=== PATIENT | female | born 1965 | race Caucasian/White ===

== ENCOUNTER 2018-02-08 09:44 | Outpatient (RCR) | payer MEDICARE, SELFPAY ==
[2018-02-08] MEDS: Heparin 500 UNITS/5 ML SYRINGE IV (10:10)
[2018-02-08] MEDS: Normal Saline Flush 10 ML SYR IVP (10:10)
== END 2018-02-10 ==
LOC: INF 09:44
PROVIDERS: PCP Family Medicine; Visit Provider Family Medicine
DX: Z45.2 Encounter for adjustment and management of vascular access device (principal)
CPT/HCPCS: 96523

== ENCOUNTER → 2018-04-26 10:14 | Outpatient (BNVA) | payer MEDICARE, SELFPAY | PROVIDERS: PCP Family Medicine; Referring Provider Family Medicine; Visit Provider Student in an Organized Health Care Education/Training Program | DX: M75.82 Other shoulder lesions, left shoulder (principal); E11.9 Type 2 diabetes mellitus without complications; Z79.84 Long term (current) use of oral hypoglycemic drugs; I10 Essential (primary) hypertension | CPT/HCPCS: 20610; 99213; J1040 ==

== ENCOUNTER → 2018-06-14 10:32 | Outpatient (BNVA) | payer MEDICARE, SELFPAY | PROVIDERS: PCP Family Medicine; Referring Provider Family Medicine; Visit Provider Student in an Organized Health Care Education/Training Program | DX: M75.82 Other shoulder lesions, left shoulder (principal); S93.402A Sprain of unspecified ligament of left ankle, initial encounter; E11.9 Type 2 diabetes mellitus without complications; Z79.84 Long term (current) use of oral hypoglycemic drugs; I10 Essential (primary) hypertension; X50.1XXA Overexertion from prolonged static or awkward postures, initial encounter | CPT/HCPCS: 99214 ==

== ENCOUNTER 2018-06-14 11:16 | Outpatient (CLI) | payer MEDICARE, SELFPAY ==
--- NOTE | 2018-06-14 11:05 | DI.RAD_ITS ---
SYMPTOMS/DIAGNOSIS: LT ANKLE INJURY LEFT ANKLE: There is no fracture or ankle mortise widening. There is mild spurring from the malleoli. Calcaneal spurs are seen. IMPRESSION: No acute abnormality.
== END 2018-06-14 11:36 ==
PROVIDERS: PCP Family Medicine; Visit Provider Student in an Organized Health Care Education/Training Program
DX: S93.402A Sprain of unspecified ligament of left ankle, initial encounter (principal); M77.32 Calcaneal spur, left foot
CPT/HCPCS: 99214; 73610

== ENCOUNTER 2018-06-17 15:07 | Emergency (ER) | payer MEDICARE, SELFPAY ==
[2018-06-17 15:10] VITALS: BP 126/88; PULSE 66; RESP 14; TEMP 36.7; O2SAT 100
--- NOTE | 2018-06-17 15:38 | ED.GENADUL_ITS ---
Discharge Plan Disposition Patient Disposition: HOME Condition: Fair Discharge Details Chief Complaint: Nk/Back Pain Clinical Impression: Back pain Primary Care Provider: Katarina Rodriguez ED Provider: Zoey Car [place] Meds and New Rx's Prescriptions: New diazepam [Valium] 5 mg tablet 5 mg PO BID Qty: 4 RF: 0 Continued ketamine thom 10 mg PO QID PRNRF: 0 ketamine/lidocaine 1 applic Topical HS RF: 0 zaleplon 10 MG capsule 10 mg PO HS RF: 0 polyethylene glycol 3350 [Miralax] 17 GM powder in packet 255 gm PO for colonosocpy Qty: 1 RF: 0 losartan 25 MG tablet 100 mg PO DAILY RF: 0 Zyrtec 10 MG capsule 10 mg PO DAILY RF: 0 meloxicam 15 MG tablet 15 mg PO DAILY RF: 0 ondansetron 4 MG tablet,disintegrating 4 mg PO TID PRN PRNRF: 0 bisacodyl [Dulcolax (bisacodyl)] 5 MG tablet,delayed release (DR/EC) 5 mg PO BID PRNQty: 10 RF: 0 topiramate [Topamax] 100 MG tablet 500 mg PO BID RF: 0 duloxetine [Cymbalta] 30 MG capsule,delayed release(DR/EC) 30 mg PO BID RF: 0 ascorbic acid (vitamin C) 1,000 MG tablet 1 tab PO DAILY RF: 0 cholecalciferol (vitamin D3) 1,000 UNITS tablet 1 tab PO DAILY RF: 0 pantoprazole [Protonix] 20 MG tablet,delayed release (DR/EC) 20 mg PO DAILY RF: 0 baclofen 10 MG tablet 10 mg PO BID RF: 0 ketamine 50 MG/ML solution 2 spray NS QID PRNRF: 0 lorazepam 1 MG tablet 1 mg PO DIRECTED RF: 0 polyethylene glycol 3350 17 GM powder in packet 2 pkt PO PRN PRNRF: 0 misoprostol 200 MCG tablet 200 mcg PO DAILY RF: 0 ProAir HFA 200 PUFF HFA aerosol inhaler 2 puff Inhalation PRN PRNRF: 0 Symbicort 10.2 GM HFA aerosol inhaler 2 puff Inhalation DAILY PRN PRNRF: 0 clonidine HCl [Catapres] 0.1 MG tablet 0.1 mg PO DIRECTED PRNQty: 0 RF: 0 acetaminophen [Acetaminophen Extra Strength] 500 MG tablet 1,000 mg PO TID PRNQty: 180 RF: 0 Lyrica 100 MG capsule 50 mg PO BID RF: 0 aspirin 325 MG tablet,delayed release (DR/EC) 81 mg PO DAILY RF: 0 metformin 500 MG tablet extended release 24 hr 500 mg PO DAILY RF: 0 furosemide 20 MG tablet 20 mg PO PRN PRNRF: 0 Discharge Instructions Instructions: Back Pain (ED) Additional Instructions: Encourage hydration. Encourage gentle stretching and frequent ambulation. Tylenol and/or Motrin as needed for discomfort. Valium as prescribed for muscle relaxation, please take only as prescribed. Follow up with primary care this week for reevaluation. Physical therapy referral is attached. If you develop change in urinary or bowel habits, altered sensation, weakness, fevers/chills or other new/worsening symptoms please seek care urgently once again. Stand Alone Forms: Physical Therapy Referral Referrals: Katarina Rodriguez MD [Primary Care Provider] - Discharge Data Discharge Date/Time-TO BE ENTERED AT DEPARTURE: 06/17/18 20:24 Medical Decision Making Patient is a 52 year old female presenting today with c/c of left sided back pain. Patient has history of neck pain, complex regional paini syndrome, neuralgia, cholecystitis, hypertension, GERD, migrain, back pain, DM, obesity, asthma. Patient reports that 6 days ago she caught her shoe going down 4 steps. States that she missed the last 1-2 steps and twisted. States seh was able to catch herself and did not fall. Pain is lont the thoracic and lower back into the left buttock. Pain does not radiate into limb, does radiate into the left buttock. Denies othe rinjury at the time of the incident. States she has tried Baclofen, Tylenol, Meloxicam and Aleve. States she took Meloxicam this morning as well as Tylenol. Baclofen was last taken yestreday. On exam, patient appears comfortable. She is moving well. Good strength in bilateral lower extremities, no saddle paresthesias. Neuro exam is intact. No midline pain or paraspinal discomfort with palpation. Full ROM, pain with extremes of rotation along the left lateral side of her back. Patients pain is very diffuse. As she is not having midline tenderness, did not have any trauma, I have low suspicion for bony abnoramlity. Plan to treat patients pain with oral valium and lidoderm patch. She has maximized her use of NSAID and Acetaminophen prior to arrival. Reevaluated after she had her right knee and Valium. She reports no improvement. She continues to look very comfortable. Is currently texting on her phone. She has been up to about the room. I did encourage stretching while here. We will augment medications as already had thus far with oral oxycodone. Patient has maximized the use of Tylenol and anti-inflammatories today already. After oral oxycodone, patient reports the pain is unchanged. Her pain is difficult to assess as the patient continues to appear comfortable. She is moving well. She is texting on her phone. At this point, she has utilized acetaminophen, anti-inflammatory, topical options, muscle relaxer as well as opiates. She does have a long history of chronic pain which may also be contributing to the current discomfort as well as difficulty treating this. I had discussed this initially with the patient and reiterated this again. Patient will be given Flexeril. However, I advised that if this is unsuccessful this may be a roasterman treatment requiring physical therapy. Specially given the patient's history, I am hesitant to continue with opiates. After oral Flexeril, she is reporting that pain is improving. Patient continues to move well and is requesting discharge. Referral for PT given. Encouraged ROM and frequent ambulation. We discussed topical and home remedies to help with discomfort. ADvised on strict return precautions. She will contact PCP Tuesday to schedule follow up appointment. Encouraged hydration. She is requesting Valium for home use, will give a small amount of this. She will not drive while taking this medication. Will not take with Flexeril. All of her questions and concerns were addressed, she is in agreement with this plan. HPI General Mode of arrival: ambulatory . Date/Time Provider Initiated Documentation: 06/17/18 15:13 . Limitations to Documentation: no limitations . Information obtained by: patient . History of Present Illness 52 year old F presents to the emergency department with the chief complaint of left sided back pain, described as severe, Quality is described as aching, and is localized to the back. Patient reports radiation to (into left buttock). Patient started experiencing this day(s) and it has been constant. No relieving factors improve symptom(s), Movement worsens symptoms . Patient notes denies chest pain, cough, fever/chills, nausea/vomiting, rash, shortness of breath and weakness. Patient did receive the following treatments prior to arrival, NSAID Related Data Home Medications Medication Instructions Recorded Confirmed losartan 100 mg PO DAILY 09/01/12 06/17/18 Zyrtec 10 mg PO DAILY 11/20/12 06/17/18 meloxicam 15 mg PO DAILY 03/01/13 06/17/18 ondansetron 4 mg PO TID PRN PRN 07/07/13 06/17/18 bisacodyl [Dulcolax (bisacodyl)] 5 mg PO BID PRN #10 tablet. 07/26/13 06/17/18 duloxetine [Cymbalta] 30 mg PO BID 09/15/13 06/17/18 topiramate [Topamax] 500 mg PO BID 09/15/13 06/17/18 ascorbic acid (vitamin C) 1 tab PO DAILY 07/18/14 06/17/18 cholecalciferol (vitamin D3) 1 tab PO DAILY 07/18/14 06/17/18 baclofen 10 mg PO BID 08/26/14 06/17/18 pantoprazole [Protonix] 20 mg PO DAILY 08/26/14 06/17/18 ketamine 2 spray NS QID PRN 05/01/15 06/17/18 ProAir HFA 2 puff INHALATION PRN PRN 08/04/15 06/17/18 Symbicort 2 puff INHALATION DAILY PRN PRN 08/04/15 06/17/18 lorazepam 1 mg PO DIRECTED 08/04/15 06/17/18 misoprostol 200 mcg PO DAILY 08/04/15 06/17/18 polyethylene glycol 3350 2 pkt PO PRN PRN 08/04/15 06/17/18 Ketamine Thom 10 mg PO QID PRN 03/10/16 06/17/18 Ketamine/Lidocaine 1 applic TOPICAL HS 03/10/16 06/17/18 Lyrica 50 mg PO BID 05/01/16 06/17/18 aspirin 81 mg PO DAILY 09/20/16 06/17/18 metformin 500 mg PO DAILY 09/21/16 06/17/18 zaleplon 10 mg PO HS tab-cap 10/01/16 06/17/18 clonidine HCl [Catapres] 0.1 mg PO DIRECTED PRN #0 10/21/16 06/17/18 acetaminophen [Acetaminophen Extra 1,000 mg PO TID PRN #180 tab 02/22/17 06/14/18 Strength] furosemide 20 mg PO PRN PRN 04/26/17 06/17/18 polyethylene glycol 3350 [Miralax] 255 gm PO for colonosocpy #1 gm 05/18/17 06/17/18 diazepam [Valium] 5 mg PO BID #4 tab 06/17/18 Previous Rx's Medication Instructions Recorded bisacodyl [Dulcolax (bisacodyl)] 5 mg PO BID PRN #10 tablet. 07/26/13 clonidine HCl [Catapres] 0.1 mg PO DIRECTED PRN #0 10/21/16 acetaminophen [Acetaminophen Extra 1,000 mg PO TID PRN #180 tab 02/22/17 Strength] polyethylene glycol 3350 [Miralax] 255 gm PO for colonosocpy #1 gm 05/18/17 diazepam [Valium] 5 mg PO BID #4 tab 06/17/18 Allergies Allergy/AdvReac Type Severity Reaction Status Date / Time phenytoin sodium Allergy Severe Hives Unverified 06/17/18 15:13 [From Dilantin] phenytoin sodium extended Allergy Severe Hives Unverified 06/17/18 15:13 [From Dilantin] amoxicillin [Amoxicillin] Allergy Intermediate Hives Unverified 06/17/18 15:13 potassium clavulanate Allergy Intermediate Hives Unverified 06/17/18 15:13 [From Augmentin] Sulfa (Sulfonamide Allergy Mild Skin Rash Unverified 06/17/18 15:13 Antibiotics) tomato [Tomato] Allergy Mild Skin Rash Unverified 06/17/18 15:13 sumatriptan [From Imitrex] AdvReac Severe Visual Unverified 06/17/18 15:13 Disturbances,burning sensation through out body General Stated Complaint: Nk/Back Pain HARRIET: 4 Review of Systems Constitutional Reports as per HPI, Denies chills, Denies fever(s), Denies headache(s) and Denies weakness ENT Denies headache(s) and Denies neck pain Cardiovascular Reports as per HPI Respiratory Reports as per HPI and Denies cough Gastrointestinal Denies abdominal pain, Denies change in stool character and Denies fecal incontinence Genitourinary Denies urinary incontinence Musculoskeletal Reports as per HPI, Denies abnormal gait, Reports back pain, Denies deformity, Denies neck pain, Denies numbness, Reports stiffness and Denies tingling Integumentary/Breasts Reports as per HPI, Denies rash and Denies wounds Neurologic Denies abnormal gait, Denies headache(s), Denies numbness, Denies tingling and Denies weakness [facility] Medical History Asthma DM (diabetes mellitus) GERD (gastroesophageal reflux disease) HTN (hypertension) Obesity Otalgia Tendinitis Surgical History Colonoscopy - MAC (06/15/17) Mediport placement (05/02/15) Social History Smoking/Tobacco Use Status: Former Tobacco Use Exam Const General: cooperative, healthy appearing, comfortable, no acute distress, well developed and well groomed Nutritional Appearance: average body habitus and well nourished Orientation: alert and awake Resp Effort & Inspection: normal respiratory effort, able to speak in complete sentences and no respiratory distress Auscultation: clear to auscultation bilaterally, no rales, no rhonchi and no wheezes Cardio Rate: regular rate Rhythm: regular rhythm Heart Sounds: S1 normal and S2 normal Back/Spine/Pelvis Back: no CVA tenderness Cervical Spine: normal cervical lordosis and cervical ROM normal Thoracic/Lumbar Spine: thoracic and lumbar spine normal to inspection, thoraco- lumbar ROM normal (has good ROM but pain with ROM, particualrly with rotational movements), bend over test abnormal, No mass, pain with thoraco-lumbar ROM, No paraspinal tenderness and straight leg raise positive (on left side) Pelvis: no pain with anterior-posterior compression and no pain with lateral compression Sacroiliac joints: on the left tender to palpation Skin General skin exam: no rashes or lesions noted Lesions: no lesions Rashes: no rashes Trauma: no lacerations or abrasions Neuro General: alert and awake Cognition: normal cognition Speech: speech normal Gait: normal gait Motor: muscle tone normal throughout, strength 5/5 throughout and no fasciculations Sensory Exam: no sensory deficits noted (no saddle paresthesias noted) DTR's: Rt Patellar: 2+, Lt Patellar: 2+, Rt Ankle: 2+ and Lt Ankle: 2+ Extrem General: normal to inspection, normal capillary refill, no pedal edema, no calf tenderness and normal gait Right lower extremity: normal to inspection, full ROM and normal capillary refill Left lower extremity: normal to inspection, full ROM and normal capillary refill Psych Appearance: grossly normal and well kempt Mental Status: mental status grossly normal Speech and Movement: speech and movement normal Course Vital Signs Temperature 36.7 C 06/17/18 15:10 Pulse 66 06/17/18 15:10 Respiratory Rate 14 06/17/18 15:10 Blood Pressure 126/88 06/17/18 15:10 Pulse Oximetry 100 06/17/18 15:10 Temperature 36.7 C 06/17/18 15:10 Temperature Source Temporal Artery Scan 06/17/18 15:10 Pulse 66 06/17/18 15:10 Respiratory Rate 14 06/17/18 15:10 Respiratory Effort Non-Labored 06/17/18 15:12 Blood Pressure 126/88 06/17/18 15:10 Blood Pressure Position Sitting 06/17/18 15:10 Pulse Oximetry 100 06/17/18 15:10 Oxygen Delivery Method Room Air 06/17/18 15:10 Oxygen Flow Rate 0 06/17/18 15:10 Pain Level 8 06/17/18 15:10
[2018-06-17] MEDS: Diazepam 5 MG TAB PO ×2 (15:49→20:20)
[2018-06-17] MEDS: Lidocaine 5% Patch 1 PATCH TP (15:49)
--- NOTE | 2018-06-17 16:36 | NUR.NOTE ---
Nursing Note:AMbulated to restroom with no acute distress. plan to medicate with po oxycodone
[2018-06-17] MEDS: oxyCODONE 5 MG TAB PO (16:39)
[2018-06-17] MEDS: Cyclobenzaprine 10 MG TAB PO (18:29)
--- NOTE | 2018-06-17 19:12 | NUR.NOTE ---
Nursing Note:No acute changes, patient continues to have pain . ambulating in halls to restroom. will continue to monitor.
== END 2018-06-17 20:24 | disposition home or self-care (01) ==
PROVIDERS: Emergency Provider Physician Assistant; PCP Family Medicine
DX: M54.6 Pain in thoracic spine (principal); M54.5 Low back pain; I10 Essential (primary) hypertension; E11.9 Type 2 diabetes mellitus without complications
CPT/HCPCS: 99283

== ENCOUNTER 2018-06-19 00:56 | Outpatient (CLI) | payer MEDICARE, SELFPAY ==
--- NOTE | 2018-06-19 09:42 | DI.MRI_ITS ---
SYMPTOM/DIAGNOSIS: CONTINUED PAIN AND WEAKNESS, LT ROTATOR CUFF TEAR LEFT SHOULDER MRI: Routine noncontrast examination. Comparison is made with 08/26/16. Post surgical changes are again seen in the left shoulder. The supraspinatus, infraspinatus, teres minor and subscapularis tendons are intact. No evidence of a tear is seen. The muscles show normal signal and size. No significant muscular or fatty atrophy is present. There is no evidence of a biceps tendon tear. The labrum appears grossly unremarkable on this noncontrast examination. Marrow signal is within normal limits. No evidence of an occult fracture or avascular necrosis is seen. No abnormal focal fluid collection or soft tissue mass is seen. The visualized ligaments are grossly unremarkable. IMPRESSION: No evidence of a rotator cuff or labral tear on this noncontrast examination.
== END 2018-06-19 01:16 ==
PROVIDERS: PCP Family Medicine; Visit Provider Student in an Organized Health Care Education/Training Program
DX: M25.512 Pain in left shoulder (principal); M75.82 Other shoulder lesions, left shoulder; R29.898 Other symptoms and signs involving the musculoskeletal system
CPT/HCPCS: 73221

== ENCOUNTER → 2018-07-12 09:45 | Outpatient (BNVA) | payer MEDICARE, SELFPAY | PROVIDERS: PCP Family Medicine; Referring Provider Family Medicine; Visit Provider Student in an Organized Health Care Education/Training Program | DX: M75.82 Other shoulder lesions, left shoulder (principal) | CPT/HCPCS: 99213 ==

== ENCOUNTER 2018-07-23 13:54 | Emergency (ER) | payer MEDICARE, SELFPAY ==
[2018-07-23 14:10] VITALS: BP 134/94; PULSE 75; RESP 16; O2SAT 97
--- NOTE | 2018-07-23 14:55 | DI.RAD_ITS ---
SYMPTOMS/DIAGNOSIS: PAIN LEFT FEMUR AND LEFT HIP AND PELVIS: No acute fracture or dislocation is seen. Degenerative changes are seen in the lumbar spine, hips and sacroiliac joints. The soft tissues are unremarkable. IMPRESSION: No acute fracture or dislocation.
[2018-07-23] MEDS: Lidocaine 5% Patch 1 PATCH TP (15:01)
[2018-07-23] MEDS: Ibuprofen 600 MG TAB PO (15:01)
--- NOTE | 2018-07-23 15:54 | ED.GENADUL_ITS ---
Discharge Plan Disposition Patient Disposition: HOME Condition: Stable Discharge Details Chief Complaint: Orthopedic Clinical Impression: Lower extremity pain, left, Piriformis syndrome of left side Reason For Visit: left leg pain no injury Primary Care Provider: Katarina Rodriguez ED Provider: David Jiang Home Meds and New Rx's Prescriptions: Continued ketamine thom 10 mg PO QID PRNRF: 0 ketamine/lidocaine 1 applic Topical HS RF: 0 polyethylene glycol 3350 [Miralax] 17 GM powder in packet 255 gm PO for colonosocpy Qty: 1 RF: 0 losartan 25 MG tablet 100 mg PO DAILY RF: 0 Zyrtec 10 MG capsule 10 mg PO DAILY RF: 0 meloxicam 15 MG tablet 15 mg PO DAILY RF: 0 ondansetron 4 MG tablet,disintegrating 4 mg PO TID PRN PRNRF: 0 bisacodyl [Dulcolax (bisacodyl)] 5 MG tablet,delayed release (DR/EC) 5 mg PO BID PRNQty: 10 RF: 0 topiramate [Topamax] 100 MG tablet 500 mg PO BID RF: 0 duloxetine [Cymbalta] 30 MG capsule,delayed release(DR/EC) 30 mg PO BID RF: 0 ascorbic acid (vitamin C) 1,000 MG tablet 1 tab PO DAILY RF: 0 cholecalciferol (vitamin D3) 1,000 UNITS tablet 1 tab PO DAILY RF: 0 pantoprazole [Protonix] 20 MG tablet,delayed release (DR/EC) 20 mg PO DAILY RF: 0 baclofen 10 MG tablet 10 mg PO BID RF: 0 ketamine 50 MG/ML solution 2 spray NS QID PRNRF: 0 lorazepam 1 MG tablet 1 mg PO DIRECTED RF: 0 polyethylene glycol 3350 17 GM powder in packet 2 pkt PO PRN PRNRF: 0 misoprostol 200 MCG tablet 200 mcg PO DAILY RF: 0 ProAir HFA 200 PUFF HFA aerosol inhaler 2 puff Inhalation PRN PRNRF: 0 Symbicort 10.2 GM HFA aerosol inhaler 2 puff Inhalation DAILY PRN PRNRF: 0 clonidine HCl [Catapres] 0.1 MG tablet 0.1 mg PO DIRECTED PRNQty: 0 RF: 0 acetaminophen [Acetaminophen Extra Strength] 500 MG tablet 1,000 mg PO TID PRNQty: 180 RF: 0 ibuprofen 400 mg Tablet 800 mg PO QID RF: 0 Lyrica 100 MG capsule 50 mg PO BID RF: 0 aspirin 325 MG tablet,delayed release (DR/EC) 81 mg PO DAILY RF: 0 metformin 500 MG tablet extended release 24 hr 500 mg PO DAILY RF: 0 furosemide 20 MG tablet 20 mg PO PRN PRNRF: 0 diazepam [Valium] 5 mg tablet 5 mg PO BID Qty: 4 RF: 0 Discharge Instructions Instructions: Sciatica (ED), Leg Pain (ED) Additional Instructions: Please keep your appointment with physical therapy tomorrow and follow-up with your primary care provider if not improving over the next week. Feel free to return to the emergency department for any further needs reassessment. Continue to take your medication as prescribed including your muscle relaxers and your pain medication. Referrals: Katarina Rodriguez MD [Primary Care Provider] - (If not improving over the next week) Discharge Data Discharge Date/Time-TO BE ENTERED AT DEPARTURE: 07/23/18 16:11 Medical Decision Making Left lateral leg pain, present for over a week, one near fall and one fall. Patient been in physical therapy for over a month now after fall and injury to left back with diagnosis of piriformis syndrome. Patient having radiculopathy type symptoms today without positive straight leg raise. Concern for piriformis radiating pain down leg or muscular strain of lateral aspect of thigh. Given patient report of fall and pain x-ray imaging was ordered. Review of imaging shows no acute fracture or dislocation. Patient was encouraged to continue to use NSAIDs which were prescribed and for to follow-up with primary care provider if not improving over the next week. Return precautions discussed. After discussion of diagnosis and plan of care patient has no further needs, questions, or concerns and states clear understanding to return to the emergency department for any worsening symptoms. HPI General Mode of arrival: ambulatory . Date/Time Provider Initiated Documentation: 07/23/18 14:06 . Limitations to Documentation: no limitations . Information obtained by: patient, RN notes reviewed and old records reviewed . History of Present Illness 53 year old F presents to the emergency department with the chief complaint of left leg pain, described as moderate, Quality is described as sharp, and is localized to the left and lower extremity. Patient distal. Patient started experiencing this week(s) (1) and it has been constant. Movement worsens symptoms . Patient did receive the following treatments prior to arrival, none Related Data Home Medications Medication Instructions Recorded Confirmed losartan 100 mg PO DAILY 09/01/12 07/23/18 Zyrtec 10 mg PO DAILY 11/20/12 07/23/18 meloxicam 15 mg PO DAILY 03/01/13 07/23/18 ondansetron 4 mg PO TID PRN PRN 07/07/13 07/23/18 bisacodyl [Dulcolax (bisacodyl)] 5 mg PO BID PRN #10 tablet. 07/26/13 07/23/18 duloxetine [Cymbalta] 30 mg PO BID 09/15/13 07/23/18 topiramate [Topamax] 500 mg PO BID 09/15/13 07/23/18 ascorbic acid (vitamin C) 1 tab PO DAILY 07/18/14 07/23/18 cholecalciferol (vitamin D3) 1 tab PO DAILY 07/18/14 07/23/18 baclofen 10 mg PO BID 08/26/14 07/23/18 pantoprazole [Protonix] 20 mg PO DAILY 08/26/14 07/23/18 ketamine 2 spray NS QID PRN 05/01/15 07/23/18 ProAir HFA 2 puff INHALATION PRN PRN 08/04/15 07/23/18 Symbicort 2 puff INHALATION DAILY PRN PRN 08/04/15 07/23/18 lorazepam 1 mg PO DIRECTED 08/04/15 07/23/18 misoprostol 200 mcg PO DAILY 08/04/15 07/23/18 polyethylene glycol 3350 2 pkt PO PRN PRN 08/04/15 07/23/18 Ketamine Thom 10 mg PO QID PRN 03/10/16 07/23/18 Ketamine/Lidocaine 1 applic TOPICAL HS 03/10/16 07/23/18 Lyrica 50 mg PO BID 05/01/16 07/23/18 aspirin 81 mg PO DAILY 09/20/16 07/23/18 metformin 500 mg PO DAILY 09/21/16 07/23/18 clonidine HCl [Catapres] 0.1 mg PO DIRECTED PRN #0 10/21/16 07/23/18 acetaminophen [Acetaminophen Extra 1,000 mg PO TID PRN #180 tab 02/22/17 07/23/18 Strength] furosemide 20 mg PO PRN PRN 04/26/17 07/23/18 polyethylene glycol 3350 [Miralax] 255 gm PO for colonosocpy #1 gm 05/18/17 07/23/18 diazepam [Valium] 5 mg PO BID #4 tab 06/17/18 07/23/18 ibuprofen 800 mg PO QID 07/23/18 07/23/18 Previous Rx's Medication Instructions Recorded bisacodyl [Dulcolax (bisacodyl)] 5 mg PO BID PRN #10 tablet. 07/26/13 clonidine HCl [Catapres] 0.1 mg PO DIRECTED PRN #0 10/21/16 acetaminophen [Acetaminophen Extra 1,000 mg PO TID PRN #180 tab 02/22/17 Strength] polyethylene glycol 3350 [Miralax] 255 gm PO for colonosocpy #1 gm 05/18/17 diazepam [Valium] 5 mg PO BID #4 tab 06/17/18 Allergies Allergy/AdvReac Type Severity Reaction Status Date / Time phenytoin sodium Allergy Severe Hives Unverified 07/23/18 14:13 [From Dilantin] phenytoin sodium extended Allergy Severe Hives Unverified 07/23/18 14:13 [From Dilantin] amoxicillin [Amoxicillin] Allergy Intermediate Hives Unverified 07/23/18 14:13 potassium clavulanate Allergy Intermediate Hives Unverified 07/23/18 14:13 [From Augmentin] Sulfa (Sulfonamide Allergy Mild Skin Rash Unverified 07/23/18 14:13 Antibiotics) tomato [Tomato] Allergy Mild Skin Rash Unverified 07/23/18 14:13 sumatriptan [From Imitrex] AdvReac Severe Visual Unverified 07/23/18 14:13 Disturbances,burning sensation through out body General Stated Complaint: Orthopedic HARRIET: 4 Review of Systems Constitutional Denies chills and Denies fever(s) ENT Denies neck pain Cardiovascular Denies chest pain, Denies syncope and Denies dyspnea Respiratory Denies dyspnea Musculoskeletal Denies back pain, Reports myalgias, Denies limited range of motion, Denies muscle cramps, Denies muscle weakness, Denies neck pain, Denies numbness, Report s radiating pain into limb and Reports tingling Integumentary/Breasts Denies rash Neurologic Denies syncope, Denies numbness and Reports tingling [facility] Medical History Asthma DM (diabetes mellitus) GERD (gastroesophageal reflux disease) HTN (hypertension) Obesity Otalgia Tendinitis Surgical History Colonoscopy - MAC (06/15/17) Mediport placement (05/02/15) Social History Smoking and Tabacco status: Former Tobacco Use Exam Const General: cooperative, no acute distress and not ill appearing Orientation: alert, awake and oriented x3 HENMT Mouth: moist mucous membranes Resp Effort & Inspection: normal respiratory effort, able to speak in complete sentences and no respiratory distress Cardio Rate: regular rate Rhythm: regular rhythm Skin General skin exam: no rashes or lesions noted Neuro General: alert, awake, oriented x3, moves all extremities and no focal motor deficits Sensory Exam: no sensory deficits noted Extrem Left lower extremity: normal capillary refill, no joint enlargement, hip/thigh Details: tenderness Location: of the proximal upper leg Location: laterally and of the mid upper leg Location: laterally, swelling Location: of the proximal upper leg (lateral) and normal ROM; no abrasions, no ecchymosis, no crepitus and no unusual warmth, knee Details: normal to inspection and normal ROM; no tenderness and no swelling, lower leg Details: no erythema, no tenderness, no localized swelling and no palpable cords, ankle Details: normal to inspection and normal ROM; no tenderness and foot Details: normal capillary refill, no edema, vascular exam Details: dorsalis pedis pulse present, posterior tibial pulse present and normal capillary refill and motor-sensory exam Details: two point discrimination normal and light-touch normal; no tenderness, no unusual warmth and no ecchymosis Course Vital Signs Pulse 75 07/23/18 14:10 Respiratory Rate 16 07/23/18 14:10 Blood Pressure 134/94 H 07/23/18 14:10 Pulse Oximetry 97 07/23/18 14:10 Pulse 75 07/23/18 14:10 Respiratory Rate 16 07/23/18 14:10 Respiratory Effort 07/23/18 14:12 Blood Pressure 134/94 H 07/23/18 14:10 Blood Pressure Position Supine 07/23/18 14:10 Pulse Oximetry 97 07/23/18 14:10 Oxygen Delivery Method Room Air 07/23/18 14:10 Oxygen Flow Rate 0 07/23/18 14:10 Pain Level 8 07/23/18 15:01
--- NOTE | 2018-07-23 16:18 | DI.VRAD_ITS ---
EXAM: XR Left Femur, 2 Views EXAM DATE/TIME: 07/23/2018 2:57 PM CLINICAL HISTORY: 53 years old, female; Signs and symptoms; Other: Pain TECHNIQUE: XR Left femur, 2 views COMPARISON: No relevant prior studies available. 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 Normal bone density. No fracture or avascular necrosis. Soft tissues: Normal. IMPRESSION: No acute bone or joint abnormality. Dictated and Authenticated by: Dusty Santiago MD. Ordering:DORIS Hernandez MD
--- NOTE | 2018-07-23 16:19 | DI.VRAD_ITS ---
EXAM: XR Left Hip with Pelvis when Performed, 2 or 3 Views EXAM DATE/TIME: 07/23/2018 3:23 PM CLINICAL HISTORY: 53 years old, female; Signs and symptoms; Other: Pain TECHNIQUE: XR Left hip with pelvis when performed, 2 or 3 views COMPARISON: CR LEFT HIP COMPLETE 11/20/2012 7:37 PM FINDINGS: Bones/joints: Degenerative changes within the lower lumbar spine. Mild degenerative arthrosis of the sacroiliac joints. Mild degenerative changes within the hip joints. Normal bone density. No fracture or avascular necrosis. Soft tissues: Normal. IMPRESSION: No acute bone or joint abnormality. Dictated and Authenticated by: Dusty Santiago MD. Ordering:DORIS Hernandez MD
== END 2018-07-23 16:11 | disposition home or self-care (01) ==
PROVIDERS: Emergency Provider Nurse Practitioner Family; PCP Family Medicine
DX: M62.838 Other muscle spasm (principal); M79.605 Pain in left leg
CPT/HCPCS: 73552; 99284; 73502

== ENCOUNTER → 2018-08-07 10:45 | Outpatient (BNVA) | payer MEDICARE, SELFPAY | PROVIDERS: PCP Family Medicine; Referring Provider Family Medicine; Visit Provider Student in an Organized Health Care Education/Training Program | DX: M70.62 Trochanteric bursitis, left hip (principal) | CPT/HCPCS: 20610; 99213; J1040 ==

== ENCOUNTER 2018-09-05 09:53 | Outpatient (RCR) | payer MEDICARE, SELFPAY ==
[2018-09-05] MEDS: Normal Saline Flush 10 ML SYR 30 ML IVP (12:05)
[2018-09-05] MEDS: Heparin 500 UNITS/5 ML SYRINGE (12:05)
[2018-09-05 12:44] LABS: ALT 33 U/L (12-78); AST 13 U/L (15-37); Albumin 3.9 g/dL (3.4-5.0); Alkaline Phosphatase 82 U/L (46-116); Anion Gap 11.4 mmol/L (3-11); BUN 10 mg/dL (7-18); Bilirubin, Total 0.4 mg/dL (0.2-1.0); CO2 25.6 mmol/L (21.0-32.0); CREATININE 0.99 mg/dL (0.55-1.02); Calcium 8.5 mg/dL (8.5-10.1); Chloride 104 mmol/L (98-107); Glucose 103 mg/dL (70-100); Potassium 3.9 mmol/L (3.5-5.1); Sodium 141 mmol/L (136-145); Total Protein 7.3 g/dL (6.4-8.2)
[2018-09-06 12:54] LABS: HCT 41.4 % (36.0-46.0); HGB 13.3 g/dL (12.0-15.5); Mean Corp. HGB Concentration 32.1 g/dL (32.0-36.0); Mean Corpuscular Hemoglobin 29.8 pg (27.0-33.0); Mean Corpuscular Volume 92.6 fL (80-95); Mean Platelet Volume 10.8 fL (8.0-11.0); Platelet Count 261 x1000/uL (130-400); RBC 4.47 m/cumm (4.00-5.20); RBC Distribution Width 13.9 % (11.7-14.6); White Blood Cell Count 7.77 k/cumm (4.4-10.8)
[2018-09-06 13:16] LABS: Hemoglobin A1C 6.6 % (4.5-6.2)
== END 2018-09-10 23:59 | disposition home or self-care (01) ==
LOC: INF 09:53
PROVIDERS: PCP Family Medicine; Visit Provider Family Medicine
DX: K76.0 Fatty (change of) liver, not elsewhere classified (principal); Z45.2 Encounter for adjustment and management of vascular access device
CPT/HCPCS: 36591; 80053; 85027; 83036

== ENCOUNTER → 2018-09-11 09:09 | Outpatient (BNVA) | payer MEDICARE, SELFPAY | PROVIDERS: PCP Family Medicine; Referring Provider Family Medicine; Visit Provider Student in an Organized Health Care Education/Training Program | DX: M75.82 Other shoulder lesions, left shoulder (principal); M70.62 Trochanteric bursitis, left hip; Z98.890 Other specified postprocedural states | CPT/HCPCS: 99212; 99213 ==

== ENCOUNTER 2018-09-11 14:39 | Outpatient (REF) | payer MEDICARE, SELFPAY ==
[2018-09-11 19:21] LABS: COMMENT (LAB VIEW ONLY) 153.06 mg/dL
== END 2018-09-11 14:59 ==
LOC: NCHCN 14:39
PROVIDERS: PCP Family Medicine; Visit Provider Family Medicine
DX: E11.9 Type 2 diabetes mellitus without complications (principal)
CPT/HCPCS: 82043; 82570

== ENCOUNTER 2018-09-14 18:26 | Emergency (ER) | payer MEDICARE, SELFPAY ==
[2018-09-14 18:42] VITALS: BP 123/90; PULSE 82; RESP 18; TEMP 36.4; O2SAT 97
--- NOTE | 2018-09-14 19:16 | DI.CT_ITS ---
SYMPTOM/DIAGNOSIS: RT SIDED HEADACHE, H/O MIGRAINES, ? BLEED OR CVA CRANIAL CT (WITHOUT CONTRAST): A noncontrast cranial CT was performed. The ventricular system is normal in appearance. There is no evidence of an intracranial mass lesion. There is no evidence of a subdural or epidural hematoma. No focal areas of decreased attenuation are seen. CONCLUSION: Normal noncontrast Cranial CT.
--- NOTE | 2018-09-14 19:18 | ED.GENADUL_ITS ---
Discharge Plan Disposition Patient Disposition: HOME Condition: Stable Discharge Details Chief Complaint: Headache Clinical Impression: Headache Primary Care Provider: Katarina Rodriguez ED Provider: Geoffrey Carroll Home Meds and New Rx's Prescriptions: No Action ketamine thom 10 mg PO QID PRNRF: 0 ketamine/lidocaine 1 applic Topical HS RF: 0 losartan 25 MG tablet 100 mg PO DAILY RF: 0 Zyrtec 10 MG capsule 10 mg PO DAILY RF: 0 meloxicam 15 MG tablet 15 mg PO DAILY RF: 0 ondansetron 4 MG tablet,disintegrating 4 mg PO TID PRN PRNRF: 0 bisacodyl [Dulcolax (bisacodyl)] 5 MG tablet,delayed release (DR/EC) 5 mg PO BID PRNQty: 10 RF: 0 topiramate [Topamax] 100 MG tablet 500 mg PO BID RF: 0 duloxetine [Cymbalta] 30 MG capsule,delayed release(DR/EC) 30 mg PO BID RF: 0 ascorbic acid (vitamin C) 1,000 MG tablet 1 tab PO DAILY RF: 0 cholecalciferol (vitamin D3) 1,000 UNITS tablet 1 tab PO DAILY RF: 0 pantoprazole [Protonix] 20 MG tablet,delayed release (DR/EC) 20 mg PO DAILY RF: 0 baclofen 10 MG tablet 10 mg PO BID RF: 0 ketamine 50 MG/ML solution 2 spray NS QID PRNRF: 0 lorazepam 1 MG tablet 1 mg PO DIRECTED RF: 0 polyethylene glycol 3350 17 GM powder in packet 2 pkt PO PRN PRNRF: 0 misoprostol 200 MCG tablet 200 mcg PO DAILY RF: 0 albuterol sulfate [ProAir HFA] 200 PUFF HFA aerosol inhaler 2 puff Inhalation PRN PRNRF: 0 Symbicort 10.2 GM HFA aerosol inhaler 2 puff Inhalation DAILY PRN PRNRF: 0 clonidine HCl [Catapres] 0.1 MG tablet 0.1 mg PO DIRECTED PRNQty: 0 RF: 0 acetaminophen [Acetaminophen Extra Strength] 500 MG tablet 1,000 mg PO TID PRNQty: 180 RF: 0 ibuprofen 400 mg Tablet 800 mg PO QID RF: 0 Lyrica 100 MG capsule 50 mg PO BID RF: 0 aspirin 325 MG tablet,delayed release (DR/EC) 81 mg PO DAILY RF: 0 metformin 500 MG tablet extended release 24 hr 500 mg PO DAILY RF: 0 furosemide 20 MG tablet 20 mg PO PRN PRNRF: 0 diazepam [Valium] 5 mg tablet 5 mg PO BID Qty: 4 RF: 0 promethazine 25 mg Tablet 25 mg PO PRN PRNRF: 0 Victoza 3-Norbert 0.6 mg/0.1 mL (18 mg/3 mL) Pen Injector 0.6 mg subcut DAILY RF: 0 hydroxyzine HCl 25 mg Tablet 1 PO PRN PRNRF: 0 naproxen [Naprosyn] 500 mg Tablet 500 mg PO DIRECTED RF: 0 Chlorsaladon 25 mg PO DAILY RF: 0 Discharge Instructions Additional Instructions: You can take 1000mg tylenol and 600mg ibuprofen every 6 hours for pain as needed follow up with your primary care provider within a week especially if symptoms continue if you feel the pain is significantly worse or you have fevers return to the emergency department Medical Decision Making <Ana Layne DO - Last Filed: 09/14/18 20:10> 53-year-old female with a history of diabetes, GERD, hypertension, asthma, obesity migraine who presents with right-sided headache x 1 week. Her migraines are usually left-sided. Pain quality and associated symptoms are similar to previous migraine and that it is intermittent, throbbing, associated with phonophobia, photophobia, nausea, and zigzag flashing lights in R eye. Vitals within normal limits. Patient appears uncomfortable but nontoxic. She has tenderness palpation upon looking in her right ear which she states is chronic. There is no evidence of ear infection. PERRL. No focal deficits. Presentation likely appears consistent with atypical migraine. She describes a gradual onset and denies thunderclap quality so not consistent with subarachnoid hemorrhage. She denies any fever or neck pain and no focal deficits, so not consistent with meningitis. Will place an IV, bolus IV fluids, Compazine, Benadryl, labs, and also obtain CT head as her headache is in a different location than her usual migraine. 1999 --Case endorsed to Dr. Carroll to follow-up on lab results and imaging, patient response to medications, and final disposition. <Geoffrey Carroll MD - Last Filed: 09/14/18 21:45> Pt signed out to me pending response to meds, and f/u on imaging and lab work. She is resting comfortably in bed, she states her pain is not better with initial meds so will order toradol as ct is negative, labs are unremarkable. She has no focal neuro deficits on exam, no meningismus so doubt transportation maintenance worker infection pt now states pain is 4/10 and would like to go home. She still has no findings on exam to suggest transportation maintenance worker infection and story is not typical for sah and do not feel lp indicated. No findings on hx or exam to suggest cerebal venous sinus thrombosos. ADvised f/u with pcp and return precautions given Imaging Data Radiologic Study: Attestation: I personally reviewed and interpreted this imaging study as follows: Imaging: CT Scan Radiologist's impression: no acute findings Lab Data Lab results reviewed: Yes I reviewed the patient's lab results. ECG Data Attestation: I personally reviewed and interpreted this ECG (s) as follows: Prior ECG tracings: not available for review Interpretation: sinus rhtyhm, rate of 63, pr 208, no acute ischemic st t wave changes HPI <Ana Layne DO - Last Filed: 09/14/18 20:10> General Mode of arrival: ambulatory . Date/Time Provider Initiated Documentation: 09/14/18 18:40 . Limitations to Documentation: no limitations . Information obtained by: patient . HPI Narrative: Patient is a 53-year-old female with history of diabetes, GERD, hypertension, obesity, asthma and migraines who presents with right-sided headache for the past week. She states she has had migraines for several years and states the headache is usually on her left side. She states the headache is on the right side of her head extending down her eye in the right side of her face. She states she has a history of right ear chronic neuralgia and trigeminal neuralgia and thinks the change in weather triggered her ear pain which then triggered a migraine. She states the pain started gradually, is intermittent, and throbbing. She states the headache is currently 10/10. She states it is worse with light, noise, and bending forward. She denies any fever, nasal discharge. She admits to nausea but denies any vomiting. She admits to seeing zigzag flashes in her right eye but states she has seen this chronically for years with her migraines. She states she has used Zofran, promethazine, Naprosyn, hydroxyzine and ketamine nose spray which she has for her ear for her headache for the past week without relief. Related Data Home Medications Medication Instructions Recorded Confirmed losartan 100 mg PO DAILY 09/01/12 09/14/18 Zyrtec 10 mg PO DAILY 11/20/12 09/14/18 meloxicam 15 mg PO DAILY 03/01/13 09/14/18 ondansetron 4 mg PO TID PRN PRN 07/07/13 09/14/18 bisacodyl [Dulcolax (bisacodyl)] 5 mg PO BID PRN #10 tablet. 07/26/13 09/14/18 duloxetine [Cymbalta] 30 mg PO BID 09/15/13 09/14/18 topiramate [Topamax] 500 mg PO BID 09/15/13 09/14/18 ascorbic acid (vitamin C) 1 tab PO DAILY 07/18/14 09/14/18 cholecalciferol (vitamin D3) 1 tab PO DAILY 07/18/14 09/14/18 baclofen 10 mg PO BID 08/26/14 09/14/18 pantoprazole [Protonix] 20 mg PO DAILY 08/26/14 09/14/18 ketamine 2 spray NS QID PRN 05/01/15 09/14/18 Symbicort 2 puff INHALATION DAILY PRN PRN 08/04/15 09/14/18 albuterol sulfate [ProAir HFA] 2 puff INHALATION PRN PRN 08/04/15 09/14/18 lorazepam 1 mg PO DIRECTED 08/04/15 09/14/18 misoprostol 200 mcg PO DAILY 08/04/15 09/14/18 polyethylene glycol 3350 2 pkt PO PRN PRN 08/04/15 09/14/18 Ketamine Thom 10 mg PO QID PRN 03/10/16 09/14/18 Ketamine/Lidocaine 1 applic TOPICAL HS 03/10/16 09/14/18 Lyrica 50 mg PO BID 05/01/16 09/14/18 aspirin 81 mg PO DAILY 09/20/16 09/14/18 metformin 500 mg PO DAILY 09/21/16 09/14/18 clonidine HCl [Catapres] 0.1 mg PO DIRECTED PRN #0 10/21/16 09/14/18 acetaminophen [Acetaminophen Extra 1,000 mg PO TID PRN #180 tab 02/22/17 09/14/18 Strength] furosemide 20 mg PO PRN PRN 04/26/17 09/14/18 diazepam [Valium] 5 mg PO BID #4 tab 06/17/18 09/14/18 ibuprofen 800 mg PO QID 07/23/18 09/14/18 Chlorsaladon 25 mg PO DAILY 09/14/18 09/14/18 hydroxyzine HCl 1 PO PRN PRN 09/14/18 liraglutide [Victoza 3-Norbert] 0.6 mg SUBCUT DAILY 09/14/18 09/14/18 naproxen [Naprosyn] 500 mg PO DIRECTED 09/14/18 09/14/18 promethazine 25 mg PO PRN PRN 09/14/18 09/14/18 Previous Rx's Medication Instructions Recorded bisacodyl [Dulcolax (bisacodyl)] 5 mg PO BID PRN #10 tablet. 07/26/13 clonidine HCl [Catapres] 0.1 mg PO DIRECTED PRN #0 10/21/16 acetaminophen [Acetaminophen Extra 1,000 mg PO TID PRN #180 tab 02/22/17 Strength] diazepam [Valium] 5 mg PO BID #4 tab 06/17/18 Allergies Allergy/AdvReac Type Severity Reaction Status Date / Time phenytoin sodium Allergy Severe Hives Unverified 09/14/18 18:48 [From Dilantin] phenytoin sodium extended Allergy Severe Hives Unverified 09/14/18 18:48 [From Dilantin] amoxicillin [Amoxicillin] Allergy Intermediate Hives Unverified 09/14/18 18:48 potassium clavulanate Allergy Intermediate Hives Unverified 09/14/18 18:48 [From Augmentin] Sulfa (Sulfonamide Allergy Mild Skin Rash Unverified 09/14/18 18:48 Antibiotics) tomato [Tomato] Allergy Mild Skin Rash Unverified 09/14/18 18:48 sumatriptan [From Imitrex] AdvReac Severe Visual Unverified 09/14/18 18:48 Disturbances,burning sensation through out body General Stated Complaint: Headache HARRIET: 2 Review of Systems <Ana Layne DO - Last Filed: 09/14/18 20:10> Review of Systems All systems reviewed & are unremarkable except as noted in HPI and below Constitutional Reports as per HPI, Denies chills, Denies fever(s) and Reports headache(s) Eyes Denies blurry vision ENT Denies dizziness, Reports headache(s), Denies sore throat and Denies throat swelling Cardiovascular Denies chest pain and Denies dyspnea Respiratory Denies cough and Denies dyspnea Gastrointestinal Denies abdominal pain, Denies diarrhea, Reports nausea and Denies vomiting Genitourinary Denies hematuria and Denies dysuria Musculoskeletal Denies back pain, Denies numbness and Reports tingling (in fingertips bilaterally.) Integumentary/Breasts Denies lesions and Denies rash Neurologic Denies dizziness, Reports headache(s), Denies focal weakness, Denies numbness, Reports tingling (in fingertips bilaterally.) and Reports other (Photophobia and phonophobia) Allergic/Immunologic Denies throat swelling PFSH <Ana Layne DO - Last Filed: 09/14/18 20:10> Medical History Migraine (Chronic) Asthma DM (diabetes mellitus) GERD (gastroesophageal reflux disease) HTN (hypertension) Obesity Otalgia Tendinitis Surgical History History of eye surgery (Acute) History of knee surgery (Acute) H/O shoulder surgery (Chronic) History of appendectomy (Chronic) History of hysterectomy (Chronic) Colonoscopy - MAC (06/15/17) Mediport placement (05/02/15) Social History Smoking/Tobacco Use Status: Former Tobacco Use Alcohol Intake: never Drug use: Rarely Substance use type: does not use Do you feel safe in your relationship?: Yes Exam <Ana Layne DO - Last Filed: 09/14/18 20:10> Const General: cooperative and healthy appearing Orientation: alert and awake HENMT Head: normal to inspection Ears: hearing grossly normal bilaterally, external ears normal and TM's normal bilaterally General nose exam: external nose normal Face and sinus: normal facial exam Mouth: oral mucosae normal Teeth and gingiva: dentition normal Throat: posterior oropharynx normal Eyes General: appearance normal, both eyes and all related structures Eyelids: eyelids normal Pupils: PERRL EOM: EOM intact bilaterally Neck Neck: normal visual inspection, negative Brudzinski's sign and negative Kernig's sign Lymphatic: no lymphadenopathy noted Chest Chest: normal inspection of the chest Resp Effort & Inspection: normal respiratory effort and able to speak in complete sentences Auscultation: clear to auscultation bilaterally Cardio Rate: regular rate Rhythm: regular rhythm GI Inspection: normal to inspection Palpation: soft, not firm, no guarding, no hepatosplenomegaly, no masses and nontender Auscultation: normal bowel sounds Skin General skin exam: no rashes or lesions noted Neuro General: alert, awake, oriented x3, moves all extremities, no meningeal signs and no focal motor deficits Cranial Nerves: CN's II-XI intact bilaterally Cognition: normal cognition Speech: speech normal Gait: normal gait Motor: muscle tone normal throughout and strength 5/5 throughout Sensory Exam: no sensory deficits noted Extrem General: normal to inspection, full ROM and normal capillary refill Psych Appearance: grossly normal Mental Status: mental status grossly normal Speech and Movement: speech and movement normal Affect: normal affect Thought Process: normal Course <DO Lucien Garzon Last Filed: 09/14/18 20:10> Vital Signs Temperature 97.6 F 09/14/18 18:42 Pulse 82 09/14/18 18:42 Respiratory Rate 18 09/14/18 18:42 Blood Pressure 123/90 09/14/18 18:42 Pulse Oximetry 97 09/14/18 18:42 Temperature 97.6 F 09/14/18 18:42 Temperature Source Temporal Artery Scan 09/14/18 18:42 Pulse 82 09/14/18 18:42 Respiratory Rate 18 09/14/18 18:42 Respiratory Effort Non-Labored 09/14/18 18:42 Blood Pressure 123/90 09/14/18 18:42 Blood Pressure Position Sitting 09/14/18 18:42 Pulse Oximetry 97 09/14/18 18:42 Oxygen Delivery Method Room Air 09/14/18 18:42 Oxygen Flow Rate 0 09/14/18 18:42 Pain Level 10 09/14/18 18:59 Sign Out <Ana Layne DO - Last Filed: 09/14/18 20:10> Sign Out Data: Sign Out Comment: Follow-up on labs and CT head and patient response to medications. Last updated by Ana Layne DO at 09/14/18 19:53
--- NOTE | 2018-09-14 20:32 | DI.VRAD_ITS ---
EXAM: CT Head Without Contrast EXAM DATE/TIME: 09/14/2018 7:18 PM CLINICAL HISTORY: 53 years old, female; Pain; Headache; Migraine; With aura; Does not respond to medication; Severity not specified; Patient HX: Right sided headache x1 week, right sided visual disturbances with waves in vision with aura. H/o migraines, no recent trauma. TECHNIQUE: Imaging protocol: Axial computed tomography images of the head/brain without contrast. Coronal and sagittal reformatted images were created and reviewed. Radiation optimization: All CT scans at this facility use at least one of these dose optimization techniques: automated exposure control; mA and/or kV adjustment per patient size (includes targeted exams where dose is matched to clinical indication); or iterative reconstruction. COMPARISON: CT HEAD WITHOUT CONTRAST 07/18/2014 6:51 PM FINDINGS: Brain: Ventricles and the cortical sulci are within normal limits. There is no evidence of acute hemorrhage, mass or shift. There is no evidence of an acute cortical or major vascular territory infarct. No abnormal extra-axial collections are identified. Ventricles: No significant ventricular enlargement Bones/joints: Mild calvarial hyperostosis. No acute bony abnormality Sinuses: No significant sinus opacification or fluid level. Mastoid air cells: No significant mastoid opacification Soft tissues: Subcutaneous soft tissues are unremarkable IMPRESSION: No acute findings. Dictated and Authenticated by: Monie Cason MD. Ordering:STACI Perez MD
[2018-09-14] MEDS: diphenhydrAMINE 50 MG/ML VIAL 25 MG IVP (20:35)
[2018-09-14] MEDS: Prochlorperazine 10 MG/2 ML VIAL IVP (20:40)
[2018-09-14 20:46] LABS: Abs Immature Grans 0.03 k/cumm (0.0-0.09); Absolute Basophil Count 0.04 k/cumm (0.0-0.2); Absolute Eosinophil Count 0.21 k/cumm (0.0-0.7); Absolute Lymphocyte Count 3.02 k/cumm (1.2-3.4); Absolute Neutrophil Count 6.04 k/cumm (1.2-6.7); Basophils % 0.4; Eosinophils % 2.1; HCT 42.2 % (36.0-46.0); HGB 13.9 g/dL (12.0-15.5); Immature Grans % 0.3; Lymphocytes % 30.7; Mean Corp. HGB Concentration 32.9 g/dL (32.0-36.0); Mean Corpuscular Hemoglobin 29.4 pg (27.0-33.0); Mean Corpuscular Volume 89.2 fL (80-95); Mean Platelet Volume 10.1 fL (8.0-11.0); Monocytes % 5.1; Neutrophils % 61.4; Platelet Count 274 x1000/uL (130-400); RBC 4.73 m/cumm (4.00-5.20); RBC Distribution Width 13.6 % (11.7-14.6); White Blood Cell Count 9.84 k/cumm (4.4-10.8)
[2018-09-14] MEDS: Normal Saline 1,000 ML 1000 ML IV (20:51)
[2018-09-14 21:06] LABS: ALT 29 U/L (12-78); AST 11 U/L (15-37); Albumin 3.9 g/dL (3.4-5.0); Alkaline Phosphatase 83 U/L (46-116); Anion Gap 12.2 mmol/L (3-11); BUN 19 mg/dL (7-18); Bilirubin, Total 0.3 mg/dL (0.2-1.0); CO2 23.8 mmol/L (21.0-32.0); CREATININE 1.11 mg/dL (0.55-1.02); Calcium 9.2 mg/dL (8.5-10.1); Chloride 105 mmol/L (98-107); Estimated GFR 51.62 (mL/min/1.73m2); Glucose 88 mg/dL (70-100); Potassium 3.6 mmol/L (3.5-5.1); Sodium 141 mmol/L (136-145); Total Protein 7.6 g/dL (6.4-8.2)
[2018-09-14] MEDS: Ketorolac 30 MG/ML VIAL IVP (21:18)
--- NOTE | 2018-09-14 21:20 | NUR.NOTE ---
Nursing Note: ambulated to the bathroom without difficulty, no relief from meds pain remains 10/10.
[2018-09-14 22:05] VITALS: BP 120/66; PULSE 76; RESP 18; O2SAT 97
--- NOTE | 2018-09-14 23:15 | NUR.NOTE ---
Nursing Note: 4455 terminal flush to port per protocol.
== END 2018-09-14 22:06 | disposition home or self-care (01) ==
PROVIDERS: Physician Assistant; Emergency Provider Emergency Medicine; PCP Family Medicine
DX: R51 Headache (principal); I10 Essential (primary) hypertension; E11.9 Type 2 diabetes mellitus without complications; Z79.84 Long term (current) use of oral hypoglycemic drugs
CPT/HCPCS: 36415; 80053; 93005; 96361; 96374; 96375; 99285; 70450; 85025; 93010; J0780; J1200; J1885

== ENCOUNTER → 2018-09-27 13:52 | Outpatient (BNVA) | payer MEDICARE, SELFPAY | PROVIDERS: PCP Family Medicine; Referring Provider Family Medicine; Visit Provider Student in an Organized Health Care Education/Training Program | DX: M70.62 Trochanteric bursitis, left hip (principal) | CPT/HCPCS: 99212; 99213 ==

== ENCOUNTER 2018-10-05 00:52 | Outpatient (CLI) | payer MEDICARE, SELFPAY ==
--- NOTE | 2018-10-05 09:38 | DI.MRI_ITS ---
SYMPTOM/DIAGNOSIS: LT HIP PAIN, BURSITIS LEFT HIP MRI: T 1 and fat suppressed T 2 axial, T 1 and STIR coronal sequences were performed with the field of view including both hips. Fat suppressed T 2 sagittal and fat suppressed proton density coronal sequences were performed through the left hip. The marrow signal is normal. There is no joint effusion. The muscle signal is normal. No abnormal tendon signal is seen. There is no fluid in the trochanteric bursa. The SI joints are unremarkable as visualized. The patient is status post hysterectomy. The bladder is nearly empty. IMPRESSION: Negative MRI of the pelvis and left hip.
== END 2018-10-05 01:12 ==
PROVIDERS: PCP Family Medicine; Visit Provider Student in an Organized Health Care Education/Training Program
DX: M25.552 Pain in left hip (principal); M70.72 Other bursitis of hip, left hip
CPT/HCPCS: 36591; 73721; 80048

== ENCOUNTER 2018-10-05 02:24 | Outpatient (RCR) | payer MEDICARE, SELFPAY ==
[2018-10-05 09:58] LABS: Anion Gap 10.5 mmol/L (3-11); BUN 19 mg/dL (7-18); CO2 28.5 mmol/L (21.0-32.0); CREATININE 1.15 mg/dL (0.55-1.02); Chloride 100 mmol/L (98-107); Estimated GFR 49.55 (mL/min/1.73m2); Glucose 124 mg/dL (70-100); Potassium 3.9 mmol/L (3.5-5.1); Sodium 139 mmol/L (136-145)
[2018-10-05] MEDS: Heparin 500 UNITS/5 ML SYRINGE IV (10:30)
[2018-10-05] MEDS: Normal Saline Flush 10 ML SYR IVP (10:30)
== END 2018-10-10 23:59 | disposition home or self-care (01) ==
LOC: INF 02:24
PROVIDERS: PCP Family Medicine; Visit Provider Family Medicine
DX: E11.9 Type 2 diabetes mellitus without complications (principal); Z45.2 Encounter for adjustment and management of vascular access device
CPT/HCPCS: 36591; 80048

== ENCOUNTER → 2018-10-30 08:58 | Outpatient (BNVA) | payer MEDICARE, SELFPAY | PROVIDERS: PCP Family Medicine; Referring Provider Family Medicine; Visit Provider Student in an Organized Health Care Education/Training Program | DX: M70.62 Trochanteric bursitis, left hip (principal); M75.82 Other shoulder lesions, left shoulder; I10 Essential (primary) hypertension | CPT/HCPCS: 99212; 99213 ==

== ENCOUNTER 2018-11-21 00:50 | Outpatient (CLI) | payer MEDICARE, SELFPAY ==
--- NOTE | 2018-11-21 10:46 | DI.MRI_ITS ---
SYMPTOMS/DIAGNOSIS: SCIATICA LT, M54.32, LOW BACK PAIN, M54.5, FELL FORWARD 06/12/18, PAIN LT BUTTOCKS INTO LT LATERAL LEG TO KNEE SINCE, NO BENEFIT FROM INJECTION MRI OF THE LUMBAR SPINE: T 1 and T 2 sagittal and T 1 sagittal STIR and T 1 axial and T 2 axial and T 2 axial MSMA pulse sequences were performed. The examination is compared with a prior examination of 08/01/12. No significant bony signal abnormality is apparent. At L 1 - 2 there is no disc herniation. The facet joints are intact. There is no evidence of spinal stenosis. At L 2 - 3 there is no disc herniation. The facet joints are intact and there is no evidence of spinal stenosis. At L 3 - 4 there is no disc herniation. The facet joints are intact and there is no evidence of spinal stenosis. At L 4 - 5 there is diminished signal in the disc consistent with partial desiccation. A small disc bulge is identified. There are mild degenerative facet joint changes and no evidence of spinal stenosis. At L 5 - S 1 diminished disc signal is demonstrated and a minimal disc bulge is identified. There are moderate facet joint degenerative changes and no evidence of spinal stenosis. There is no intrinsic abnormality involving the lower dorsal cord, conus or filum terminale. SUMMARY: There is evidence of degenerative disc disease and DJD at L 3 - 4 and L 4 - 5. There are mild disc bulges at these levels and facet joint degenerative changes with no evidence of spinal stenosis. The examination is not significantly changed when compared with a prior study of 08/01/12.
== END 2018-11-21 01:10 ==
PROVIDERS: PCP Family Medicine; Visit Provider Family Medicine
DX: M54.32 Sciatica, left side (principal); M51.16 Intervertebral disc disorders with radiculopathy, lumbar region; M51.17 Intervertebral disc disorders with radiculopathy, lumbosacral region; M51.26 Other intervertebral disc displacement, lumbar region; M51.27 Other intervertebral disc displacement, lumbosacral region; M47.26 Other spondylosis with radiculopathy, lumbar region; M47.27 Other spondylosis with radiculopathy, lumbosacral region
CPT/HCPCS: 72148

== ENCOUNTER → 2018-12-13 09:19 | Outpatient (BNVA) | payer MEDICARE, SELFPAY | PROVIDERS: PCP Family Medicine; Referring Provider Family Medicine; Visit Provider Student in an Organized Health Care Education/Training Program | DX: M70.62 Trochanteric bursitis, left hip (principal); E11.9 Type 2 diabetes mellitus without complications; I10 Essential (primary) hypertension | CPT/HCPCS: 20610; 99213; J1040 ==

== ENCOUNTER 2019-01-03 11:15 | Outpatient (RCR) | payer MEDICARE, SELFPAY ==
[2019-01-03] MEDS: Normal Saline Flush 10 ML SYR IVP (11:35)
[2019-01-03] MEDS: Heparin 500 UNITS/5 ML SYRINGE IVP (11:36)
== END 2019-01-10 23:59 | disposition home or self-care (01) ==
LOC: INF 11:15
PROVIDERS: PCP Family Medicine; Visit Provider Family Medicine
DX: Z45.2 Encounter for adjustment and management of vascular access device (principal)
CPT/HCPCS: 96523

== ENCOUNTER 2019-01-08 11:30 | Outpatient (REF) | payer MEDICARE, SELFPAY ==
[2019-01-08 20:18] LABS: Bilirubin Negative (Negative); Blood Negative (Negative); Clarity Clear (Clear); Glucose Negative (Negative); Ketones Negative (Negative); Leukocyte Esterase Negative (Negative); Nitrite Negative (Negative); pH 5.5 (5-8)
== END 2019-01-08 11:50 ==
LOC: NCHCN 11:30
PROVIDERS: PCP Family Medicine; Visit Provider Family Medicine
DX: R30.0 Dysuria (principal)
CPT/HCPCS: 81003

== ENCOUNTER 2019-01-16 00:53 | Outpatient (CLI) | payer MEDICARE, SELFPAY ==
--- NOTE | 2019-01-16 12:03 | DI.MAMMO_ITS ---
SYMPTOMS/DIAGNOSIS: SCREENING, Z12.31 BILATERAL SCREENING MAMMOGRAMS: Mammograms were interpreted according to the usual protocol including computer analysis with CAD system, tomosynthesis and C view imaging. Comparison is made with exams from 2012 through 2018. The breasts are composed of scattered fibroglandular densities, breast density category B. No suspicious masses or suspicious microcalcifications are seen. There has been no significant change. IMPRESSION: Category 1, negative mammogram. Yearly screening mammography is recommended. [facility] ASSESSMENT OF FINDINGS: Negative. Category 1. Patient will receive a letter notifying them of these results. BI-RADS category B. There are scattered areas of fibroglandular density.
== END 2019-01-16 01:13 ==
PROVIDERS: PCP Family Medicine; Visit Provider Family Medicine
DX: Z12.31 Encounter for screening mammogram for malignant neoplasm of breast (principal)
CPT/HCPCS: 77063; 77067

== ENCOUNTER 2019-02-15 11:18 | Outpatient (CLI) | payer MEDICARE, SELFPAY ==
[2019-02-15 11:42] VITALS: BP 132/88; PULSE 72; RESP 18; TEMP 37.1; O2SAT 97
[2019-02-15 12:28] VITALS: BP 154/90; PULSE 78; RESP 20; O2SAT 100
--- NOTE | 2019-02-15 12:29 | PDOC.PAIN ---
Pain Clinic Procedure Note Current Active Problems Problem Status Onset Sacroiliac joint dysfunction INTRA-ARTICULAR SI JOINT INJECTION CATRACHITA MARTINES has been referred to the [facility] for intra-articular SI joint injection. COMMENTS: She was recently evaluated in our clinic by Ms. Draper. Patient was interviewed and the medical record reviewed. There were no medical, pharmacologic, radiographic or other structural contraindications to attempting fluoroscopically guided intra-articular SI joint injection. Risks and expected side effects as well as potential benefit of the procedure were reviewed and voiced concerns addressed. The printed consent form was signed and witnessed. Standard time-out procedure was performed. Patient was placed in the prone position on the fluoroscopy table and automated blood pressure cuff and pulse oximeter applied. The skin entry point for approaching left SI joint was identified under the most advantageous fluoroscopic view and marked. Following thorough Chlorhexadine preparation of the skin and draping and 1% lidocaine infiltration of the skin entry point and subcutaneous tissues, a 22 gauge spinal needle was placed under fluoroscopic guidance into left SI joint was identified under the most advantageous fluoroscopic view and marked. Following thorough Chlorhexadine preparation of the skin and draping and 1% lidocaine infiltration of the skin entry point and subcutaneous tissues, a 22 gauge spinal needle was placed under fluoroscopic guidance into the left SI joint. Intra-articular placement was confirmed by a clear arthrogram resulting from the injection of 0.25ml Omnipaque 240, 1ml 1% lidocaine, and 40mg Depomedrol were injected intra-articularily with an initial reproduction of a significant component of the usual pain. Vital signs were stable throughout the procedure and were as recorded in the docflowsheet by the nursing staff. If given, dosages of intravenous drugs for anxiolysis and analgesia were documented in MAR. Follow up plans and appointments were discussed with the patient. Post procedure instruction was given as documented in nursing documentation and having met discharge criteria, and was discharged from the [facility]. COMMENTS: This procedure can be completed up to 3 times per 12 months if it is found to be helpful. CC: Katarina Rodriguez
--- NOTE | 2019-02-15 12:30 | DI.RAD_ITS ---
SYMPTOMS/DIAGNOSIS: SACROILIAC JOINT DYSFUNCTION, SACROILIAC JOINT INJECTION C-ARM FLUOROSCOPY: Fluoroscopy Time: 17.7 sec., 5.05 mGy. C-arm fluoroscopy was utilized by Dr. Dixon. Hardcopy shows left SI joint injection.
[2019-02-15] MEDS: methylPREDNISolone ACETATE 80 MG/ML VIAL IJ (12:31)
[2019-02-15] MEDS: Omnipaque 240 MG/ML 50 ML BTL IJ (12:31)
== END 2019-02-15 11:38 ==
PROVIDERS: PCP Family Medicine; Visit Provider Preventive Medicine Occupational Medicine
DX: M53.3 Sacrococcygeal disorders, not elsewhere classified (principal)
CPT/HCPCS: 27096; 72200; G0260; J1040; Q9967

== ENCOUNTER 2019-03-09 18:32 | Emergency (ER) | payer MEDICARE, SELFPAY ==
[2019-03-09 18:35] VITALS: BP 141/94; PULSE 78; RESP 17; TEMP 36.7; O2SAT 98
== END 2019-03-09 19:47 ==
PROVIDERS: Emergency Provider Student in an Organized Health Care Education/Training Program; PCP Family Medicine
DX: Z53.29 Procedure and treatment not carried out because of patient's decision for other reasons (principal)

== ENCOUNTER 2019-03-10 04:56 | Emergency (ER) | payer MEDICARE, SELFPAY ==
[2019-03-10 05:00] VITALS: BP 112/65; PULSE 62; RESP 16; TEMP 36.6; O2SAT 97
--- NOTE | 2019-03-10 05:21 | W.ED.GENAD ---
Discharge Plan Disposition Patient Disposition: HOME Condition: Good Discharge Details Chief Complaint: EarProblem Clinical Impression: CRPS (complex regional pain syndrome) Primary Care Provider: Katarina Rodriguez ED Provider: Jed Warren Home Meds and New Rx's Prescriptions: No Action ketamine thom 10 mg PO QID PRNRF: 0 ketamine/lidocaine 1 applic Topical HS RF: 0 losartan 25 MG tablet 100 mg PO DAILY RF: 0 Zyrtec 10 MG capsule 10 mg PO DAILY RF: 0 meloxicam 15 MG tablet 15 mg PO DAILY RF: 0 ondansetron 4 MG tablet,disintegrating 4 mg PO TID PRN PRNRF: 0 bisacodyl [Dulcolax (bisacodyl)] 5 MG tablet,delayed release (DR/EC) 5 mg PO BID PRNQty: 10 RF: 0 topiramate [Topamax] 100 MG tablet 500 mg PO BID RF: 0 duloxetine [Cymbalta] 30 MG capsule,delayed release(DR/EC) 30 mg PO BID RF: 0 ascorbic acid (vitamin C) 1,000 MG tablet 1 tab PO DAILY RF: 0 cholecalciferol (vitamin D3) 1,000 UNITS tablet 1 tab PO DAILY RF: 0 pantoprazole [Protonix] 20 MG tablet,delayed release (DR/EC) 20 mg PO DAILY RF: 0 baclofen 10 MG tablet 10 mg PO BID RF: 0 ketamine 50 MG/ML solution 2 spray NS QID PRNRF: 0 polyethylene glycol 3350 17 GM powder in packet 2 pkt PO PRN PRNRF: 0 misoprostol 200 MCG tablet 200 mcg PO DAILY RF: 0 albuterol sulfate [ProAir HFA] 200 PUFF HFA aerosol inhaler 2 puff Inhalation PRN PRNRF: 0 Symbicort 10.2 GM HFA aerosol inhaler 2 puff Inhalation DAILY PRN PRNRF: 0 clonidine HCl [Catapres] 0.1 MG tablet 0.1 mg PO DIRECTED PRNQty: 0 RF: 0 acetaminophen [Acetaminophen Extra Strength] 500 MG tablet 1,000 mg PO TID PRNQty: 180 RF: 0 pregabalin [Lyrica] 100 MG capsule 50 mg PO BID RF: 0 metformin 500 MG tablet extended release 24 hr 500 mg PO DAILY RF: 0 furosemide 20 MG tablet 20 mg PO PRN PRNRF: 0 promethazine 25 mg Tablet 25 mg PO PRN PRNRF: 0 Victoza 3-Norbert 0.6 mg/0.1 mL (18 mg/3 mL) Pen Injector 0.6 mg subcut DAILY RF: 0 Discharge Instructions Instructions: Complex Regional Pain Syndrome (GEN) Additional Instructions: The block that was performed will hopefully last 6 to 12 hours. Please keep the Lidoderm patch on for 12 hours, after this please remove it for 12 hours and then you can place a new one on. If you notice any worsening of your symptoms, or any new symptoms such as vomiting, diarrhea, fever, chills, shortness of breath, chest pain, numbness, weakness, or fainting , please return immediately to the emergency department for reevaluation. Please follow up with your primary care provider as soon as possible for reassessment and reevaluation. As always, it was a pleasure participating in your medical care today. Referrals: Katarina Rodriguez MD [Primary Care Provider] - Medical Decision Making This is a 53-year-old female who presents today for evaluation of right-sided facial pain. She has a past medical history of complex trigeminal neuralgia and complex regional pain syndrome. Her symptoms have been present for the last 2 to 3 days, she did come to the ER yesterday but left before any assessment. She has been taking her home ketamine, carbamazepine, and other medications and is had no significant improvement with this. She does take regular meloxicam. She states that her pain does have an atypical component compared to normal and that is right neck and jaw pain. Physical exam demonstrates no significant abnormalities on exam, no evidence of significant neurologic deficit. No evidence of otitis media or externa. Patient does have cardiac risk factors of hypertension high cholesterol diabetes, mild obesity and previous tobacco use. Signs and symptoms appear consistent with complex trigeminal neuralgia, however differential does include a less likely ACS scenario. We will get an EKG to rule out acute STEMI, basic blood work troponin evaluation. We will start with a Lidoderm patch in the face, potentially advance to block if this does not resolve her symptoms. 6:40 AM Laboratory work-up has returned benign, no significant abnormalities, troponin normal, EKG unremarkable. We did try Lidoderm patch and the patient only had minimal improvement with this. We discussed the risks and benefits of the next option which would be either local lidocaine bupivacaine block versus opiates. Patient would like to avoid any opiates. 3 cc of a 50-50 mixture of lidocaine with bupivacaine was injected into the right jaw at the location of the right condyle. After 15 to 20 minutes the patient had near complete resolution of her symptomatology in the upper face. She feels much better and would like to go home. She still would like to hold off on any opiates. With a notable improvement of her symptoms I do feel she is safe for discharge home. Her signs and symptoms are inconsistent with ACS, STEMI, giant temporal arteritis, Farhad syndrome, or shingles. Patient will be discharged home. Discussed importance of close follow-up with her pain clinic. I have extensively reviewed the treatment plan and discharge instructions with the patient and their family. I have addressed all patient concerns at this time. The patient and family was made aware of what symptoms to monitor for that would warrant a return to the emergency department. Discussed the plan with the patient and family, they demonstrate verbal understanding and agreement with our assessment and plan at this time. EKG 5: 34 Rate 58, intervals normal, sinus bradycardia, no significant ST elevations or depressions, there is a inverted T wave in lead III, Q waves in lead III. EKG from 09/02/2017 shows identical findings. No acute changes. HPI General Date/Time Provider Initiated Documentation: 03/10/19 04:56. HPI Narrative: This is a 53-year-old female with a past medical history of complex pain syndrome for her right trigeminal nerve, complex trigeminal neuralgia, hypertension diabetes and high cholesterol who presents today for evaluation of worsening of her trigeminal pain. She is usually seen at the pain clinic for management of this. She has had this pain for the last 2 to 3 days, that does not seem to be resolved with her topical ketamine, her ketamine spray, her Lyrica, Topamax, or her carbamazepine. She did contact her pain clinic who recommended that she go to the ER for further assessment. She did come to the ER yesterday however it was so busy that she decided to leave prior to being seen. She states that at home the pain continues. Pain is located on the right side of the face the area of her trigeminal nerve, however atypical to normal she does complain of mild pain in the lower jaw and towards the right neck. She denies any associated chest pain, shortness of breath, arm neck or shoulder pain, chest tightness. She denies any history of cardiac disease. Pain is made worse by palpation, improved by nothing. She denies any other complaints at this time. No other modifying factors. Related Data Home Medications Medication Instructions Recorded Confirmed losartan 100 mg PO DAILY 09/01/12 03/10/19 Zyrtec 10 mg PO DAILY 11/20/12 03/10/19 meloxicam 15 mg PO DAILY 03/01/13 03/10/19 ondansetron 4 mg PO TID PRN PRN 07/07/13 03/10/19 bisacodyl [Dulcolax (bisacodyl)] 5 mg PO BID PRN #10 tablet. 07/26/13 03/10/19 duloxetine [Cymbalta] 30 mg PO BID 09/15/13 03/10/19 topiramate [Topamax] 500 mg PO BID 09/15/13 03/10/19 ascorbic acid (vitamin C) 1 tab PO DAILY 07/18/14 03/10/19 cholecalciferol (vitamin D3) 1 tab PO DAILY 07/18/14 03/10/19 baclofen 10 mg PO BID 08/26/14 03/10/19 pantoprazole [Protonix] 20 mg PO DAILY 08/26/14 03/10/19 ketamine 2 spray NS QID PRN 05/01/15 03/10/19 Symbicort 2 puff INHALATION DAILY PRN PRN 08/04/15 03/10/19 albuterol sulfate [ProAir HFA] 2 puff INHALATION PRN PRN 08/04/15 03/10/19 misoprostol 200 mcg PO DAILY 08/04/15 03/10/19 polyethylene glycol 3350 2 pkt PO PRN PRN 08/04/15 03/10/19 Ketamine Thom 10 mg PO QID PRN 03/10/16 03/10/19 Ketamine/Lidocaine 1 applic TOPICAL HS 03/10/16 03/10/19 pregabalin [Lyrica] 50 mg PO BID 05/01/16 03/10/19 metformin 500 mg PO DAILY 09/21/16 03/10/19 clonidine HCl [Catapres] 0.1 mg PO DIRECTED PRN #0 10/21/16 03/10/19 acetaminophen [Acetaminophen Extra 1,000 mg PO TID PRN #180 tab 02/22/17 03/10/19 Strength] furosemide 20 mg PO PRN PRN 04/26/17 03/10/19 liraglutide [Victoza 3-Norbert] 0.6 mg SUBCUT DAILY 09/14/18 03/10/19 promethazine 25 mg PO PRN PRN 09/14/18 03/10/19 Previous Rx's Medication Instructions Recorded bisacodyl [Dulcolax (bisacodyl)] 5 mg PO BID PRN #10 tablet. 07/26/13 clonidine HCl [Catapres] 0.1 mg PO DIRECTED PRN #0 10/21/16 acetaminophen [Acetaminophen Extra 1,000 mg PO TID PRN #180 tab 02/22/17 Strength] Allergies Allergy/AdvReac Type Severity Reaction Status Date / Time phenytoin sodium Allergy Severe Hives Unverified 02/15/19 11:37 [From Dilantin] phenytoin sodium extended Allergy Severe Hives Unverified 02/15/19 11:37 [From Dilantin] amoxicillin [Amoxicillin] Allergy Intermediate Hives Unverified 02/15/19 11:37 lisinopril Allergy Intermediate Unverified 02/15/19 11:37 oxycodone Allergy Intermediate Unverified 02/15/19 11:37 potassium clavulanate Allergy Intermediate Hives Unverified 02/15/19 11:37 [From Augmentin] Sulfa (Sulfonamide Allergy Mild Skin Rash Unverified 02/15/19 11:37 Antibiotics) tomato [Tomato] Allergy Mild Skin Rash Unverified 02/15/19 11:37 sumatriptan [From Imitrex] AdvReac Severe Visual Unverified 02/15/19 11:37 Disturbances,burning sensation through out body General Stated Complaint: EarProblem HARRIET: 3 Review of Systems Review of Systems ROS Unobtainable: All systems reviewed & are unremarkable except as noted in HPI and below PFSH Social History Smoking/Tobacco Use Status: Former Tobacco Use Alcohol Intake: never Drug use: Never Substance use type: does not use Do you feel safe at home: Yes Do you feel safe in your relationship?: Yes Exam Narrative Exam Narrative: 1.Const: Well-nourished, Well-developed, appearing stated age 2.Eyes: PERRL, no conjunctival injection, and symmetrical lids. No evidence of conjunctival injection, irritation, drainage or discharge. 3.ENT: Atraumatic external nose and ears. Moist MM. Neck: Symmetric, trachea midline, No thyromegaly. Patient demonstrates minimal squinting of the right eye, but no evidence of ptosis, facial asymmetry, or significant swelling. Subjective tenderness on palpation of the right side of the face. Evaluation of the inner ear demonstrates no evidence of otitis media or otitis externa. No evidence of erythema. No evidence of shingles. 4.CVS: +S1/S2, No murmurs or gallops. Peripheral pulses 2+ and equal in all extremities. Brisk capillary refill in all extremities. 5.RESP: Unlabored respiratory effort. Clear to auscultation bilaterally. No wheezes rales or rhonchi 6.GI: Soft, Nontender/Nondistended, No hepatosplenomegaly. No guarding or rebound. 7.MSK: Normocephalic/Atraumatic, Extremities w/o deformity or ttp No cyanosis or clubbing, Normal movement of all extremities 8.Skin: Warm, Dry. No rashes or lesions. 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 Sensation grossly intact, no focal neurologic deficits. No dysdiadochokinesia or dysmetria. Normal vision in both eyes, normal visual parr. 10.Psych: (AAO) x3. Appropriate mood and affect Course Vital Signs Vital signs: Vital Signs Temperature 36.6 C 03/10/19 05:00 Pulse 62 03/10/19 05:00 Respiratory Rate 16 03/10/19 05:00 Blood Pressure 112/65 03/10/19 05:00 Pulse Oximetry 97 03/10/19 05:00 Temperature 36.6 C 03/10/19 05:00 Temperature Source Tympanic 03/10/19 05:00 Pulse 62 03/10/19 05:00 Respiratory Rate 16 03/10/19 05:00 Blood Pressure 112/65 03/10/19 05:00 Pulse Oximetry 97 03/10/19 05:00 Pain Level 10 03/10/19 05:00
[2019-03-10] MEDS: Lidocaine 5% Patch 1 PATCH TP ×2 (05:59→06:53)
[2019-03-10 06:05] LABS: Abs Immature Grans 0.03 k/cumm (0.0-0.09); Absolute Basophil Count 0.06 k/cumm (0.0-0.2); Absolute Eosinophil Count 0.26 k/cumm (0.0-0.7); Absolute Lymphocyte Count 3.11 k/cumm (1.2-3.4); Absolute Monocyte Count 0.68 k/cumm (0.11-0.7); Absolute Neutrophil Count 5.27 k/cumm (1.2-6.7); Basophils % 0.6; Eosinophils % 2.8; HCT 36.9 % (36.0-46.0); Immature Grans % 0.3; Mean Corp. HGB Concentration 32.5 g/dL (32.0-36.0); Mean Corpuscular Hemoglobin 30.2 pg (27.0-33.0); Mean Corpuscular Volume 92.9 fL (80-95); Mean Platelet Volume 9.6 fL (8.0-11.0); Monocytes % 7.2; Neutrophils % 56.1; Platelet Count 253 x1000/uL (130-400); RBC 3.97 m/cumm (4.00-5.20); White Blood Cell Count 9.41 k/cumm (4.4-10.8)
[2019-03-10 06:26] LABS: ALT 22 U/L (14-59); AST 7 U/L (15-37); Albumin 3.4 g/dL (3.4-5.0); Alkaline Phosphatase 70 U/L (46-116); Anion Gap 9.3 mmol/L (3-11); BUN 24 mg/dL (7-18); Bilirubin, Total 0.2 mg/dL (0.2-1.0); CO2 25.7 mmol/L (21.0-32.0); CREATININE 1.17 mg/dL (0.55-1.02); Calcium 8.2 mg/dL (8.5-10.1); Chloride 107 mmol/L (98-107); Estimated GFR 48.57 (mL/min/1.73m2); Glucose 127 mg/dL (70-100); Sodium 142 mmol/L (136-145); Total Protein 6.6 g/dL (6.4-8.2)
[2019-03-10 06:29] LABS: Troponin I < 0.05 ng/mL (0.00-0.06)
[2019-03-10] MEDS: Heparin 500 UNITS/5 ML SYRINGE IVP (06:53)
[2019-03-10 06:54] VITALS: BP 112/65; PULSE 62; RESP 16; O2SAT 97
== END 2019-03-10 06:52 | disposition home or self-care (01) ==
PROVIDERS: Emergency Provider Student in an Organized Health Care Education/Training Program; PCP Family Medicine
DX: G90.59 Complex regional pain syndrome I of other specified site (principal); R00.1 Bradycardia, unspecified; I10 Essential (primary) hypertension
CPT/HCPCS: 36415; 80053; 93005; 96374; 99284; 84484; 85025; 93010

== ENCOUNTER 2019-04-07 02:32 | Emergency (ER) | payer MEDICARE, SELFPAY ==
--- NOTE | 2019-04-07 02:34 | W.ED.GENAD ---
Discharge Plan Disposition Patient Disposition: HOME Condition: Good Discharge Details Chief Complaint: FacialProb Clinical Impression: CRPS (complex regional pain syndrome), Right trigeminal neuralgia, Vertigo Primary Care Provider: Katarina Rodriguez ED Provider: Jed Warren Home Meds and New Rx's Prescriptions: New meclizine 25 mg tablet 25 mg PO TID Qty: 14 RF: 0 ondansetron HCl [Zofran] 4 mg tablet 4 mg PO Q8H Qty: 10 RF: 0 No Action ketamine thom 10 mg PO QID PRNRF: 0 ketamine/lidocaine 1 applic Topical HS RF: 0 losartan 25 MG tablet 100 mg PO DAILY RF: 0 Zyrtec 10 MG capsule 10 mg PO DAILY RF: 0 meloxicam 15 MG tablet 15 mg PO DAILY RF: 0 ondansetron 4 MG tablet,disintegrating 4 mg PO TID PRN PRNRF: 0 bisacodyl [Dulcolax (bisacodyl)] 5 MG tablet,delayed release (DR/EC) 5 mg PO BID PRNQty: 10 RF: 0 topiramate [Topamax] 100 MG tablet 500 mg PO BID RF: 0 duloxetine [Cymbalta] 30 MG capsule,delayed release(DR/EC) 30 mg PO BID RF: 0 ascorbic acid (vitamin C) 1,000 MG tablet 1 tab PO DAILY RF: 0 cholecalciferol (vitamin D3) 1,000 UNITS tablet 1 tab PO DAILY RF: 0 pantoprazole [Protonix] 20 MG tablet,delayed release (DR/EC) 20 mg PO DAILY RF: 0 baclofen 10 MG tablet 10 mg PO BID RF: 0 ketamine 50 MG/ML solution 2 spray NS QID PRNRF: 0 polyethylene glycol 3350 17 GM powder in packet 2 pkt PO PRN PRNRF: 0 misoprostol 200 MCG tablet 200 mcg PO DAILY RF: 0 albuterol sulfate [ProAir HFA] 200 PUFF HFA aerosol inhaler 2 puff Inhalation PRN PRNRF: 0 Symbicort 10.2 GM HFA aerosol inhaler 2 puff Inhalation DAILY PRN PRNRF: 0 clonidine HCl [Catapres] 0.1 MG tablet 0.1 mg PO DIRECTED PRNQty: 0 RF: 0 acetaminophen [Acetaminophen Extra Strength] 500 MG tablet 1,000 mg PO TID PRNQty: 180 RF: 0 pregabalin [Lyrica] 100 MG capsule 50 mg PO BID RF: 0 metformin 500 MG tablet extended release 24 hr 500 mg PO DAILY RF: 0 furosemide 20 MG tablet 20 mg PO PRN PRNRF: 0 promethazine 25 mg Tablet 25 mg PO PRN PRNRF: 0 Victoza 3-Norbert 0.6 mg/0.1 mL (18 mg/3 mL) Pen Injector 0.6 mg subcut DAILY RF: 0 Discharge Instructions Instructions: Dizziness (ED) Additional Instructions: At this time your symptoms have been notably be improved by the block. Please continue to take your home medications. Suspect you have mild gastroenteritis secondary to turkey sandwich ureter earlier. Take the Zofran as needed for nausea. Take the meclizine as needed for dizziness. Please follow-up closely with your pain specialist. If you notice any worsening of your symptoms, or any new symptoms such as vomiting, diarrhea, fever, chills, shortness of breath, chest pain, numbness, weakness, or fainting , please return immediately to the emergency department for reevaluation. Please follow up with your primary care provider as soon as possible for reassessment and reevaluation. As always, it was a pleasure participating in your medical care today. Referrals: Katarina Rodriguez MD [Primary Care Provider] - Medical Decision Making This is a 53-year-old female with a past medical history of complex pain syndrome for her right trigeminal nerve, complex trigeminal neuralgia, hypertension diabetes and high cholesterol who presents today for recurrence of her right trigeminal neuralgia pain. On her last visit here cardiac work-up was performed note is negative. A local block was performed she had near complete resolution of her symptoms. She presents again today requesting this. She denies any other significant acute changes and states that this symptom episode is identical to previous episodes. Physical exam does demonstrate mild horizontal nystagmus, she feels likely related to her trigeminal neuralgia. She demonstrates no other focal neurologic deficits. We will perform block to help relieve her symptoms. Additionally, she does admit to 3 episodes of vomiting earlier today, she feels that it secondary to a bad turkey sandwich that she ate. She denies any abdominal pain whatsoever. Her exam demonstrates no abdominal tenderness either. She is post cholecystectomy. Signs and symptoms at this time appear clinically inconsistent with acute surgical abdomen requiring further imaging or intervention. We will give Zofran for nausea, meclizine for dizziness. We will observe her after the block and reassess. 3:40 AM On reassessment after the block the patient's pain is nearly completely resolved. She again feels much better. She states that she feels comfortable and would like to go home. After meclizine and Zofran had been given her dizziness is notably improved and her nausea has resolved. P.o. trial was performed and the patient tolerated fluids and crackers well without difficulty. We will continue to hold off in any additional laboratory imaging work-up as there is currently no clinical indication. Signs and symptoms appear clinically consistent at this time with her complex trigeminal neuralgia, as well as mild gastroenteritis secondary to potentially which she had eaten earlier today versus a virus. No acute indication for an acute surgical abdomen whatsoever. No neurologic deficits, no other significant abnormalities. At this time with the patient's complete resolution of her symptoms, notably unremarkable vital signs and exam, and the ability to tolerate p.o. well, I feel she can be safely discharged home. We discussed red flags which return the importance of following up closely with her primary care provider. I have extensively reviewed the treatment plan and discharge instructions with the patient and their family. I have addressed all patient concerns at this time. The patient and family was made aware of what symptoms to monitor for that would warrant a return to the emergency department. Discussed the plan with the patient and family, they demonstrate verbal understanding and agreement with our assessment and plan at this time. Procedure note local block. Patient's right face was cleaned and prepped with chlorhexidine alcohol scrub. Anterior to the tragus of the ear, and just posterior to the temporomandibular joint a 3 cc aliquot of a 50-50 mixture of 0.5% bupivacaine and 2% lidocaine was administered. Patient had notable improvement of her symptomatology after this. HPI General Date/Time Provider Initiated Documentation: 04/07/19 02:33. HPI Narrative: This is a 53-year-old female with a past medical history of complex pain syndrome for her right trigeminal nerve, complex trigeminal neuralgia, hypertension diabetes and high cholesterol who presents today for recurrence of her right trigeminal nerve pain. She has a plethora of various medications that she takes at home for this, unfortunately this is not helped at all. Symptoms have been present for the last 2 to 3 days. Improved by nothing. She describes it as clinically consistent and identical to her previous episodes, including the episode that she had when I last saw her a month ago. She also does admit to some mild dizziness as well. She denies any tinnitus. On her last visit I did perform a local block and this had notable improvement of her symptoms. She is requesting this block again. She denies any chest pain, neck pain, shortness of breath, chest heaviness or chest tightness. In addition to the symptoms she does admit to 3 episodes of vomiting earlier today. She states that she had a turkey sandwich from her friend, which she thought might have bad turkey unit, shortly thereafter she had mild nausea and 3 episodes of vomiting. She denies any abdominal pain, or chest pain. She denies any hematemesis. She states that she is not overly concerned with this, however she did want to bring it up while she was here. Past surgical history is positive for cholecystectomy. Related Data Home Medications Medication Instructions Recorded Confirmed losartan 100 mg PO DAILY 09/01/12 03/10/19 Zyrtec 10 mg PO DAILY 11/20/12 03/10/19 meloxicam 15 mg PO DAILY 03/01/13 03/10/19 ondansetron 4 mg PO TID PRN PRN 07/07/13 03/10/19 bisacodyl [Dulcolax (bisacodyl)] 5 mg PO BID PRN #10 tablet. 07/26/13 03/10/19 duloxetine [Cymbalta] 30 mg PO BID 09/15/13 03/10/19 topiramate [Topamax] 500 mg PO BID 09/15/13 03/10/19 ascorbic acid (vitamin C) 1 tab PO DAILY 07/18/14 03/10/19 cholecalciferol (vitamin D3) 1 tab PO DAILY 07/18/14 03/10/19 baclofen 10 mg PO BID 08/26/14 03/10/19 pantoprazole [Protonix] 20 mg PO DAILY 08/26/14 03/10/19 ketamine 2 spray NS QID PRN 05/01/15 03/10/19 Symbicort 2 puff INHALATION DAILY PRN PRN 08/04/15 03/10/19 albuterol sulfate [ProAir HFA] 2 puff INHALATION PRN PRN 08/04/15 03/10/19 misoprostol 200 mcg PO DAILY 08/04/15 03/10/19 polyethylene glycol 3350 2 pkt PO PRN PRN 08/04/15 03/10/19 Ketamine Thom 10 mg PO QID PRN 03/10/16 03/10/19 Ketamine/Lidocaine 1 applic TOPICAL HS 03/10/16 03/10/19 pregabalin [Lyrica] 50 mg PO BID 05/01/16 03/10/19 metformin 500 mg PO DAILY 09/21/16 03/10/19 clonidine HCl [Catapres] 0.1 mg PO DIRECTED PRN #0 10/21/16 03/10/19 acetaminophen [Acetaminophen Extra 1,000 mg PO TID PRN #180 tab 02/22/17 03/10/19 Strength] furosemide 20 mg PO PRN PRN 04/26/17 03/10/19 liraglutide [Victoza 3-Norbert] 0.6 mg SUBCUT DAILY 09/14/18 03/10/19 promethazine 25 mg PO PRN PRN 09/14/18 03/10/19 meclizine 25 mg PO TID #14 tab 04/07/19 ondansetron HCl [Zofran] 4 mg PO Q8H #10 tab 04/07/19 Previous Rx's Medication Instructions Recorded bisacodyl [Dulcolax (bisacodyl)] 5 mg PO BID PRN #10 tablet. 07/26/13 clonidine HCl [Catapres] 0.1 mg PO DIRECTED PRN #0 10/21/16 acetaminophen [Acetaminophen Extra 1,000 mg PO TID PRN #180 tab 02/22/17 Strength] meclizine 25 mg PO TID #14 tab 04/07/19 ondansetron HCl [Zofran] 4 mg PO Q8H #10 tab 04/07/19 Allergies Allergy/AdvReac Type Severity Reaction Status Date / Time phenytoin sodium Allergy Severe Hives Unverified 04/07/19 02:56 [From Dilantin] phenytoin sodium extended Allergy Severe Hives Unverified 04/07/19 02:56 [From Dilantin] amoxicillin [Amoxicillin] Allergy Intermediate Hives Unverified 04/07/19 02:56 lisinopril Allergy Intermediate Unverified 04/07/19 02:56 oxycodone Allergy Intermediate Unverified 04/07/19 02:56 potassium clavulanate Allergy Intermediate Hives Unverified 04/07/19 02:56 [From Augmentin] Sulfa (Sulfonamide Allergy Mild Skin Rash Unverified 04/07/19 02:56 Antibiotics) tomato [Tomato] Allergy Mild Skin Rash Unverified 04/07/19 02:56 sumatriptan [From Imitrex] AdvReac Severe Visual Unverified 04/07/19 02:56 Disturbances,burning sensation through out body General HARRIET: 3 Review of Systems All systems reviewed & are unremarkable except as noted in HPI and below PFSH Social History Smoking/Tobacco Use Status: Former Tobacco Use Alcohol Intake: never Drug use: Never Substance use type: does not use Do you feel safe at home: Yes Do you feel safe in your relationship?: Yes Exam Narrative Exam Narrative: 1.Const: Well-nourished, Well-developed, appearing stated age 2.Eyes: PERRL, no conjunctival injection, and symmetrical lids. Mild horizontal nystagmus, no vertical or rotatory nystagmus. Negative test of skew. Positive head impulse test. 3.ENT: Atraumatic external nose and ears. Moist MM. Neck: Symmetric, trachea midline, No thyromegaly. Subjective pain over the TMJ, however not worsened with palpation. Tympanic membranes are mayes and pearly bilaterally, mild amount of serous fluid behind the right and left. No evidence of purulent effusion. No facial paralysis, sensation intact throughout. No evidence of lesions or vesicles. 4.CVS: +S1/S2, No murmurs or gallops. Peripheral pulses 2+ and equal in all extremities. Brisk capillary refill in all extremities. 5.RESP: Unlabored respiratory effort. Clear to auscultation bilaterally. No wheezes rales or rhonchi 6.GI: Soft, Nontender/Nondistended, No hepatosplenomegaly. No guarding or rebound. No pain at McBurney's point, negative Lazo sign. 7.MSK: Normocephalic/Atraumatic, Extremities w/o deformity or ttp No cyanosis or clubbing, Normal movement of all extremities 8.Skin: Warm, Dry. No rashes or lesions. 9.Neuro: psychiatric cns II-XII grossly intact. Sensation grossly intact, no focal neurologic deficits. 10.Psych: (AAO) x3. Appropriate mood and affect
[2019-04-07 02:36] VITALS: BP 120/87; PULSE 75; RESP 20; TEMP 36.5; O2SAT 97
[2019-04-07] MEDS: Bupivacaine 0.5% Pres-Free 30 ML VIAL (03:00)
[2019-04-07] MEDS: Ondansetron O.D.T. 4 MG TABEF PO (03:00)
[2019-04-07] MEDS: Meclizine 25 MG TAB PO (03:17)
[2019-04-07 04:52] VITALS: BP 118/70; PULSE 75; RESP 20; O2SAT 97
== END 2019-04-07 03:50 | disposition home or self-care (01) ==
PROVIDERS: Emergency Provider Student in an Organized Health Care Education/Training Program; PCP Family Medicine
DX: G90.59 Complex regional pain syndrome I of other specified site (principal); G50.0 Trigeminal neuralgia; R42 Dizziness and giddiness; I10 Essential (primary) hypertension; E11.9 Type 2 diabetes mellitus without complications; Z79.84 Long term (current) use of oral hypoglycemic drugs
CPT/HCPCS: 64405; 99283

== ENCOUNTER 2019-05-18 09:10 | Outpatient (CLI) | payer MEDICARE, SELFPAY ==
[2019-05-18 09:59] LABS: TROPONIN-I 13.7 ug/mL (4.0-12.0)
== END 2019-05-18 09:30 ==
PROVIDERS: PCP Family Medicine; Visit Provider Family Medicine
DX: G50.0 Trigeminal neuralgia (principal); Z51.81 Encounter for therapeutic drug level monitoring
CPT/HCPCS: 36415; 80156

== ENCOUNTER 2019-06-03 08:53 | Emergency (ER) | payer MEDICARE, SELFPAY ==
[2019-06-03] VITALS (33 sets, daily range): BP systolic 116–193; BP diastolic 76–95; PULSE 61–96; RESP 12–24; TEMP 36.1; O2SAT 95–99
--- NOTE | 2019-06-03 09:09 | W.ED.GENAD ---
Discharge Plan Disposition Patient Disposition: HOME Condition: Good Discharge Details Chief Complaint: GenMedical Clinical Impression: Arthralgia, Chest pain Primary Care Provider: Katarina Rodriguez ED Provider: Jed Warren Home Meds and New Rx's Prescriptions: No Action ketamine thom 10 mg PO QID PRNRF: 0 ketamine/lidocaine 1 applic Topical HS RF: 0 losartan 25 MG tablet 100 mg PO DAILY RF: 0 Zyrtec 10 MG capsule 10 mg PO DAILY RF: 0 meloxicam 15 MG tablet 15 mg PO DAILY RF: 0 ondansetron 4 MG tablet,disintegrating 4 mg PO TID PRN PRNRF: 0 bisacodyl [Dulcolax (bisacodyl)] 5 MG tablet,delayed release (DR/EC) 5 mg PO BID PRNQty: 10 RF: 0 topiramate [Topamax] 100 MG tablet 500 mg PO BID RF: 0 duloxetine [Cymbalta] 30 MG capsule,delayed release(DR/EC) 30 mg PO BID RF: 0 ascorbic acid (vitamin C) 1,000 MG tablet 1 tab PO DAILY RF: 0 cholecalciferol (vitamin D3) 1,000 UNITS tablet 1 tab PO DAILY RF: 0 pantoprazole [Protonix] 20 MG tablet,delayed release (DR/EC) 20 mg PO DAILY RF: 0 baclofen 10 MG tablet 10 mg PO BID RF: 0 ketamine 50 MG/ML solution 2 spray NS QID PRNRF: 0 polyethylene glycol 3350 17 GM powder in packet 2 pkt PO PRN PRNRF: 0 misoprostol 200 MCG tablet 200 mcg PO DAILY RF: 0 albuterol sulfate [ProAir HFA] 200 PUFF HFA aerosol inhaler 2 puff Inhalation PRN PRNRF: 0 Symbicort 10.2 GM HFA aerosol inhaler 2 puff Inhalation DAILY PRN PRNRF: 0 clonidine HCl [Catapres] 0.1 MG tablet 0.1 mg PO DIRECTED PRNQty: 0 RF: 0 acetaminophen [Acetaminophen Extra Strength] 500 MG tablet 1,000 mg PO TID PRNQty: 180 RF: 0 meclizine 25 mg tablet 25 mg PO TID Qty: 14 RF: 0 ondansetron HCl [Zofran] 4 mg tablet 4 mg PO Q8H Qty: 10 RF: 0 pregabalin [Lyrica] 100 MG capsule 50 mg PO BID RF: 0 metformin 500 MG tablet extended release 24 hr 500 mg PO DAILY RF: 0 furosemide 20 MG tablet 20 mg PO PRN PRNRF: 0 promethazine 25 mg Tablet 25 mg PO PRN PRNRF: 0 Victoza 3-Norbert 0.6 mg/0.1 mL (18 mg/3 mL) Pen Injector 0.6 mg subcut DAILY RF: 0 Discharge Instructions Instructions: Chest Pain (ED), Arthralgia (ED) Additional Instructions: At this time there is no evidence of life-threatening heart disease, or significant blood clot or fluid in your lungs, or pneumonia. I feel your symptoms may be secondary to the previous virus that you had, or may be a reflection of mild systemic arthritis. Please follow-up closely with your primary care provider for reassessment and further evaluation. Please take Tylenol as needed for pain. If you notice any worsening of your symptoms, or any new symptoms such as vomiting, diarrhea, fever, chills, shortness of breath, chest pain, numbness, weakness, or fainting , please return immediately to the emergency department for reevaluation. Please follow up with your primary care provider as soon as possible for reassessment and reevaluation. As always, it was a pleasure participating in your medical care today. Referrals: Katarina Rodriguez MD [Primary Care Provider] - Medical Decision Making This is a very pleasant 53-year-old female with a past medical history of diabetes, obesity, hypertension, complex regional pain syndrome who presents today for evaluation of shortness of breath, mild edema, chest pain. 3 weeks ago the patient had a mild URI which resolved on its own, since then she has had mild joint pain and mild swelling primarily over the last week or so. She is also had associated mild chest pain, worse on the right with a pleuritic component. Recently got back from a trip to [place]. She does admit to notable shortness of breath especially with exertion worsened, and. She denies any significant worsening of her chest pain with exertion. She denies hemoptysis cough fever or chills. Exam demonstrates trace pitting edema in the right, mild trace to +1 pitting edema in the left lower extremity. No calf tenderness. Trace subjective edema in the hands without pitting component. No reproducible chest pain. Bedside limited echo demonstrates no significant right ventricular dilatation, no signs of severe heart strain. There is a trace pericardial effusion with no evidence whatsoever of pericardial tamponade. Aortic root unable to be visualized. Differential is broad but includes potential nephrotic or nephritic syndrome from the recent URI, PE with a pleuritic chest pain and lower limb swelling, atypical cardiac etiology, or just mild fluid overload. We will get a laboratory work-up, evaluate for acute cardiac etiology, order d-dimer, reassess. Patient is notably stable otherwise, and may just require mild diuresis. We will continue to monitor closely. 1:07 PM EKG and serial troponins a all unremarkable and within normal limits. Laboratory work-up is benign, d-dimer negative, vitals remained stable, no white count. Normal renal function. CRP is elevated at 1.78, ESR is normal. This does slightly increase my concern for potential systemic arthritis mediated etiology although I still feel this is unlikely. Patient may still be dealing with mild reactivity secondary to her previous viral illness. No evidence of glomerular nephritis or nephrotic syndrome per urinalysis and laboratory work-up. Swelling continues to be notably benign. Will recommend close follow-up with her primary care provider for potential further systemic arthritis work-up. Discussed red flags which to return. At this time there is no clinical evidence of severe PE, ACS, dissection, or severe fluid overload. We did give 20 of Lasix here and we will give 1 Lasix pills for home use for potential minimal fluid overload. I have extensively reviewed the treatment plan and discharge instructions with the patient and their family. I have addressed all patient concerns at this time. The patient and family was made aware of what symptoms to monitor for that would warrant a return to the emergency department. Discussed the plan with the patient and family, they demonstrate verbal understanding and agreement with our assessment and plan at this time. EKG 9: 15 Rate 65, sinus rhythm, intervals normal, no significant ST elevations or depressions, there are Q waves present in lead III and aVF, no evidence of STEMI. Q waves were present in prior EKG on 03/10/2019. FINDINGS: Tubes, catheters and devices: Left chest central venous port is accessed with catheter tip projecting about the upper SVC. Lungs: Unremarkable. No consolidation. Pleural space: Unremarkable. No pleural effusion. No pneumothorax. Heart/Mediastinum: Unremarkable. No cardiomegaly. Upper abdomen: Surgical clips project in the right upper quadrant, likely status post cholecystectomy. Bones/joints: No acute osseous findings. IMPRESSION: No acute findings. Thank you for allowing us to participate in the care of your patient. Dictated and Authenticated by: Angel Webber MD 06/03/2019 11:20 AM Eastern Time ([place] & [place]) Nuclear stress test 09/07/17 Impressions: - Negative stress test after pharmacologic stress. - Low risk of cardiac events but higher compared to non-diabetics. Summary: 1. Myocardial perfusion imaging: There is image artifact due to breast attenuation, without diagnostic evidence for perfusion abnormality. 2. The calculated left ventricular ejection fraction after stress: 66%. LV global systolic function is normal. No left ventricular regional motion abnormality. HPI General Date/Time Provider Initiated Documentation: 06/03/19 08:57. HPI Narrative: This is a very pleasant 53-year-old female with a past medical history of type 2 diabetes, hypertension, complex regional pain syndrome of the face, who presents today for evaluation of swelling of the extremities and mild right-sided chest pain. Patient states that 3 weeks ago she developed a mild upper respiratory infection with cough which resolved on its own without antibiotics or treatment. Over the last 3 to 4 days she has had mild swelling in her legs, worse in the left than the right, as well as swelling in the hands bilaterally. She is also developed mild right-sided chest pain which seems to come and go, however she has had a pleuritic component. She noticed associated shortness of breath, worse with exertion, notably worse than normal with exertion. She denies any chest heaviness or tightness. The pain is described as achy. She denies any syncope. She denies any tearing or ripping sensation. Denies PE risk factors such as immobilization, recent surgery, prior history of DVT or PE, family history of PE or DVT, morbid obesity, exogenous estrogen and smoking, hemoptysis, history of cancer. However the patient did recently come back 3 to 4 days ago from a trip to [place]. Patient has no other complaints at this time. She denies history of myocardial infarction or significant heart disease. She did have a nuclear stress test in August 2017. This was unremarkable. Report will be included. Related Data Home Medications Medication Instructions Recorded Confirmed losartan 100 mg PO DAILY 09/01/12 03/10/19 Zyrtec 10 mg PO DAILY 11/20/12 03/10/19 meloxicam 15 mg PO DAILY 03/01/13 03/10/19 ondansetron 4 mg PO TID PRN PRN 07/07/13 03/10/19 bisacodyl [Dulcolax (bisacodyl)] 5 mg PO BID PRN #10 tablet. 07/26/13 03/10/19 duloxetine [Cymbalta] 30 mg PO BID 09/15/13 03/10/19 topiramate [Topamax] 500 mg PO BID 09/15/13 03/10/19 ascorbic acid (vitamin C) 1 tab PO DAILY 07/18/14 03/10/19 cholecalciferol (vitamin D3) 1 tab PO DAILY 07/18/14 03/10/19 baclofen 10 mg PO BID 08/26/14 03/10/19 pantoprazole [Protonix] 20 mg PO DAILY 08/26/14 03/10/19 ketamine 2 spray NS QID PRN 05/01/15 03/10/19 Symbicort 2 puff INHALATION DAILY PRN PRN 08/04/15 03/10/19 albuterol sulfate [ProAir HFA] 2 puff INHALATION PRN PRN 08/04/15 03/10/19 misoprostol 200 mcg PO DAILY 08/04/15 03/10/19 polyethylene glycol 3350 2 pkt PO PRN PRN 08/04/15 03/10/19 Ketamine Thom 10 mg PO QID PRN 03/10/16 03/10/19 Ketamine/Lidocaine 1 applic TOPICAL HS 03/10/16 03/10/19 pregabalin [Lyrica] 50 mg PO BID 05/01/16 03/10/19 metformin 500 mg PO DAILY 09/21/16 03/10/19 clonidine HCl [Catapres] 0.1 mg PO DIRECTED PRN #0 10/21/16 03/10/19 acetaminophen [Acetaminophen Extra 1,000 mg PO TID PRN #180 tab 02/22/17 03/10/19 Strength] furosemide 20 mg PO PRN PRN 04/26/17 03/10/19 liraglutide [Victoza 3-Norbert] 0.6 mg SUBCUT DAILY 09/14/18 03/10/19 promethazine 25 mg PO PRN PRN 09/14/18 03/10/19 meclizine 25 mg PO TID #14 tab 04/07/19 ondansetron HCl [Zofran] 4 mg PO Q8H #10 tab 04/07/19 Previous Rx's Medication Instructions Recorded bisacodyl [Dulcolax (bisacodyl)] 5 mg PO BID PRN #10 tablet. 07/26/13 clonidine HCl [Catapres] 0.1 mg PO DIRECTED PRN #0 10/21/16 acetaminophen [Acetaminophen Extra 1,000 mg PO TID PRN #180 tab 02/22/17 Strength] meclizine 25 mg PO TID #14 tab 04/07/19 ondansetron HCl [Zofran] 4 mg PO Q8H #10 tab 04/07/19 Allergies Allergy/AdvReac Type Severity Reaction Status Date / Time phenytoin sodium Allergy Severe Hives Unverified 04/07/19 02:56 [From Dilantin] phenytoin sodium extended Allergy Severe Hives Unverified 04/07/19 02:56 [From Dilantin] amoxicillin [Amoxicillin] Allergy Intermediate Hives Unverified 04/07/19 02:56 lisinopril Allergy Intermediate Unverified 04/07/19 02:56 oxycodone Allergy Intermediate Unverified 04/07/19 02:56 potassium clavulanate Allergy Intermediate Hives Unverified 04/07/19 02:56 [From Augmentin] Sulfa (Sulfonamide Allergy Mild Skin Rash Unverified 04/07/19 02:56 Antibiotics) tomato [Tomato] Allergy Mild Skin Rash Unverified 04/07/19 02:56 sumatriptan [From Imitrex] AdvReac Severe Visual Unverified 04/07/19 02:56 Disturbances,burning sensation through out body General Stated Complaint: GenMedical HARRIET: 3 Review of Systems All systems reviewed & are unremarkable except as noted in HPI and below PFSH Social History Smoking/Tobacco Use Status: Former Tobacco Use Alcohol Intake: current Alcohol Intake frequency: holidays/special occasions only Drug use: Never Substance use type: does not use Do you feel safe at home: Yes Do you feel safe in your relationship?: Yes Exam Narrative Exam Narrative: 1.Const: Well-nourished, Well-developed, appearing stated age 2.Eyes: PERRL, no conjunctival injection, and symmetrical lids. 3.ENT: Atraumatic external nose and ears. Moist MM. Neck: Symmetric, trachea midline, No thyromegaly. 4.CVS: +S1/S2, No murmurs or gallops. Peripheral pulses 2+ and equal in all extremities. Brisk capillary refill in all extremities. No reproducible chest pain. 5.RESP: Unlabored respiratory effort. Clear to auscultation bilaterally. No wheezes rales or rhonchi 6.GI: Soft, Nontender/Nondistended, No hepatosplenomegaly. No guarding or rebound. 7.MSK: Normocephalic/Atraumatic, Extremities w/o deformity or ttp No cyanosis or clubbing, Normal movement of all extremities. No calf tenderness. Dorsalis pedis pulses +2 bilaterally. Trace to +1 pitting edema on the left, trace pitting edema on the right. Minimal slightly subjective nonpitting edema of the hands bilaterally. Capillary refill sensation movement and strength normal throughout otherwise. 8.Skin: Warm, Dry. No rashes or lesions. 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 Sensation grossly intact, no focal neurologic deficits. 10.Psych: (AAO) x3. Appropriate mood and affect Course Vital Signs Vital signs: Vital Signs Temperature 36.1 C L 06/03/19 08:58 Pulse 65 06/03/19 08:58 Respiratory Rate 16 06/03/19 08:58 Blood Pressure 116/86 06/03/19 08:58 Temperature 36.1 C L 06/03/19 08:58 Temperature Source Temporal Artery Scan 06/03/19 08:58 Pulse 65 06/03/19 08:58 Respiratory Rate 16 06/03/19 08:58 Respiratory Effort Non-Labored 06/03/19 08:58 Respiratory Depth Normal 06/03/19 08:58 Respiratory Pattern Normal 06/03/19 08:58 Blood Pressure 116/86 06/03/19 08:58 Pain Level 8 06/03/19 08:58 Comment 06/03/19 08:58
[2019-06-03 09:59] LABS: Abs Immature Grans 0.02 k/cumm (0.0-0.09); Absolute Basophil Count 0.03 k/cumm (0.0-0.2); Absolute Eosinophil Count 0.33 k/cumm (0.0-0.7); Absolute Lymphocyte Count 1.92 k/cumm (1.2-3.4); Absolute Neutrophil Count 4.79 k/cumm (1.2-6.7); Basophils % 0.4; Eosinophils % 4.3; HGB 12.1 g/dL (12.0-15.5); Immature Grans % 0.3; Lymphocytes % 25.3; Mean Corp. HGB Concentration 32.7 g/dL (32.0-36.0); Mean Corpuscular Hemoglobin 29.7 pg (27.0-33.0); Mean Corpuscular Volume 90.7 fL (80-95); Mean Platelet Volume 9.6 fL (8.0-11.0); Monocytes % 6.6; Neutrophils % 63.1; Platelet Count 226 x1000/uL (130-400); RBC 4.08 m/cumm (4.00-5.20); RBC Distribution Width 12.9 % (11.7-14.6); White Blood Cell Count 7.59 k/cumm (4.4-10.8)
[2019-06-03 10:00] LABS: PTT Activated 37.9 sec (21.0-31.4)
[2019-06-03 10:02] LABS: Bilirubin Negative (Negative); Blood Negative (Negative); Clarity Clear (Clear); Glucose Negative (Negative); Ketones Negative (Negative); Leukocyte Esterase Negative (Negative); Nitrite Negative (Negative); Specific Gravity 1.025 (1.005-1.025); Urobilinogen 0.2 EU/dL (Up TO 0.2); pH 5.5 (5-8)
[2019-06-03 10:08] LABS: ALT 19 U/L (14-59); AST 10 U/L (15-37); Albumin 3.4 g/dL (3.4-5.0); Alkaline Phosphatase 77 U/L (46-116); Anion Gap 8.1 mmol/L (3-11); BUN 14 mg/dL (7-18); Bilirubin, Total 0.2 mg/dL (0.2-1.0); CO2 26.9 mmol/L (21.0-32.0); CREATININE 0.86 mg/dL (0.55-1.02); Calcium 8.6 mg/dL (8.5-10.1); Chloride 106 mmol/L (98-107); Glucose 165 mg/dL (74-106); NT-proBNP 146 pg/mL (<300); Potassium 3.9 mmol/L (3.5-5.1); Sodium 141 mmol/L (136-145); Total Protein 6.6 g/dL (6.4-8.2)
[2019-06-03 10:10] LABS: Troponin I < 0.05 ng/Ml (<0.06)
[2019-06-03 10:33] LABS: D-Dimer 327 ng/mlFEU (<500)
[2019-06-03 10:49] LABS: C-Reactive Protein 1.78 mg/dL (0.0-0.3)
--- NOTE | 2019-06-03 10:49 | DI.RAD_ITS ---
EXAM: XR CHEST 2V PA LATERAL INDICATION: SOB. COMPARISON: CHEST 2 VIEWS PA,LAT from 09/02/2017 TECHNIQUE: 2D digital imaging was performed. FINDINGS: Heart size and pulmonary vasculature are within normal limits. The tip of the central venous cathete r is stable and in good position. Lungs are clear. No effusion or pneumothorax is identified. Ther e are again seen surgical clips in the right upper quadrant of the abdomen likely reflecting prior ch olecystectomy. Degenerative changes are seen in the spine. IMPRESSION: No acute pulmonary process.
[2019-06-03] MEDS: Furosemide 20 MG/2 ML VIAL IVP (11:07)
[2019-06-03 11:19] LABS: ESR 20 mm/hr (0-30)
--- NOTE | 2019-06-03 11:21 | DI.VRAD_ITS ---
PROCEDURE INFORMATION: Exam: XR Chest, 2 Views Exam date and time: 06/03/2019 10:40 AM Age: 53 years old Clinical indication: Shortness of breath; Patient HX: SOB TECHNIQUE: Imaging protocol: XR of the chest Views: 2 views. COMPARISON: CR CHEST 2 VIEWS PA,LAT 09/02/2017 4:36 PM FINDINGS: Tubes, catheters and devices: Left chest central venous port is accessed with catheter tip projecting about the upper SVC. Lungs: Unremarkable. No consolidation. Pleural space: Unremarkable. No pleural effusion. No pneumothorax. Heart/Mediastinum: Unremarkable. No cardiomegaly. Upper abdomen: Surgical clips project in the right upper quadrant, likely status post cholecystectomy. Bones/joints: No acute osseous findings. IMPRESSION: No acute findings. Dictated and Authenticated by: Angel Webber MD. Ordering:LORRAINE Adkins MD
[2019-06-03 13:04] LABS: Troponin I < 0.05 ng/Ml (<0.06)
[2019-06-03] MEDS: Furosemide 20 MG TAB (13:14)
== END 2019-06-03 13:19 | disposition home or self-care (01) ==
PROVIDERS: Emergency Provider Student in an Organized Health Care Education/Training Program; PCP Family Medicine
DX: R07.81 Pleurodynia (principal); M25.50 Pain in unspecified joint; Z95.828 Presence of other vascular implants and grafts; E11.9 Type 2 diabetes mellitus without complications; Z79.84 Long term (current) use of oral hypoglycemic drugs; I10 Essential (primary) hypertension
CPT/HCPCS: 36591; 80053; 85652; 93005; 96374; 96376; 99285; 71046; 81003; 83880; 84484; 85025; 85379; 85610; 85730; 86140; 93010; J1941

== ENCOUNTER 2019-06-09 16:41 | Emergency (ER) | payer MEDICARE, SELFPAY ==
[2019-06-09] VITALS (33 sets, daily range): BP systolic 146–179; BP diastolic 80–95; PULSE 59–77; RESP 8–18; TEMP 36.1–36.6; O2SAT 94–99
--- NOTE | 2019-06-09 17:54 | W.ED.GENAD ---
Discharge Plan Disposition Patient Disposition: HOME Condition: Stable Discharge Details Chief Complaint: Trauma Clinical Impression: Fall down stairs, Left ankle sprain, Face lacerations, Lumbar contusion, Right ankle sprain Primary Care Provider: Katarina Rodriguez ED Provider: Ana Layne Home Meds and New Rx's Prescriptions: Continued ketamine thom 10 mg PO QID PRNRF: 0 ketamine/lidocaine 1 applic Topical HS RF: 0 losartan 25 MG tablet 100 mg PO DAILY RF: 0 Zyrtec 10 MG capsule 10 mg PO DAILY RF: 0 meloxicam 15 MG tablet 15 mg PO DAILY RF: 0 ondansetron 4 MG tablet,disintegrating 4 mg PO TID PRN PRNRF: 0 bisacodyl [Dulcolax (bisacodyl)] 5 MG tablet,delayed release (DR/EC) 5 mg PO BID PRNQty: 10 RF: 0 topiramate [Topamax] 100 MG tablet 500 mg PO BID RF: 0 duloxetine [Cymbalta] 30 MG capsule,delayed release(DR/EC) 30 mg PO BID RF: 0 ascorbic acid (vitamin C) 1,000 MG tablet 1 tab PO DAILY RF: 0 cholecalciferol (vitamin D3) 1,000 UNITS tablet 1 tab PO DAILY RF: 0 pantoprazole [Protonix] 20 MG tablet,delayed release (DR/EC) 20 mg PO DAILY RF: 0 baclofen 10 MG tablet 10 mg PO BID RF: 0 ketamine 50 MG/ML solution 2 spray NS QID PRNRF: 0 polyethylene glycol 3350 17 GM powder in packet 2 pkt PO PRN PRNRF: 0 misoprostol 200 MCG tablet 200 mcg PO DAILY RF: 0 albuterol sulfate [ProAir HFA] 200 PUFF HFA aerosol inhaler 2 puff Inhalation PRN PRNRF: 0 Symbicort 10.2 GM HFA aerosol inhaler 2 puff Inhalation DAILY PRN PRNRF: 0 clonidine HCl [Catapres] 0.1 MG tablet 0.1 mg PO DIRECTED PRNQty: 0 RF: 0 acetaminophen [Acetaminophen Extra Strength] 500 MG tablet 1,000 mg PO TID PRNQty: 180 RF: 0 meclizine 25 mg tablet 25 mg PO TID Qty: 14 RF: 0 carbamazepine 100 mg Tablet Extended Release 12 Hr 100 - 200 mg PO BID RF: 0 pregabalin [Lyrica] 100 MG capsule 50 mg PO BID RF: 0 metformin 500 MG tablet extended release 24 hr 1,500 mg PO DAILY RF: 0 furosemide 20 MG tablet 20 mg PO PRN PRNRF: 0 promethazine 25 mg Tablet 25 mg PO PRN PRNRF: 0 Victoza 3-Norbert 0.6 mg/0.1 mL (18 mg/3 mL) Pen Injector 0.6 mg subcut DAILY RF: 0 Discharge Instructions Instructions: Ankle Sprain (ED), Contusion in Adults (ED), Facial Laceration (ED) Additional Instructions: Apply ice to the affected area several times daily for 20 minutes at a time. Alternate tylenol and motrin as needed and directed for pain. Take the Vicodin for pain not relieved with Tylenol or Motrin. Follow-up with your primary care doctor in 1 week. Return to the emergency department with any worsening or new concerning symptoms. Discharge Data Discharge Physician: Ana Layne Medical Decision Making 1649 -- 53-year-old female presents with headache, neck pain, facial pain and lower back pain after fall down steps at a store just prior to arrival. Forehead laceration and right-sided facial swelling noted. Midline lumbar spine tenderness. No midline C or T-spine tenderness. Chest and abdomen nontender. Bilateral malleoli are tenderness with right malleolar swelling. No orthopedic deformities noted. Tetanus up-to-date. Screening labs unremarkable. Magnesium 1.4. Troponin negative. Lipase negative. Patient referred for CT head/facial/cervical spine as well as chest abdomen pelvis with thoracic and lumbar recons, b/l ankle xrays. 1914 --all imaging reviewed and negative. Patient feels better after morphine. She states her pain is somewhat returning. Will give another dose of morphine and attempt to ambulate. Dajuan wrap placed to right ankle. 1999 --patient was able to ambulate and feels good to go home. We will send home with a few tabs of Vicodin for home. She is advised to alternate Tylenol and Motrin, follow-up with her primary care doctor return here if worse. Medical Records Medical records reviewed: Yes I reviewed the patient's medical records. Imaging Data Radiologic Study: Radiologist's impression: CT Head Without Contrast Exam date and time: 06/09/2019 6:18 PM Age: 53 years old Clinical indication: Injury or trauma; Fall; Initial encounter; Blunt trauma (contusions or hematomas); Forehead TECHNIQUE: Imaging protocol: Computed tomography of the head without contrast. COMPARISON: CT CERVICAL SPINE WITHOUT CONTRA 07/18/2014 6:57 PM FINDINGS: Brain: No hemorrhage. No large vascular territory infarct. No mass effect. Ventricles: Normal. No ventriculomegaly. Bones/joints: Unremarkable. No acute fracture. Sinuses: Visualized sinuses are unremarkable. No fluid levels. Mastoid air cells: Visualized mastoid air cells are well aerated. Soft tissues: Left frontal scalp hematoma and laceration without underlying fracture. IMPRESSION: 1. No acute intracranial abnormality. 2. Left frontal scalp hematoma and laceration without underlying fracture. CT Maxillofacial Without Contrast Exam date and time: 06/09/2019 6:18 PM Age: 53 years old Clinical indication: Injury or trauma; Fall; Initial encounter; Blunt trauma (contusions or hematomas); Forehead TECHNIQUE: Imaging protocol: Computed tomography images of the face without contrast. COMPARISON: CT CERVICAL SPINE WITHOUT CONTRA 07/18/2014 6:57 PM FINDINGS: Orbits: Orbits are normal. Globes are unremarkable. Sinuses: Normal. No air-fluid levels. Bones/joints: No acute fracture. Soft tissues: Unremarkable. IMPRESSION: No acute findings. CT Cervical Spine Without Contrast Exam date and time: 06/09/2019 6:18 PM Age: 53 years old Clinical indication: Injury or trauma; Fall; Initial encounter; Blunt trauma (contusions or hematomas); Forehead TECHNIQUE: Imaging protocol: Computed tomography images of the cervical spine without contrast. COMPARISON: CT CERVICAL SPINE WITHOUT CONTRA 07/18/2014 6:57 PM FINDINGS: Vertebrae: Vertebral body heights are maintained and in normal alignment. Discs/Spinal canal/Neural foramina: No spinal stenosis. No neural foraminal narrowing. Prevertebral Space: No prevertebral edema. Soft tissues: Unremarkable. Lungs: Lung apices are normal. IMPRESSION: No acute fracture or traumatic malalignment of the cervical spine. No prevertebral edema. CT Chest With Contrast Exam date and time: 06/09/2019 5:54 PM Age: 53 years old Clinical indication: Injury or trauma; Fall; Initial encounter; Generalized; Blunt trauma (contusions or hematomas); Additional info: Please read spine recons TECHNIQUE: Imaging protocol: Computed tomography of the chest with intravenous contrast. COMPARISON: CT ABD PELVIS WITH CONTRAST 05/14/2015 9:15 PM FINDINGS: Lungs: Mild bibasilar dependent atelectasis. Lungs otherwise clear. Pleural space: Unremarkable. No pneumothorax. No pleural effusion. Heart: Unremarkable. No cardiomegaly. No pericardial effusion. Mediastinum: Mediastinal calcifications likely reflect prior granulomatous disease. Aorta: Left single-lumen chest port terminates in the mid superior vena cava.The aorta is normal. Lymph nodes: Unremarkable. No enlarged lymph nodes. Bones/joints: Thoracic vertebral body heights are maintained and in normal alignment. No acute fracture. Soft tissues: Unremarkable. IMPRESSION: No acute abnormality in the chest or thoracic spine. CT Abdomen And Pelvis With Contrast Exam date and time: 06/09/2019 5:54 PM Age: 53 years old Clinical indication: Injury or trauma; Fall; Initial encounter; Generalized; Blunt trauma (contusions or hematomas); Additional info: Please read spine recons TECHNIQUE: Imaging protocol: Computed tomography of the abdomen and pelvis with intravenous contrast. COMPARISON: CT ABD PELVIS WITH CONTRAST 05/14/2015 9:15 PM FINDINGS: Liver: The liver is normal. Gallbladder and bile ducts: The gallbladder is surgically absent. Pancreas: The pancreas is normal. Spleen: The spleen is normal. Adrenals: The adrenal glands are normal. Kidneys and ureters: Simple appearing exophytic left renal cyst.The kidneys are otherwise unremarkable. Stomach and bowel: Prominent air and stool burden throughout the large bowel. Appendix: No evidence of appendicitis. Intraperitoneal space: Unremarkable. No free air. No significant fluid collection. Vasculature: The aorta is normal. Lymph nodes: Unremarkable. No enlarged lymph nodes. Bladder: The bladder is normal. Reproductive: Unremarkable as visualized. Bones/joints: Lumbar vertebral body heights are maintained and in normal alignment. No acute fracture. Soft tissues: Unremarkable. IMPRESSION: No acute abnormality in the abdomen and pelvis or lumbar spine. XR Right Ankle Exam date and time: 06/09/2019 7:15 PM Age: 53 years old Clinical indication: Pain; Ankle; Right; Patient HX: S/P fall down stairs; Additional info: R/O acute fracture TECHNIQUE: Imaging protocol: XR Right ankle. Views: 3 or more views. COMPARISON: No relevant prior studies available. FINDINGS: Bones/joints: No acute fracture. Joint spaces are maintained. Calcaneal plantar and Achilles spurring. Soft tissues: Normal. IMPRESSION: No acute findings. XR Left Ankle Exam date and time: 06/09/2019 7:16 PM Age: 53 years old Clinical indication: Pain; Ankle; Left; Patient HX: S/P fall down stairs; Additional info: R/O acute fracture TECHNIQUE: Imaging protocol: XR Left ankle. Views: 3 or more views. COMPARISON: CR XR ANKLE LT COMPLETE 06/14/2018 11:20 AM FINDINGS: Bones/joints: No acute fracture. Joint spaces are maintained. Calcaneal plantar and Achilles spurring. Soft tissues: Normal. IMPRESSION: No acute findings. Lab Data Lab results reviewed: Yes I reviewed the patient's lab results. Labs: Laboratory Tests Range/Units 06/09/19 06/09/19 17:05 17:05 WBC (4.4-10.8) k/cumm 8.72 RBC (4.00-5.20) m/cumm 4.02 Hgb (12.0-15.5) g/dL 12.0 Hct (36.0-46.0) % 36.3 MCV (80-95) fL 90.3 MCH (27.0-33.0) pg 29.9 MCHC (32.0-36.0) g/dL 33.1 RDW (11.7-14.6) % 12.9 Plt Count (130-400) x1000/uL 212 MPV (8.0-11.0) fL 10.6 Immature Gran % 0.7 Neutrophils % 64.4 Lymphocytes % 24.5 Monocytes % 5.8 Eosinophils % 4.1 Basophils % 0.5 Absolute Neutrophils (1.2-6.7) k/cumm 5.61 Absolute Lymphocytes (1.2-3.4) k/cumm 2.14 Absolute Monocytes (0.11-0.7) k/cumm 0.51 Absolute Eosinophils (0.0-0.7) k/cumm 0.36 Absolute Basophils (0.0-0.2) k/cumm 0.04 Sodium (136-145) mmol/L 141 Potassium (3.5-5.1) mmol/L 4.3 Chloride (98-107) mmol/L 104 Carbon Dioxide (21.0-32.0) mmol/L 25.2 Anion Gap (3-11) mmol/L 11.8 H BUN (7-18) mg/dL 19 H Creatinine (0.55-1.02) mg/dL 1.14 H Estimated GFR/1.73 m2 (mL/min/1.73m2) 50.05 Glucose (74-106) mg/dL 128 H Calcium (8.5-10.1) mg/dL 8.8 Magnesium (1.8-2.4) mg/dL 1.4 L Total Bilirubin (0.2-1.0) mg/dL 0.2 AST (15-37) U/L 15 ALT (14-59) U/L 23 Alkaline Phosphatase (46-116) U/L 78 Troponin I (<0.06) ng/Ml < 0.05 Total Protein (6.4-8.2) g/dL 7.2 Albumin (3.4-5.0) g/dL 3.7 Lipase (73-393) U/L 232 ECG Data Attestation: I personally reviewed and interpreted this ECG (s) as follows: Interpretation: Rate of 66, sinus, no acute ST elevation or depression. DC 182. QTc 430. QRS 98. HPI General Mode of arrival: ambulatory. Date/Time Provider Initiated Documentation: 06/09/19 16:51. Limitations to Documentation: no limitations. Information obtained by: patient. History of Present Illness 53 year old F presents to the emergency department with the chief complaint of fall down stairs, and is localized to the head, neck and back. Patient started experiencing this hour(s) and it has been constant. Patient did receive the following treatments prior to arrival, none Related Data Home Medications Medication Instructions Recorded Confirmed losartan 100 mg PO DAILY 09/01/12 06/09/19 Zyrtec 10 mg PO DAILY 11/20/12 06/09/19 meloxicam 15 mg PO DAILY 03/01/13 06/09/19 ondansetron 4 mg PO TID PRN PRN 07/07/13 06/09/19 bisacodyl [Dulcolax (bisacodyl)] 5 mg PO BID PRN #10 tablet. 07/26/13 06/09/19 duloxetine [Cymbalta] 30 mg PO BID 09/15/13 06/09/19 topiramate [Topamax] 500 mg PO BID 09/15/13 06/09/19 ascorbic acid (vitamin C) 1 tab PO DAILY 07/18/14 06/09/19 cholecalciferol (vitamin D3) 1 tab PO DAILY 07/18/14 06/09/19 baclofen 10 mg PO BID 08/26/14 06/09/19 pantoprazole [Protonix] 20 mg PO DAILY 08/26/14 06/09/19 ketamine 2 spray NS QID PRN 05/01/15 06/09/19 Symbicort 2 puff INHALATION DAILY PRN PRN 08/04/15 06/09/19 albuterol sulfate [ProAir HFA] 2 puff INHALATION PRN PRN 08/04/15 06/09/19 misoprostol 200 mcg PO DAILY 08/04/15 06/09/19 polyethylene glycol 3350 2 pkt PO PRN PRN 08/04/15 06/09/19 Ketamine Thom 10 mg PO QID PRN 03/10/16 06/09/19 Ketamine/Lidocaine 1 applic TOPICAL HS 03/10/16 06/09/19 pregabalin [Lyrica] 50 mg PO BID 05/01/16 06/09/19 metformin 1,500 mg PO DAILY 09/21/16 06/09/19 clonidine HCl [Catapres] 0.1 mg PO DIRECTED PRN #0 10/21/16 06/09/19 acetaminophen [Acetaminophen Extra 1,000 mg PO TID PRN #180 tab 02/22/17 06/09/19 Strength] furosemide 20 mg PO PRN PRN 04/26/17 06/09/19 Victoza 3-Norbert 0.6 mg SUBCUT DAILY 09/14/18 06/09/19 promethazine 25 mg PO PRN PRN 09/14/18 06/09/19 meclizine 25 mg PO TID #14 tab 04/07/19 06/09/19 carbamazepine 100 - 200 mg PO BID 06/09/19 06/09/19 Previous Rx's Medication Instructions Recorded bisacodyl [Dulcolax (bisacodyl)] 5 mg PO BID PRN #10 tablet. 07/26/13 clonidine HCl [Catapres] 0.1 mg PO DIRECTED PRN #0 10/21/16 acetaminophen [Acetaminophen Extra 1,000 mg PO TID PRN #180 tab 02/22/17 Strength] meclizine 25 mg PO TID #14 tab 04/07/19 Allergies Allergy/AdvReac Type Severity Reaction Status Date / Time phenytoin sodium Allergy Severe Hives Unverified 06/09/19 17:21 [From Dilantin] phenytoin sodium extended Allergy Severe Hives Unverified 06/09/19 17:21 [From Dilantin] amoxicillin [Amoxicillin] Allergy Intermediate Hives Unverified 06/09/19 17:21 lisinopril Allergy Intermediate Unverified 06/09/19 17:21 oxycodone Allergy Intermediate Unverified 06/09/19 17:21 potassium clavulanate Allergy Intermediate Hives Unverified 06/09/19 17:21 [From Augmentin] Sulfa (Sulfonamide Allergy Mild Skin Rash Unverified 06/09/19 17:21 Antibiotics) tomato [Tomato] Allergy Mild Skin Rash Unverified 06/09/19 17:21 sumatriptan [From Imitrex] AdvReac Severe Visual Unverified 06/09/19 17:21 Disturbances,burning sensation through out body General Stated Complaint: Trauma HARRIET: 2 Review of Systems All systems reviewed & are unremarkable except as noted in HPI and below Constitutional Constitutional: Reports as per HPI, Denies chills, Denies fever(s) and Reports headache(s) Eyes Eyes: Denies blurry vision ENT Ears, Nose, Mouth, and Throat: Denies dizziness, Reports headache(s), Denies sore throat and Denies throat swelling Cardiovascular Cardiovascular: Denies chest pain and Denies dyspnea Respiratory Respiratory: Denies cough and Denies dyspnea Gastrointestinal Gastrointestinal: Denies abdominal pain, Denies diarrhea and Denies vomiting Genitourinary Genitourinary: Denies hematuria and Denies dysuria Musculoskeletal Musculoskeletal: Reports back pain and Denies numbness Integumentary/Breasts Skin/Breast: Denies lesions and Denies rash Neurologic Neurologic: Denies dizziness, Reports headache(s), Denies focal weakness and Denies numbness Allergic/Immunologic Allergic/Immunologic: Denies throat swelling [facility] Medical History Asthma DM (diabetes mellitus) GERD (gastroesophageal reflux disease) HTN (hypertension) Migraine (Chronic) Obesity Otalgia Tendinitis Surgical History Colonoscopy - MAC (06/15/17) H/O shoulder surgery (Chronic) History of appendectomy (Chronic) History of eye surgery (Acute) History of hysterectomy (Chronic) History of knee surgery (Acute) Mediport placement (05/02/15) Social History Smoking/Tobacco Use Status: Former Tobacco Use Alcohol Intake: current Alcohol Intake frequency: holidays/special occasions only Drug use: Never Substance use type: does not use Do you feel safe at home: Yes Do you feel safe in your relationship?: Yes Exam Const General: cooperative and healthy appearing Orientation: alert and awake HENAZ Head images: 1. 2 cm superficial laceration left mid upper forehead. Ears: hearing grossly normal bilaterally, external ears normal and TM's normal bilaterally General nose exam: external nose normal Face and sinus: normal facial exam Face images: 1. Right-sided facial swelling with a 1 x 2 mm superficial abrasion right preauricular region. Mouth: oral mucosae normal Teeth and gingiva: dentition normal Throat: posterior oropharynx normal Eyes General: appearance normal, both eyes and all related structures Eyelids: eyelids normal Pupils: PERRL EOM: EOM intact bilaterally Neck Neck: normal visual inspection Lymphatic: no lymphadenopathy noted Chest Chest: normal inspection of the chest, normal palpation of entire chest wall and no tenderness Resp Effort & Inspection: normal respiratory effort and able to speak in complete sentences Auscultation: clear to auscultation bilaterally Cardio Rate: regular rate Rhythm: regular rhythm GI Inspection: normal to inspection Palpation: soft, not firm, no guarding, no hepatosplenomegaly, no masses and nontender Auscultation: normal bowel sounds Back/Spine/Pelvis Back: no CVA tenderness Cervical Spine: No cervical spinal tenderness Thoracic/Lumbar Spine: thoracic spinal tenderness (Lower) and lumbar spinal tenderness Pelvis: no pain with anterior-posterior compression Skin General skin exam: no rashes or lesions noted Neuro General: alert and awake Cognition: normal cognition Speech: speech normal Gait: normal gait Motor: muscle tone normal throughout Sensory Exam: no sensory deficits noted Extrem Other: Right lateral malleolus tenderness and edema. No deformity noted. No ecchymosis. Left lateral malleolus tenderness. No edema. No deformity or ecchymosis noted. Bilateral DP/PT pulses intact. Psych Appearance: grossly normal Mental Status: mental status grossly normal Speech and Movement: speech and movement normal Affect: normal affect Thought Process: normal Course Vital Signs Vital signs: Vital Signs Temperature 97.0 F L 06/09/19 16:41 Pulse 72 06/09/19 16:41 Respiratory Rate 14 06/09/19 16:41 Blood Pressure 178/94 H 06/09/19 16:41 Pulse Oximetry 98 06/09/19 16:41 Temperature 97.0 F L 06/09/19 16:41 Temperature Source Skin 06/09/19 16:41 Pulse 72 06/09/19 16:41 Respiratory Rate 14 06/09/19 16:41 Respiratory Effort 06/09/19 17:10 Respiratory Depth Normal 06/09/19 17:10 Respiratory Pattern Normal 06/09/19 17:10 Blood Pressure 178/94 H 06/09/19 16:41 Blood Pressure Position Supine 06/09/19 16:41 Pulse Oximetry 98 06/09/19 16:41 Oxygen Delivery Method Room Air 06/09/19 16:41 Oxygen Flow Rate 0 06/09/19 16:41 Pain Level 10 06/09/19 17:10
[2019-06-09 18:02] LABS: Abs Immature Grans 0.06 k/cumm (0.0-0.09); Absolute Basophil Count 0.04 k/cumm (0.0-0.2); Absolute Eosinophil Count 0.36 k/cumm (0.0-0.7); Absolute Lymphocyte Count 2.14 k/cumm (1.2-3.4); Absolute Monocyte Count 0.51 k/cumm (0.11-0.7); Absolute Neutrophil Count 5.61 k/cumm (1.2-6.7); Basophils % 0.5; Eosinophils % 4.1; HCT 36.3 % (36.0-46.0); Immature Grans % 0.7; Lymphocytes % 24.5; Mean Corp. HGB Concentration 33.1 g/dL (32.0-36.0); Mean Corpuscular Hemoglobin 29.9 pg (27.0-33.0); Mean Corpuscular Volume 90.3 fL (80-95); Mean Platelet Volume 10.6 fL (8.0-11.0); Monocytes % 5.8; Neutrophils % 64.4; Platelet Count 212 x1000/uL (130-400); RBC 4.02 m/cumm (4.00-5.20); RBC Distribution Width 12.9 % (11.7-14.6); White Blood Cell Count 8.72 k/cumm (4.4-10.8)
[2019-06-09] MEDS: Ondansetron 4 MG/2 ML VIAL ×2 (18:10→20:00)
[2019-06-09 18:19] LABS: ALT 23 U/L (14-59); AST 15 U/L (15-37); Albumin 3.7 g/dL (3.4-5.0); Alkaline Phosphatase 78 U/L (46-116); Anion Gap 11.8 mmol/L (3-11); BUN 19 mg/dL (7-18); Bilirubin, Total 0.2 mg/dL (0.2-1.0); CO2 25.2 mmol/L (21.0-32.0); CREATININE 1.14 mg/dL (0.55-1.02); Calcium 8.8 mg/dL (8.5-10.1); Chloride 104 mmol/L (98-107); Estimated GFR 50.05 (mL/min/1.73m2); Glucose 128 mg/dL (74-106); Lipase 232 U/L (73-393); Magnesium 1.4 mg/dL (1.8-2.4); Potassium 4.3 mmol/L (3.5-5.1); Sodium 141 mmol/L (136-145); Total Protein 7.2 g/dL (6.4-8.2)
--- NOTE | 2019-06-09 18:21 | DI.CT_ITS ---
EXAM: CT HEAD CERV SPINE FACIAL WO CLINICAL HISTORY: s/p fall, upper forehead lac, right facial pain TECHNIQUE: The exam was performed according to the usual protocol without contrast. COMPARISON: CT HEAD WO from 09/14/2018 FINDINGS: CT head: The ventricles and sulci are consistent with the patient's age. No acute intracranial hemorrhage is present. There is no acute midline shift or mass effect. The ventricles are intact. The basilar ci sterns are patent. There is a scalp hematoma overlying the right temporal and parietal bone. The ca lvarium is intact. The visualized paranasal sinuses are clear. The mastoid air cells are well pneum atized. CT cervical spine: No acute fractures or subluxations are present. Degenerative changes are seen in the spine. The prev ertebral soft tissues are unremarkable. CT face: There is no evidence of a fracture. Orbits and retro-orbital soft tissues are unremarkable. IMPRESSION: 1. No acute intracranial process. 2. Right scalp hematoma. 3. No acute fracture or subluxation in the cervical spine. 4. No evidence of a facial fracture.
[2019-06-09] MEDS: Omnipaque 350 MG/ML 100 ML BTL IJ (18:23)
--- NOTE | 2019-06-09 18:25 | DI.CT_ITS ---
EXAM: CT CHEST/ABD/PEL W and CT reconstructions of the thoracic and lumbar spine CLINICAL HISTORY: s/p fall, r/o acute injury, MID BACK PAIN TECHNIQUE: Imaging Protocol: Axial computed tomography images with coronal and sagittal reformatted images were created and reviewed CONTRAST MATERIAL: Intravenous: Omnipaque 350 Contrast volume:Yes contrast route:IV - Oral: No COMPARISON: CHEST FOR PULMONARY EMBOLUS from 05/01/2016 FINDINGS: CHEST: Tracheobronchial tree: Patent where visualized. Mediastinum and Sweetie: No dominant adenopathy or fluid collection. Pulmonary parenchyma: No consolidation or dominant measurable mass. No architectural distortion. Dep endent atelectasis. Pleura: No effusion or pneumothorax. Lymph nodes: Within normal limits. Aorta: Thoracic portion non-dilated. Heart: No cardiomegaly. No pericardial effusion. Tubes and catheters: There is an indwelling central venous catheter. Bones: Degenerative changes are seen in the spine. No acute fracture is identified. ABDOMEN: Liver: Normal density. No measurable mass. Gallbladder and biliary tract: Status post cholecystectomy. No biliary ductal dilatation. Pancreas: Normal density, no abnormal calcifications or inflammatory process. Spleen: Normal. Kidneys: Normal size, contour and axis. No radiodense stones or obstructive uropathy. No masses seen. Left simple renal cyst. Adrenal glands: No masses seen. Aorta: Abdominal portion non-dilated. Lymph nodes: Within normal limits. PELVIS: Bladder: Symmetric distention, no gross wall thickening. Bowel: No obstruction or bowel wall thickening. Peritoneal cavity: No ascites, collection or mesenteric inflammatory response. Bones: Within normal limits. No acute fracture in the lumbar spine. Reproductive organs: Within normal limits. IMPRESSION: 1. No acute thoracic, abdominal or pelvic injury. 2. No acute fracture of the thoracic or lumbar spine. DATA REPOSITORY: All CT scans at this facility are submitted to the National Radiology Data Registry (NRDR) Dose Index Registry (DIR) with the [employer] ([employer]). RADIATION OPTIMIZATION: All CT scans at this facility use at least one of these dose optimization te chniques: automated exposure control; mA and/or kV adjustment per patient size (includes targeted exa ms where dose is matched to clinical indication); or iterative reconstruction.
[2019-06-09 18:29] LABS: Troponin I < 0.05 ng/Ml (<0.06)
--- NOTE | 2019-06-09 18:55 | DI.VRAD_ITS ---
PROCEDURE INFORMATION: Exam: CT Head Without Contrast Exam date and time: 06/09/2019 6:18 PM Age: 53 years old Clinical indication: Injury or trauma; Fall; Initial encounter; Blunt trauma (contusions or hematomas); Forehead TECHNIQUE: Imaging protocol: Computed tomography of the head without contrast. COMPARISON: CT CERVICAL SPINE WITHOUT CONTRA 07/18/2014 6:57 PM FINDINGS: Brain: No hemorrhage. No large vascular territory infarct. No mass effect. Ventricles: Normal. No ventriculomegaly. Bones/joints: Unremarkable. No acute fracture. Sinuses: Visualized sinuses are unremarkable. No fluid levels. Mastoid air cells: Visualized mastoid air cells are well aerated. Soft tissues: Left frontal scalp hematoma and laceration without underlying fracture. IMPRESSION: 1. No acute intracranial abnormality. 2. Left frontal scalp hematoma and laceration without underlying fracture. PROCEDURE INFORMATION: Exam: CT Maxillofacial Without Contrast Exam date and time: 06/09/2019 6:18 PM Age: 53 years old Clinical indication: Injury or trauma; Fall; Initial encounter; Blunt trauma (contusions or hematomas); Forehead TECHNIQUE: Imaging protocol: Computed tomography images of the face without contrast. COMPARISON: CT CERVICAL SPINE WITHOUT CONTRA 07/18/2014 6:57 PM FINDINGS: Orbits: Orbits are normal. Globes are unremarkable. Sinuses: Normal. No air-fluid levels. Bones/joints: No acute fracture. Soft tissues: Unremarkable. IMPRESSION: No acute findings. PROCEDURE INFORMATION: Exam: CT Cervical Spine Without Contrast Exam date and time: 06/09/2019 6:18 PM Age: 53 years old Clinical indication: Injury or trauma; Fall; Initial encounter; Blunt trauma (contusions or hematomas); Forehead TECHNIQUE: Imaging protocol: Computed tomography images of the cervical spine without contrast. COMPARISON: CT CERVICAL SPINE WITHOUT CONTRA 07/18/2014 6:57 PM FINDINGS: Vertebrae: Vertebral body heights are maintained and in normal alignment. Discs/Spinal canal/Neural foramina: No spinal stenosis. No neural foraminal narrowing. Prevertebral Space: No prevertebral edema. Soft tissues: Unremarkable. Lungs: Lung apices are normal. IMPRESSION: No acute fracture or traumatic malalignment of the cervical spine. No prevertebral edema. Dictated and Authenticated by: Ziggy Cummings MD. Ordering:STACI Perez MD
--- NOTE | 2019-06-09 19:09 | DI.RAD_ITS ---
EXAM: XR ANKLE LT COMPLETE INDICATION: s/p fall down stairs, r/o acute fracture. COMPARISON: XR ANKLE LT COMPLETE from 06/14/2018 TECHNIQUE: 2D digital imaging was performed. FINDINGS: No acute fracture or dislocation is present. Spurring is seen at the posterior calcaneus. The soft tissues are unremarkable. IMPRESSION: No acute abnormality.
--- NOTE | 2019-06-09 19:11 | DI.VRAD_ITS ---
PROCEDURE INFORMATION: Exam: CT Thoracic Spine Without Contrast Exam date and time: 06/09/2019 6:25 PM Age: 53 years old Clinical indication: Injury or trauma; Initial encounter; Blunt trauma (contusions or hematomas); Patient HX: S/P fall down stairs; Additional info: R/O acute fracture TECHNIQUE: Imaging protocol: Computed tomography images of the thoracic spine without contrast. COMPARISON: No relevant prior studies available. FINDINGS: Vertebrae: Thoracic vertebral body heights are maintained and in normal alignment. No acute fracture. Mild diffuse idiopathic skeletal hyperostosis in the upper thoracic spine. Discs/Spinal canal/Neural foramina: No spinal or neural foraminal stenosis. Soft tissues: Chest soft tissues are characterized on same-day chest CT. IMPRESSION: No acute fracture or traumatic malalignment of the thoracic spine. PROCEDURE INFORMATION: Exam: CT Lumbar Spine Without Contrast Exam date and time: 06/09/2019 6:25 PM Age: 53 years old Clinical indication: Injury or trauma; Initial encounter; Blunt trauma (contusions or hematomas); Patient HX: S/P fall down stairs; Additional info: R/O acute fracture TECHNIQUE: Imaging protocol: Computed tomography images of the lumbar spine without contrast. COMPARISON: No relevant prior studies available. FINDINGS: Vertebrae: Lumbar vertebral body heights are maintained and in normal alignment. Discs/Spinal canal/Neural foramina: Multilevel degenerative changes of the lumbar spine without bony spinal canal or definite bony neural foraminal stenosis. Soft tissues: Visualized abdominopelvic soft tissues are characterized on same-day CT of the abdomen and pelvis. IMPRESSION: No acute fracture or traumatic malalignment of the lumbar spine. Dictated and Authenticated by: Ziggy Cummings MD. Ordering:STACI Perez MD
--- NOTE | 2019-06-09 19:12 | DI.RAD_ITS ---
EXAM: XR ANKLE RT COMPLETE INDICATION: s/p fall, r/o acute fracture. COMPARISON: XR ANKLE LT COMPLETE from 06/09/2019 TECHNIQUE: 2D digital imaging was performed. FINDINGS: No acute fracture or dislocation is identified. Degenerative changes are seen in the foot. There is a well corticated osseous fragment adjacent to the medial malleolus consistent with old injury. Th e soft tissues are unremarkable. IMPRESSION: No acute fracture or dislocation.
--- NOTE | 2019-06-09 19:21 | DI.VRAD_ITS ---
PROCEDURE INFORMATION: Exam: XR Right Ankle Exam date and time: 06/09/2019 7:15 PM Age: 53 years old Clinical indication: Pain; Ankle; Right; Patient HX: S/P fall down stairs; Additional info: R/O acute fracture TECHNIQUE: Imaging protocol: XR Right ankle. Views: 3 or more views. COMPARISON: No relevant prior studies available. FINDINGS: Bones/joints: No acute fracture. Joint spaces are maintained. Calcaneal plantar and Achilles spurring. Soft tissues: Normal. IMPRESSION: No acute findings. Dictated and Authenticated by: Ziggy Cummings MD. Ordering:STACI Perez MD
--- NOTE | 2019-06-09 19:22 | DI.VRAD_ITS ---
PROCEDURE INFORMATION: Exam: XR Left Ankle Exam date and time: 06/09/2019 7:16 PM Age: 53 years old Clinical indication: Pain; Ankle; Left; Patient HX: S/P fall down stairs; Additional info: R/O acute fracture TECHNIQUE: Imaging protocol: XR Left ankle. Views: 3 or more views. COMPARISON: CR XR ANKLE LT COMPLETE 06/14/2018 11:20 AM FINDINGS: Bones/joints: No acute fracture. Joint spaces are maintained. Calcaneal plantar and Achilles spurring. Soft tissues: Normal. IMPRESSION: No acute findings. Dictated and Authenticated by: Ziggy Cummings MD. Ordering:STACI Perez MD
[2019-06-09] MEDS: Normal Saline-STERILE FIELD 0.9% 10 ML SYR (19:34)
[2019-06-09] MEDS: Normal Saline Flush 10 ML SYR (19:34)
[2019-06-09] MEDS: Lidocaine 5% Patch 1 PATCH (19:55)
[2019-06-09] MEDS: Heparin 500 UNITS/5 ML SYRINGE (20:10)
[2019-06-09] MEDS: HYDROcodone 5/Acetaminophen 325 TAB PO (20:10)
== END 2019-06-09 20:15 | disposition home or self-care (01) ==
PROVIDERS: Physician Assistant; Emergency Provider Student in an Organized Health Care Education/Training Program; PCP Family Medicine
DX: S93.401A Sprain of unspecified ligament of right ankle, initial encounter (principal); S93.402A Sprain of unspecified ligament of left ankle, initial encounter; S01.81XA Laceration without foreign body of other part of head, initial encounter; S30.0XXA Contusion of lower back and pelvis, initial encounter; W10.8XXA Fall (on) (from) other stairs and steps, initial encounter; Z95.828 Presence of other vascular implants and grafts; E11.9 Type 2 diabetes mellitus without complications; Z79.84 Long term (current) use of oral hypoglycemic drugs; I10 Essential (primary) hypertension
CPT/HCPCS: 36591; 74177; 80053; 83690; 93005; 96374; 96375; 96376; 99285; 70450; 70486; 71260; 72125; 73610; 83735; 84484; 85025; 93010; J2405; J3490

== ENCOUNTER 2019-06-27 15:43 | Emergency (ER) | payer MEDICARE, SELFPAY ==
[2019-06-27 15:46] VITALS: BP 138/84; PULSE 83; RESP 16; TEMP 36.5; O2SAT 96
--- NOTE | 2019-06-27 16:54 | DI.RAD_ITS ---
EXAM: XR ANKLE RT COMPLETE INDICATION: accidental fall w persistent pain. COMPARISON: XR ANKLE RT COMPLETE from 06/09/2019 XR ANKLE LT COMPLETE from 06/09/2019 TECHNIQUE: 2D digital imaging was performed. FINDINGS: On the AP view, there is a question of a fracture through the distal fibula at the level of the ankle mortise versus overlying structures. There is no ankle mortise widening. There is spurring from th e malleoli. There are calcaneal spurs. IMPRESSION: Question of a nondisplaced lateral malleolar fracture.
--- NOTE | 2019-06-27 16:56 | DI.RAD_ITS ---
EXAM: XR TIB/FIB RT INDICATION: persistent ankle pain; r/o prox fibula. COMPARISON: XR ANKLE RT COMPLETE from 06/27/2019 TECHNIQUE: 2D digital imaging was performed. FINDINGS: The knee joint spaces are well maintained. There is spurring at the quadriceps insertion on the burleson lla and at the tibial tubercle. There is a sessile exostosis seen at the posterior aspect of the pro ximal tibia. There is some overlap with the proximal fibula at this level but no fracture is seen. There is a question of a nondisplaced fracture seen in the distal fibula . Degenerative changes are also seen in the right ankle. IMPRESSION: Question of a nondisplaced fracture of the lateral malleolus.
--- NOTE | 2019-06-27 17:01 | ED.GENADUL_ITS ---
Discharge Plan Disposition Patient Disposition: HOME Condition: Stable Discharge Details Chief Complaint: Orthopedic Clinical Impression: Ankle pain, right Primary Care Provider: Katarina Rodriguez ED Provider: Juan Lacy Home Meds and New Rx's Prescriptions: No Action ketamine thom 10 mg PO QID PRNRF: 0 ketamine/lidocaine 1 applic Topical HS RF: 0 losartan 25 MG tablet 100 mg PO DAILY RF: 0 Zyrtec 10 MG capsule 10 mg PO DAILY RF: 0 meloxicam 15 MG tablet 15 mg PO DAILY RF: 0 ondansetron 4 MG tablet,disintegrating 4 mg PO TID PRN PRNRF: 0 bisacodyl [Dulcolax (bisacodyl)] 5 MG tablet,delayed release (DR/EC) 5 mg PO BID PRNQty: 10 RF: 0 topiramate [Topamax] 100 MG tablet 500 mg PO BID RF: 0 duloxetine [Cymbalta] 30 MG capsule,delayed release(DR/EC) 30 mg PO BID RF: 0 ascorbic acid (vitamin C) 1,000 MG tablet 1 tab PO DAILY RF: 0 cholecalciferol (vitamin D3) 1,000 UNITS tablet 1 tab PO DAILY RF: 0 pantoprazole [Protonix] 20 MG tablet,delayed release (DR/EC) 20 mg PO DAILY RF: 0 baclofen 10 MG tablet 10 mg PO BID RF: 0 ketamine 50 MG/ML solution 2 spray NS QID PRNRF: 0 polyethylene glycol 3350 17 GM powder in packet 2 pkt PO PRN PRNRF: 0 misoprostol 200 MCG tablet 200 mcg PO DAILY RF: 0 albuterol sulfate [ProAir HFA] 200 PUFF HFA aerosol inhaler 2 puff Inhalation PRN PRNRF: 0 Symbicort 10.2 GM HFA aerosol inhaler 2 puff Inhalation DAILY PRN PRNRF: 0 clonidine HCl [Catapres] 0.1 MG tablet 0.1 mg PO DIRECTED PRNQty: 0 RF: 0 acetaminophen [Acetaminophen Extra Strength] 500 MG tablet 1,000 mg PO TID PRNQty: 180 RF: 0 meclizine 25 mg tablet 25 mg PO TID Qty: 14 RF: 0 carbamazepine 100 mg Tablet Extended Release 12 Hr 100 - 200 mg PO BID RF: 0 acetaminophen [Tylenol] 325 mg Tablet 1,000 RF: 0 naproxen sodium [Aleve] 220 mg Capsule 1 mg PO RF: 0 pregabalin [Lyrica] 100 MG capsule 75 mg PO BID RF: 0 metformin 500 MG tablet extended release 24 hr 1,500 mg PO DAILY RF: 0 furosemide 20 MG tablet 20 mg PO PRN PRNRF: 0 promethazine 25 mg Tablet 25 mg PO PRN PRNRF: 0 Victoza 3-Norbert 0.6 mg/0.1 mL (18 mg/3 mL) Pen Injector 0.6 mg subcut DAILY RF: 0 Discharge Instructions Instructions: Leg Pain (ED) Additional Instructions: 1. Drink plenty of fluids. 2. Continue all medications as prescribed. 3. Acetaminophen 1000mg every 4 hours (up to 5 time a day) and/or ibuprofen 600mg every 6 hours as needed for fever or pain. 4. Weightbearing as tolerated. Return to the Emergency Department (ED) if your condition worsens, does not improve as expected, or for ANY other concerns. Specifically, return if you have new or uncontrolled pain, worsening fever, difficulty breathing, vomiting, or are unable to drink fluids. Medical Decision Making 54-year-old who presents for evaluation of persistent right ankle pain associated with a fall in late May. Has had persistent discomfort despite OTC analgesia, limited weightbearing, and then physical therapy yesterday. Nonfocal exam with no clinical evidence of significant bony injury, infectious process, or vascular compromise. No historical or clinical evidence of compartment syndrome. X-rays nondiagnostic. Discussed nondiagnostic findings with patient. Discharged with plan for continued OTC analgesia, weightbearing tall as tolerated, and physical therapy. Given usual and customary return instructions prior to discharge. Medical Records Medical records reviewed: Yes I reviewed the patient's medical records. Imaging Data Radiologic Study: Attestation: I personally reviewed and interpreted this imaging study as follows: Imaging: X-Ray (Right ankle) My impression: No acute process appreciated. Interpreted independently contemporaneously by myself. Radiologist's impression: Same Radiologic Study #2: Attestation: I personally reviewed and interpreted this imaging study as follows: Imaging: X-Ray (Tibia/fibula) My impression: No acute fracture appreciated. Normal joint spacing. Interpreted independently contemporaneously by myself. Radiologist's impression: Same HPI 54-year-old woman with a past medical history which includes asthma, diabetes, GERD, hypertension, migraine headaches, obesity, and tendinitis. Evaluated here in late May after accidentally falling down a set of stairs. Evaluation included negative imaging including negative imaging of her painful right ankle. She has had persistent ankle discomfort despite limited weightbearing and use of a cane/walker. Yesterday, she began physical therapy with no significant improvement in symptoms and presents here for a prescription clicking sensation in her joint as well as persistent pain with dorsi and plantar flexion. Denies fever/chills, atypical lower extremity swelling, distal numbness or tingling. She has no significant pain in her calf or pretibial region. General Date/Time Provider Initiated Documentation: 06/27/19 16:39 . Related Data Home Medications Medication Instructions Recorded Confirmed losartan 100 mg PO DAILY 09/01/12 06/09/19 Zyrtec 10 mg PO DAILY 11/20/12 06/09/19 meloxicam 15 mg PO DAILY 03/01/13 06/09/19 ondansetron 4 mg PO TID PRN PRN 07/07/13 06/09/19 bisacodyl [Dulcolax (bisacodyl)] 5 mg PO BID PRN #10 tablet. 07/26/13 06/09/19 duloxetine [Cymbalta] 30 mg PO BID 09/15/13 06/09/19 topiramate [Topamax] 500 mg PO BID 09/15/13 06/27/19 ascorbic acid (vitamin C) 1 tab PO DAILY 07/18/14 06/09/19 cholecalciferol (vitamin D3) 1 tab PO DAILY 07/18/14 06/09/19 baclofen 10 mg PO BID 08/26/14 06/09/19 pantoprazole [Protonix] 20 mg PO DAILY 08/26/14 06/09/19 ketamine 2 spray NS QID PRN 05/01/15 06/09/19 Symbicort 2 puff INHALATION DAILY PRN PRN 08/04/15 06/09/19 albuterol sulfate [ProAir HFA] 2 puff INHALATION PRN PRN 08/04/15 06/09/19 misoprostol 200 mcg PO DAILY 08/04/15 06/09/19 polyethylene glycol 3350 2 pkt PO PRN PRN 02/22/16 01/15/20 Ketamine Thom 10 mg PO QID PRN 03/10/16 06/09/19 Ketamine/Lidocaine 1 applic TOPICAL HS 03/10/16 06/09/19 pregabalin [Lyrica] 75 mg PO BID 05/01/16 06/27/19 metformin 1,500 mg PO DAILY 09/21/16 06/09/19 clonidine HCl [Catapres] 0.1 mg PO DIRECTED PRN #0 10/21/16 06/09/19 acetaminophen [Acetaminophen Extra 1,000 mg PO TID PRN #180 tab 02/22/17 06/09/19 Strength] furosemide 20 mg PO PRN PRN 04/26/17 06/09/19 Victoza 3-Norbert 0.6 mg SUBCUT DAILY 09/14/18 06/09/19 promethazine 25 mg PO PRN PRN 09/14/18 06/27/19 meclizine 25 mg PO TID #14 tab 04/07/19 06/09/19 carbamazepine 100 - 200 mg PO BID 06/09/19 06/09/19 acetaminophen [Tylenol] 1,000 06/27/19 naproxen sodium [Aleve] 1 mg PO 06/27/19 Previous Rx's Medication Instructions Recorded bisacodyl [Dulcolax (bisacodyl)] 5 mg PO BID PRN #10 tablet. 07/26/13 clonidine HCl [Catapres] 0.1 mg PO DIRECTED PRN #0 10/21/16 acetaminophen [Acetaminophen Extra 1,000 mg PO TID PRN #180 tab 02/22/17 Strength] meclizine 25 mg PO TID #14 tab 04/07/19 Allergies Allergy/AdvReac Type Severity Reaction Status Date / Time phenytoin sodium Allergy Severe Hives Unverified 06/27/19 15:50 [From Dilantin] phenytoin sodium extended Allergy Severe Hives Unverified 06/27/19 15:50 [From Dilantin] amoxicillin [Amoxicillin] Allergy Intermediate Hives Unverified 06/27/19 15:50 lisinopril Allergy Intermediate Unverified 06/27/19 15:50 oxycodone Allergy Intermediate Unverified 06/27/19 15:50 potassium clavulanate Allergy Intermediate Hives Unverified 06/27/19 15:50 [From Augmentin] Sulfa (Sulfonamide Allergy Mild Skin Rash Unverified 06/27/19 15:50 Antibiotics) tomato [Tomato] Allergy Mild Skin Rash Unverified 06/27/19 15:50 sumatriptan [From Imitrex] AdvReac Severe Visual Unverified 06/27/19 15:50 Disturbances,burning sensation through out body General Stated Complaint: Orthopedic HARRIET: 4 Review of Systems All systems reviewed & are unremarkable except as noted in HPI and below PFSH Medical History Asthma DM (diabetes mellitus) GERD (gastroesophageal reflux disease) HTN (hypertension) Migraine (Chronic) Obesity Otalgia Tendinitis Surgical History Colonoscopy - MAC (06/15/17) H/O shoulder surgery (Chronic) History of appendectomy (Chronic) History of eye surgery (Acute) History of hysterectomy (Chronic) History of knee surgery (Acute) Mediport placement (05/02/15) Social History Smoking/Tobacco Use Status: Former Tobacco Use Alcohol Intake: current Alcohol Intake frequency: holidays/special occasions only Drug use: Never Substance use type: does not use Do you feel safe at home: Yes Do you feel safe in your relationship?: Yes Exam Narrative Exam Narrative: Nursing note and vital signs have been reviewed and noted. GENERAL: alert, active, no acute distress, well -hydrated, well-nourished HEENT: atraumatic/normocephalic, PERRLA, EOMI, conjunctiva clear, external ears/canals normal, nasal mucosa normal NECK: supple, full range of motion CARDIOVASCULAR: nl pulses, no edema PULMONARY: nl effort, no audible wheezing or stridor ABDOMEN: non-distended EXTREMITY: normal muscle tone, right lower leg: No proximal fibular tenderness. No joint laxity or Achilles tendon tenderness. No significant posterior medial or lateral malleoli or tenderness. No fifth metatarsal tenderness. Anterior tenderness along the proximal foot and distal pretibial region. Normal peripheral neurovascular exam. NUERO: normal mentation, moving all extremities, normal stance and gait, PSYCH: alert and oriented SKIN: no new rashes or lesions Course Vital Signs Vital signs: Vital Signs Temperature 97.7 F 06/27/19 15:46 Pulse 83 06/27/19 15:46 Respiratory Rate 16 06/27/19 15:46 Blood Pressure 138/84 06/27/19 15:46 Pulse Oximetry 96 06/27/19 15:46 Temperature 97.7 F 06/27/19 15:46 Temperature Source Temporal Artery Scan 06/27/19 15:46 Pulse 83 06/27/19 15:46 Respiratory Rate 16 06/27/19 15:46 Respiratory Effort Non-Labored 06/27/19 16:32 Blood Pressure 138/84 06/27/19 15:46 Blood Pressure Position Sitting 06/27/19 15:46 Pulse Oximetry 96 06/27/19 15:46 Oxygen Delivery Method Room Air 06/27/19 15:46 Oxygen Flow Rate 0 06/27/19 15:46 Pain Level 8 06/27/19 16:32
--- NOTE | 2019-06-27 17:11 | DI.VRAD_ITS ---
PROCEDURE INFORMATION: Exam: XR Right Tibia and Fibula Exam date and time: 06/27/2019 4:56 PM Age: 54 years old Clinical indication: Lower leg; Right; Patient HX: Fell 1 wk ago with persistent pain TECHNIQUE: Imaging protocol: XR Right tibia and fibula. Views: 2 views. COMPARISON: No relevant prior studies available. FINDINGS: Bones/joints: Normal. Soft tissues: Normal. Other findings: Enthesopathy at the insertion of the cord. IMPRESSION: No acute finding. Dictated and Authenticated by: Elfego Gonzales MD. Ordering:ROSHAN Martinez MD
--- NOTE | 2019-06-27 17:13 | DI.VRAD_ITS ---
PROCEDURE INFORMATION: Exam: XR Right Ankle Exam date and time: 06/27/2019 4:56 PM Age: 54 years old Clinical indication: Ankle; Right; Patient HX: Fell 1 wk ago with persistent pain TECHNIQUE: Imaging protocol: XR Right ankle. Views: 3 or more views. COMPARISON: CR XR ANKLE RT COMPLETE 06/09/2019 7:12 PM FINDINGS: Bones/joints: [id number] plantar calcaneal spur. Questionable fracture in the distal fibula, only seen on the lateral view. Consider information with MRI. Soft tissues: Enthesopathy at the insertion of the Achilles tendon. IMPRESSION: Enthesopathy at the insertion of the Achilles tendon. [id number] plantar calcaneal spur. Questionable fracture in the distal fibula, only seen on the lateral view. Consider information with MRI. Dictated and Authenticated by: Elfego Gonzales MD. Ordering:ROSHAN Martinez MD
== END 2019-06-27 17:35 | disposition home or self-care (01) ==
PROVIDERS: Emergency Provider Emergency Medicine; PCP Family Medicine
DX: M25.571 Pain in right ankle and joints of right foot (principal); W10.8XXD Fall (on) (from) other stairs and steps, subsequent encounter; E11.9 Type 2 diabetes mellitus without complications; Z79.84 Long term (current) use of oral hypoglycemic drugs; I10 Essential (primary) hypertension
CPT/HCPCS: 99284; 73590; 73610

== ENCOUNTER 2019-06-28 11:19 | Outpatient (CLI) | payer MEDICARE, SELFPAY ==
--- NOTE | 2019-06-28 11:37 | DI.RAD_ITS ---
EXAM: XR HAND LT COMPLETE INDICATION: HAND PAIN M79.643, MORNING SWELLING AND STIFFNESS, EVIDENCE OF SYNOVITIS. COMPARISON: XR HAND RT COMPLETE 06/28/2019 TECHNIQUE: 2D digital imaging was performed. FINDINGS: The bones are normally mineralized. No fracture or dislocation is seen. No bony erosions are identi fied. There are minimal degenerative changes in the carpal region. IMPRESSION: Minimal degenerative changes.
--- NOTE | 2019-06-28 11:39 | DI.RAD_ITS ---
EXAM: XR HAND RT COMPLETE INDICATION: HAND PAIN M79.643. COMPARISON: XR HAND LT COMPLETE from 06/28/2019 TECHNIQUE: 2D digital imaging was performed. FINDINGS: No fracture or dislocation is seen. No bony erosions are seen. There are no significant degenerativ e changes. IMPRESSION: Negative right hand.
[2019-06-28 12:19] LABS: Calculated LDL 135 mg/dL; Cholesterol 211 mg/dL (<200); HDL Cholesterol 42 mg/dL (40-60); TROPONIN-I 5.7 ug/mL (4.0-12.0); Triglyceride 174 mg/dL (<150)
[2019-06-28 12:26] LABS: C-Reactive Protein 2.36 mg/dL (0.0-0.3)
[2019-06-28 13:49] LABS: ESR 23 mm/hr (0-30)
[2019-06-29 10:39] LABS: Cyclic Citrullinated Peptide <2.5 U/mL (<5.0)
[2019-06-29 14:48] LABS: ANA Interpretation Positive (Negative); ANA Titer Pattern 1:80 Speckled
== END 2019-06-28 11:39 ==
PROVIDERS: PCP Family Medicine; Visit Provider Family Medicine
DX: M79.641 Pain in right hand (principal); M79.642 Pain in left hand; M19.042 Primary osteoarthritis, left hand; E11.9 Type 2 diabetes mellitus without complications; I10 Essential (primary) hypertension; K76.0 Fatty (change of) liver, not elsewhere classified; Z51.81 Encounter for therapeutic drug level monitoring; M25.642 Stiffness of left hand, not elsewhere classified
CPT/HCPCS: 36415; 80061; 85652; 86200; 73130; 80156; 83036; 86038; 86140

== ENCOUNTER → 2019-07-02 09:51 | Outpatient (BNVA) | payer MEDICARE, SELFPAY | PROVIDERS: PCP Family Medicine; Referring Provider Family Medicine; Visit Provider Surgery | DX: Z45.2 Encounter for adjustment and management of vascular access device (principal); Z95.828 Presence of other vascular implants and grafts; G50.0 Trigeminal neuralgia | CPT/HCPCS: 36589; 99201; 99213 ==

== ENCOUNTER → 2019-07-20 09:50 | Outpatient (BNVA) | payer MEDICARE, SELFPAY | PROVIDERS: PCP Family Medicine; Referring Provider Family Medicine; Visit Provider Student in an Organized Health Care Education/Training Program | DX: S82.831D Other fracture of upper and lower end of right fibula, subsequent encounter for closed fracture with routine healing (principal); W10.8XXD Fall (on) (from) other stairs and steps, subsequent encounter; E11.9 Type 2 diabetes mellitus without complications; I10 Essential (primary) hypertension | CPT/HCPCS: 99213 ==

== ENCOUNTER 2019-08-02 11:24 | Outpatient (CLI) | payer MEDICARE, SELFPAY ==
[2019-08-02 13:41] LABS: Bilirubin Negative (Negative); Blood Negative (Negative); Clarity Clear (Clear); Glucose Negative (Negative); Ketones Negative (Negative); Leukocyte Esterase Negative (Negative); Nitrite Negative (Negative); Urobilinogen 0.2 EU/dL (Up TO 0.2)
[2019-08-06 13:47] LABS: Parvovirus B19 Ab, IgG Positive (Negative); Parvovirus B19 Ab, IgM Negative (Negative)
[2019-08-07 12:00] LABS: RNP Ab, IgG 3.9 Units (<20.0); SS-A Antibody 2.4 Units (<20.0); SS-B (La) Ab, IgG 2.2 Units (<20.0); Sm (Smith) Ab, IgG 2.5 Units (<20.0)
== END 2019-08-02 11:44 ==
PROVIDERS: PCP Family Medicine; Visit Provider Nurse Practitioner Family
DX: M25.50 Pain in unspecified joint (principal); R76.8 Other specified abnormal immunological findings in serum
CPT/HCPCS: 36415; 81003; 86235; 86747

== ENCOUNTER 2019-08-17 10:47 | Outpatient (CLI) | payer MEDICARE, SELFPAY ==
--- NOTE | 2019-08-17 09:45 | DI.RAD_ITS ---
EXAM: XR ELBOW RT COMPLETE INDICATION: R elbow injury. COMPARISON: No exams were available for comparison TECHNIQUE: 2D digital imaging was performed. FINDINGS: There is spurring at the olecranon, coronoid process and medial epicondyle. No joint effusion or quan nt space loose body is seen. There is no evidence of a fracture. IMPRESSION: Degenerative changes. No acute abnormality. DATA REPOSITORY: RADIATION DOSE DELIVERED:
--- NOTE | 2019-08-17 09:45 | DI.RAD_ITS ---
EXAM: XR ANKLE RT COMPLETE INDICATION: R ankle fx. COMPARISON: XR ANKLE RT COMPLETE from 06/09/2019 XR ANKLE LT COMPLETE from 06/09/2019 XR ANKLE RT COMPLETE from 06/27/2019 TECHNIQUE: 2D digital imaging was performed. FINDINGS: There is callus formation seen at the posterior aspect of the distal tibia, increasing when compared with previous exams which could represent healing fracture. No definite fibular fracture is seen. H eel spurs and degenerative tarsal changes are again noted. DATA REPOSITORY: RADIATION DOSE DELIVERED:
== END 2019-08-17 11:07 ==
PROVIDERS: PCP Family Medicine; Referring Provider Family Medicine; Visit Provider Student in an Organized Health Care Education/Training Program
DX: M25.521 Pain in right elbow (principal); M19.021 Primary osteoarthritis, right elbow; M77.31 Calcaneal spur, right foot; M19.071 Primary osteoarthritis, right ankle and foot; S82.64XD Nondisplaced fracture of lateral malleolus of right fibula, subsequent encounter for closed fracture with routine healing; S82.831D Other fracture of upper and lower end of right fibula, subsequent encounter for closed fracture with routine healing; S52.134D Nondisplaced fracture of neck of right radius, subsequent encounter for closed fracture with routine healing; X58.XXXD Exposure to other specified factors, subsequent encounter
CPT/HCPCS: 99214; 73080; 73610

== ENCOUNTER 2019-09-03 14:00 | Outpatient (CLI) | payer MEDICARE, SELFPAY ==
--- NOTE | 2019-09-03 | DI.CT_ITS ---
EXAM: CT HEAD WO CT HEAD WO CLINICAL HISTORY: FELL WITH HEAD TRAUMA, 05/30/19,NORMALCT, CHRONIC HEADACHES GETTING WORSE,. FELL WITH HEAD TRAUMA, 05/30/19,NORMALCT, CHRONIC HEADACHES GETTING WORSE, TECHNIQUE: Imaging Protocol: Axial computed tomography images with coronal and sagittal reformatted images were created and reviewed COMPARISON: No exams were available for comparison FINDINGS: The ventricular system is normal in appearance. No evidence of acute intracranial hemorrhage, mass effect, or midline shift. The orbital structures are unremarkable. The temporal bone structures appear intact. Calvarium: Normal. Visualized Paranasal sinuses/Mastoids: Clear. IMPRESSION: Normal cranial CT. RADIATION DOSE DELIVERED: DATA REPOSITORY: All CT scans at this facility are submitted to the National Radiology Data Registry (NRDR) Dose Index Registry (DIR) with the [employer] ([employer]). RADIATION OPTIMIZATION: All CT scans at this facility use at least one of these dose optimization te chniques: automated exposure control; mA and/or kV adjustment per patient size (includes targeted exa ms where dose is matched to clinical indication); or iterative reconstruction.
== END 2019-09-03 14:20 ==
PROVIDERS: PCP Family Medicine; Visit Provider Family Medicine
DX: G44.321 Chronic post-traumatic headache, intractable (principal)
CPT/HCPCS: 70450

== ENCOUNTER 2019-09-30 12:41 | Emergency (ER) | payer MEDICARE, SELFPAY ==
[2019-09-30 12:46] VITALS: BP 143/94; PULSE 75; RESP 16; TEMP 36.5; O2SAT 98
--- NOTE | 2019-09-30 12:50 | W.ED.GENAD ---
Discharge Plan Disposition Patient Disposition: HOME Condition: Improving Discharge Details Chief Complaint: Headache Clinical Impression: Headache Primary Care Provider: Katarina Rodriguez ED Provider: Ana Layne Home Meds and New Rx's Prescriptions: Continued methylprednisolone 8 mg tablet 8 mg PO DAILY RF: 0 ketamine thom 10 mg PO QID PRNRF: 0 ketamine/lidocaine 1 applic Topical HS RF: 0 losartan 25 MG tablet 100 mg PO DAILY RF: 0 Zyrtec 10 MG capsule 10 mg PO DAILY RF: 0 meloxicam 15 MG tablet 15 mg PO DAILY RF: 0 ondansetron 4 MG tablet,disintegrating 4 mg PO TID PRN PRNRF: 0 bisacodyl [Dulcolax (bisacodyl)] 5 MG tablet,delayed release (DR/EC) 5 mg PO BID PRNQty: 10 RF: 0 topiramate [Topamax] 100 MG tablet 500 mg PO BID RF: 0 duloxetine [Cymbalta] 30 MG capsule,delayed release(DR/EC) 30 mg PO BID RF: 0 ascorbic acid (vitamin C) 1,000 MG tablet 1 tab PO DAILY RF: 0 cholecalciferol (vitamin D3) 1,000 UNITS tablet 1 tab PO DAILY RF: 0 pantoprazole [Protonix] 20 MG tablet,delayed release (DR/EC) 20 mg PO DAILY RF: 0 baclofen 10 MG tablet 10 mg PO BID RF: 0 ketamine 50 MG/ML solution 2 spray NS QID PRNRF: 0 polyethylene glycol 3350 17 GM powder in packet 2 pkt PO PRN PRNRF: 0 misoprostol 200 MCG tablet 200 mcg PO DAILY RF: 0 albuterol sulfate [ProAir HFA] 200 PUFF HFA aerosol inhaler 2 puff Inhalation PRN PRNRF: 0 budesonide-formoterol [Symbicort] 10.2 GM HFA aerosol inhaler 2 puff Inhalation DAILY PRN PRNRF: 0 clonidine HCl [Catapres] 0.1 MG tablet 0.1 mg PO DIRECTED PRNQty: 0 RF: 0 acetaminophen [Acetaminophen Extra Strength] 500 MG tablet 1,000 mg PO TID PRNQty: 180 RF: 0 carbamazepine 100 mg Tablet Extended Release 12 Hr 100 - 200 mg PO BID RF: 0 acetaminophen [Tylenol] 325 mg Tablet 1,000 RF: 0 naproxen sodium [Aleve] 220 mg Capsule 1 mg PO RF: 0 pregabalin [Lyrica] 100 MG capsule 75 mg PO BID RF: 0 metformin 500 MG tablet extended release 24 hr 1,500 mg PO DAILY RF: 0 Victoza 3-Norbert 0.6 mg/0.1 mL (18 mg/3 mL) Pen Injector 0.6 mg subcut DAILY RF: 0 Discharge Instructions Instructions: General Headache (ED) Additional Instructions: Drink plenty of fluids and get plenty of rest. Take your medicines that you have at home as needed directed for your headache or nausea. Follow-up with your primary care doctor in 1 week. Return to the emergency department with any worsening or new concerning symptoms. Discharge Data Discharge Physician: Ana Layne Medical Decision Making 1250 -- 54-year-old female with a history of diabetes, GERD, hypertension, migraines and obesity presents with diffuse headache and neck pain for the past 3 weeks. She appears uncomfortable but nontoxic. She has no focal deficits. Differential diagnosis includes dehydration, migraine, tension headache. History and presentation not consistent with subarachnoid hemorrhage. We will check screening labs and CT head due to different quality of usual migraine and give a cocktail of Toradol, Compazine, Benadryl, Decadron fluids and reassess. 1415 -- pt reassessed -she denies any relief in headache. Labs and imaging reviewed. CO2 19.7. Anion gap 13.3. Patient states she has history of improvement with Dilaudid. Will give a dose and reassess. 1500 -- pt reassessed -she admits to relief of pain and is requesting to go home. She is fully dressed and states she would like to go home and sleep. Discussed with pt that her labs indicate likely dehydration and would recommend additional fluid and recheck but she would rather go home to sleep. She appears much more comfortable. She has migraine and other pain meds at home. She is advised to call pcp office tomorrow for follow up this week. Medical Records Medical records reviewed: Yes I reviewed the patient's medical records. Imaging Data Radiologic Study: Radiologist's impression: CT Head Without Contrast Exam date and time: 09/30/2019 1:15 PM Age: 54 years old Clinical indication: Other: Diffuse headache, R/O acute disease TECHNIQUE: Imaging protocol: Computed tomography of the head without contrast. Radiation optimization: All CT scans at this facility use at least one of these dose optimization techniques: automated exposure control; mA and/or kV adjustment per patient size (includes targeted exams where dose is matched to clinical indication); or iterative reconstruction. COMPARISON: CT HEAD WO 09/03/2019 3:29 PM FINDINGS: Brain: Normal. No hemorrhage. Unremarkable white matter. No mass effect. Ventricles: Normal. No ventriculomegaly. Bones/joints: Benign hyperostosis frontalis is present. Sinuses: Visualized sinuses are unremarkable. No fluid levels. Mastoid air cells: Visualized mastoid air cells are well aerated. Soft tissues: Unremarkable. IMPRESSION: No acute process Lab Data Lab results reviewed: Yes I reviewed the patient's lab results. Labs: Laboratory Tests Range/Units 09/30/19 09/30/19 09/30/19 13:15 13:15 13:50 WBC Cancelled RBC Cancelled Hgb Cancelled Hct Cancelled MCV Cancelled MCH Cancelled MCHC Cancelled RDW Cancelled Plt Count Cancelled MPV Cancelled Immature Gran % Cancelled Neutrophils % Cancelled Band Neutrophils % Cancelled Lymphocytes % Cancelled Atypical Lymphs % Cancelled Monocytes % Cancelled Eosinophils % Cancelled Basophils % Cancelled Metamyelocytes % Cancelled Myelocytes % Cancelled Promyelocytes % Cancelled Absolute Neutrophils Cancelled Absolute Lymphocytes Cancelled Absolute Monocytes Cancelled Absolute Eosinophils Cancelled Absolute Basophils Cancelled Nucleated RBCs Cancelled Differential Comment Cancelled Other Cell Type Cancelled RBC Morphology Cancelled Polychromasia Cancelled Hypochromasia Cancelled Poikilocytosis Cancelled Basophilic Stippling Cancelled Anisocytosis Cancelled Microcytosis Cancelled Macrocytosis Cancelled Spherocytes Cancelled Target Cells Cancelled Tear Drop Cells Cancelled Ovalocytes Cancelled Stomatocytes Cancelled [place] Bodies Cancelled Vijaya Cells Cancelled Acanthocytes (Spur) Cancelled Schistocytes Cancelled Sodium Cancelled 145 Potassium Cancelled 3.8 Chloride Cancelled 112 H Carbon Dioxide Cancelled 19.7 L Anion Gap Cancelled 13.3 H BUN Cancelled 17 Creatinine Cancelled 1.06 H Estimated GFR/1.73 m2 Cancelled 54.23 Glucose Cancelled 102 Calcium Cancelled 8.1 L Total Bilirubin Cancelled 0.3 AST Cancelled 11 L ALT Cancelled 25 Alkaline Phosphatase Cancelled 71 Total Protein Cancelled 6.7 Albumin Cancelled 3.6 Range/Units 09/30/19 13:50 WBC 7.79 RBC 3.87 L Hgb 11.4 L Hct 35.1 L MCV 90.7 MCH 29.5 MCHC 32.5 RDW 13.9 Plt Count 249 MPV 9.6 Immature Gran % 0.3 Neutrophils % 67.2 Band Neutrophils % Lymphocytes % 22.7 Atypical Lymphs % Monocytes % 5.4 Eosinophils % 3.9 Basophils % 0.5 Metamyelocytes % Myelocytes % Promyelocytes % Absolute Neutrophils 5.24 Absolute Lymphocytes 1.77 Absolute Monocytes 0.42 Absolute Eosinophils 0.30 Absolute Basophils 0.04 Nucleated RBCs Differential Comment Other Cell Type RBC Morphology Polychromasia Hypochromasia Poikilocytosis Basophilic Stippling Anisocytosis Microcytosis Macrocytosis Spherocytes Target Cells Tear Drop Cells Ovalocytes Stomatocytes [place] Bodies [place] Cells Acanthocytes (Spur) Schistocytes Sodium Potassium Chloride Carbon Dioxide Anion Gap BUN Creatinine Estimated GFR/1.73 m2 Glucose Calcium Total Bilirubin AST ALT Alkaline Phosphatase Total Protein Albumin HPI General Mode of arrival: ambulatory. Date/Time Provider Initiated Documentation: 09/30/19 12:45. Limitations to Documentation: no limitations. Information obtained by: patient. HPI Narrative: Patient is a 54-year-old female with a history of obesity, trigeminal neuralgia, diabetes, hypertension who presents with headache for the past 3 weeks. She states the headache started when she awoke 3 weeks ago. She states it has been constant, throbbing and pulsating, located behind both eyes, top of her head, posterior head and her neck. She does admit to intermittent photophobia. She states this is different from her usual migraine as she usually has constant photophobia, vomiting with headache usually only on left side of head and eye. She states that she had a telemedicine visit with her primary care doctor this week and was prescribed naproxen and hydroxyzine which she has taken without relief. She has also applied ice to the back of her head with some relief. She states her headache is currently 10/10. She denies any thunderclap quality or sudden onset. She denies any fever, recent illness, vomiting, diarrhea, chest pain, shortness of breath or paresthesias. She states she does have a history of head injury in May and had a repeat CAT scan recently which was negative. Related Data Home Medications Medication Instructions Recorded Confirmed losartan 100 mg PO DAILY 09/01/12 09/30/19 Zyrtec 10 mg PO DAILY 11/20/12 09/30/19 meloxicam 15 mg PO DAILY 03/01/13 09/30/19 ondansetron 4 mg PO TID PRN PRN 07/07/13 09/30/19 bisacodyl [Dulcolax (bisacodyl)] 5 mg PO BID PRN #10 tablet. 07/26/13 09/30/19 duloxetine [Cymbalta] 30 mg PO BID 09/15/13 09/30/19 topiramate [Topamax] 500 mg PO BID 09/15/13 09/30/19 ascorbic acid (vitamin C) 1 tab PO DAILY 07/18/14 09/30/19 cholecalciferol (vitamin D3) 1 tab PO DAILY 07/18/14 09/30/19 baclofen 10 mg PO BID 08/26/14 09/30/19 pantoprazole [Protonix] 20 mg PO DAILY 08/26/14 09/30/19 ketamine 2 spray NS QID PRN 05/01/15 09/30/19 albuterol sulfate [ProAir HFA] 2 puff INHALATION PRN PRN 08/04/15 09/30/19 budesonide-formoterol [Symbicort] 2 puff INHALATION DAILY PRN PRN 08/04/15 09/30/19 misoprostol 200 mcg PO DAILY 08/04/15 09/30/19 polyethylene glycol 3350 2 pkt PO PRN PRN 08/04/15 09/30/19 Ketamine Thom 10 mg PO QID PRN 03/10/16 09/30/19 Ketamine/Lidocaine 1 applic TOPICAL HS 03/10/16 09/30/19 pregabalin [Lyrica] 75 mg PO BID 05/01/16 09/30/19 metformin 1,500 mg PO DAILY 09/21/16 09/30/19 clonidine HCl [Catapres] 0.1 mg PO DIRECTED PRN #0 10/21/16 09/30/19 acetaminophen [Acetaminophen Extra 1,000 mg PO TID PRN #180 tab 02/22/17 09/30/19 Strength] Victoza 3-Norbert 0.6 mg SUBCUT DAILY 09/14/18 09/30/19 carbamazepine 100 - 200 mg PO BID 06/09/19 09/30/19 acetaminophen [Tylenol] 1,000 06/27/19 08/17/19 naproxen sodium [Aleve] 1 mg PO 06/27/19 08/17/19 methylprednisolone 8 mg tablet 8 mg PO DAILY 08/17/19 09/30/19 Previous Rx's Medication Instructions Recorded bisacodyl [Dulcolax (bisacodyl)] 5 mg PO BID PRN #10 tablet. 07/26/13 clonidine HCl [Catapres] 0.1 mg PO DIRECTED PRN #0 10/21/16 acetaminophen [Acetaminophen Extra 1,000 mg PO TID PRN #180 tab 02/22/17 Strength] Allergies Allergy/AdvReac Type Severity Reaction Status Date / Time phenytoin sodium Allergy Severe Hives Unverified 09/30/19 12:49 [From Dilantin] phenytoin sodium extended Allergy Severe Hives Unverified 09/30/19 12:49 [From Dilantin] amoxicillin [Amoxicillin] Allergy Intermediate Hives Unverified 09/30/19 12:49 lisinopril Allergy Intermediate Unverified 09/30/19 12:49 oxycodone Allergy Intermediate Unverified 09/30/19 12:49 potassium clavulanate Allergy Intermediate Hives Unverified 09/30/19 12:49 [From Augmentin] Sulfa (Sulfonamide Allergy Mild Skin Rash Unverified 09/30/19 12:49 Antibiotics) tomato [Tomato] Allergy Mild Skin Rash Unverified 09/30/19 12:49 sumatriptan [From Imitrex] AdvReac Severe Visual Unverified 09/30/19 12:49 Disturbances,burning sensation through out body General Stated Complaint: Headache HARRIET: 3 Review of Systems All systems reviewed & are unremarkable except as noted in HPI and below Constitutional Constitutional: Reports as per HPI, Denies chills, Denies fever(s) and Reports headache(s) Eyes Eyes: Denies blurry vision ENT Ears, Nose, Mouth, and Throat: Denies dizziness, Reports headache(s), Denies sore throat and Denies throat swelling Cardiovascular Cardiovascular: Denies chest pain and Denies dyspnea Respiratory Respiratory: Denies cough and Denies dyspnea Gastrointestinal Gastrointestinal: Denies abdominal pain, Denies diarrhea and Denies vomiting Genitourinary Genitourinary: Denies hematuria and Denies dysuria Musculoskeletal Musculoskeletal: Denies back pain and Denies numbness Integumentary/Breasts Skin/Breast: Denies lesions and Denies rash Neurologic Neurologic: Denies dizziness, Reports headache(s), Denies localized weakness and Denies numbness Allergic/Immunologic Allergic/Immunologic: Denies throat swelling [facility] Medical History (Updated 09/30/19 @ 15:09 by Ana Layne DO) Asthma Closed fracture of right distal fibula (Suspected 06/09/19) DM (diabetes mellitus) GERD (gastroesophageal reflux disease) HTN (hypertension) Migraine (Chronic) Obesity Otalgia Tendinitis Surgical History Colonoscopy - MAC (06/15/17) H/O shoulder surgery (Chronic) History of appendectomy (Chronic) History of eye surgery (Acute) History of hysterectomy (Chronic) History of knee surgery (Acute) Mediport placement (05/02/15) Social History Smoking/Tobacco Use Status: Former Tobacco Use Alcohol Intake: current Alcohol Intake frequency: holidays/special occasions only Drug use: Never Substance use type: does not use Current gender identity: female Do you feel safe at home: Yes Do you feel safe in your relationship?: Yes Exam Const General: cooperative and uncomfortable Orientation: alert, awake and oriented x3 HENMT Head: normal to inspection Ears: hearing grossly normal bilaterally, external ears normal and TM's normal bilaterally General nose exam: external nose normal Face and sinus: normal facial exam Mouth: oral mucosae normal Teeth and gingiva: dentition normal Throat: posterior oropharynx normal Eyes General: appearance normal, both eyes and all related structures Eyelids: eyelids normal Pupils: PERRL EOM: EOM intact bilaterally Neck Neck: normal visual inspection Lymphatic: no lymphadenopathy noted Chest Chest: normal inspection of the chest Resp Effort & Inspection: normal respiratory effort and able to speak in complete sentences Auscultation: clear to auscultation bilaterally Cardio Rate: regular rate Rhythm: regular rhythm GI Inspection: normal to inspection Palpation: soft, not firm, no guarding, no hepatosplenomegaly, no masses and nontender Auscultation: normal bowel sounds Back/Spine/Pelvis Back: no CVA tenderness Skin General skin exam: no rashes or lesions noted Neuro General: patient alert, patient awake and CN's II-XI intact bilaterally Cognition: normal cognition Speech: speech normal Gait: normal gait Motor: muscle tone normal throughout and strength 5/5 throughout Sensory Exam: no sensory deficits noted Extrem General: normal to inspection, full ROM and capillary refill normal Psych Appearance: grossly normal Mental Status: mental status grossly normal Speech and Movement: speech and movement normal Affect: normal affect Thought Process: normal Course Vital Signs Vital signs: Vital Signs Temperature 97.7 F 09/30/19 12:46 Pulse 75 09/30/19 12:46 Respiratory Rate 16 09/30/19 12:46 Blood Pressure 143/94 H 09/30/19 12:46 Pulse Oximetry 98 09/30/19 12:46 Temperature 97.7 F 09/30/19 12:46 Temperature Source Tympanic 09/30/19 12:46 Pulse 75 09/30/19 12:46 Respiratory Rate 16 09/30/19 12:46 Blood Pressure 143/94 H 09/30/19 12:46 Blood Pressure Position Sitting 09/30/19 12:46 Pulse Oximetry 98 09/30/19 12:46 Oxygen Delivery Method Room Air 09/30/19 12:46 Oxygen Flow Rate 0 09/30/19 12:46 Pain Level 10 09/30/19 12:46
--- NOTE | 2019-09-30 13:00 | DI.CT_ITS ---
EXAM: CT HEAD WO CLINICAL HISTORY: diffuse headache, r/o acute disease. TECHNIQUE: Imaging Protocol: Axial computed tomography images with coronal and sagittal reformatted images were created and reviewed COMPARISON: CT HEAD WO from 09/03/2019 FINDINGS: The ventricular system is normal in appearance. No evidence of acute intracranial hemorrhage, mass effect, or midline shift. The orbital structures are unremarkable. The temporal bone structures appear intact. Calvarium: Normal. Visualized Paranasal sinuses/Mastoids: Clear. IMPRESSION: Normal cranial CT. RADIATION DOSE DELIVERED: DATA REPOSITORY: All CT scans at this facility are submitted to the National Radiology Data Registry (NRDR) Dose Index Registry (DIR) with the [employer] ([employer]). RADIATION OPTIMIZATION: All CT scans at this facility use at least one of these dose optimization te chniques: automated exposure control; mA and/or kV adjustment per patient size (includes targeted exa ms where dose is matched to clinical indication); or iterative reconstruction.
[2019-09-30] MEDS: Normal Saline 1,000 ML 1000 ML IV (13:35)
[2019-09-30] MEDS: diphenhydrAMINE 50 MG/ML VIAL 25 MG IVP (13:35)
[2019-09-30] MEDS: Dexamethasone 10 MG/ML VIAL IVP (13:36)
[2019-09-30] MEDS: Ketorolac 30 MG/ML VIAL IVP (13:36)
[2019-09-30] MEDS: Prochlorperazine 10 MG/2 ML VIAL IVP (13:36)
--- NOTE | 2019-09-30 13:46 | DI.VRAD_ITS ---
PROCEDURE INFORMATION: Exam: CT Head Without Contrast Exam date and time: 09/30/2019 1:15 PM Age: 54 years old Clinical indication: Other: Diffuse headache, R/O acute disease TECHNIQUE: Imaging protocol: Computed tomography of the head without contrast. Radiation optimization: All CT scans at this facility use at least one of these dose optimization techniques: automated exposure control; mA and/or kV adjustment per patient size (includes targeted exams where dose is matched to clinical indication); or iterative reconstruction. COMPARISON: CT HEAD WO 09/03/2019 3:29 PM FINDINGS: Brain: Normal. No hemorrhage. Unremarkable white matter. No mass effect. Ventricles: Normal. No ventriculomegaly. Bones/joints: Benign hyperostosis frontalis is present. Sinuses: Visualized sinuses are unremarkable. No fluid levels. Mastoid air cells: Visualized mastoid air cells are well aerated. Soft tissues: Unremarkable. IMPRESSION: No acute process Dictated and Authenticated by: Logan Rg MD. Ordering:STACI Perez MD
[2019-09-30 13:56] LABS: Abs Immature Grans 0.02 k/cumm (0.0-0.09); Absolute Basophil Count 0.04 k/cumm (0.0-0.2); Absolute Lymphocyte Count 1.77 k/cumm (1.2-3.4); Absolute Monocyte Count 0.42 k/cumm (0.11-0.7); Absolute Neutrophil Count 5.24 k/cumm (1.2-6.7); Basophils % 0.5; Eosinophils % 3.9; HCT 35.1 % (36.0-46.0); HGB 11.4 g/dL (12.0-15.5); Immature Grans % 0.3 %; Lymphocytes % 22.7; Mean Corp. HGB Concentration 32.5 g/dL (32.0-36.0); Mean Corpuscular Hemoglobin 29.5 pg (27.0-33.0); Mean Corpuscular Volume 90.7 fL (80-95); Mean Platelet Volume 9.6 fL (8.0-11.0); Monocytes % 5.4; Neutrophils % 67.2; Platelet Count 249 x1000/uL (130-400); RBC 3.87 m/cumm (4.00-5.20); RBC Distribution Width 13.9 % (11.7-14.6); White Blood Cell Count 7.79 k/cumm (4.4-10.8)
[2019-09-30 14:11] LABS: ALT 25 U/L (14-59); AST 11 U/L (15-37); Albumin 3.6 g/dL (3.4-5.0); Alkaline Phosphatase 71 U/L (46-116); Anion Gap 13.3 mmol/L (3-11); BUN 17 mg/dL (7-18); Bilirubin, Total 0.3 mg/dL (0.2-1.0); CO2 19.7 mmol/L (21.0-32.0); CREATININE 1.06 mg/dL (0.55-1.02); Calcium 8.1 mg/dL (8.5-10.1); Chloride 112 mmol/L (98-107); Estimated GFR 54.23 (mL/min/1.73m2); Glucose 102 mg/dL (74-106); Potassium 3.8 mmol/L (3.5-5.1); Sodium 145 mmol/L (136-145); Total Protein 6.7 g/dL (6.4-8.2)
[2019-09-30] MEDS: HYDROmorphone 2 MG/ML VIAL 1 MG IVP (14:35)
[2019-09-30 14:58] VITALS: BP 124/67; PULSE 68; RESP 16; TEMP 37; O2SAT 95
== END 2019-09-30 15:14 | disposition home or self-care (01) ==
PROVIDERS: Emergency Provider Physician Assistant; PCP Family Medicine
DX: R51 Headache (principal); Z87.820 Personal history of traumatic brain injury; I10 Essential (primary) hypertension; E11.9 Type 2 diabetes mellitus without complications; Z79.84 Long term (current) use of oral hypoglycemic drugs
CPT/HCPCS: 80053; 96361; 96374; 96375; 99285; 70450; 85025; 99284; J0780; J1100; J1200; J1885

== ENCOUNTER → 2019-10-04 09:53 | Outpatient (BNVA) | payer MEDICARE, SELFPAY | PROVIDERS: PCP Family Medicine; Referring Provider Family Medicine; Visit Provider Nurse Practitioner Adult Health | DX: G44.89 Other headache syndrome (principal); M79.2 Neuralgia and neuritis, unspecified; E11.9 Type 2 diabetes mellitus without complications; I10 Essential (primary) hypertension | CPT/HCPCS: 64405; 99202; 99213 ==

== ENCOUNTER → 2019-10-24 08:35 | Outpatient (BNVA) | payer MEDICARE, SELFPAY | PROVIDERS: PCP Family Medicine; Referring Provider Family Medicine; Visit Provider Nurse Practitioner Adult Health | DX: G89.29 Other chronic pain (principal); R51 Headache | CPT/HCPCS: 64405 ==

== ENCOUNTER 2019-11-08 03:31 | Outpatient (CLI) | payer MEDICARE, SELFPAY ==
[2019-11-08 12:24] LABS: HGB 11.9 g/dL (12.0-15.5); Mean Corp. HGB Concentration 32.2 g/dL (32.0-36.0); Mean Corpuscular Hemoglobin 29.4 pg (27.0-33.0); Mean Corpuscular Volume 91.4 fL (80-95); Mean Platelet Volume 10.7 fL (8.0-11.0); Platelet Count 226 x1000/uL (130-400); RBC 4.05 m/cumm (4.00-5.20); White Blood Cell Count 7.94 k/cumm (4.4-10.8)
[2019-11-08 13:19] LABS: Calculated LDL 153 mg/dL (<100); Cholesterol 223 mg/dL (<200); Ferritin 131 ng/mL (8-252); HDL Cholesterol 34 mg/dL (40-60); Triglyceride 184 mg/dL (<150)
[2019-11-08 13:22] LABS: TROPONIN-I < 0.5 ug/mL (4.0-12.0)
[2019-11-08 13:31] LABS: Iron 50 ug/dL (50-170); Total Iron Binding Capacity 260 ug/dL (250-450); Transferrin Sat 19 % (15-50)
[2019-11-08 13:35] LABS: C-Reactive Protein 1.87 mg/dL (0.0-0.3)
[2019-11-08 13:39] LABS: ESR 28 mm/hr (0-30)
[2019-11-08 14:33] LABS: Hemoglobin A1C 6.6 % (3.8-5.6)
[2019-11-09 08:58] LABS: Cyclic Citrullinated Peptide <2.5 U/mL (<5.0)
[2019-11-09 14:59] LABS: ANA Interpretation Negative (Negative)
== END 2019-11-08 03:51 ==
PROVIDERS: PCP Family Medicine; Visit Provider Family Medicine
DX: N18.9 Chronic kidney disease, unspecified (principal); E11.22 Type 2 diabetes mellitus with diabetic chronic kidney disease; K76.0 Fatty (change of) liver, not elsewhere classified; I12.9 Hypertensive chronic kidney disease with stage 1 through stage 4 chronic kidney disease, or unspecified chronic kidney disease; M79.643 Pain in unspecified hand; R51 Headache; G89.29 Other chronic pain
CPT/HCPCS: 36415; 64405; 80061; 85027; 85652; 86200; 80156; 82728; 83036; 83540; 83550; 86038; 86140

== ENCOUNTER → 2019-11-22 14:41 | Outpatient (BNVA) | payer MEDICARE, SELFPAY | PROVIDERS: PCP Family Medicine; Referring Provider Family Medicine; Visit Provider Nurse Practitioner Adult Health | DX: R51 Headache (principal) | CPT/HCPCS: 64405 ==

== ENCOUNTER → 2019-12-06 09:23 | Outpatient (BNVA) | payer MEDICARE, SELFPAY | PROVIDERS: PCP Family Medicine; Referring Provider Family Medicine; Visit Provider Nurse Practitioner Adult Health | DX: R51 Headache (principal); I10 Essential (primary) hypertension; E11.9 Type 2 diabetes mellitus without complications | CPT/HCPCS: 64405 ==

== ENCOUNTER → 2019-12-26 12:59 | Outpatient (BNVA) | payer MEDICARE, SELFPAY | PROVIDERS: PCP Family Medicine; Referring Provider Family Medicine; Visit Provider Nurse Practitioner Adult Health | DX: R51 Headache (principal); I10 Essential (primary) hypertension; E11.9 Type 2 diabetes mellitus without complications | CPT/HCPCS: 64405 ==

== ENCOUNTER 2019-12-31 04:28 | Emergency (ER) | payer MEDICARE, SELFPAY ==
[2019-12-31 04:32] VITALS: BP 124/86; PULSE 70; RESP 16; TEMP 36.2; O2SAT 98
--- NOTE | 2019-12-31 04:44 | W.ED.GENAD ---
Discharge Plan Disposition Patient Disposition: HOME Condition: Good Discharge Details Chief Complaint: Headache Clinical Impression: CRPS (complex regional pain syndrome), Neuralgia, Migraine Primary Care Provider: Katarina Rodriguez ED Provider: Jed Warren Home Meds and New Rx's Prescriptions: Continued ketamine thom 10 mg PO QID PRNRF: 0 ketamine/lidocaine 1 applic Topical HS RF: 0 topiramate [Topamax] 100 mg tablet 500 mg PO BID RF: 0 Victoza 3-Norbert 0.6 mg/0.1 mL (18 mg/3 mL) pen injector 1.8 mg subcut DAILY RF: 0 pantoprazole [Protonix] 20 mg tablet,delayed release (DR/EC) 40 mg PO DAILY RF: 0 hydromorphone [Dilaudid] 2 mg tablet 2 mg PO Q12H PRNRF: 0 naratriptan [Amerge] 2.5 mg tablet 2.5 mg PO ONCE RF: 0 losartan 100 mg tablet 100 mg PO DAILY RF: 0 atorvastatin 40 mg tablet 40 mg PO QHS RF: 0 furosemide [Lasix] 20 mg tablet 20 mg PO DAILY PRNRF: 0 zolmitriptan [Zomig] 5 mg tablet 5 mg PO ONCE PRNRF: 0 pregabalin [Lyrica] 50 mg capsule 150 mg PO BID RF: 0 naltrexone 50 mg tablet 50 mg PO BID RF: 0 albuterol sulfate [ProAir HFA] 90 mcg/actuation HFA aerosol inhaler 2 puff IH Q6H PRNRF: 0 aspirin [Adult Low Dose Aspirin] 81 mg tablet,delayed release (DR/EC) 81 mg PO DAILY RF: 0 Zyrtec 10 MG capsule 10 mg PO DAILY RF: 0 meloxicam 15 MG tablet 15 mg PO DAILY RF: 0 ondansetron 4 MG tablet,disintegrating 4 mg PO TID PRN PRNRF: 0 bisacodyl [Dulcolax (bisacodyl)] 5 MG tablet,delayed release (DR/EC) 5 mg PO BID PRNQty: 10 RF: 0 duloxetine [Cymbalta] 30 MG capsule,delayed release(DR/EC) 30 mg PO BID RF: 0 ascorbic acid (vitamin C) 1,000 MG tablet 1 tab PO DAILY RF: 0 cholecalciferol (vitamin D3) 1,000 UNITS tablet 1 tab PO DAILY RF: 0 baclofen 10 MG tablet 10 mg PO BID RF: 0 ketamine 50 MG/ML solution 2 spray NS QID PRNRF: 0 polyethylene glycol 3350 17 GM powder in packet 2 pkt PO PRN PRNRF: 0 budesonide-formoterol [Symbicort] 10.2 GM HFA aerosol inhaler 2 puff Inhalation DAILY PRN PRNRF: 0 clonidine HCl [Catapres] 0.1 MG tablet 0.1 mg PO DIRECTED PRNQty: 0 RF: 0 acetaminophen [Acetaminophen Extra Strength] 500 MG tablet 1,000 mg PO TID PRNQty: 180 RF: 0 carbamazepine 100 mg Tablet Extended Release 12 Hr 100 - 200 mg PO BID RF: 0 metformin 500 MG tablet extended release 24 hr 1,500 mg PO DAILY RF: 0 Discharge Instructions Instructions: Migraine Headache (ED) Additional Instructions: Please follow-up closely with your neurologist and neurosurgery appointment in [place]. If you notice any worsening of your symptoms, or any new symptoms such as vomiting, diarrhea, fever, chills, shortness of breath, chest pain, numbness, weakness, or fainting , please return immediately to the emergency department for reevaluation. Please follow up with your primary care provider as soon as possible for reassessment and reevaluation. As always, it was a pleasure participating in your medical care today. 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 She presents today for evaluation of right-sided face pain, mild associated headache, mild right-sided neck pain as well. Her signs and symptoms are identical to her previous episodes per patient. She describes a burning sensation traveling up through her right neck around to the temporal region and to her jaw. Symptoms are nonexertional. No associated chest pain. No fevers or chills. She states that her home medications of NSAIDs, Dilaudid, and Topamax have been unsuccessful in treating the pain. She denies any other complaints at this time. No other modifying factors. Physical exam demonstrates no focal neurologic deficits, subjective pain is present on the right side of patient's face, previous injection sites from practitioner 4 days ago to her right occiput shows no evidence of infection redness or other abnormality. Patient signs and symptoms are clinically inconsistent with ACS, acute life-threatening intracranial etiology, she shows no neurologic deficits. Signs and symptoms at this time appear clinically consistent and identical to her previous episodes of complex trigeminal neuralgia. In the past I have had notable success with a 50-50 mixture of lidocaine bupivacaine injected into the tender areas. We will trial this at that again. 5:11 AM Patient had mild improvement with the trigeminal and occipital nerve blocks, however no resolution. We will transition to a migraine cocktail. Neurologic exam remains unremarkable. No red flags in regards to history or exam at this time. No current indication for emergent imaging. I 50 a.m. On reassessment the patient has notable improvement of her symptomatology. She is requesting discharge. Repeat neurologic exam shows no focal neurologic deficits. Patient will be discharged home. I have extensively reviewed the treatment plan and discharge instructions with the patient. I have addressed all patient concerns at this time. The patient was made aware of what symptoms to monitor for that would warrant a return to the emergency department. Discussed the plan with the patient, they demonstrate verbal understanding and agreement with our assessment and plan at this time. HPI General Date/Time Provider Initiated Documentation: 12/31/19 04:30. 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 She presents today for evaluation of right-sided face pain, mild associated headache, mild right-sided neck pain as well. Her signs and symptoms are identical to her previous episodes per patient. She describes a burning sensation traveling up through her right neck around to the temporal region and to her jaw. Symptoms are nonexertional. No associated chest pain. No fevers or chills. She states that her home medications of NSAIDs, Dilaudid, and Topamax have been unsuccessful in treating the pain. She denies any other complaints at this time. No other modifying factors. The patient denies any headache red flags of worst headache of life, thunderclap headache, neck pain, fever, chills, concerning family history of polycystic kidney disease, Marfan syndrome, Leah-Danlos syndrome, abdominal aortic aneurysm, aortic dissection, or intracranial aneurysm. Related Data Home Medications Medication Instructions Recorded Confirmed Zyrtec 10 mg PO DAILY 11/20/12 12/31/19 meloxicam 15 mg PO DAILY 03/01/13 12/31/19 ondansetron 4 mg PO TID PRN PRN 07/07/13 12/31/19 bisacodyl [Dulcolax (bisacodyl)] 5 mg PO BID PRN #10 tablet. 07/26/13 12/31/19 duloxetine [Cymbalta] 30 mg PO BID 09/15/13 12/31/19 ascorbic acid (vitamin C) 1 tab PO DAILY 07/18/14 12/31/19 cholecalciferol (vitamin D3) 1 tab PO DAILY 07/18/14 09/30/19 baclofen 10 mg PO BID 08/26/14 12/31/19 ketamine 2 spray NS QID PRN 05/01/15 12/31/19 budesonide-formoterol [Symbicort] 2 puff INHALATION DAILY PRN PRN 08/04/15 12/31/19 polyethylene glycol 3350 2 pkt PO PRN PRN 08/04/15 12/31/19 Ketamine Thom 10 mg PO QID PRN 03/10/16 12/31/19 Ketamine/Lidocaine 1 applic TOPICAL HS 03/10/16 12/31/19 metformin 1,500 mg PO DAILY 09/21/16 12/31/19 clonidine HCl [Catapres] 0.1 mg PO DIRECTED PRN #0 10/21/16 12/31/19 acetaminophen [Acetaminophen Extra 1,000 mg PO TID PRN #180 tab 02/22/17 12/31/19 Strength] carbamazepine 100 - 200 mg PO BID 06/09/19 12/31/19 albuterol sulfate 90 mcg/actuation 2 puff IH Q6H PRN 10/04/19 12/31/19 aerosol inhaler aspirin 81 mg tablet,delayed 81 mg PO DAILY 10/04/19 12/31/19 release atorvastatin 40 mg tablet 40 mg PO QHS 10/04/19 12/31/19 furosemide 20 mg tablet 20 mg PO DAILY PRN 10/04/19 12/31/19 hydromorphone 2 mg tablet 2 mg PO Q12H PRN tab 10/04/19 12/31/19 liraglutide 0.6 mg/0.1 mL (18 mg/3 1.8 mg SUBCUT DAILY ml 10/04/19 12/31/19 mL) subcutaneous pen injector losartan 100 mg tablet 100 mg PO DAILY 10/04/19 12/31/19 naltrexone 50 mg tablet 50 mg PO BID tab 10/04/19 12/31/19 naratriptan 2.5 mg tablet 2.5 mg PO ONCE 10/04/19 12/31/19 pantoprazole 20 mg tablet,delayed 40 mg PO DAILY tab 10/04/19 12/31/19 release pregabalin 50 mg capsule 150 mg PO BID cap 10/04/19 12/31/19 topiramate 100 mg tablet 500 mg PO BID tab 10/04/19 zolmitriptan 5 mg tablet 5 mg PO ONCE PRN 10/04/19 12/31/19 Previous Rx's Medication Instructions Recorded bisacodyl [Dulcolax (bisacodyl)] 5 mg PO BID PRN #10 tablet. 07/26/13 clonidine HCl [Catapres] 0.1 mg PO DIRECTED PRN #0 10/21/16 acetaminophen [Acetaminophen Extra 1,000 mg PO TID PRN #180 tab 02/22/17 Strength] Allergies Allergy/AdvReac Type Severity Reaction Status Date / Time phenytoin sodium Allergy Severe Hives Unverified 09/30/19 12:49 [From Dilantin] phenytoin sodium extended Allergy Severe Hives Unverified 09/30/19 12:49 [From Dilantin] amoxicillin [Amoxicillin] Allergy Intermediate Hives Unverified 09/30/19 12:49 lisinopril Allergy Intermediate Unverified 09/30/19 12:49 oxycodone Allergy Intermediate Unverified 09/30/19 12:49 potassium clavulanate Allergy Intermediate Hives Unverified 09/30/19 12:49 [From Augmentin] Sulfa (Sulfonamide Allergy Mild Skin Rash Unverified 09/30/19 12:49 Antibiotics) tomato [Tomato] Allergy Mild Skin Rash Unverified 09/30/19 12:49 sumatriptan [From Imitrex] AdvReac Severe Visual Unverified 09/30/19 12:49 Disturbances,burning sensation through out body General Stated Complaint: Headache HARRIET: 3 Review of Systems All systems reviewed & are unremarkable except as noted in HPI and below PFSH Medical History Allergic rhinitis (Acute) Asthma Closed fracture of right distal fibula (Suspected 06/09/19) Constipation (Acute) DM (diabetes mellitus) Eczema (Acute) Fatty infiltration of liver (Acute) GERD (gastroesophageal reflux disease) Hand pain (Acute) History of depression (Acute) History of neck pain (Acute) HTN (hypertension) Incontinence (Acute) Insomnia (Acute) Leg cramps (Acute) Migraine (Chronic) Obesity Otalgia Ovarian cyst (Acute) Preventative health care (Acute) Screening breast examination (Acute) Tendinitis Trigeminal neuralgia (Acute) Surgical History Colonoscopy - MAC (06/15/17) H/O shoulder surgery (Chronic) H/O tooth extraction (Acute) History of appendectomy (Chronic) History of cholecystectomy (Chronic) History of ear surgery (Acute) History of eye surgery (Acute) History of hysterectomy (Chronic) History of knee surgery (Acute) Mediport placement (05/02/15) Family History Mother Hx of migraines Social History Smoking/Tobacco Use Status: Former Tobacco Use Alcohol Intake: current Alcohol Intake frequency: holidays/special occasions only Drug use: Never Substance use type: does not use Current gender identity: female Do you feel safe at home: Yes Do you feel safe in your relationship?: Yes Exam Narrative Exam Narrative: 1.Const: Well-nourished, Well-developed, appearing stated age 2.Eyes: PERRL, no conjunctival injection, and symmetrical lids. 3.ENT: Atraumatic external nose and ears. Moist MM. Neck: Symmetric, trachea midline, No thyromegaly. Patient demonstrates good movement of cervical neck. There is no nuchal rigidity, no nuchal tenderness. Patient is able to flex the neck without any difficulty or significant pain. Negative Kernig's and Brudzinski sign. 4.CVS: +S1/S2, No murmurs or gallops. Peripheral pulses 2+ and equal in all extremities. Brisk capillary refill in all extremities. 5.RESP: Unlabored respiratory effort. Clear to auscultation bilaterally. No wheezes rales or rhonchi 6.GI: Soft, Nontender/Nondistended, No hepatosplenomegaly. No guarding or rebound. 7.MSK: Normocephalic/Atraumatic, Extremities w/o deformity or ttp No cyanosis or clubbing, Normal movement of all extremities 8.Skin: Warm, Dry. No rashes or lesions. 9.Neuro: customer liaison II-XII grossly intact. Sensation grossly intact, no focal neurologic deficits. 10.Psych: (AAO) x3. Appropriate mood and affect Course Vital Signs Vital signs: Vital Signs Temperature 36.2 C L 12/31/19 04:32 Pulse 70 12/31/19 04:32 Respiratory Rate 16 12/31/19 04:32 Blood Pressure 124/86 12/31/19 04:32 Pulse Oximetry 98 12/31/19 04:32 Temperature 36.2 C L 12/31/19 04:32 Temperature Source Skin 12/31/19 04:32 Pulse 70 12/31/19 04:32 Respiratory Rate 16 12/31/19 04:32 Respiratory Effort 12/31/19 04:41 Blood Pressure 124/86 12/31/19 04:32 Blood Pressure Position Sitting 12/31/19 04:32 Pulse Oximetry 98 12/31/19 04:32 Oxygen Delivery Method Room Air 12/31/19 04:32 Oxygen Flow Rate 0 12/31/19 04:32 Procedures Nerve Block Nerve Block 1: Time out performed: Yes Local Anesthetic: Lidocaine 1% and Bupivicaine 0.25% Amount of anesthesia used (mL): 3 Side: right Nerve Blocks: other (Trigeminal nerve block just anterior to the right tragus of the ear) Procedure Successful: No Patient Tolerated Procedure: well Complications: none Nerve Block 2: Time out performed: Yes Local Anesthetic: Lidocaine 1% and Bupivicaine 0.25% Amount of anesthesia used (mL): 3 Side: right Nerve Blocks: occipital Procedure Successful: No Patient Tolerated Procedure: well Complications: none
--- NOTE | 2019-12-31 04:45 | RT.EKG_ITS ---
APPROVED REPORT Exam: Resting ECG Patient Location: E HR:65 bpm ECG Measurements Heart Rate 65 AXIS AL 192 P 26 QRSd 92 QRS -40 QT 429 T 11 QTc 447 <Conclusion> Sinus rhythm...normal P axis, V-rate 60- 99 No STEMI, old Q in lead 3, unchanged
[2019-12-31] MEDS: diphenhydrAMINE 50 MG/ML VIAL IVP (05:14)
[2019-12-31] MEDS: Ketorolac 30 MG/ML VIAL IVP (05:15)
[2019-12-31] MEDS: Prochlorperazine 10 MG/2 ML VIAL IVP (05:15)
[2019-12-31] MEDS: methylPREDNISolone SUCC 125 MG VIAL IVP (05:15)
[2019-12-31] MEDS: Normal Saline 500 ML IV (06:35)
== END 2019-12-31 07:04 | disposition home or self-care (01) ==
PROVIDERS: Emergency Provider Student in an Organized Health Care Education/Training Program; PCP Family Medicine
DX: G50.0 Trigeminal neuralgia (principal); G90.50 Complex regional pain syndrome I, unspecified; G43.909 Migraine, unspecified, not intractable, without status migrainosus; I10 Essential (primary) hypertension; E11.9 Type 2 diabetes mellitus without complications; Z79.84 Long term (current) use of oral hypoglycemic drugs
CPT/HCPCS: 64400; 64405; 93005; 96374; 96375; 99284; 93010; J0780; J1200; J1885; J2930

== ENCOUNTER 2020-02-22 16:47 | Outpatient (REF) | payer MEDICARE, SELFPAY ==
[2020-02-22 20:33] LABS: COMMENT (LAB VIEW ONLY) 162.88 mg/dL
== END 2020-02-22 17:07 ==
LOC: NCHCN 16:47
PROVIDERS: PCP Family Medicine; Visit Provider Family Medicine
DX: E11.9 Type 2 diabetes mellitus without complications (principal)
CPT/HCPCS: 82043; 82570

== ENCOUNTER 2020-02-26 17:55 | Emergency (ER) | payer MEDICARE, SELFPAY ==
[2020-02-26 18:00] VITALS: BP 113/76; PULSE 74; RESP 18; TEMP 36.5; O2SAT 99
--- NOTE | 2020-02-26 18:01 | W.ED.GENAD ---
Discharge Plan Disposition Patient Disposition: HOME Condition: Improving Discharge Details Clinical Impression: CRPS (complex regional pain syndrome) Primary Care Provider: Katarina Rodriguez ED Provider: Zoey Car Home Meds and New Rx's Prescriptions: Continued ketamine thom 10 mg PO QID PRNRF: 0 ketamine/lidocaine 1 applic Topical HS RF: 0 topiramate [Topamax] 100 mg tablet 500 mg PO BID RF: 0 Victoza 3-Norbert 0.6 mg/0.1 mL (18 mg/3 mL) pen injector 1.8 mg subcut DAILY RF: 0 pantoprazole [Protonix] 20 mg tablet,delayed release (DR/EC) 40 mg PO DAILY RF: 0 hydromorphone [Dilaudid] 2 mg tablet 2 mg PO Q12H PRNRF: 0 naratriptan [Amerge] 2.5 mg tablet 2.5 mg PO ONCE RF: 0 losartan 100 mg tablet 100 mg PO DAILY RF: 0 atorvastatin 40 mg tablet 40 mg PO QHS RF: 0 furosemide [Lasix] 20 mg tablet 20 mg PO DAILY PRNRF: 0 zolmitriptan [Zomig] 5 mg tablet 5 mg PO ONCE PRNRF: 0 pregabalin [Lyrica] 50 mg capsule 150 mg PO BID RF: 0 naltrexone 50 mg tablet 50 mg PO BID RF: 0 albuterol sulfate [ProAir HFA] 90 mcg/actuation HFA aerosol inhaler 2 puff IH Q6H PRNRF: 0 aspirin [Adult Low Dose Aspirin] 81 mg tablet,delayed release (DR/EC) 81 mg PO DAILY RF: 0 Zyrtec 10 MG capsule 10 mg PO DAILY RF: 0 meloxicam 15 MG tablet 15 mg PO DAILY RF: 0 ondansetron 4 MG tablet,disintegrating 4 mg PO TID PRN PRNRF: 0 bisacodyl [Dulcolax (bisacodyl)] 5 MG tablet,delayed release (DR/EC) 5 mg PO BID PRNQty: 10 RF: 0 duloxetine [Cymbalta] 30 MG capsule,delayed release(DR/EC) 30 mg PO BID RF: 0 ascorbic acid (vitamin C) 1,000 MG tablet 1 tab PO DAILY RF: 0 cholecalciferol (vitamin D3) 1,000 UNITS tablet 1 tab PO DAILY RF: 0 baclofen 10 MG tablet 10 mg PO BID RF: 0 ketamine 50 MG/ML solution 2 spray NS QID PRNRF: 0 polyethylene glycol 3350 17 GM powder in packet 2 pkt PO PRN PRNRF: 0 budesonide-formoterol [Symbicort] 10.2 GM HFA aerosol inhaler 2 puff Inhalation DAILY PRN PRNRF: 0 clonidine HCl [Catapres] 0.1 MG tablet 0.1 mg PO DIRECTED PRNQty: 0 RF: 0 acetaminophen [Acetaminophen Extra Strength] 500 MG tablet 1,000 mg PO TID PRNQty: 180 RF: 0 carbamazepine 100 mg Tablet Extended Release 12 Hr 100 - 200 mg PO BID RF: 0 metformin 500 MG tablet extended release 24 hr 1,500 mg PO DAILY RF: 0 Discharge Instructions Instructions: Chronic Pain (ED) Additional Instructions: Encourage water intake. Please continue with your medications as previously prescribed. Please keep your upcoming appointments. If you develop fever/chills, increased pain, inability to hydrate, weakness, sensory change or other new/worsening symptom please seek care urgently once again. Referrals: Katarina Rodriguez MD [Primary Care Provider] - Discharge Data Discharge Date/Time-TO BE ENTERED AT DEPARTURE: 02/26/20 19:45 Medical Decision Making Patient is a pleasant 54-year-old female presents today with right-sided facial and head pain. Patient reports that she has trigeminal neuralgia. States that occasionally this flares to the point that she is unable to tolerate this at home with her home pain regimen. Reports that this is been worsening over the past 3 days. Denies any fevers or chills. No sudden onset. She reports this feels exactly as it has historically. Patient reports she is scheduled to be seen by specialist in [place] for trigeminal nerve resection. Reviewed previous records and patient is doing well with migraine cocktail historically. Patient does report good relief and Dr. Warren treated her recently in December and is happy to have the same regimen completed again. On exam, I do not see any evidence to suggest infection or acute neurologic dysfunction. She is quite tender as would be expected. Will treat with the typical migraine cocktail for pain. Patient received hydration, Benadryl, Reglan, Toradol, dexamethasone and is feeling much improved. She does report feeling fatigued and 7 to go home and sleep. She reports that typically after sleeping with this regimen on board her pain is completely subsided in the morning. Patient was given return precautions. Advise follow-up with primary care. She will continue to seek the care of a specialist. All of her questions and concerns were addressed and she is in agreement this plan. HPI General Mode of arrival: ambulatory. Date/Time Provider Initiated Documentation: 02/26/20 18:01. Limitations to Documentation: no limitations. Information obtained by: patient and RN notes reviewed. History of Present Illness 54 year old F presents to the emergency department with the chief complaint of Flare of trigeminal neuralgia, described as severe and similar to prior episodes (Reports no difference from previous episodes), with intensity rated at 10. Quality is described as burning and stabbing, and is localized to the head and face. Patient reports no radiation. Patient started experiencing this day(s) (3) and it has been constant. No relieving factors improve symptom(s), No exacerbating factors reported . Patient notes no other symptoms.. Patient did receive the following treatments prior to arrival, other (Home regimen unsuccessful thus far) Related Data Home Medications Medication Instructions Recorded Confirmed Zyrtec 10 mg PO DAILY 11/20/12 02/26/20 meloxicam 15 mg PO DAILY 03/01/13 02/26/20 ondansetron 4 mg PO TID PRN PRN 07/07/13 02/26/20 bisacodyl [Dulcolax (bisacodyl)] 5 mg PO BID PRN #10 tablet. 07/26/13 02/26/20 duloxetine [Cymbalta] 30 mg PO BID 09/15/13 02/26/20 ascorbic acid (vitamin C) 1 tab PO DAILY 07/18/14 02/26/20 cholecalciferol (vitamin D3) 1 tab PO DAILY 07/18/14 02/26/20 baclofen 10 mg PO BID 08/26/14 02/26/20 ketamine 2 spray NS QID PRN 05/01/15 02/26/20 budesonide-formoterol [Symbicort] 2 puff INHALATION DAILY PRN PRN 08/04/15 02/26/20 polyethylene glycol 3350 2 pkt PO PRN PRN 08/04/15 02/26/20 Ketamine Thom 10 mg PO QID PRN 03/10/16 02/26/20 Ketamine/Lidocaine 1 applic TOPICAL HS 03/10/16 02/26/20 metformin 1,500 mg PO DAILY 09/21/16 02/26/20 clonidine HCl [Catapres] 0.1 mg PO DIRECTED PRN #0 10/21/16 02/26/20 acetaminophen [Acetaminophen Extra 1,000 mg PO TID PRN #180 tab 02/22/17 02/26/20 Strength] carbamazepine 100 - 200 mg PO BID 06/09/19 02/26/20 albuterol sulfate 90 mcg/actuation 2 puff IH Q6H PRN 10/04/19 02/26/20 aerosol inhaler aspirin 81 mg tablet,delayed 81 mg PO DAILY 10/04/19 02/26/20 release atorvastatin 40 mg tablet 40 mg PO QHS 10/04/19 02/26/20 furosemide 20 mg tablet 20 mg PO DAILY PRN 10/04/19 02/26/20 hydromorphone 2 mg tablet 2 mg PO Q12H PRN tab 10/04/19 02/26/20 liraglutide 0.6 mg/0.1 mL (18 mg/3 1.8 mg SUBCUT DAILY ml 10/04/19 02/26/20 mL) subcutaneous pen injector losartan 100 mg tablet 100 mg PO DAILY 10/04/19 02/26/20 naltrexone 50 mg tablet 50 mg PO BID tab 10/04/19 02/26/20 naratriptan 2.5 mg tablet 2.5 mg PO ONCE 10/04/19 02/26/20 pantoprazole 20 mg tablet,delayed 40 mg PO DAILY tab 10/04/19 02/26/20 release pregabalin 50 mg capsule 150 mg PO BID cap 10/04/19 02/26/20 topiramate 100 mg tablet 500 mg PO BID tab 10/04/19 02/26/20 zolmitriptan 5 mg tablet 5 mg PO ONCE PRN 10/04/19 02/26/20 Previous Rx's Medication Instructions Recorded bisacodyl [Dulcolax (bisacodyl)] 5 mg PO BID PRN #10 tablet. 07/26/13 clonidine HCl [Catapres] 0.1 mg PO DIRECTED PRN #0 10/21/16 acetaminophen [Acetaminophen Extra 1,000 mg PO TID PRN #180 tab 02/22/17 Strength] Allergies Allergy/AdvReac Type Severity Reaction Status Date / Time phenytoin sodium Allergy Severe Hives Unverified 02/26/20 18:06 [From Dilantin] phenytoin sodium extended Allergy Severe Hives Unverified 09/30/19 12:49 [From Dilantin] amoxicillin [Amoxicillin] Allergy Intermediate Hives Unverified 09/30/19 12:49 lisinopril Allergy Intermediate Unverified 09/30/19 12:49 oxycodone Allergy Intermediate Unverified 09/30/19 12:49 potassium clavulanate Allergy Intermediate Hives Unverified 09/30/19 12:49 [From Augmentin] Sulfa (Sulfonamide Allergy Mild Skin Rash Unverified 09/30/19 12:49 Antibiotics) tomato [Tomato] Allergy Mild Skin Rash Unverified 09/30/19 12:49 sumatriptan [From Imitrex] AdvReac Severe Visual Unverified 09/30/19 12:49 Disturbances,burning sensation through out body General HARRIET: 3 Review of Systems Constitutional Constitutional: Reports as per HPI, Denies chills, Reports fatigue, Denies fever(s), Denies frequent falls, Reports headache(s), Denies snoring and Denies weakness Eyes Eyes: Reports as per HPI, Denies blurry vision, Denies change in vision and Reports photophobia ENT Ears, Nose, Mouth, and Throat: Denies vertigo, Reports headache(s), Denies neck pain and Reports other (Right side face pain) Cardiovascular Cardiovascular: Reports as per HPI, Denies chest pain, Denies lightheadedness, Denies radiating jaw, neck or arm pain, Denies dyspnea and Denies dyspnea on exertion Respiratory Respiratory: Reports as per HPI, Denies chest congestion, Denies cough, Denies dyspnea, Denies dyspnea on exertion, Denies snoring, Denies stridor and Denies wheezing Gastrointestinal Gastrointestinal: Reports as per HPI, Denies abdominal pain, Denies change in bowel habits, Denies nausea and Denies vomiting Musculoskeletal Musculoskeletal: Reports as per HPI, Denies back pain, Denies myalgias, Denies muscle cramps, Denies neck pain and Denies numbness Integumentary/Breasts Skin/Breast: Reports as per HPI and Denies rash Neurologic Neurologic: Reports as per HPI, Denies abnormal movements, Denies abnormal speech, Denies behavioral changes, Denies confusion, Denies vertigo, Denies frequent falls, Reports headache(s), Denies localized weakness, Denies numbness, Denies sensory deficit and Denies weakness Psychiatric Psychiatric: Denies behavioral changes and Denies confusion Endocrine Endocrine: Reports fatigue Allergic/Immunologic Allergic/Immunologic: Denies wheezing REPLACED BY [facility] Medical History (Updated 02/26/20 @ 19:16 by MARIAM Haro) Allergic rhinitis Asthma Closed fracture of right distal fibula (06/09/19) Constipation DM (diabetes mellitus) Eczema Fatty infiltration of liver GERD (gastroesophageal reflux disease) Hand pain History of depression History of neck pain HTN (hypertension) Incontinence Insomnia Leg cramps Migraine Obesity Otalgia Ovarian cyst Preventative health care Screening breast examination Tendinitis Trigeminal neuralgia Surgical History Colonoscopy - MAC (06/15/17) H/O shoulder surgery H/O tooth extraction History of appendectomy History of cholecystectomy History of ear surgery History of eye surgery History of hysterectomy History of knee surgery Mediport placement (05/02/15) Family History Mother Hx of migraines Social History Smoking/Tobacco Use Status: Former Tobacco Use Alcohol Intake: current Alcohol Intake frequency: holidays/special occasions only Drug use: Never Substance use type: does not use Current gender identity: female Do you feel safe at home: Yes Do you feel safe in your relationship?: Yes Exam Const General: cooperative, healthy appearing, comfortable, no acute distress, well developed and well groomed Nutritional Appearance: well nourished and obese Orientation: alert, awake and oriented x3 HENMT Head: normal to inspection, no palpable skull fracture, normocephalic and atraumatic Ears: hearing grossly normal bilaterally, external ears normal and TM's normal bilaterally General nose exam: external nose normal Mouth: oral mucosae normal and moist mucous membranes Throat: posterior oropharynx normal Eyes General: appearance normal, both eyes and all related structures Alignment and Position: alignment normal Periorbital: periorbital findings normal Eyelids: eyelids normal Sclera: sclerae normal Cornea: corneas normal Pupils: PERRL EOM: EOM intact bilaterally Neck Neck: normal visual inspection, full ROM, no lymphadenopathy and no meningeal signs Resp Effort & Inspection: normal respiratory effort, able to speak in complete sentences and no respiratory distress Auscultation: clear to auscultation bilaterally, no rales, no rhonchi and no wheezes Cardio Rate: regular rate Rhythm: regular rhythm Heart Sounds: S1 normal and S2 normal GI Inspection: normal to inspection and non-distended Palpation: soft, no hepatosplenomegaly, not firm, no guarding, not rigid and nontender Percussion: normal to percussion Auscultation: normal bowel sounds Back/Spine/Pelvis Cervical Spine: normal cervical lordosis and cervical ROM normal Skin General skin exam: no rashes or lesions noted Neuro General: patient alert, patient awake and patient oriented x3 Cranial Nerves: CN's II-XI intact bilaterally Cognition: normal cognition Speech: speech normal Gait: normal gait Motor: muscle tone normal throughout and strength 5/5 throughout Sensory Exam: no sensory deficits noted Psych Appearance: grossly normal and well kempt Mental Status: mental status grossly normal Speech and Movement: speech and movement normal
[2020-02-26] MEDS: Dexamethasone 10 MG/ML VIAL IVP (19:03)
[2020-02-26] MEDS: Metoclopramide 10 MG/2 ML VIAL IVP (19:04)
[2020-02-26] MEDS: diphenhydrAMINE 50 MG/ML VIAL IVP (19:04)
[2020-02-26] MEDS: Lactated Ringers 1,000 ML 1000 ML IV (19:04)
[2020-02-26] MEDS: Ketorolac 30 MG/ML VIAL IVP (19:04)
[2020-02-26 19:38] VITALS: BP 118/76; PULSE 76; RESP 16; TEMP 36.6; O2SAT 98
== END 2020-02-26 19:45 | disposition home or self-care (01) ==
LOC: ER 20:13
PROVIDERS: Emergency Provider Physician Assistant; PCP Family Medicine
DX: G90.59 Complex regional pain syndrome I of other specified site (principal); G50.0 Trigeminal neuralgia; E11.9 Type 2 diabetes mellitus without complications; Z79.84 Long term (current) use of oral hypoglycemic drugs; I10 Essential (primary) hypertension
CPT/HCPCS: 96361; 96374; 96375; 99284; J1100; J1200; J1885; J2765

== ENCOUNTER 2020-03-22 20:24 | Emergency (ER) | payer MEDICARE, OTHER, SELFPAY ==
[2020-03-22 20:29] VITALS: BP 141/74; PULSE 87; RESP 18; TEMP 35.4; O2SAT 98
--- NOTE | 2020-03-22 20:54 | ED.GENADUL_ITS ---
Discharge Plan Disposition Patient Disposition: HOME Condition: Good Discharge Details Clinical Impression: CRPS (complex regional pain syndrome) Primary Care Provider: Katarina Rodriguez ED Provider: Jed Warren Home Meds and New Rx's Prescriptions: Continued ketamine thom 10 mg PO QID PRNRF: 0 ketamine/lidocaine 1 applic Topical HS RF: 0 topiramate [Topamax] 100 mg tablet 500 mg PO BID RF: 0 Victoza 3-Norbert 0.6 mg/0.1 mL (18 mg/3 mL) pen injector 1.8 mg subcut DAILY RF: 0 pantoprazole [Protonix] 20 mg tablet,delayed release (DR/EC) 40 mg PO DAILY RF: 0 hydromorphone [Dilaudid] 2 mg tablet 2 mg PO Q12H PRNRF: 0 naratriptan [Amerge] 2.5 mg tablet 2.5 mg PO ONCE RF: 0 losartan 100 mg tablet 100 mg PO DAILY RF: 0 atorvastatin 40 mg tablet 40 mg PO QHS RF: 0 furosemide [Lasix] 20 mg tablet 20 mg PO DAILY PRNRF: 0 zolmitriptan [Zomig] 5 mg tablet 5 mg PO ONCE PRNRF: 0 pregabalin [Lyrica] 50 mg capsule 150 mg PO BID RF: 0 naltrexone 50 mg tablet 50 mg PO BID RF: 0 albuterol sulfate [ProAir HFA] 90 mcg/actuation HFA aerosol inhaler 2 puff IH Q6H PRNRF: 0 Zyrtec 10 MG capsule 10 mg PO DAILY RF: 0 ondansetron 4 MG tablet,disintegrating 4 mg PO TID PRN PRNRF: 0 bisacodyl [Dulcolax (bisacodyl)] 5 MG tablet,delayed release (DR/EC) 5 mg PO BID PRNQty: 10 RF: 0 duloxetine [Cymbalta] 30 MG capsule,delayed release(DR/EC) 30 mg PO BID RF: 0 ascorbic acid (vitamin C) 1,000 MG tablet 1 tab PO DAILY RF: 0 cholecalciferol (vitamin D3) 1,000 UNITS tablet 1 tab PO DAILY RF: 0 baclofen 10 MG tablet 10 mg PO BID RF: 0 ketamine 50 MG/ML solution 2 spray NS QID PRNRF: 0 polyethylene glycol 3350 17 GM powder in packet 2 pkt PO PRN PRNRF: 0 budesonide-formoterol [Symbicort] 10.2 GM HFA aerosol inhaler 2 puff Inhalation DAILY PRN PRNRF: 0 clonidine HCl [Catapres] 0.1 MG tablet 0.1 mg PO DIRECTED PRNQty: 0 RF: 0 acetaminophen [Acetaminophen Extra Strength] 500 MG tablet 1,000 mg PO TID PRNQty: 180 RF: 0 nabumetone 750 mg tablet RF: 0 metformin 500 MG tablet extended release 24 hr 1,500 mg PO DAILY RF: 0 Discharge Instructions Instructions: Chronic Pain (ED) Additional Instructions: At this time your symptoms appear consistent with your complex regional pain syndrome. Please follow-up closely with your specialist in [place] at your scheduled appointment this coming week. If you notice any worsening of your symptoms, or any new symptoms such as vomiting, diarrhea, fever, chills, shortness of breath, chest pain, numbness, weakness, or fainting , please return immediately to the emergency department for reevaluation. Please follow up with your primary care provider as soon as possible for reassessment and reevaluation. As always, it was a pleasure participating in your medical care today. 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 Patient states that this evening her symptoms returned again, right side of her face as per usual. She describes achiness in the hoahaoism back of the neck and jaw. She describes it as identical to her previous episodes. Of note on multiple episodes of assessment personally by myself for her in the ER each episode has resulted in resolution with a localized injection of bupivacaine as well as migraine cocktail. Patient denies any operations. She denies any exertional dyspnea, chest pain, chest tightness, arm pain. She denies any numbness tingling or weakness otherwise. Exam is unremarkable, no focal neurologic deficits. Of note on previous episode she has had screening EKGs all of which have been unremarkable. Her signs and symptoms are clinically inconsistent with ACS at this time and instead clinically consistent with her chronic trigeminal neuralgia. Will recommend continuation of her normal medications for this, we will do a small local block with bupivacaine, and give migraine cocktail. With no focal neurologic deficits no further indication is currently indicated for imaging. Patient additionally does not want any additional imaging at this time. 10:32 PM Patient is feeling better, pain is mild to moderately improved. Patient feels ready for discharge. She will be discharged with close follow-up with her specialist this week in [place]. I have extensively reviewed the treatment plan and discharge instructions with the patient. I have addressed all patient concerns at this time. The patient was made aware of what symptoms to monitor for that would warrant a return to the emergency department. Discussed the plan with the patient, they demonstrate verbal understanding and agreement with our assessment and plan at this time. HPI General Date/Time Provider Initiated Documentation: 03/22/20 20:30 . 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 Patient states that this evening her symptoms returned again, right side of her face as per usual. She describes achiness in the hoahaoism back of the neck and jaw. She describes it as identical to her previous episodes. Of note on multiple episodes of assessment personally by myself for her in the ER each episode has resulted in resolution with a localized injection of bupivacaine as well as migraine cocktail. Patient denies any operations. She denies any exertional dyspnea, chest pain, chest tightness, arm pain. She denies any numbness tingling or weakness otherwise. Related Data Home Medications Medication Instructions Recorded Confirmed Zyrtec 10 mg PO DAILY 11/20/12 03/22/20 ondansetron 4 mg PO TID PRN PRN 07/07/13 03/22/20 bisacodyl [Dulcolax (bisacodyl)] 5 mg PO BID PRN #10 tablet. 07/26/13 03/22/20 duloxetine [Cymbalta] 30 mg PO BID 09/15/13 03/22/20 ascorbic acid (vitamin C) 1 tab PO DAILY 07/18/14 03/22/20 cholecalciferol (vitamin D3) 1 tab PO DAILY 07/18/14 03/22/20 baclofen 10 mg PO BID 08/26/14 03/22/20 ketamine 2 spray NS QID PRN 05/01/15 03/22/20 budesonide-formoterol [Symbicort] 2 puff INHALATION DAILY PRN PRN 08/04/15 03/22/20 polyethylene glycol 3350 2 pkt PO PRN PRN 08/04/15 03/22/20 Ketamine Thom 10 mg PO QID PRN 03/10/16 02/26/20 Ketamine/Lidocaine 1 applic TOPICAL HS 03/10/16 02/26/20 metformin 1,500 mg PO DAILY 09/21/16 03/22/20 clonidine HCl [Catapres] 0.1 mg PO DIRECTED PRN #0 10/21/16 03/22/20 acetaminophen [Acetaminophen Extra 1,000 mg PO TID PRN #180 tab 02/22/17 03/22/20 Strength] albuterol sulfate 90 mcg/actuation 2 puff IH Q6H PRN 10/04/19 03/22/20 aerosol inhaler atorvastatin 40 mg tablet 40 mg PO QHS 10/04/19 03/22/20 furosemide 20 mg tablet 20 mg PO DAILY PRN 10/04/19 03/22/20 hydromorphone 2 mg tablet 2 mg PO Q12H PRN tab 10/04/19 03/22/20 liraglutide 0.6 mg/0.1 mL (18 mg/3 1.8 mg SUBCUT DAILY ml 10/04/19 03/22/20 mL) subcutaneous pen injector losartan 100 mg tablet 100 mg PO DAILY 10/04/19 03/22/20 naltrexone 50 mg tablet 50 mg PO BID tab 10/04/19 03/22/20 naratriptan 2.5 mg tablet 2.5 mg PO ONCE 10/04/19 03/22/20 pantoprazole 20 mg tablet,delayed 40 mg PO DAILY tab 10/04/19 03/22/20 release pregabalin 50 mg capsule 150 mg PO BID cap 10/04/19 03/22/20 topiramate 100 mg tablet 500 mg PO BID tab 10/04/19 03/22/20 zolmitriptan 5 mg tablet 5 mg PO ONCE PRN 10/04/19 03/22/20 nabumetone mg 03/22/20 03/22/20 Previous Rx's Medication Instructions Recorded bisacodyl [Dulcolax (bisacodyl)] 5 mg PO BID PRN #10 tablet. 07/26/13 clonidine HCl [Catapres] 0.1 mg PO DIRECTED PRN #0 10/21/16 acetaminophen [Acetaminophen Extra 1,000 mg PO TID PRN #180 tab 02/22/17 Strength] Allergies Allergy/AdvReac Type Severity Reaction Status Date / Time phenytoin sodium Allergy Severe Hives Unverified 03/22/20 20:36 [From Dilantin] phenytoin sodium extended Allergy Severe Hives Unverified 03/22/20 20:36 [From Dilantin] amoxicillin [Amoxicillin] Allergy Intermediate Hives Unverified 03/22/20 20:36 lisinopril Allergy Intermediate Unverified 03/22/20 20:36 oxycodone Allergy Intermediate Unverified 03/22/20 20:36 potassium clavulanate Allergy Intermediate Hives Unverified 03/22/20 20:36 [From Augmentin] Sulfa (Sulfonamide Allergy Mild Skin Rash Unverified 03/22/20 20:36 Antibiotics) tomato [Tomato] Allergy Mild Skin Rash Unverified 03/22/20 20:36 sumatriptan [From Imitrex] AdvReac Severe Visual Unverified 03/22/20 20:36 Disturbances,burning sensation through out body General Stated Complaint: FacialProb HARRIET: 3 Review of Systems All systems reviewed & are unremarkable except as noted in HPI and below PFSH Medical History (Updated 03/22/20 @ 22:30 by Jed Warren DO) Allergic rhinitis Asthma Closed fracture of right distal fibula (06/09/19) Constipation DM (diabetes mellitus) Eczema Fatty infiltration of liver GERD (gastroesophageal reflux disease) Hand pain History of depression History of neck pain HTN (hypertension) Incontinence Insomnia Leg cramps Migraine Obesity Otalgia Ovarian cyst Preventative health care Screening breast examination Tendinitis Trigeminal neuralgia Surgical History Colonoscopy - MAC (06/15/17) H/O shoulder surgery H/O tooth extraction History of appendectomy History of cholecystectomy History of ear surgery History of eye surgery History of hysterectomy History of knee surgery Mediport placement (05/02/15) Family History Mother Hx of migraines Social History Smoking/Tobacco Use Status: Former Tobacco Use Alcohol Intake: current Alcohol Intake frequency: holidays/special occasions only Drug use: Never Substance use type: does not use Current gender identity: female Do you feel safe at home: Yes Do you feel safe in your relationship?: Yes Exam Narrative Exam Narrative: 1.Const: Well-nourished, Well-developed, appearing stated age 2.Eyes: PERRL, no conjunctival injection, and symmetrical lids. 3.ENT: Atraumatic external nose and ears. Moist MM. Neck: Symmetric, trachea midline, No thyromegaly Evaluation of the ear canals bilaterally demonstrate no evidence of foreign body redness or infection. No effusion. No significant reproducible tenderness over palpation of the hoahaoism or jaw. No palpable tender temporal artery. Patient demonstrates good movement of cervical neck. There is no nuchal rigidity, no nuchal tenderness. Patient is able to flex the neck without any difficulty or significant pain. Negative Kernig's and Brudzinski sign. 4.CVS: +S1/S2, No murmurs or gallops. Peripheral pulses 2+ and equal in all extremities. Brisk capillary refill in all extremities. 5.RESP: Unlabored respiratory effort. Clear to auscultation bilaterally. No wheezes rales or rhonchi 6.GI: Soft, Nontender/Nondistended, No hepatosplenomegaly. No guarding or rebound. 7.MSK: Normocephalic/Atraumatic, Extremities w/o deformity or ttp No cyanosis or clubbing, Normal movement of all extremities 8.Skin: Warm, Dry. No rashes or lesions. 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 Sensation grossly intact, no focal neurologic deficits. 10.Psych: (AAO) x3. Appropriate mood and affect Course Vital Signs Vital signs: Vital Signs Temperature 35.4 C L 03/22/20 20:29 Pulse 87 03/22/20 20:29 Respiratory Rate 18 03/22/20 20:29 Blood Pressure 141/74 H 03/22/20 20:29 Pulse Oximetry 98 03/22/20 20:29 Temperature 35.4 C L 03/22/20 20:29 Temperature Source Skin 03/22/20 20:29 Pulse 87 03/22/20 20:29 Respiratory Rate 18 03/22/20 20:29 Respiratory Effort Non-Labored 03/22/20 20:33 Blood Pressure 141/74 H 03/22/20 20:29 Pulse Oximetry 98 03/22/20 20:29 Pain Level 10 03/22/20 20:29
[2020-03-22] MEDS: Normal Saline 500 ML IV (21:13)
[2020-03-22] MEDS: Acetaminophen 500 MG TAB 1000 MG PO (21:15)
[2020-03-22] MEDS: Ketorolac 30 MG/ML VIAL IVP (21:21)
[2020-03-22] MEDS: methylPREDNISolone SUCC 125 MG VIAL IVP (21:23)
[2020-03-22] MEDS: diphenhydrAMINE 50 MG/ML VIAL 25 MG IVP (21:27)
[2020-03-22] MEDS: Prochlorperazine 10 MG/2 ML VIAL IVP (21:35)
[2020-03-22] MEDS: Bupivacaine 0.5% Pres-Free 30 ML VIAL (21:45)
[2020-03-22 22:26] VITALS: BP 123/57; PULSE 75; RESP 16; O2SAT 96
== END 2020-03-22 22:45 | disposition home or self-care (01) ==
PROVIDERS: Emergency Provider Student in an Organized Health Care Education/Training Program; PCP Family Medicine
DX: G90.59 Complex regional pain syndrome I of other specified site (principal); G50.0 Trigeminal neuralgia; I10 Essential (primary) hypertension; E11.9 Type 2 diabetes mellitus without complications; Z79.84 Long term (current) use of oral hypoglycemic drugs
CPT/HCPCS: 64400; 96361; 96374; 96375; 99284; 99283; J0780; J1200; J1885; J2930

== ENCOUNTER 2020-03-27 02:39 | Outpatient (CLI) | payer MEDICARE, OTHER, SELFPAY ==
[2020-03-27 11:41] LABS: Abs Immature Grans 0.04 10^3/uL (0.0-0.06); Absolute Basophil Count 0.09 10^3/uL (0.0-0.2); Absolute Eosinophil Count 0.38 10^3/uL (0.0-0.7); Absolute Lymphocyte Count 2.51 10^3/uL (1.2-3.4); Absolute Monocyte Count 0.45 10^3/uL (0.1-0.8); Absolute Neutrophil Count 5.49 10^3/uL (1.2-6.7); Eosinophils % 4.2; HCT 36.9 % (36.0-46.0); Immature Grans % 0.4; MCHC 32.5 % (32.0-36.0); MCV 92.3 fL (80-95); MPV 9.7 fL (8.0-11.0); Neutrophils % 61.4; Nucleated RBC 0 %; Platelet Count 243 10^3/uL (130-400); RDW 13.6 % (11.7-14.6); RDW-SD 46.3 fL; WBC 8.96 10^3/uL (4.4-10.8)
[2020-03-27 12:42] LABS: ESR 21 mm/hr (0-30)
[2020-03-27 13:07] LABS: ALT 15 U/L (14-59); AST 7 U/L (15-37); Albumin 3.8 g/dL (3.4-5.0); Alkaline Phosphatase 86 U/L (46-116); Anion Gap 10.4 mmol/L (3-11); BUN 14 mg/dL (7-18); Bilirubin, Total 0.4 mg/dL (0.2-1.0); C-Reactive Protein 1.55 mg/dL (0.0-0.3); CO2 24.6 mmol/L (21.0-32.0); CREATININE 1.08 mg/dL (0.55-1.02); Calcium 8.7 mg/dL (8.5-10.1); Chloride 109 mmol/L (98-107); Estimated GFR 53.07 (mL/min/1.73m2); Glucose 82 mg/dL (74-106); Potassium 4.2 mmol/L (3.5-5.1); Sodium 144 mmol/L (136-145); Total Protein 6.6 g/dL (6.4-8.2)
== END 2020-03-27 02:59 ==
PROVIDERS: PCP Family Medicine; Visit Provider Nurse Practitioner Family
DX: M19.90 Unspecified osteoarthritis, unspecified site (principal); I10 Essential (primary) hypertension
CPT/HCPCS: 36415; 80053; 85652; 85025; 86140

== ENCOUNTER 2020-04-08 16:12 | Outpatient (REF) | payer MEDICARE, OTHER, SELFPAY ==
[2020-04-13 17:17] LABS: Patient Race White; SARS-CoV-2 RNA Undetected (Undetected)
== END 2020-04-08 16:32 ==
LOC: NCHCN 16:12
PROVIDERS: PCP Family Medicine; Visit Provider Physician Assistant
DX: Z11.59 Encounter for screening for other viral diseases (principal)
CPT/HCPCS: U0003

== ENCOUNTER 2020-05-02 17:04 | Emergency (ER) | payer MEDICARE, OTHER, SELFPAY ==
[2020-05-02 17:10] VITALS: BP 135/62; PULSE 79; RESP 18; TEMP 36.8; O2SAT 95
--- NOTE | 2020-05-02 17:30 | DI.CT_ITS ---
EXAM: CT HEAD WO CLINICAL HISTORY: S/P trigeminal nerve ablasion and craniotomyfever. TECHNIQUE: Imaging Protocol: Axial computed tomography images with coronal and sagittal reformatted images were created and reviewed COMPARISON: CT CT HEAD WO from 09/30/2019 FINDINGS: Ventricles and Extra axial spaces: Normal in size and morphology for the patient's age. Hemorrhage: None. Cerebral parenchyma: Normal. Midline shift: None. Brainstem/Cerebellum: Normal. Calvarium: Hyperostosis frontalis interna. Small craniotomy defect seen in the right occipital regio n which was not present on the previous exam. Visualized Paranasal sinuses/Mastoids: Partial opacification of right mastoid air cells. Postsurgica l lucency in the right mastoid air cells. Some fluid in the right middle ear. Some mucous retention within the right frontal sinus with adjacent steve hole. Soft Tissues: Unremarkable. IMPRESSION: Postsurgical changes in the right mastoid and right posterior occipital region as well as right front al sinus. No acute intracranial abnormality. No evidence of abscess. RADIATION DOSE DELIVERED: 771.16mGy.cm Total DLP DATA REPOSITORY: All CT scans at this facility are submitted to the National Radiology Data Registry (NRDR) Dose Index Registry (DIR) with the [employer] ([employer]). RADIATION OPTIMIZATION: All CT scans at this facility use at least one of these dose optimization te chniques: automated exposure control; mA and/or kV adjustment per patient size (includes targeted exa ms where dose is matched to clinical indication); or iterative reconstruction.
--- NOTE | 2020-05-02 17:42 | ED.GENADUL_ITS ---
Discharge Plan Disposition Patient Disposition: HOME Condition: Stable Discharge Details Clinical Impression: Fever postop Primary Care Provider: Katarina Rodriguez ED Provider: Kandace George Home Meds and New Rx's Prescriptions: New cefpodoxime 200 mg tablet 200 mg PO BID 10 Days Qty: 20 RF: 0 Continued ketamine thom 10 mg PO QID PRNRF: 0 ketamine/lidocaine 1 applic Topical HS RF: 0 topiramate [Topamax] 100 mg tablet 500 mg PO BID RF: 0 Victoza 3-Norbert 0.6 mg/0.1 mL (18 mg/3 mL) pen injector 1.8 mg subcut DAILY RF: 0 pantoprazole [Protonix] 20 mg tablet,delayed release (DR/EC) 40 mg PO DAILY RF: 0 hydromorphone [Dilaudid] 2 mg tablet 2 mg PO Q12H PRNRF: 0 naratriptan [Amerge] 2.5 mg tablet 2.5 mg PO ONCE RF: 0 losartan 100 mg tablet 100 mg PO DAILY RF: 0 atorvastatin 40 mg tablet 40 mg PO QHS RF: 0 furosemide [Lasix] 20 mg tablet 20 mg PO DAILY PRNRF: 0 zolmitriptan [Zomig] 5 mg tablet 5 mg PO ONCE PRNRF: 0 pregabalin [Lyrica] 50 mg capsule 100 mg PO BID RF: 0 naltrexone 50 mg tablet 50 mg PO BID RF: 0 albuterol sulfate [ProAir HFA] 90 mcg/actuation HFA aerosol inhaler 2 puff IH Q6H PRNRF: 0 Zyrtec 10 MG capsule 10 mg PO DAILY RF: 0 ondansetron 4 MG tablet,disintegrating 4 mg PO TID PRN PRNRF: 0 bisacodyl [Dulcolax (bisacodyl)] 5 MG tablet,delayed release (DR/EC) 5 mg PO BID PRNQty: 10 RF: 0 duloxetine [Cymbalta] 30 MG capsule,delayed release(DR/EC) 30 mg PO BID RF: 0 ascorbic acid (vitamin C) 1,000 MG tablet 1 tab PO DAILY RF: 0 cholecalciferol (vitamin D3) 1,000 UNITS tablet 1 tab PO DAILY RF: 0 baclofen 10 MG tablet 20 mg PO BID RF: 0 ketamine 50 MG/ML solution 2 spray NS QID PRNRF: 0 polyethylene glycol 3350 17 GM powder in packet 2 pkt PO PRN PRNRF: 0 budesonide-formoterol [Symbicort] 10.2 GM HFA aerosol inhaler 2 puff Inhalation DAILY PRN PRNRF: 0 clonidine HCl [Catapres] 0.1 MG tablet 0.1 mg PO DIRECTED PRNQty: 0 RF: 0 acetaminophen [Acetaminophen Extra Strength] 500 MG tablet 1,000 mg PO TID PRNQty: 180 RF: 0 nabumetone 750 mg tablet RF: 0 metformin 500 MG tablet extended release 24 hr 1,500 mg PO DAILY RF: 0 atorvastatin 40 mg tablet 40 mg PO HS RF: 0 hydroxychloroquine 200 mg tablet 400 mg PO DAILY RF: 0 scopolamine base 1 mg over 3 days patch 3 day 1 mg transdermal DAILY RF: 0 Discharge Instructions Instructions: Fever in Adults (ED) Additional Instructions: Follow up with primary care provider in 3-5 days. Return to ED sooner if any worsening or concerns. Increase oral fluids. Take prescription antibiotic as directed. I did speak with the neurosurgical team in [place] they were notified of the CT results and are aware of the antibiotic prescription. Please call them for any other concerns regarding the operation. As always you are welcome to return here to the ER if you for allowing us to be involved in your care. Stand Alone Forms: PENDING COVID-19 TESTING Referrals: Katarina Rodriguez MD [Primary Care Provider] - Medical Decision Making 2002: Discussed CT results with patient, verbalized understanding, Received number for [facility] in [place] where she had surgery. At this time I will treat with antibiotics for possible right inner ear mastoiditis. There is fluid noted in the right middle ear. This could be just postsurgical changes. But the fever differential diagnosis is sinusitis versus Covid. Patient was on Levaquin [address] up until Tuesday[address] Will place patient on Cefpoxdime. CT HEAD WO 09/30/2019 1:22 PM FINDINGS: Brain: Normal. No hemorrhage. Unremarkable white matter. No mass effect. Cerebral ventricles: No ventriculomegaly. Bones/joints: Post right suboccipital lateral craniotomy change. Status post apparent right frontal bone steve hole at the external aspect of the right frontal sinus. There appears to be residual retention cyst change noted. Paranasal sinuses: See Bones/joints finding. Mastoid air cells: There is partial opacification right mastoid air cells. Auditory system: There is some fluid in the right middle ear. Soft tissues: Unremarkable. IMPRESSION: 1. No evidence for acute intracranial abnormality. 2. Right-sided suboccipital craniotomy change noted with associated mastoid opacification and fluid in the right middle ear. 3. Postsurgical change right frontal sinus anteriorly. Work-up is largely within normal limits, CBC is showing a white blood cell count of 12.01, BUN 19, creatinine 1.19, glucose 155 urinalysis is within normal limits. Covid is pending at this time. 2016: Spoke with Neurosurgery at [facility] will call me back. 2029: Spoke with neurosurgery once again at [facility], they are aware of the intent to start patient back on antibiotics me agree with plan. They have no further recommendations at this time. Discussed CT and labs with patient who verbalized understanding. Patient remained hemodynamically stable and alert and oriented x4 throughout stay. Patient discharged home. HPI General Mode of arrival: ambulatory . Date/Time Provider Initiated Documentation: 05/02/20 17:11 . Limitations to Documentation: no limitations . Information obtained by: patient . HPI Narrative: 54-year-old female presents the ER with chief complaint of fever, headache and low back pain. Patient just returned from [facility] on Tuesday status post trigeminal nerve ablation, and craniotomy for complex regional pain syndrome and neuralgia. She was on Levaquin until this Tuesday she is no longer taking an antibiotic. She reports 100.1 T-max fever which began yesterday, increased headache, tenderness over the incision to the craniotomy incision to the back of her right ear. And increased lower back pain. She is concerned for problem with surgery versus Covid versus possible UTI. She is alert and oriented x4 upon arrival. Related Data Home Medications Medication Instructions Recorded Confirmed Zyrtec 10 mg PO DAILY 11/20/12 03/22/20 ondansetron 4 mg PO TID PRN PRN 07/07/13 05/02/20 bisacodyl [Dulcolax (bisacodyl)] 5 mg PO BID PRN #10 tablet. 07/26/13 03/22/20 duloxetine [Cymbalta] 30 mg PO BID 09/15/13 05/02/20 ascorbic acid (vitamin C) 1 tab PO DAILY 07/18/14 05/02/20 cholecalciferol (vitamin D3) 1 tab PO DAILY 07/18/14 05/02/20 baclofen 20 mg PO BID 08/26/14 05/02/20 ketamine 2 spray NS QID PRN 05/01/15 05/02/20 budesonide-formoterol [Symbicort] 2 puff INHALATION DAILY PRN PRN 08/04/15 03/22/20 polyethylene glycol 3350 2 pkt PO PRN PRN 08/04/15 05/02/20 Ketamine Thom 10 mg PO QID PRN 03/10/16 02/26/20 Ketamine/Lidocaine 1 applic TOPICAL HS 03/10/16 05/02/20 metformin 1,500 mg PO DAILY 09/21/16 05/02/20 clonidine HCl [Catapres] 0.1 mg PO DIRECTED PRN #0 10/21/16 03/22/20 acetaminophen [Acetaminophen Extra 1,000 mg PO TID PRN #180 tab 02/22/17 Strength] albuterol sulfate 90 mcg/actuation 2 puff IH Q6H PRN 10/04/19 05/02/20 aerosol inhaler atorvastatin 40 mg tablet 40 mg PO QHS 10/04/19 03/22/20 furosemide 20 mg tablet 20 mg PO DAILY PRN 10/04/19 05/02/20 hydromorphone 2 mg tablet 2 mg PO Q12H PRN tab 10/04/19 05/02/20 liraglutide 0.6 mg/0.1 mL (18 mg/3 1.8 mg SUBCUT DAILY ml 10/04/19 05/02/20 mL) subcutaneous pen injector losartan 100 mg tablet 100 mg PO DAILY 10/04/19 05/02/20 naltrexone 50 mg tablet 50 mg PO BID tab 10/04/19 03/22/20 naratriptan 2.5 mg tablet 2.5 mg PO ONCE 10/04/19 05/02/20 pantoprazole 20 mg tablet,delayed 40 mg PO DAILY tab 10/04/19 05/02/20 release pregabalin 50 mg capsule 100 mg PO BID cap 10/04/19 05/02/20 topiramate 100 mg tablet 500 mg PO BID tab 10/04/19 05/02/20 zolmitriptan 5 mg tablet 5 mg PO ONCE PRN 10/04/19 03/22/20 nabumetone mg 03/22/20 03/22/20 atorvastatin 40 mg PO HS 05/02/20 05/02/20 cefpodoxime 200 mg PO BID 10 Days #20 tab 05/02/20 hydroxychloroquine 400 mg PO DAILY 05/02/20 05/02/20 scopolamine base 1 mg TRANSDERMAL DAILY 05/02/20 05/02/20 Previous Rx's Medication Instructions Recorded bisacodyl [Dulcolax (bisacodyl)] 5 mg PO BID PRN #10 tablet. 07/26/13 clonidine HCl [Catapres] 0.1 mg PO DIRECTED PRN #0 10/21/16 acetaminophen [Acetaminophen Extra 1,000 mg PO TID PRN #180 tab 02/22/17 Strength] cefpodoxime 200 mg PO BID 10 Days #20 tab 05/02/20 Allergies Allergy/AdvReac Type Severity Reaction Status Date / Time phenytoin sodium Allergy Severe Hives Unverified 05/02/20 17:15 [From Dilantin] phenytoin sodium extended Allergy Severe Hives Unverified 05/02/20 17:15 [From Dilantin] amoxicillin [Amoxicillin] Allergy Intermediate Hives Unverified 05/02/20 17:15 lisinopril Allergy Intermediate Unverified 05/02/20 17:15 oxycodone Allergy Intermediate Unverified 05/02/20 17:15 potassium clavulanate Allergy Intermediate Hives Unverified 05/02/20 17:15 [From Augmentin] Sulfa (Sulfonamide Allergy Mild Skin Rash Unverified 05/02/20 17:15 Antibiotics) tomato [Tomato] Allergy Mild Skin Rash Unverified 05/02/20 17:15 sumatriptan [From Imitrex] AdvReac Severe Visual Unverified 05/02/20 17:15 Disturbances,burning sensation through out body General Stated Complaint: Headache HARRIET: 3 Review of Systems Narrative: Constitutional: Negative for weight loss, alert and oriented, well groomed, normal body habitus, appears comfortable. HEENT: Denies sore throat, trouble swallowing. Head status post craniotomy has a surgical incision behind her right ear and a small puncture wound noted to her right forhead. She is complaining of headache, runny nose, droopy eyelid on the right, blurry vision on the right eye. Chest: Denies chest pain, palpitations, irregular rhythm, hypertension. Respiratory: Denies Shortness of breath, cough, hemoptysis. GI: Denies abdominal pain, nausea, vomiting, diarrhea, constipation. : Denies dysuria, hematuria, positive flank pain, denies rectal bleeding. Neuro: Denies facial numbness. Status post craniotomy, trigeminal nerve ablation in medial nerve ablation, complaining of headache, right eye lid drooping, blurry vision, fever. Mild tenderness over the distal aspect of the incision there is mild erythema no significant drainage noted. Hematologic: Denies easy bruising, intolerance to heat or cold, hair loss. [facility] Medical History (Updated 05/02/20 @ 20:33 by Kandace George) Allergic rhinitis Asthma Closed fracture of right distal fibula (06/09/19) Constipation DM (diabetes mellitus) Eczema Fatty infiltration of liver GERD (gastroesophageal reflux disease) Hand pain History of depression History of neck pain HTN (hypertension) Incontinence Insomnia Leg cramps Migraine Obesity Otalgia Ovarian cyst Preventative health care Screening breast examination Tendinitis Trigeminal neuralgia Surgical History Colonoscopy - MAC (06/15/17) H/O shoulder surgery H/O tooth extraction History of appendectomy History of cholecystectomy History of ear surgery History of eye surgery History of hysterectomy History of knee surgery Mediport placement (05/02/15) Family History Mother Hx of migraines Social History Smoking/Tobacco Use Status: Former Tobacco Use Smoking risk assessment performed?: Yes Alcohol Intake: current Alcohol Intake frequency: holidays/special occasions only Drug use: Never Substance use type: does not use Current gender identity: female Do you feel safe at home: Yes Do you feel safe in your relationship?: Yes Exam Narrative Exam Narrative: Constitutional: Alert and oriented x3. Appears stated age. Normal body habitus. Head: Normocephalic, has a surgical incision noted to the area behind her right ear. Eyes: Pupils PERRLA, Red reflex noted, EOM's intact. Eyelids right upper eyelid somewhat droopy as compared to the left eyelid, without lesions, discharge, or swelling. ENT: Bilateral TM's WNL, External ear normal to inspection, no mastoid TTP, swelling, or erythema, Nasal turbinates WNL, no nasal discharge. Normal dentition, Posterior pharynx WNL, no exudate. Chest: RRR, Normal S1, S2, distal pulses intact. Resp: Lungs clear to auscultation bilaterally, no wheezes, rales, or rhonchi. Musculoskeletal: Normal gait, 5/5 strength to all four extremities. Lower lumbar tenderness. Skin: No suspicious rashes or lesions. Capillary refill less than 2 sec. Neurologic: Cranial nerves II-XII intact. Alert and oriented x 3. DTR's intact. Mild tenderness over the distal aspect of the incision noted to her right posterior parietal scalp, there is mild erythema no significant drainage noted. Hematologic/Lymphatic: No ecchymosis, no lymphadenopathy. Course Vital Signs Vital signs: Vital Signs Temperature 36.8 C 05/02/20 17:10 Pulse 79 05/02/20 17:10 Respiratory Rate 18 05/02/20 17:10 Blood Pressure 135/62 05/02/20 17:10 Pulse Oximetry 95 05/02/20 17:10 Temperature 36.8 C 05/02/20 17:10 Temperature Source Temporal Artery Scan 05/02/20 17:10 Pulse 79 05/02/20 17:10 Respiratory Rate 18 05/02/20 17:10 Respiratory Effort Non-Labored 05/02/20 17:29 Blood Pressure 135/62 05/02/20 17:10 Blood Pressure Position Sitting 05/02/20 17:10 Pulse Oximetry 95 05/02/20 17:10 Pain Level 8 05/02/20 17:10 Lab/Test Results Lab/Test Results: 05/02/20 17:40 Blood Blood Culture - Pending 05/02/20 17:40 Blood Blood Culture - Pending
[2020-05-02 18:27] LABS: Abs Immature Grans 0.08 10^3/uL (0.0-0.06); Absolute Basophil Count 0.08 10^3/uL (0.0-0.2); Absolute Monocyte Count 0.67 10^3/uL (0.1-0.8); Basophils % 0.7; Eosinophils % 2.5; HCT 35.6 % (36.0-46.0); HGB 11.3 g/dL (11.2-15.7); Immature Grans % 0.7; Lymphocytes % 25.6; MCH 29.5 pg (27.0-33.0); MCHC 31.7 % (32.0-36.0); MPV 9.8 fL (8.0-11.0); Monocytes % 5.6; Neutrophils % 64.9; Nucleated RBC 0 %; Platelet Count 270 10^3/uL (130-400); RBC 3.83 10^6/uL (3.93-5.22); RDW 13.2 % (11.7-14.6); RDW-SD 44.8 fL; WBC 12.01 10^3/uL (4.4-10.8)
[2020-05-02 18:31] LABS: Absolute Lymphocyte Count 3.07 10^3/uL (1.2-3.4); Absolute Neutrophil Count 7.79 10^3/uL (1.2-6.7)
[2020-05-02 18:43] LABS: ALT 16 U/L (14-59); AST < 5 U/L (15-37); Albumin 3.7 g/dL (3.4-5.0); Alkaline Phosphatase 88 U/L (46-116); Anion Gap 8.6 mmol/L (3-11); BUN 19 mg/dL (7-18); Bilirubin, Total 0.2 mg/dL (0.2-1.0); CO2 25.4 mmol/L (21.0-32.0); CREATININE 1.19 mg/dL (0.55-1.02); Calcium 9.1 mg/dL (8.5-10.1); Chloride 105 mmol/L (98-107); Estimated GFR 47.45 (mL/min/1.73m2); Glucose 155 mg/dL (74-106); Potassium 4.3 mmol/L (3.5-5.1); Sodium 139 mmol/L (136-145); Total Protein 7.3 g/dL (6.4-8.2)
--- NOTE | 2020-05-02 19:33 | DI.VRAD_ITS ---
PROCEDURE INFORMATION: Exam: CT Head Without Contrast Exam date and time: 05/02/2020 7:03 PM Age: 54 years old Clinical indication: Pain; Headache not specified; Patient HX: Craniotomy on April 24. Recent onset of [place] \T\ fever. TECHNIQUE: Imaging protocol: Computed tomography of the head without contrast. Radiation optimization: All CT scans at this facility use at least one of these dose optimization techniques: automated exposure control; mA and/or kV adjustment per patient size (includes targeted exams where dose is matched to clinical indication); or iterative reconstruction. COMPARISON: CT HEAD WO 09/30/2019 1:22 PM FINDINGS: Brain: Normal. No hemorrhage. Unremarkable white matter. No mass effect. Cerebral ventricles: No ventriculomegaly. Bones/joints: Post right suboccipital lateral craniotomy change. Status post apparent right frontal bone steve hole at the external aspect of the right frontal sinus. There appears to be residual retention cyst change noted. Paranasal sinuses: See Bones/joints finding. Mastoid air cells: There is partial opacification right mastoid air cells. Auditory system: There is some fluid in the right middle ear. Soft tissues: Unremarkable. IMPRESSION: 1. No evidence for acute intracranial abnormality. 2. Right-sided suboccipital craniotomy change noted with associated mastoid opacification and fluid in the right middle ear. 3. Postsurgical change right frontal sinus anteriorly. Dictated and Authenticated by: Maribel Wade MD. Ordering:JOAN Jeronimo MD
[2020-05-02 19:34] VITALS: BP 105/73; PULSE 69; RESP 16; O2SAT 98
[2020-05-02 19:41] LABS: Bilirubin Negative (Negative); Blood Negative (Negative); Clarity Clear (Clear); Glucose Negative (Negative); Ketones Negative (Negative); Leukocyte Esterase Negative (Negative); Nitrite Negative (Negative); Specific Gravity 1.015 (1.005-1.025); Urobilinogen 0.2 EU/dL (Up TO 0.2); pH 5.5 (5-8)
[2020-05-02 20:04] VITALS: BP 128/51; PULSE 71; O2SAT 100
[2020-05-02 20:31] VITALS: BP 137/83; PULSE 69
[2020-05-02 20:33] VITALS: O2SAT 100
[2020-05-02] MEDS: Cefpodoxime 200 MG TAB PO (21:05)
[2020-05-06 03:10] LABS: SARS-CoV-2 RNA Undetected (Undetected); SARS-CoV-2 Specimen Source Nasal
== END 2020-05-02 21:20 | disposition home or self-care (01) ==
PROVIDERS: Emergency Provider Registered Nurse Emergency; PCP Family Medicine
DX: R50.82 Postprocedural fever (principal); H74.8X1 Other specified disorders of right middle ear and mastoid; M54.5 Low back pain; R51.9 Headache, unspecified; Z11.59 Encounter for screening for other viral diseases; Z98.890 Other specified postprocedural states; H53.8 Other visual disturbances; E11.9 Type 2 diabetes mellitus without complications; Z79.84 Long term (current) use of oral hypoglycemic drugs; I10 Essential (primary) hypertension
CPT/HCPCS: 36415; 80053; 87040; 99284; U0003; 70450; 81003; 85025; 99285

== ENCOUNTER 2020-05-07 17:12 | Outpatient (REF) | payer MEDICARE, OTHER, SELFPAY ==
[2020-05-11 07:24] LABS: Patient Race White; SARS-CoV-2 RNA Undetected (Undetected); SARS-CoV-2 Specimen Source Nasal
== END 2020-05-07 17:32 ==
LOC: NCHCN 17:12
PROVIDERS: PCP Family Medicine; Visit Provider Family Medicine
DX: Z20.828 Contact with and (suspected) exposure to other viral communicable diseases (principal)
CPT/HCPCS: U0003

== ENCOUNTER 2020-05-10 13:37 | Emergency (ER) | payer MEDICARE, OTHER, SELFPAY ==
[2020-05-10 13:43] VITALS: BP 147/75; PULSE 79; RESP 16; TEMP 36.6; O2SAT 99
--- NOTE | 2020-05-10 13:45 | W.ED.GENAD ---
Discharge Plan Disposition Patient Disposition: HOME Condition: Stable Discharge Details Clinical Impression: Acute effusion of right ear, Post-op pain Primary Care Provider: Katarina Rodriguez ED Provider: Ana Layne Home Meds and New Rx's Prescriptions: New prednisone 20 mg tablet See Rx Instructions .ROUTE .COMPLEX Qty: 18 RF: 0 Continued ketamine thom 10 mg PO QID PRNRF: 0 ketamine/lidocaine 1 applic Topical HS RF: 0 topiramate [Topamax] 100 mg tablet 500 mg PO BID RF: 0 Victoza 3-Norbert 0.6 mg/0.1 mL (18 mg/3 mL) pen injector 1.8 mg subcut DAILY RF: 0 pantoprazole [Protonix] 20 mg tablet,delayed release (DR/EC) 40 mg PO DAILY RF: 0 hydromorphone [Dilaudid] 2 mg tablet 2 mg PO Q12H PRNRF: 0 naratriptan [Amerge] 2.5 mg tablet 2.5 mg PO ONCE RF: 0 losartan 100 mg tablet 100 mg PO DAILY RF: 0 atorvastatin 40 mg tablet 40 mg PO QHS RF: 0 furosemide [Lasix] 20 mg tablet 20 mg PO DAILY PRNRF: 0 zolmitriptan [Zomig] 5 mg tablet 5 mg PO ONCE PRNRF: 0 pregabalin [Lyrica] 50 mg capsule 100 mg PO BID RF: 0 naltrexone 50 mg tablet 50 mg PO BID RF: 0 albuterol sulfate [ProAir HFA] 90 mcg/actuation HFA aerosol inhaler 2 puff IH Q6H PRNRF: 0 Zyrtec 10 MG capsule 10 mg PO DAILY RF: 0 ondansetron 4 MG tablet,disintegrating 4 mg PO TID PRN PRNRF: 0 bisacodyl [Dulcolax (bisacodyl)] 5 MG tablet,delayed release (DR/EC) 5 mg PO BID PRNQty: 10 RF: 0 duloxetine [Cymbalta] 30 MG capsule,delayed release(DR/EC) 30 mg PO BID RF: 0 ascorbic acid (vitamin C) 1,000 MG tablet 1 tab PO DAILY RF: 0 cholecalciferol (vitamin D3) 1,000 UNITS tablet 1 tab PO DAILY RF: 0 baclofen 10 MG tablet 20 mg PO BID RF: 0 ketamine 50 MG/ML solution 2 spray NS QID PRNRF: 0 polyethylene glycol 3350 17 GM powder in packet 2 pkt PO PRN PRNRF: 0 budesonide-formoterol [Symbicort] 10.2 GM HFA aerosol inhaler 2 puff Inhalation DAILY PRN PRNRF: 0 clonidine HCl [Catapres] 0.1 MG tablet 0.1 mg PO DIRECTED PRNQty: 0 RF: 0 acetaminophen [Acetaminophen Extra Strength] 500 MG tablet 1,000 mg PO TID PRNQty: 180 RF: 0 nabumetone 750 mg tablet RF: 0 metformin 500 MG tablet extended release 24 hr 1,500 mg PO DAILY RF: 0 atorvastatin 40 mg tablet 40 mg PO HS RF: 0 hydroxychloroquine 200 mg tablet 400 mg PO DAILY RF: 0 scopolamine base 1 mg over 3 days patch 3 day 1 mg transdermal DAILY RF: 0 cefpodoxime 200 mg tablet 200 mg PO BID 10 Days Qty: 20 RF: 0 Discharge Instructions Instructions: Ear Infection (ED) Additional Instructions: Drink plenty of fluids and get plenty of rest. Alternate tylenol and motrin as needed and directed for pain. Take the antibiotics until finished. Take the steroids until finished. Apply the Bactroban antibiotic ointment to your forehead and behind your right ear twice daily for the next week. Call your neurosurgeon at [facility] to schedule a follow-up appointment for reevaluation this week and for further postoperative guidance and suture removal per your neurosurgeon at [place]. Return immediately to the emergency department if you develop any worsening or new concerning symptoms such as fever, worsening pain, ear drainage or any other concerns. Discharge Data Discharge Date/Time-TO BE ENTERED AT DEPARTURE: 05/10/20 14:40 Discharge Physician: Ana Layne Medical Decision Making 54-year-old female who is 2 weeks status post trigeminal nerve ablation, and craniotomy for complex regional pain syndrome and neuralgia currently taking cefpodoxime for an ear infection presents with persistent right ear pain. Fever is now resolved. She appears nontoxic. She appears to have a serosanguineous effusion noted to her inferior TM. There is no erythema or bulging noted around the TM. No signs of otitis externa. Right postauricular incision site appears to be healing well with very minimal erythema but mainly pink cannulation tissue. She has a crusted lesion on her forehead from the pressure points status post her surgery but appears very minimally erythematous. Patient had CT of the head on her ED visit on 05/02: IMPRESSION: 1. No evidence for acute intracranial abnormality. 2. Right-sided suboccipital craniotomy change noted with associated mastoid opacification and fluid in the right middle ear. 3. Postsurgical change right frontal sinus anteriorly. As she appears nontoxic and her fever has resolved, do not see medication for repeat labs or imaging and patient agreeable with this plan. She is advised to continue her antibiotics and will add steroids and Bactroban to her wound sites. She is advised to call her neurosurgeons at [facility] to schedule a follow-up appointment for reevaluation and consultation with her neurosurgeon at [facility] to discuss plan for suture removal and continued management. Usual and customary return precautions given prior to discharge. HPI General Mode of arrival: ambulatory. Date/Time Provider Initiated Documentation: 05/10/20 13:40. Limitations to Documentation: no limitations. Information obtained by: patient. HPI Narrative: Patient is a 54-year-old female who is 2 weeks status post trigeminal nerve ablation and craniotomy for complex regional pain syndrome and neuralgia in [place] who was diagnosed with an ear infection here last week and still currently taking cefpodoxime presents for persistent deep aching ear pain and pain around her postauricular surgical site. When she was seen here last week she was noted to have a fever and was still currently taking Levaquin status post her surgery. She states her fever resolved 4 days ago. She denies any headache or dizziness. She states she was told by her neurosurgeon in [place] to follow-up 2 weeks status post her surgery for suture removal but does not plan to return to [place]. She was told that she could follow-up with her primary care doctor Dr. Rodriguez, but patient states when she developed an ear infection recently she was told by Dr. Rodriguez that she should follow-up elsewhere. Patient states she has seen neurosurgery and neurology at [facility] who had referred her to the neurosurgeon in [place]. Related Data Home Medications Medication Instructions Recorded Confirmed Zyrtec 10 mg PO DAILY 11/20/12 05/10/20 ondansetron 4 mg PO TID PRN PRN 07/07/13 05/10/20 bisacodyl [Dulcolax (bisacodyl)] 5 mg PO BID PRN #10 tablet. 07/26/13 05/10/20 duloxetine [Cymbalta] 30 mg PO BID 09/15/13 05/10/20 ascorbic acid (vitamin C) 1 tab PO DAILY 07/18/14 05/10/20 cholecalciferol (vitamin D3) 1 tab PO DAILY 07/18/14 05/10/20 baclofen 20 mg PO BID 08/26/14 05/10/20 ketamine 2 spray NS QID PRN 05/01/15 05/10/20 budesonide-formoterol [Symbicort] 2 puff INHALATION DAILY PRN PRN 08/04/15 05/10/20 polyethylene glycol 3350 2 pkt PO PRN PRN 08/04/15 05/10/20 Ketamine Thom 10 mg PO QID PRN 03/10/16 05/10/20 Ketamine/Lidocaine 1 applic TOPICAL HS 03/10/16 05/10/20 metformin 1,500 mg PO DAILY 09/21/16 05/10/20 clonidine HCl [Catapres] 0.1 mg PO DIRECTED PRN #0 10/21/16 05/10/20 acetaminophen [Acetaminophen Extra 1,000 mg PO TID PRN #180 tab 02/22/17 05/10/20 Strength] albuterol sulfate 90 mcg/actuation 2 puff IH Q6H PRN 10/04/19 05/10/20 aerosol inhaler atorvastatin 40 mg tablet 40 mg PO QHS 10/04/19 05/10/20 furosemide 20 mg tablet 20 mg PO DAILY PRN 10/04/19 05/10/20 hydromorphone 2 mg tablet 2 mg PO Q12H PRN tab 10/04/19 05/10/20 liraglutide 0.6 mg/0.1 mL (18 mg/3 1.8 mg SUBCUT DAILY ml 10/04/19 05/10/20 mL) subcutaneous pen injector losartan 100 mg tablet 100 mg PO DAILY 10/04/19 05/10/20 naltrexone 50 mg tablet 50 mg PO BID tab 10/04/19 05/10/20 naratriptan 2.5 mg tablet 2.5 mg PO ONCE 10/04/19 05/10/20 pantoprazole 20 mg tablet,delayed 40 mg PO DAILY tab 10/04/19 05/10/20 release pregabalin 50 mg capsule 100 mg PO BID cap 10/04/19 05/10/20 topiramate 100 mg tablet 500 mg PO BID tab 10/04/19 05/10/20 zolmitriptan 5 mg tablet 5 mg PO ONCE PRN 10/04/19 05/10/20 nabumetone mg 03/22/20 03/22/20 atorvastatin 40 mg PO HS 05/02/20 05/10/20 cefpodoxime 200 mg PO BID 10 Days #20 tab 05/02/20 05/10/20 hydroxychloroquine 400 mg PO DAILY 05/02/20 05/10/20 scopolamine base 1 mg TRANSDERMAL DAILY 05/02/20 05/10/20 prednisone See Rx Instructions .ROUTE 05/10/20 .COMPLEX #18 tab Previous Rx's Medication Instructions Recorded bisacodyl [Dulcolax (bisacodyl)] 5 mg PO BID PRN #10 tablet. 07/26/13 clonidine HCl [Catapres] 0.1 mg PO DIRECTED PRN #0 10/21/16 acetaminophen [Acetaminophen Extra 1,000 mg PO TID PRN #180 tab 02/22/17 Strength] cefpodoxime 200 mg PO BID 10 Days #20 tab 05/02/20 prednisone See Rx Instructions .ROUTE 05/10/20 .COMPLEX #18 tab Allergies Allergy/AdvReac Type Severity Reaction Status Date / Time phenytoin sodium Allergy Severe Hives Unverified 05/10/20 13:52 [From Dilantin] phenytoin sodium extended Allergy Severe Hives Unverified 05/10/20 13:52 [From Dilantin] amoxicillin [Amoxicillin] Allergy Intermediate Hives Unverified 05/10/20 13:52 lisinopril Allergy Intermediate Unverified 05/10/20 13:52 oxycodone Allergy Intermediate Unverified 05/10/20 13:52 potassium clavulanate Allergy Intermediate Hives Unverified 05/10/20 13:52 [From Augmentin] Sulfa (Sulfonamide Allergy Mild Skin Rash Unverified 05/10/20 13:52 Antibiotics) tomato [Tomato] Allergy Mild Skin Rash Unverified 05/10/20 13:52 sumatriptan [From Imitrex] AdvReac Severe Visual Unverified 05/10/20 13:52 Disturbances,burning sensation through out body General HARRIET: 3 Review of Systems All systems reviewed & are unremarkable except as noted in HPI and below Constitutional Constitutional: Reports as per HPI, Denies chills and Denies fever(s) Eyes Eyes: Denies blurry vision ENT Ears, Nose, Mouth, and Throat: Denies dizziness, Reports otalgia, Denies sore throat and Denies throat swelling Cardiovascular Cardiovascular: Denies chest pain and Denies dyspnea Respiratory Respiratory: Denies cough and Denies dyspnea Gastrointestinal Gastrointestinal: Denies abdominal pain, Denies diarrhea and Denies vomiting Genitourinary Genitourinary: Denies hematuria and Denies dysuria Musculoskeletal Musculoskeletal: Denies back pain and Denies numbness Integumentary/Breasts Skin/Breast: Denies lesions and Denies rash Neurologic Neurologic: Denies dizziness, Denies localized weakness and Denies numbness Allergic/Immunologic Allergic/Immunologic: Denies throat swelling [facility] Medical History (Updated 05/10/20 @ 14:31 by Ana Layne DO) Allergic rhinitis Asthma Closed fracture of right distal fibula (06/09/19) Constipation DM (diabetes mellitus) Eczema Fatty infiltration of liver GERD (gastroesophageal reflux disease) Hand pain History of depression History of neck pain HTN (hypertension) Incontinence Insomnia Leg cramps Migraine Obesity Otalgia Ovarian cyst Preventative health care Screening breast examination Tendinitis Trigeminal neuralgia Surgical History Colonoscopy - MAC (06/15/17) H/O shoulder surgery H/O tooth extraction History of appendectomy History of cholecystectomy History of ear surgery History of eye surgery History of hysterectomy History of knee surgery Mediport placement (05/02/15) Family History Mother Hx of migraines Social History Smoking/Tobacco Use Status: Former Tobacco Use Smoking risk assessment performed?: Yes Alcohol Intake: current Alcohol Intake frequency: holidays/special occasions only Drug use: Never Substance use type: does not use Current gender identity: female Do you feel safe at home: Yes Do you feel safe in your relationship?: Yes Exam Const General: cooperative, healthy appearing and no acute distress [facility] Head: normal to inspection Head images: 1. Well hearing scar with sutures present. There is minimal pink/granulation tissue/very minimal erythema around the edges of wound letter minimally tender. 2. Brown erosion/crust with minimal surrounding erythema. Ears: hearing grossly normal bilaterally and TM abnormal wth effusion serosanguinous on the right (Lower part of TM), with fluid behind the TM on the right and other (No pain with pulling on right tragus); not erythematous General nose exam: external nose normal Face and sinus: normal facial exam Mouth: oral mucosae normal Throat: posterior oropharynx normal Eyes General: appearance normal, both eyes and all related structures Neck Neck: normal visual inspection, no lymphadenopathy, no meningeal signs, trachea midline, supple, no anterior neck swelling and No submandibular swelling Resp Effort & Inspection: normal respiratory effort and able to speak in complete sentences Cardio Rate: regular rate Skin General skin exam: no rashes or lesions noted Neuro General: patient alert, patient awake and patient oriented x3 Motor: muscle tone normal throughout Extrem General: normal to inspection and full ROM Psych Appearance: grossly normal Affect: normal affect
[2020-05-10] MEDS: predniSONE 20 MG TAB 60 MG PO (14:30)
== END 2020-05-10 14:40 | disposition home or self-care (01) ==
PROVIDERS: Emergency Provider Physician Assistant; PCP Family Medicine
DX: H65.191 Other acute nonsuppurative otitis media, right ear (principal); H92.01 Otalgia, right ear; G89.18 Other acute postprocedural pain
CPT/HCPCS: 99283; J7512

== ENCOUNTER 2020-06-04 02:24 | Outpatient (CLI) | payer MEDICARE, OTHER, SELFPAY ==
[2020-06-04 15:41] LABS: Hemoglobin A1C 6.8 % (<5.7)
[2020-06-04 16:22] LABS: Anion Gap 10.5 mmol/L (3-11); BUN 11 mg/dL (7-18); CO2 24.5 mmol/L (21.0-32.0); CREATININE 1.11 mg/dL (0.55-1.02); Calcium 8.6 mg/dL (8.5-10.1); Chloride 103 mmol/L (98-107); Estimated GFR 51.42 (mL/min/1.73m2); Glucose 178 mg/dL (74-106); Potassium 4.6 mmol/L (3.5-5.1); Sodium 138 mmol/L (136-145)
== END 2020-06-04 02:44 ==
PROVIDERS: PCP Family Medicine; Visit Provider Family Medicine
DX: E11.9 Type 2 diabetes mellitus without complications (principal); N18.30 Chronic kidney disease, stage 3 unspecified
CPT/HCPCS: 36415; 80048; 83036

== ENCOUNTER 2020-08-04 02:10 | Outpatient (CLI) | payer MEDICARE, OTHER, SELFPAY ==
--- NOTE | 2020-08-04 | DI.MAMMO_ITS ---
EXAM: MAMMO SCREENING CLINICAL HISTORY: SCREENING, Z12.31. TECHNIQUE: Bilateral full field digital CC and MLO mammographic images were obtained with 3D tomosyn thesis and utilizing computer aided detection (CAD). COMPARISON: Prior mammograms dating back to 2012, the most recent being January 2019. FINDINGS: There are no new significant radiograph findings in left breast. In the right breast there is a group of microcalcifications located 4-5 centimetres in from the nippl e on the CC view. This group is actually slightly decreased in number from 2019. In addition, there is a lobulated noncalcified nodule mid lateral of center inferiorly located in the right breast measu ring 7 by 4 millimeters.. This is located inferolaterally. This is most probably a benign intramamm yehuda lymph node given its appearance plus the fact that it is not changed from at least 2016. there is no significant architectural distortion nor skin thickening-retraction. IMPRESSION: No radiographic evidence of malignancy in left breast. Benign-appearing right breast findings as described above. BI-RADS Category 2 - Benign Findings Breast Density - Category B - Scattered areas of fibroglandular density Breast density Category C or D implies that the patient has dense breast tissue. Dense breast tissue can make it harder to find cancer on a mammogram. Dense breast tissue is also associated with an incr eased risk of breast cancer. This information about the result of the mammogram report was provided to the patient to raise their awareness. Use this report when you speak with the patient about their risks for breast cancer, which includes their family history. At that time, you may recommend additional screening tests (Ultrasoun d or MRI) as these tests may add significant information. A negative radiographic report should not delay biopsy if a dominant or clinically suspicious mass is present. Up to ten percent of cancers are not identified on mammography. A negative report may reinforce clinical impression. Adenosis and dense breasts may obscure an underlying neoplasm. False positive reports average 6 to 10%. Patient will receive a letter notifying them of these results.
== END 2020-08-04 02:11 ==
LOC: DI 02:11
PROVIDERS: PCP Family Medicine; Visit Provider Family Medicine
DX: Z12.31 Encounter for screening mammogram for malignant neoplasm of breast (principal); M19.90 Unspecified osteoarthritis, unspecified site
CPT/HCPCS: 36415; 77063; 77067; 80053; 85025; 86140

== ENCOUNTER 2020-08-04 03:05 | Outpatient (CLI) | payer MEDICARE, OTHER, SELFPAY ==
[2020-08-04 16:09] LABS: Abs Immature Grans 0.04 10^3/uL (0.0-0.06); Absolute Basophil Count 0.07 10^3/uL (0.0-0.2); Absolute Eosinophil Count 0.29 10^3/uL (0.0-0.7); Absolute Lymphocyte Count 2.88 10^3/uL (1.2-3.4); Absolute Monocyte Count 0.48 10^3/uL (0.1-0.8); Absolute Neutrophil Count 5.84 10^3/uL (1.2-6.7); Basophils % 0.7; HCT 39.6 % (36.0-46.0); HGB 12.8 g/dL (11.2-15.7); Immature Grans % 0.4; MCH 28.9 pg (27.0-33.0); MCHC 32.3 % (32.0-36.0); MCV 89.4 fL (80-95); Neutrophils % 60.9; Nucleated RBC 0 %; Platelet Count 300 10^3/uL (130-400); RBC 4.43 10^6/uL (3.93-5.22); RDW-SD 42.5 fL
[2020-08-04 17:11] LABS: ALT 22 U/L (14-59); AST 9 U/L (15-37); Albumin 4.1 g/dL (3.4-5.0); Alkaline Phosphatase 129 U/L (46-116); Anion Gap 14.3 mmol/L (3-11); BUN 15 mg/dL (7-18); Bilirubin, Total 0.4 mg/dL (0.2-1.0); C-Reactive Protein 0.66 mg/dL (0.0-0.3); CO2 22.7 mmol/L (21.0-32.0); Calcium 8.9 mg/dL (8.5-10.1); Chloride 104 mmol/L (98-107); Estimated GFR 57.78 (mL/min/1.73m2); Glucose 144 mg/dL (74-106); Potassium 4.3 mmol/L (3.5-5.1); Sodium 141 mmol/L (136-145); Total Protein 7.4 g/dL (6.4-8.2)
== END 2020-08-04 03:06 | disposition home or self-care (01) ==
PROVIDERS: PCP Family Medicine; Visit Provider Nurse Practitioner Family
DX: M19.90 Unspecified osteoarthritis, unspecified site (principal)
CPT/HCPCS: 36415; 80053; 85025; 86140

== ENCOUNTER 2020-08-07 09:41 | Emergency (ER) | payer MEDICARE, OTHER, SELFPAY ==
[2020-08-07] VITALS (19 sets, daily range): BP systolic 140–174; BP diastolic 66–104; PULSE 60–79; RESP 9–16; TEMP 36.2; O2SAT 97–99
--- NOTE | 2020-08-07 09:43 | ED.GENADUL_ITS ---
Discharge Plan Disposition Patient Disposition: HOME Condition: Improving Discharge Details Clinical Impression: Headache Primary Care Provider: Katarina Rodriguez ED Provider: Ana Layne Home Meds and New Rx's Prescriptions: New prochlorperazine maleate [Compazine] 10 mg tablet 10 mg PO TID PRN (Reason: nausea and vomiting) Qty: 7 RF: 0 Continued fexofenadine [Irma Allergy] 60 mg tablet 60 mg PO BID Qty: 30 RF: 0 ketamine thom 10 mg PO QID PRNRF: 0 ketamine/lidocaine 1 applic Topical HS RF: 0 topiramate [Topamax] 100 mg tablet 500 mg PO BID RF: 0 Victoza 3-Norbert 0.6 mg/0.1 mL (18 mg/3 mL) pen injector 1.8 mg subcut DAILY RF: 0 pantoprazole [Protonix] 20 mg tablet,delayed release (DR/EC) 40 mg PO DAILY RF: 0 hydromorphone [Dilaudid] 2 mg tablet 2 mg PO Q12H PRNRF: 0 naratriptan [Amerge] 2.5 mg tablet 2.5 mg PO ONCE RF: 0 losartan 100 mg tablet 100 mg PO DAILY RF: 0 furosemide [Lasix] 20 mg tablet 20 mg PO DAILY PRNRF: 0 zolmitriptan [Zomig] 5 mg tablet 5 mg PO ONCE PRNRF: 0 pregabalin [Lyrica] 50 mg capsule 100 mg PO BID RF: 0 albuterol sulfate [ProAir HFA] 90 mcg/actuation HFA aerosol inhaler 2 puff IH Q6H PRNRF: 0 Zyrtec 10 MG capsule 10 mg PO DAILY RF: 0 ondansetron 4 MG tablet,disintegrating 4 mg PO TID PRN PRNRF: 0 bisacodyl [Dulcolax (bisacodyl)] 5 MG tablet,delayed release (DR/EC) 5 mg PO BID PRNQty: 10 RF: 0 duloxetine [Cymbalta] 30 MG capsule,delayed release(DR/EC) 30 mg PO BID RF: 0 ascorbic acid (vitamin C) 1,000 MG tablet 1 tab PO DAILY RF: 0 cholecalciferol (vitamin D3) 1,000 UNITS tablet 1 tab PO DAILY RF: 0 baclofen 10 MG tablet 20 mg PO BID RF: 0 polyethylene glycol 3350 17 GM powder in packet 2 pkt PO PRN PRNRF: 0 budesonide-formoterol [Symbicort] 10.2 GM HFA aerosol inhaler 2 puff Inhalation DAILY PRN PRNRF: 0 clonidine HCl [Catapres] 0.1 MG tablet 0.1 mg PO DIRECTED PRNQty: 0 RF: 0 acetaminophen [Acetaminophen Extra Strength] 500 MG tablet 1,000 mg PO TID PRNQty: 180 RF: 0 nabumetone 750 mg tablet 750 mg PO BID RF: 0 fexofenadine 60 mg Capsule 60 mg PO DAILY RF: 0 metformin 500 MG tablet extended release 24 hr 1,500 mg PO DAILY RF: 0 atorvastatin 40 mg tablet 40 mg PO HS RF: 0 hydroxychloroquine 200 mg tablet 400 mg PO DAILY RF: 0 scopolamine base 1 mg over 3 days patch 3 day 1 mg transdermal DAILY RF: 0 Discharge Instructions Instructions: General Headache (ED) Additional Instructions: Drink plenty of fluids and get plenty of rest. Alternate tylenol and motrin as needed and directed for pain. If you have no relief with your Zofran, you can take the Compazine as needed and directed for nausea and vomiting. If you have feelings of restlessness or feeling jittery after the Compazine, you can take Benadryl to help relieve these symptoms. Follow-up with your primary care doctor in 1 week. Return to the emergency department with any worsening or new concerning symptoms. Discharge Data Discharge Physician: Ana Layne Medical Decision Making 0921 -- 55-year-old female with a history of trigeminal nerve ablation, and craniotomy for complex regional pain syndrome and neuralgia in April 2020, chronic sinus infections, and migraines presents for pain behind both eyes and posterior headache for the past 10 days. Vitals within normal limits. Patient appears mildly uncomfortable but nontoxic. She has left maxillary sinus tenderness. Eyes normal to inspection. Right first auricular scar healing well. No focal deficits. Differential diagnosis includes migraine, tension headache, acute on chronic headaches secondary to chronic condition, sinus infection, dehydration. History and presentation not consistent with subarachnoid hemorrhage as she denies any thunderclap or sudden onset. History and presentation not consistent with meningitis as she denies any fever, confusion, neck pain. We will place an IV, bolus IV fluids, screening labs, CTA head and neck, and will give Decadron, Toradol, Compazine and Benadryl reassess. 1300 --labs and imaging reviewed. White blood cell count normal at 9. CTA head and neck notes: IMPRESSION: 1. Patent arteries in the head and neck. Mild atherosclerotic disease at the left carotid bifurcation-proximal left internal carotid artery with approx imately 15-20 percent stenosis. No significant disease on the opposite side. 2. No acute intracranial findings. No ring enhancing lesions in the brain. No abnormal meningeal enhancement. Patient reassessed and she feels much better and feels good to go home. We will send home with a prescription for Compazine if she has no relief with her Zofran. Advised to follow up with the primary care doctor for re-evaluation. Usual and customary return precautions given prior to discharge. Medical Records Medical records reviewed: Yes I reviewed the patient's medical records. Imaging Data Radiologic Study: Radiologist's impression: CT BRAIN NECK CTA CLINICAL HISTORY: pain behind eyes, posterior [place], r/o cva. TECHNIQUE: Imaging Protocol: Axial CT angiography was performed with multi- slice acquisition and multi-planar and/or 3D reconstructions. CONTRAST MATERIAL: Intravenous: Omnipaque 350 Contrast volume:structured data in ml COMPARISON: CT CT THORACIC LUMBAR SPINE REC from 06/09/2019 FINDINGS: CTA Neck W: Aortic arch anatomy: Conventional. Anterior circulation: Both common carotid arteries ascend with normal luminal diameters. Right carotid bifurcation appears unremarkable and there is no significant stenosis in the right internal carotid artery in the neck. The left carotid bifurcation exhibits some mild calcified plaque posteriorly. There is mild stenosis of the proximal left internal carotid artery, approximately 15-20 percent. The left internal carotid artery above this level in the neck is patent but somewhat tortuous prior to entering the skull base- left carotid canal. Posterior circulation: Both vertebral arteries originated conventional fashion off of the subclavian arteries and there is no significant stenosis at their origins nor in the subclavian arteries proximal to the vertebral artery takeoff points. Both vertebral arteries ascend with normal and equal luminal diameters in the foramen transverse Aria. At the skull base both vertebral arteries contribute to the formation of the basilar artery. CTA Brain W: Anterior circulation: Both internal carotid arteries are patent in the skull base and cavernous sinuses. Supraclinoid aspects of these vessels are also patent. Both middle cerebral arteries are patent. A1 segments are patent. Anterior cerebral arteries are patent. There is no aneurysm evident at the level of the anterior communicating artery. Posterior circulation: The basilar artery is formed by both vertebral arteries at the skull base. It is sends in the midline. Distally gives off superior cerebellar arteries. Abo ve this level it gives off the right posterior cerebral artery which also receives flow from a posterior communicating artery on the right side of the [id number]. There is also a left posterior communicating artery evident which supplies the left posterior cerebral artery. There is no evidence of aneurysm at the tip of the basilar artery. CT BRAIN: There are no ring enhancing lesions in the brain. There is no abnormal meningeal enhancement.. No evidence of intracranial hemorrhage, intra or extra-axial. Ventricular size is normal. No shift. IMPRESSION: 1. Patent arteries in the head and neck. Mild atherosclerotic disease at the left carotid bifurcation-proximal left internal carotid artery with approximately 15-20 percent stenosis. No significant disease on the opposite side. 2. No acute intracranial findings. No ring enhancing lesions in the brain. No abnormal meningeal enhancement. Lab Data Lab results reviewed: Yes I reviewed the patient's lab results. Labs: Laboratory Tests Range/Units 08/07/20 08/07/20 10:50 10:50 WBC (4.4-10.8) 10^3/uL 9.02 RBC (3.93-5.22) 10^6/uL 4.25 Hgb (11.2-15.7) g/dL 12.2 Hct (36.0-46.0) % 38.8 MCV (80-95) fL 91.3 MCH (27.0-33.0) pg 28.7 MCHC (32.0-36.0) % 31.4 L RDW (11.7-14.6) % 13.2 Plt Count (130-400) 10^3/uL 272 MPV (8.0-11.0) fL 10.1 Immature Gran % 0.2 Neutrophils % 61.4 Lymphocytes % 27.6 Monocytes % 5.7 Eosinophils % 4.1 Basophils % 1.0 Nucleated RBC % % 0 Absolute Neutrophils (1.2-6.7) 10^3/uL 5.54 Absolute Lymphocytes (1.2-3.4) 10^3/uL 2.49 Absolute Monocytes (0.1-0.8) 10^3/uL 0.51 Absolute Eosinophils (0.0-0.7) 10^3/uL 0.37 Absolute Basophils (0.0-0.2) 10^3/uL 0.09 Sodium (136-145) mmol/L 139 Potassium (3.5-5.1) mmol/L 4.3 Chloride (98-107) mmol/L 103 Carbon Dioxide (21.0-32.0) mmol/L 26.5 Anion Gap (3-11) mmol/L 9.5 BUN (7-18) mg/dL 14 Creatinine (0.55-1.02) mg/dL 1.1 H Estimated GFR/1.73 m2 (mL/min/1.73m2) 51.76 Glucose (74-106) mg/dL 142 H Calcium (8.5-10.1) mg/dL 8.9 Total Bilirubin (0.2-1.0) mg/dL 0.4 AST (15-37) U/L 13 L ALT (14-59) U/L 23 Alkaline Phosphatase (46-116) U/L 115 Total Protein (6.4-8.2) g/dL 7.2 Albumin (3.4-5.0) g/dL 3.6 HPI General Mode of arrival: ambulatory . Date/Time Provider Initiated Documentation: 08/07/20 09:42 . Limitations to Documentation: no limitations . Information obtained by: patient . HPI Narrative: Patient is a 55-year-old female with a history of trigeminal nerve ablation, and craniotomy for complex regional pain syndrome and neuralgia in Apr 2020, history of chronic sinus infections and migraines who presents for headache for the past 10 days. Patient states the headache is mainly behind her eyes and the back of her head. She states the pain is worse with moving her eyes from side to side or when bending over. She feels that her posterior headache is due to tension as she is usually clenching due to pain behind her eyes. She states she was seen at [facility] recently diagnosed with a sinus infection and treated with an antibiotic and Irma and states those symptoms of rhinorrhea and facial pain improved since then. She states she also has a history of right eye tearing for which she spoke to her primary care doctor and was told she had a possible blocked tear duct and was placed on erythromycin. She does admit to nausea but denies any vomiting. She last took Zofran this morning and Dilaudid last night. She has Dilaudid per her PCP for her history of trigeminal neuralgia. She feels that her facial pain due to her trigeminal neuralgia was significantly improved after her surgery in April but she has intermittent headaches. She admits to occasional blurry vision in 1 part of her right eye at comes and goes. She denies fever, sore throat, cough, shortness of breath, chest pain, recent travel or recent sick contacts. Related Data Home Medications Medication Instructions Recorded Confirmed Zyrtec 10 mg PO DAILY 11/20/12 08/07/20 ondansetron 4 mg PO TID PRN PRN 07/07/13 08/07/20 bisacodyl [Dulcolax (bisacodyl)] 5 mg PO BID PRN #10 tablet. 07/26/13 08/07/20 duloxetine [Cymbalta] 30 mg PO BID 09/15/13 08/07/20 ascorbic acid (vitamin C) 1 tab PO DAILY 07/18/14 08/07/20 cholecalciferol (vitamin D3) 1 tab PO DAILY 07/18/14 08/07/20 baclofen 20 mg PO BID 08/26/14 08/07/20 budesonide-formoterol [Symbicort] 2 puff INHALATION DAILY PRN PRN 08/04/15 08/07/20 polyethylene glycol 3350 2 pkt PO PRN PRN 08/04/15 08/07/20 Ketamine Thom 10 mg PO QID PRN 03/10/16 07/29/20 Ketamine/Lidocaine 1 applic TOPICAL HS 03/10/16 08/07/20 metformin 1,500 mg PO DAILY 09/21/16 08/07/20 clonidine HCl [Catapres] 0.1 mg PO DIRECTED PRN #0 10/21/16 08/07/20 acetaminophen [Acetaminophen Extra 1,000 mg PO TID PRN #180 tab 02/22/17 08/07/20 Strength] albuterol sulfate 90 mcg/actuation 2 puff IH Q6H PRN 10/04/19 08/07/20 aerosol inhaler furosemide 20 mg tablet 20 mg PO DAILY PRN 10/04/19 08/07/20 hydromorphone 2 mg tablet 2 mg PO Q12H PRN tab 10/04/19 08/07/20 liraglutide 0.6 mg/0.1 mL (18 mg/3 1.8 mg SUBCUT DAILY ml 10/04/19 08/07/20 mL) subcutaneous pen injector losartan 100 mg tablet 100 mg PO DAILY 10/04/19 08/07/20 naratriptan 2.5 mg tablet 2.5 mg PO ONCE 10/04/19 08/07/20 pantoprazole 20 mg tablet,delayed 40 mg PO DAILY tab 10/04/19 08/07/20 release pregabalin 50 mg capsule 100 mg PO BID cap 10/04/19 08/07/20 topiramate 100 mg tablet 500 mg PO BID tab 10/04/19 08/07/20 zolmitriptan 5 mg tablet 5 mg PO ONCE PRN 10/04/19 08/07/20 nabumetone 750 mg PO BID 03/22/20 08/07/20 atorvastatin 40 mg PO HS 05/02/20 08/07/20 hydroxychloroquine 400 mg PO DAILY 05/02/20 08/07/20 scopolamine base 1 mg TRANSDERMAL DAILY 05/02/20 08/07/20 fexofenadine 60 mg tablet 60 mg PO BID #30 tab 07/29/20 08/07/20 fexofenadine 60 mg PO DAILY 08/07/20 08/07/20 prochlorperazine maleate 10 mg PO TID PRN #7 tab 08/07/20 [Compazine] Previous Rx's Medication Instructions Recorded bisacodyl [Dulcolax (bisacodyl)] 5 mg PO BID PRN #10 nicole. 07/26/13 clonidine HCl [Catapres] 0.1 mg PO DIRECTED PRN #0 10/21/16 acetaminophen [Acetaminophen Extra 1,000 mg PO TID PRN #180 tab 02/22/17 Strength] fexofenadine 60 mg tablet 60 mg PO BID #30 tab 07/29/20 prochlorperazine maleate 10 mg PO TID PRN #7 tab 08/07/20 [Compazine] Allergies Allergy/AdvReac Type Severity Reaction Status Date / Time phenytoin sodium Allergy Severe Hives Unverified 08/07/20 09:59 [From Dilantin] phenytoin sodium extended Allergy Severe Hives Unverified 08/07/20 09:59 [From Dilantin] amoxicillin [Amoxicillin] Allergy Intermediate Hives Unverified 08/07/20 09:59 lisinopril Allergy Intermediate Unverified 08/07/20 09:59 oxycodone Allergy Intermediate Unverified 08/07/20 09:59 potassium clavulanate Allergy Intermediate Hives Unverified 08/07/20 09:59 [From Augmentin] Sulfa (Sulfonamide Allergy Mild Skin Rash Unverified 08/07/20 09:59 Antibiotics) tomato [Tomato] Allergy Mild Skin Rash Unverified 08/07/20 09:59 erythromycin base AdvReac Severe Verified 08/07/20 09:59 sumatriptan [From Imitrex] AdvReac Severe Visual Unverified 08/07/20 09:59 Disturbances,burning sensation through out body General HARRIET: 3 Review of Systems All systems reviewed & are unremarkable except as noted in HPI and below Constitutional Constitutional: Reports as per HPI, Denies chills, Denies fever(s) and Reports headache(s) Eyes Eyes: Denies blurry vision ENT Ears, Nose, Mouth, and Throat: Denies dizziness, Reports headache(s), Denies sore throat and Denies throat swelling Cardiovascular Cardiovascular: Denies chest pain and Denies dyspnea Respiratory Respiratory: Denies cough and Denies dyspnea Gastrointestinal Gastrointestinal: Denies abdominal pain, Denies diarrhea, Reports nausea and Denies vomiting Genitourinary Genitourinary: Denies hematuria and Denies dysuria Musculoskeletal Musculoskeletal: Denies back pain and Denies numbness Integumentary/Breasts Skin/Breast: Denies lesions and Denies rash Neurologic Neurologic: Denies dizziness, Reports headache(s), Denies localized weakness and Denies numbness Allergic/Immunologic Allergic/Immunologic: Denies throat swelling REPLACED BY [facility] Medical History (Updated 08/07/20 @ 13:17 by Ana Layne DO) Allergic rhinitis Asthma Closed fracture of right distal fibula (06/09/19) Constipation DM (diabetes mellitus) Eczema Fatty infiltration of liver GERD (gastroesophageal reflux disease) Hand pain History of depression History of neck pain HTN (hypertension) Incontinence Insomnia Leg cramps Migraine Obesity Otalgia Ovarian cyst Preventative health care Screening breast examination Tendinitis Trigeminal neuralgia Surgical History Colonoscopy - MAC (06/15/17) H/O shoulder surgery H/O tooth extraction History of appendectomy History of cholecystectomy History of ear surgery History of eye surgery History of hysterectomy History of knee surgery Mediport placement (05/02/15) Family History Mother Hx of migraines Social History Smoking/Tobacco Use Status: Former Tobacco Use Smoking risk assessment performed?: Yes Alcohol Intake: current Alcohol Intake frequency: holidays/special occasions only Drug use: Never Substance use type: does not use Current gender identity: female Do you feel safe at home: Yes Do you feel safe in your relationship?: Yes Exam Const General: cooperative and no acute distress Orientation: alert, awake and oriented x3 HENMT Head: normal to inspection Ears: hearing grossly normal bilaterally, external ears normal, TM's normal bilaterally and other (Scar right postauricular area healing well, no signs of cellulitis) General nose exam: external nose normal Face and sinus: normal facial exam and sinus tenderness maxillary (Left) Mouth: oral mucosae normal Throat: posterior oropharynx normal Eyes General: appearance normal, both eyes and all related structures Periorbital: periorbital findings normal Eyelids: eyelids normal Conjunctivae: conjunctivae normal Sclera: sclerae normal Pupils: PERRL EOM: EOM intact bilaterally Direct ophthalmoscopy: other (Pain behind eyes worse with deviation of eyes left and right) Neck Neck: normal visual inspection and No submandibular swelling Lymphatic: no lymphadenopathy noted Chest Chest: normal inspection of the chest and no tenderness Resp Effort & Inspection: normal respiratory effort and able to speak in complete sentences Auscultation: clear to auscultation bilaterally Cardio Rate: regular rate Rhythm: regular rhythm GI Inspection: normal to inspection Palpation: soft, not firm, not rigid and nontender Auscultation: normal bowel sounds Skin General skin exam: no rashes or lesions noted Neuro General: patient alert, patient awake, patient oriented x3, gait normal, moves all extremities, no meningeal signs and no focal motor deficits Cranial Nerves: CN's II-XI intact bilaterally Cognition: normal cognition Speech: speech normal Motor: muscle tone normal throughout and strength 5/5 throughout Sensory Exam: no sensory deficits noted Extrem General: normal to inspection, full ROM, capillary refill normal, no calf tenderness bilaterally and no edema Psych Appearance: grossly normal Mental Status: mental status grossly normal Speech and Movement: speech and movement normal Affect: normal affect
[2020-08-07 11:06] LABS: Abs Immature Grans 0.02 10^3/uL (0.0-0.06); Absolute Basophil Count 0.09 10^3/uL (0.0-0.2); Absolute Eosinophil Count 0.37 10^3/uL (0.0-0.7); Absolute Lymphocyte Count 2.49 10^3/uL (1.2-3.4); Absolute Monocyte Count 0.51 10^3/uL (0.1-0.8); Absolute Neutrophil Count 5.54 10^3/uL (1.2-6.7); Eosinophils % 4.1; HCT 38.8 % (36.0-46.0); HGB 12.2 g/dL (11.2-15.7); Immature Grans % 0.2; Lymphocytes % 27.6; MCH 28.7 pg (27.0-33.0); MCHC 31.4 % (32.0-36.0); MCV 91.3 fL (80-95); MPV 10.1 fL (8.0-11.0); Monocytes % 5.7; Neutrophils % 61.4; Nucleated RBC 0 %; Platelet Count 272 10^3/uL (130-400); RBC 4.25 10^6/uL (3.93-5.22); RDW 13.2 % (11.7-14.6); RDW-SD 43.3 fL; WBC 9.02 10^3/uL (4.4-10.8)
[2020-08-07 11:17] LABS: ALT 23 U/L (14-59); AST 13 U/L (15-37); Albumin 3.6 g/dL (3.4-5.0); Alkaline Phosphatase 115 U/L (46-116); Anion Gap 9.5 mmol/L (3-11); BUN 14 mg/dL (7-18); Bilirubin, Total 0.4 mg/dL (0.2-1.0); CO2 26.5 mmol/L (21.0-32.0); CREATININE 1.1 mg/dL (0.55-1.02); Calcium 8.9 mg/dL (8.5-10.1); Chloride 103 mmol/L (98-107); Estimated GFR 51.76 (mL/min/1.73m2); Glucose 142 mg/dL (74-106); Potassium 4.3 mmol/L (3.5-5.1); Sodium 139 mmol/L (136-145); Total Protein 7.2 g/dL (6.4-8.2)
[2020-08-07] MEDS: Omnipaque 350 MG/ML 100 ML BTL IJ (11:50)
[2020-08-07] MEDS: Normal Saline - Diluent 50 ML VIAL IV (11:50)
--- NOTE | 2020-08-07 11:51 | DI.CT_ITS ---
EXAM: CT BRAIN NECK CTA CLINICAL HISTORY: pain behind eyes, posterior [place], r/o cva. TECHNIQUE: Imaging Protocol: Axial CT angiography was performed with multi-slice acquisition and mu lti-planar and/or 3D reconstructions. CONTRAST MATERIAL: Intravenous: Omnipaque 350 Contrast volume:structured data in ml COMPARISON: CT CT THORACIC LUMBAR SPINE REC from 06/09/2019 FINDINGS: CTA Neck W: Aortic arch anatomy: Conventional. Anterior circulation: Both common carotid arteries ascend with normal luminal diameters. Right carotid bifurcation appears unremarkable and there is no significant stenosis in the right internal carotid artery in the neck. The left carotid bifurcation exhibits some mild calcified plaque posteriorly. There is mild stenosis of the proximal left internal carotid artery, approximately 15-20 percent. The left internal caroti d artery above this level in the neck is patent but somewhat tortuous prior to entering the skull bas e-left carotid canal. Posterior circulation: Both vertebral arteries originated conventional fashion off of the subclavian arteries and there is n o significant stenosis at their origins nor in the subclavian arteries proximal to the vertebral florence ry takeoff points. Both vertebral arteries ascend with normal and equal luminal diameters in the for amen transverse Aria. At the skull base both vertebral arteries contribute to the formation of the b asilar artery. CTA Brain W: Anterior circulation: Both internal carotid arteries are patent in the skull base and cavernous sinuses. Supraclinoid aspe cts of these vessels are also patent. Both middle cerebral arteries are patent. A1 segments are pat ent. Anterior cerebral arteries are patent. There is no aneurysm evident at the level of the anteri or communicating artery. Posterior circulation: The basilar artery is formed by both vertebral arteries at the skull base. It is sends in the midlin e. Distally gives off superior cerebellar arteries. Above this level it gives off the right posteri or cerebral artery which also receives flow from a posterior communicating artery on the right side o f the [id number]. There is also a left posterior communicating artery evident which supplies t he left posterior cerebral artery. There is no evidence of aneurysm at the tip of the basilar artery. CT BRAIN: There are no ring enhancing lesions in the brain. There is no abnormal meningeal enhanceme nt.. No evidence of intracranial hemorrhage, intra or extra-axial. Ventricular size is normal. No shift. IMPRESSION: 1. Patent arteries in the head and neck. Mild atherosclerotic disease at the left carotid bifurcatio n-proximal left internal carotid artery with approximately 15-20 percent stenosis. No significant di sease on the opposite side. 2. No acute intracranial findings. No ring enhancing lesions in the brain. No abnormal meningeal en hancement. 3. RADIATION DOSE DELIVERED: 2,179.11mGy.cm Total DLP DATA REPOSITORY: All CT scans at this facility are submitted to the National Radiology Data Registry (NRDR) Dose Index Registry (DIR) with the [employer] ([employer]). RADIATION OPTIMIZATION: All CT scans at this facility use at least one of these dose optimization te chniques: automated exposure control; mA and/or kV adjustment per patient size (includes targeted exa ms where dose is matched to clinical indication); or iterative reconstruction.
[2020-08-07] MEDS: Normal Saline 1,000 ML 1000 ML IV (12:02)
[2020-08-07] MEDS: diphenhydrAMINE 50 MG/ML VIAL 25 MG IVP (12:03)
[2020-08-07] MEDS: Dexamethasone 10 MG/ML VIAL IVP (12:04)
[2020-08-07] MEDS: Ketorolac 30 MG/ML VIAL IVP (12:05)
[2020-08-07] MEDS: Normal Saline 50 ML 400 ML (12:07)
[2020-08-07] MEDS: Prochlorperazine 10 MG/2 ML VIAL IVP (12:07)
== END 2020-08-07 13:25 | disposition home or self-care (01) ==
PROVIDERS: Emergency Provider Physician Assistant; PCP Family Medicine
DX: R51.9 Headache, unspecified (principal); Z86.69 Personal history of other diseases of the nervous system and sense organs; I10 Essential (primary) hypertension; E11.9 Type 2 diabetes mellitus without complications
CPT/HCPCS: 70496; 70498; 80053; 96361; 96374; 96375; 99285; 85025; 99284; J0780; J1100; J1200; J1885; J3490

== ENCOUNTER 2020-11-26 17:51 | Outpatient (CLI) | payer MEDICARE, OTHER, SELFPAY ==
--- NOTE | 2020-11-26 | DI.US_ITS ---
Exam(s) US LOWER EXTREMITY VENOUS RT EXAM: US LOWER EXTREMITY VENOUS RT CLINICAL HISTORY: RT LEG PAIN, M79.604, ? DVT TECHNIQUE: Grayscale, color, and doppler imaging of the deep venous system of the right lower extrem ity was performed. COMPARISON: US ABDOMEN ULTRASOUND (P) from 03/24/2017 FINDINGS: There is no evidence of intraluminal thrombus and there is normal compression and augmentation demons trated within the common femoral vein, femoral vein, and popliteal vein. In the ipsilateral calf the interrogated veins also exhibit normal compression/ augmentation properti es. The ipsilateral saphenofemoral junction is patent. IMPRESSION: 1. No evidence of DVT in the right lower extremity. DATA REPOSITORY:
== END 2020-11-26 18:11 ==
PROVIDERS: PCP Family Medicine; Visit Provider Physician Assistant Medical
DX: M79.604 Pain in right leg (principal)
CPT/HCPCS: 93971

== ENCOUNTER 2020-12-10 15:57 | Outpatient (REF) | payer MEDICARE, OTHER, MEDICAID, SELFPAY ==
[2020-12-10 16:23] LABS: Bilirubin Negative (Negative); Blood Negative (Negative); Clarity Clear (Clear); Glucose Negative (Negative); Ketones Negative (Negative); Leukocyte Esterase Negative (Negative); Nitrite Negative (Negative); Specific Gravity 1.025 (1.005-1.025); Urobilinogen 0.2 EU/dL (Up TO 0.2); pH 5.5 (5-8)
[2020-12-10 16:33] LABS: COMMENT (LAB VIEW ONLY) 115.84 mg/dL
== END 2020-12-10 15:58 | disposition home or self-care (01) ==
LOC: NCHCN 15:57
PROVIDERS: PCP Family Medicine; Visit Provider Family Medicine
DX: R30.0 Dysuria (principal)
CPT/HCPCS: 81003; 82043; 82570

== ENCOUNTER 2020-12-11 04:27 | Outpatient (CLI) | payer MEDICARE, OTHER, MEDICAID, SELFPAY ==
[2020-12-11 08:24] LABS: Hemoglobin A1C 7.3 % (<5.7)
[2020-12-11 09:24] LABS: Anion Gap 8.5 mmol/L (3-11); BUN 18 mg/dL (7-18); CO2 27.5 mmol/L (21.0-32.0); CREATININE 1.3 mg/dL (0.55-1.02); Chloride 108 mmol/L (98-107); Estimated GFR 42.68 (mL/min/1.73m2); Glucose 228 mg/dL (74-106); Potassium 4.7 mmol/L (3.5-5.1); Sodium 144 mmol/L (136-145); Vitamin B12 184 pg/mL (193-986)
[2020-12-18 15:58] LABS: Methylmalonic Acid 0.39 nmol/mL (<=0.40)
== END 2020-12-11 04:28 | disposition home or self-care (01) ==
PROVIDERS: PCP Family Medicine; Visit Provider Family Medicine
DX: E11.9 Type 2 diabetes mellitus without complications (principal); N18.30 Chronic kidney disease, stage 3 unspecified; G50.0 Trigeminal neuralgia; E53.8 Deficiency of other specified B group vitamins
CPT/HCPCS: 36415; 80048; 80186; 82607; 82746; 83036

== ENCOUNTER 2021-01-30 12:44 | Outpatient (CLI) | payer MEDICARE, OTHER, SELFPAY ==
--- NOTE | 2021-01-30 14:08 | DI.RAD_ITS ---
Exam(s) XR LUMBAR SPINE COMPLETE EXAM: XR LUMBAR SPINE COMPLETE CLINICAL HISTORY: LOW BACK PAIN, M54.5. TECHNIQUE: 2D digital imaging was performed. COMPARISON: No exams were available for comparison FINDINGS: There are 5 lumbar type vertebral bodies. There is a lumbarization of the S1 vertebral body. The di sc heights are well maintained. There are endplate osteophytes throughout the lumbar spine. Facet a rthropathy is seen from L3-4 through L5-S1. No acute fracture or subluxation is identified. No spon dylolysis or spondylolisthesis is present. The bones are normally mineralized. IMPRESSION: Moderate degenerative changes in the lumbar spine. DATA REPOSITORY: RADIATION DOSE DELIVERED:
== END 2021-01-30 13:04 ==
PROVIDERS: PCP Family Medicine; Visit Provider Physician Assistant
DX: M47.816 Spondylosis without myelopathy or radiculopathy, lumbar region (principal)
CPT/HCPCS: 72110

== ENCOUNTER 2021-02-18 04:15 | Outpatient (CLI) | payer MEDICARE, OTHER, SELFPAY ==
[2021-02-18 11:21] LABS: Abs Immature Grans 0.02 10^3/uL (0.0-0.06); Absolute Basophil Count 0.07 10^3/uL (0.0-0.2); Absolute Eosinophil Count 0.26 10^3/uL (0.0-0.7); Absolute Lymphocyte Count 1.81 10^3/uL (1.2-3.4); Absolute Monocyte Count 0.45 10^3/uL (0.1-0.8); Absolute Neutrophil Count 6.71 10^3/uL (1.2-6.7); Basophils % 0.8; Eosinophils % 2.8; HCT 34.8 % (36.0-46.0); HGB 11.2 g/dL (11.2-15.7); Immature Grans % 0.2; Lymphocytes % 19.4; MCHC 32.2 % (32.0-36.0); MCV 93.3 fL (80-95); MPV 10.1 fL (8.0-11.0); Monocytes % 4.8; Nucleated RBC 0 %; Platelet Count 233 10^3/uL (130-400); RBC 3.73 10^6/uL (3.93-5.22); RDW 13.6 % (11.7-14.6); RDW-SD 45.9 fL; WBC 9.32 10^3/uL (4.4-10.8)
[2021-02-18 11:55] LABS: Hemoglobin A1C 6.9 % (<5.7)
[2021-02-18 13:15] LABS: Anion Gap 10.8 mmol/L (3-11); BUN 24 mg/dL (7-18); CO2 25.2 mmol/L (21.0-32.0); CREATININE 1.6 mg/dL (0.55-1.02); Calcium 8.7 mg/dL (8.5-10.1); Chloride 107 mmol/L (98-107); Estimated GFR 33.59 (mL/min/1.73m2); Ferritin 142 ng/mL (8-252); Glucose 126 mg/dL (74-106); Sodium 143 mmol/L (136-145)
== END 2021-02-18 04:16 | disposition home or self-care (01) ==
LOC: LBO 04:15
PROVIDERS: PCP Family Medicine; Visit Provider Family Medicine
DX: E53.8 Deficiency of other specified B group vitamins (principal); E11.9 Type 2 diabetes mellitus without complications; N18.30 Chronic kidney disease, stage 3 unspecified; M19.90 Unspecified osteoarthritis, unspecified site; Z79.899 Other long term (current) drug therapy
CPT/HCPCS: 36415; 80048; 85027; 82728; 83036; 85025

== ENCOUNTER 2021-03-19 12:05 | Outpatient (REF) | payer MEDICARE, OTHER, SELFPAY ==
[2021-03-19 15:26] LABS: Anion Gap 10.8 mmol/L (3-11); BUN 31 mg/dL (7-18); CO2 23.2 mmol/L (21.0-32.0); CREATININE 1.4 mg/dL (0.55-1.02); Calcium 8.6 mg/dL (8.5-10.1); Chloride 107 mmol/L (98-107); Estimated GFR 39.19 (mL/min/1.73m2); Glucose 198 mg/dL (74-106); Potassium 4.8 mmol/L (3.5-5.1); Sodium 141 mmol/L (136-145); Vitamin B12 1092 pg/mL (193-986)
[2021-03-20 11:52] LABS: HIV-1/2 Ag & Ab Screen Negative (Negative)
== END 2021-03-19 12:06 | disposition home or self-care (01) ==
LOC: NCHCN 12:05
PROVIDERS: PCP Family Medicine; Visit Provider Family Medicine
DX: E53.8 Deficiency of other specified B group vitamins (principal); N18.30 Chronic kidney disease, stage 3 unspecified; Z11.4 Encounter for screening for human immunodeficiency virus [HIV]
CPT/HCPCS: 80048; 87389; 82607

== ENCOUNTER 2021-03-23 13:27 | Emergency (ER) | payer MEDICARE, OTHER, SELFPAY ==
[2021-03-23] VITALS (149 sets, daily range): BP systolic 129–177; BP diastolic 65–96; PULSE 61–85; RESP 5–34; TEMP 36.5; O2SAT 89–100
--- NOTE | 2021-03-23 13:30 | RT.EKG_ITS ---
APPROVED REPORT Exam: Resting ECG Reason for Exam: dizziness Patient Location: E HR:62 bpm ECG Measurements Heart Rate 62 AXIS AK 183 P 39 QRSd 93 QRS -43 QT 443 T 22 QTc 452 Conclusion Sinus rhythm...normal P axis, V-rate 60- 99 Inferior infarct, old...Q >35mS, II III aVF no STEMI, non-diagnostic EKG I have reviewed and interpreted ECG and agree with software generated interpretation.
--- NOTE | 2021-03-23 13:45 | DI.CT_ITS ---
Exam(s) CT BRAIN NECK CTA EXAM: CT BRAIN NECK CTA CLINICAL HISTORY: dizziness, acute in onset. TECHNIQUE: Imaging Protocol: Axial CT angiography was performed with multi-slice acquisition and mu lti-planar and/or 3D reconstructions. CONTRAST MATERIAL: Intravenous: Omnipaque 350 Contrast volume:structured data in ml COMPARISON: CT CT BRAIN NECK CTA from 08/07/2020 FINDINGS: CT angiography of the cervical cranial region was performed according to the usual protocol with intr avenous infusion of 85 cc of Omnipaque 350.. Initial noncontrast scanning of the head is unremarkable. Visualized lung apices are clear. Visualized portions of thoracic aorta and pulmonary arterial circul ation are unremarkable. There is no evidence of a cervical mass or adenopathy. The tracheal laryngeal structures appear intact. The common, internal, and external carotid arteries are within normal limits in the cervical region w ith no evidence of aneurysm, stenosis, or dissection. The vertebral arteries are unremarkable in appearance in the cervical region with no evidence of aneu rysm, stenosis, or dissection. Intracranial portions of the internal carotid arteries appear normal with no evidence of aneurysm, st enosis, or dissection. Intracranial vertebral arteries and basilar artery appear normal with no evidence of aneurysm, stenos is or dissection. No aneurysm identified in the region of the [id number]. The anterior, middle, and posterior cer ebral arteries and major branches appear intact with no evidence of aneurysm, stenosis, or dissection . No enhancing brain lesion identified on 5 minutes delayed images.. IMPRESSION: Negative CT angiography of the cervical cranial region. RADIATION DOSE DELIVERED: 2,109.51mGy.cmTotal DLP 2,109.51mGy.cm Total DLP 46.5mGy CTDIvol DATA REPOSITORY: All CT scans at this facility are submitted to the National Radiology Data Registry (NRDR) Dose Index Registry (DIR) with the [employer] (A[employer]). RADIATION OPTIMIZATION: All CT scans at this facility use at least one of these dose optimization te chniques: automated exposure control; mA and/or kV adjustment per patient size (includes targeted exa ms where dose is matched to clinical indication); or iterative reconstruction.
[2021-03-23] MEDS: Metoclopramide 10 MG/2 ML VIAL IVP (14:12)
[2021-03-23] MEDS: Normal Saline 1,000 ML 1000 ML IV (14:12)
[2021-03-23] MEDS: Meclizine 25 MG TAB PO (14:12)
--- NOTE | 2021-03-23 14:15 | DI.MRI_ITS ---
Exam(s) MR BRAIN WO/W EXAM: MR BRAIN WO/W CLINICAL HISTORY: acute onset of dizziness TECHNIQUE: Multiplanar multisequence MRI of the brain was performed. Both noninfused and contrast i nfused sequences were performed. IV Contrast injected was 20 cc Dotarem. COMPARISON: CT CT HEAD WO from 09/30/[address] HEAD WO from 09/30/[address] HEAD WO from 05/02/[address] HEAD WO from 05/02/[address] BRAIN NECK CTA from 03/23/[address] BRAIN NECK CTA from 03/23/2021 FINDINGS: SKULL: There is hyperostosis frontalis interna CEREBRAL PARENCHYMA: No evidence of intracranial hemorrhage, mass effect nor shift of midline structu re. No extraaxial fluid collections. Ventricles are not enlarged nor shifted. There is no significant focal signal abnormality in the cerebellar hemispheres nor within the jose manuel, m idbrain, and thalami. There are few tiny nonspecific foci signal abnormality in the periventricular white matter left side. There are no ring enhancing lesions in the brain. There is no abnormal meningeal enhancement. PITUITARY GLAND: No mass nor parasellar abnormality. No obvious abnormality in the cavernous sinuses. FLOW VOIDS: The expected flow void are noted. No evidence of obvious aneurysm nor obvious vascular ma lformation. PARANASAL SINUSES: Maxillary sinuses and ethmoidal air cells are clear and sphenoid sinuses are well aerated. In the right frontal sinus there is significant mucosal thickening measuring 1.5 by 1.9 by 0.8 cm, not associated fluid level nor bone dehiscence. This is bright on non contrast T1 images and possibly fat containing. Also some increased signal in the right mastoid air cells noted. Site of prior surgery. ORBITS: No obvious abnormal findings. IMPRESSION: 1. No significant intracranial findings on this MRI scan of the brain. 2. No abnormal enhancing intracranial finding. No abnormal meningeal enhancement. 3. Abnormal mucosal thickening in the right frontal sinus measuring 15 x 19 x 8 millimeters, not exh ibiting typical signal characteristics of post inflammatory retention cyst. This finding was evident on recent CT scans dating back to at least April 2020 in there is a small overlying cortical defe ct in the right frontal bone evident. Correlation with any prior surgical procedure at this level is recommended. DATA REPOSITORY:
[2021-03-23] MEDS: Omnipaque 350 MG/ML 100 ML BTL IV (14:36)
--- NOTE | 2021-03-23 15:22 | ED.GENADUL_ITS ---
Discharge Plan Disposition Patient Disposition: HOME Condition: Stable Discharge Details Clinical Impression: Vertigo, Hypomagnesemia Primary Care Provider: Katarina Rodriguez ED Provider: [facility] Meds and New Rx's Prescriptions: New diazepam [Valium] 2 mg tablet 2 mg PO TID PRN (Reason: vertigo) Qty: 10 RF: 0 Continued fexofenadine [Irma Allergy] 60 mg tablet 60 mg PO BID Qty: 30 RF: 0 ketamine thom 10 mg PO QID PRNRF: 0 ketamine/lidocaine 1 applic Topical HS RF: 0 topiramate [Topamax] 100 mg tablet 500 mg PO BID RF: 0 Victoza 3-Norbert 0.6 mg/0.1 mL (18 mg/3 mL) pen injector 1.8 mg subcut DAILY RF: 0 pantoprazole [Protonix] 20 mg tablet,delayed release (DR/EC) 40 mg PO DAILY RF: 0 hydromorphone [Dilaudid] 2 mg tablet 2 mg PO Q12H PRNRF: 0 naratriptan [Amerge] 2.5 mg tablet 2.5 mg PO ONCE RF: 0 losartan 100 mg tablet 100 mg PO DAILY RF: 0 furosemide [Lasix] 20 mg tablet 20 mg PO DAILY PRNRF: 0 zolmitriptan [Zomig] 5 mg tablet 5 mg PO ONCE PRNRF: 0 pregabalin [Lyrica] 50 mg capsule 100 mg PO BID RF: 0 albuterol sulfate [ProAir HFA] 90 mcg/actuation HFA aerosol inhaler 2 puff IH Q6H PRNRF: 0 Zyrtec 10 MG capsule 10 mg PO DAILY RF: 0 ondansetron 4 MG tablet,disintegrating 4 mg PO TID PRN PRNRF: 0 bisacodyl [Dulcolax (bisacodyl)] 5 MG tablet,delayed release (DR/EC) 5 mg PO BID PRNQty: 10 RF: 0 duloxetine [Cymbalta] 30 MG capsule,delayed release(DR/EC) 30 mg PO BID RF: 0 ascorbic acid (vitamin C) 1,000 MG tablet 1 tab PO DAILY RF: 0 cholecalciferol (vitamin D3) 1,000 UNITS tablet 1 tab PO DAILY RF: 0 baclofen 10 MG tablet 20 mg PO BID RF: 0 polyethylene glycol 3350 17 GM powder in packet 2 pkt PO PRN PRNRF: 0 budesonide-formoterol [Symbicort] 10.2 GM HFA aerosol inhaler 2 puff Inhalation DAILY PRN PRNRF: 0 clonidine HCl [Catapres] 0.1 MG tablet 0.1 mg PO DIRECTED PRNQty: 0 RF: 0 acetaminophen [Acetaminophen Extra Strength] 500 MG tablet 1,000 mg PO TID PRNQty: 180 RF: 0 nabumetone 750 mg tablet 750 mg PO BID RF: 0 fexofenadine 60 mg Capsule 60 mg PO DAILY RF: 0 prochlorperazine maleate [Compazine] 10 mg tablet 10 mg PO TID PRN (Reason: nausea and vomiting) Qty: 7 RF: 0 metformin 500 MG tablet extended release 24 hr 1,500 mg PO DAILY RF: 0 atorvastatin 40 mg tablet 40 mg PO HS RF: 0 hydroxychloroquine 200 mg tablet 400 mg PO DAILY RF: 0 scopolamine base 1 mg over 3 days patch 3 day 1 mg transdermal DAILY RF: 0 Discharge Instructions Instructions: Diazepam (By mouth), Vertigo (ED), Hypomagnesemia (ED) Additional Instructions: Your MRI is reassuring here today. No acute changes. Your labs are concerning for slightly low magnesium. As discussed your history and exam are most concerning for vertigo. However, I would like you to follow-up closely with your primary care, particularly with your chronic issues with your right ear as your surgery. Please call tomorrow to schedule appointment within the next few days. You may use the Valium as prescribed if you have any recurrence of your vertigo. Please do not drive or drink alcohol when using this medication. Only prescribed. I am concerned regarding you ambulating at home. You prefer to be discharged to home with the support of your significant other. Please also use your walker to help with ambulation. If you develop fever/chills, headache, worsening symptoms, inability to hydrate or other new/worsening symptoms please seek care urgently once again. Referrals: Katarina Rodriguez MD [Primary Care Provider] - Discharge Data Discharge Date/Time-TO BE ENTERED AT DEPARTURE: 03/23/21 20:19 Medical Decision Making <MARIAM Hatfield - Last Filed: 03/24/21 21:14> Patient is feeling symptomatically improved at time of reassessment at 1535 CTA does not show acute abnormality per radiology interpretation in my review Unfortunately patient is a challenge for phlebotomy, her labs are still pending Her blood sugar was 159 at time of initial assessment She has right beating nystagmus with history of what sounds like M?ni?re's dise ase, she was given Reglan 25, IV fluids, and will be administered Valium for symptomatic improvement although she was able to stand and use the commode just prior to my reassessment and is feeling marked improvement She is pending MRI at 1600 She will be transferred to [facility] pending MRI, labs, and reassessment with ambulatory trial Medical Records Medical records reviewed: Yes I reviewed the patient's medical records. Lab Data Lab results reviewed: Yes I reviewed the patient's lab results. <MARIAM Haro - Last Filed: 03/23/21 22:10> Care transition to myself from Babita Ocasio PA-C. Please see her initial note regarding history, presentation and exam. In brief, patient is a 55-year-old female presenting today for what sounds to be vertigo. Patient was having some symptoms in the right ear as well. Ms. Ocasio was also concerned for potential M?ni?re's disease. MRI was ordered for evaluation. At the time I assumed care, MRI pending. I reevaluated the patient is returned from MRI and she reports her symptoms have resolved. MRI reviewed by radiology: FINDINGS: Brain: Normal. No acute infarct. No hemorrhage. No significant white matter disease. No edema. Cerebral ventricles: Normal. No ventriculomegaly. Bones/joints: Hyperostosis frontalis interna. Paranasal sinuses: Mucous retention cyst/polyp of the right frontal sinus. Mastoid air cells: Normal as visualized. No mastoid effusion. Orbital cavity: Unremarkable. Soft tissues: Unremarkable. IMPRESSION: No acute intracranial abnormality Discussed the findings with the patient. She remains asymptomatic. Will road test the patient to look for stability and showing a recurrence of her symptoms. Patient had recurrence of symptoms. Became nauseated as well as vertiginous once again. Patient discussed inpatient versus outpatient management as she has had Reglan, meclizine, Valium and continues to have persistent symptoms with movement. She does not appear acutely ill, hemodynamically stable. Imaging is reassuring. Ultimately, patient reports that she would much prefer to be discharged home. I have been the plan with Ms. Ocasio if she has failed her current regimen and reassess. Ultimately, hoping to be able to DC the patient home per her request and have prompt follow-up with primary care in the next 48 hours for reevaluation. Patient feels significantly improved after another 2.5 mg of Valium. She continues to be slightly off with ambulation. However, patient also reports that she does have some chronic associated with the previous surgeries she had to the right ear. This included chronic deafness and chronic pain in the right ear. She feels safe going home and would much prefer that. She states that she has had difficulty with balance issues historically, has a walker at home to assist with this. States that her significant other is also very supportive and able to assist her with mobility and ensure her safety. She is aware that she may return anytime for continued management. Strict return precautions were discussed. We will continue with the p.o. Valium to be working well for her vertigo. I did encourage close follow-up with primary care, I have asked that s he call tomorrow morning to schedule appointment. All the questions and concerns were addressed and she is agreement plan. HPI <MARIAM Hatfield - Last Filed: 03/24/21 21:14> General Mode of arrival: ambulatory . Date/Time Provider Initiated Documentation: 03/23/21 13:52 . Limitations to Documentation: no limitations . Information obtained by: patient . HPI Narrative: This 55-year-old female with history of sensorineural hearing loss right ear, complex regional pain syndrome migraine headache, asthma, GERD, hypertension, colitis migraine headaches presents with reports of acute onset of dizziness at 11:00 today. She is a she has chronic right ear pain and consistently uses a whooshing sensation to her right ear. She states she is never been formally diagnosed with M?ni?re's disease. She denies any head injury. She states that her symptoms are dramatically worsened with movement of her head. She describes the room as the ending sensation around. She denies any strength or sensation changes distally. She denies any change acutely in her vision. She feels nauseous when she moves her head but not at rest. She denies any vomiting. States she felt well prior to the episode. She denies any chest pain or shortness of breath. She denies any chance of . She states she has had similar symptoms in the past and been diagnosed with vertigo . She states is been a while since she experienced these symptoms. Related Data Home Medications Medication Instructions Recorded Confirmed Zyrtec 10 mg PO DAILY 11/20/12 08/07/20 ondansetron 4 mg PO TID PRN PRN 07/07/13 08/07/20 bisacodyl [Dulcolax (bisacodyl)] 5 mg PO BID PRN #10 tablet. 07/26/13 08/07/20 duloxetine [Cymbalta] 30 mg PO BID 09/15/13 08/07/20 ascorbic acid (vitamin C) 1 tab PO DAILY 07/18/14 08/07/20 cholecalciferol (vitamin D3) 1 tab PO DAILY 07/18/14 08/07/20 baclofen 20 mg PO BID 08/26/14 08/07/20 budesonide-formoterol [Symbicort] 2 puff INHALATION DAILY PRN PRN 08/04/15 08/07/20 polyethylene glycol 3350 2 pkt PO PRN PRN 08/04/15 08/07/20 Ketamine Thom 10 mg PO QID PRN 03/10/16 07/29/20 Ketamine/Lidocaine 1 applic TOPICAL HS 03/10/16 08/07/20 metformin 1,500 mg PO DAILY 09/21/16 08/07/20 clonidine HCl [Catapres] 0.1 mg PO DIRECTED PRN #0 10/21/16 08/07/20 acetaminophen [Acetaminophen Extra 1,000 mg PO TID PRN #180 tab 02/22/17 08/07/20 Strength] albuterol sulfate 90 mcg/actuation 2 puff IH Q6H PRN 10/04/19 08/07/20 aerosol inhaler furosemide 20 mg tablet 20 mg PO DAILY PRN 10/04/19 08/07/20 hydromorphone 2 mg tablet 2 mg PO Q12H PRN tab 10/04/19 08/07/20 liraglutide 0.6 mg/0.1 mL (18 mg/3 1.8 mg SUBCUT DAILY ml 10/04/19 08/07/20 mL) subcutaneous pen injector losartan 100 mg tablet 100 mg PO DAILY 10/04/19 08/07/20 naratriptan 2.5 mg tablet 2.5 mg PO ONCE 10/04/19 08/07/20 pantoprazole 20 mg tablet,delayed 40 mg PO DAILY tab 10/04/19 08/07/20 release pregabalin 50 mg capsule 100 mg PO BID cap 10/04/19 08/07/20 topiramate 100 mg tablet 500 mg PO BID tab 10/04/19 08/07/20 zolmitriptan 5 mg tablet 5 mg PO ONCE PRN 10/04/19 08/07/20 nabumetone 750 mg PO BID 03/22/20 08/07/20 atorvastatin 40 mg PO HS 05/02/20 08/07/20 hydroxychloroquine 400 mg PO DAILY 05/02/20 08/07/20 scopolamine base 1 mg TRANSDERMAL DAILY 05/02/20 08/07/20 fexofenadine 60 mg tablet 60 mg PO BID #30 tab 07/29/20 08/07/20 fexofenadine 60 mg PO DAILY 08/07/20 08/07/20 prochlorperazine maleate 10 mg PO TID PRN #7 tab 08/07/20 [Compazine] diazepam [Valium] 2 mg PO TID PRN #10 tab 03/23/21 Previous Rx's Medication Instructions Recorded bisacodyl [Dulcolax (bisacodyl)] 5 mg PO BID PRN #10 tablet. 07/26/13 clonidine HCl [Catapres] 0.1 mg PO DIRECTED PRN #0 10/21/16 acetaminophen [Acetaminophen Extra 1,000 mg PO TID PRN #180 tab 02/22/17 Strength] fexofenadine 60 mg tablet 60 mg PO BID #30 tab 07/29/20 prochlorperazine maleate 10 mg PO TID PRN #7 tab 08/07/20 [Compazine] diazepam [Valium] 2 mg PO TID PRN #10 tab 03/23/21 Allergies Allergy/AdvReac Type Severity Reaction Status Date / Time phenytoin sodium Allergy Severe Hives Unverified 03/23/21 13:46 [From Dilantin] phenytoin sodium extended Allergy Severe Hives Unverified 03/23/21 13:46 [From Dilantin] amoxicillin [Amoxicillin] Allergy Intermediate Hives Unverified 03/23/21 13:46 lisinopril Allergy Intermediate Unverified 03/23/21 13:46 oxycodone Allergy Intermediate Unverified 03/23/21 13:46 potassium clavulanate Allergy Intermediate Hives Unverified 03/23/21 13:46 [From Augmentin] Sulfa (Sulfonamide Allergy Mild Skin Rash Unverified 03/23/21 13:46 Antibiotics) tomato [Tomato] Allergy Mild Skin Rash Unverified 03/23/21 13:46 erythromycin base AdvReac Severe Verified 03/23/21 13:46 sumatriptan [From Imitrex] AdvReac Severe Visual Unverified 03/23/21 13:46 Disturbances,burning sensation through out body General Stated Complaint: Dizzy/Sync HARRIET: 2 Review of Systems <MARIAM Hatfield - Last Filed: 03/24/21 21:14> All systems reviewed & are unremarkable except as noted in HPI and below PFSH <MARIAM Hatfield - Last Filed: 03/24/21 21:14> Medical History (Updated 03/23/21 @ 19:57 by MARIAM Haro) Allergic rhinitis Asthma Closed fracture of right distal fibula (06/09/19) Constipation DM (diabetes mellitus) Eczema Fatty infiltration of liver GERD (gastroesophageal reflux disease) Hand pain History of depression History of neck pain HTN (hypertension) Incontinence Insomnia Leg cramps Migraine Obesity Otalgia Ovarian cyst Preventative health care Screening breast examination Tendinitis Trigeminal neuralgia Surgical History Colonoscopy - MAC (06/15/17) H/O shoulder surgery H/O tooth extraction History of appendectomy History of cholecystectomy History of ear surgery History of eye surgery History of hysterectomy History of knee surgery Mediport placement (05/02/15) Family History Mother Hx of migraines Social History Smoking/Tobacco Use Status: Never Smoking risk assessment performed?: Yes Alcohol Intake: current Alcohol Intake frequency: holidays/special occasions only Drug use: Never Substance use type: does not use Current gender identity: female Do you feel safe at home: Yes Do you feel safe in your relationship?: Yes Exam <MARIAM Hatfield - Last Filed: 03/24/21 21:14> HENMT Other: Uvula midline Eyes Pupils: PERRL EOM: EOM intact bilaterally Other: right beating nystagmus Resp Effort & Inspection: normal respiratory effort Auscultation: clear to auscultation bilaterally Cardio Rate: regular rate Rhythm: regular rhythm GI Inspection: normal to inspection Skin General skin exam: no rashes or lesions noted Neuro General: patient alert and patient oriented x3 Cranial Nerves: CN's II-XI intact bilaterally and PERRL Cognition: normal cognition Speech: speech normal Motor: muscle tone normal throughout and strength 5/5 throughout Sensory Exam: no sensory deficits noted Other: Negative heel beck, negative [id number], negative pronator drift Extrem General: normal to inspection Psych Appearance: grossly normal Course <MARIAM Hatfield - Last Filed: 03/24/21 21:14> Vital Signs Vital signs: Vital Signs Temperature 36.5 C 03/23/21 13:32 Pulse 85 03/23/21 13:32 Respiratory Rate 18 03/23/21 13:32 Blood Pressure 177/80 H 03/23/21 13:32 Pulse Oximetry 98 03/23/21 13:32 Temperature 36.5 C 03/23/21 13:32 Pulse 66 03/23/21 14:38 Respiratory Rate 13 03/23/21 14:41 Respiratory Effort 03/23/21 14:13 Respiratory Depth Normal 03/23/21 14:13 Respiratory Pattern Normal 03/23/21 14:13 Blood Pressure 145/80 H 03/23/21 14:38 Pulse Oximetry 99 03/23/21 14:41 Oxygen Delivery Method Room Air 03/23/21 13:32 Oxygen Flow Rate 0 03/23/21 13:32 Pain Level 9 03/23/21 13:32 Sign Out <MARIAM Hatfield - Last Filed: 03/24/21 21:14> Sign Out Data: Sign Out Comment: pending mri, valium, fluids, labs, reassessment and amb trial Last updated by Babita Ocasio PA at 03/23/21 16:03
[2021-03-23 15:31] LABS: Abs Immature Grans 0.04 10^3/uL (0.0-0.06); Absolute Basophil Count 0.08 10^3/uL (0.0-0.2); Absolute Lymphocyte Count 2.03 10^3/uL (1.2-3.4); Absolute Neutrophil Count 8.28 10^3/uL (1.2-6.7); Basophils % 0.7; Eosinophils % 1.8; HGB 11.9 g/dL (11.2-15.7); Immature Grans % 0.4; Lymphocytes % 18.2; MCH 30.1 pg (27.0-33.0); MCHC 32.2 % (32.0-36.0); MCV 93.7 fL (80-95); MPV 10.8 fL (8.0-11.0); Monocytes % 4.5; Neutrophils % 74.4; Nucleated RBC 0 %; Platelet Count 245 10^3/uL (130-400); RBC 3.95 10^6/uL (3.93-5.22); RDW 13.5 % (11.7-14.6); RDW-SD 45.5 fL; WBC 11.13 10^3/uL (4.4-10.8)
[2021-03-23] MEDS: diazePAM 10 MG/2 ML SYR 2.5 MG IVP ×2 (15:42→19:06)
[2021-03-23 16:11] LABS: ALT 25 U/L (14-59); AST 18 U/L (15-37); Albumin 3.8 g/dL (3.4-5.0); Alkaline Phosphatase 110 U/L (46-116); Anion Gap 9.5 mmol/L (3-11); BUN 20 mg/dL (7-18); Bilirubin, Total 0.4 mg/dL (0.2-1.0); CO2 25.5 mmol/L (21.0-32.0); CREATININE 1.2 mg/dL (0.55-1.02); Calcium 8.5 mg/dL (8.5-10.1); Chloride 106 mmol/L (98-107); Estimated GFR 46.82 (mL/min/1.73m2); Glucose 118 mg/dL (74-106); Magnesium 1.5 mg/dL (1.8-2.4); Potassium 4.7 mmol/L (3.5-5.1); Sodium 141 mmol/L (136-145); Total Protein 7.1 g/dL (6.4-8.2)
[2021-03-23 16:12] LABS: Troponin I < 0.05 ng/mL (<0.06)
[2021-03-23] MEDS: Normal Saline Flush 10 ML SYR IVP (17:16)
[2021-03-23] MEDS: Gadoterate meglumine 20 ML VIAL IVP (17:18)
--- NOTE | 2021-03-23 17:36 | NUR.NOTE ---
pt returns from MRI, seen in bed no signs of pain or distress, pt self ambulated to commode, urine specimen collected, pt remains stable, call hunter within reach, will continue to montior and maintain safety
--- NOTE | 2021-03-23 17:50 | DI.VRAD_ITS ---
PROCEDURE INFORMATION: Exam: MR Head Without and With Contrast Exam date and time: 03/23/2021 4:30 PM Age: 55 years old Clinical indication: Dizziness; Prior surgery; Surgery date: 6+ months; Surgery type: Nerve decompression to treat trigeminal neuralgia TECHNIQUE: Imaging protocol: MR of the head without and with intravenous contrast. Contrast material: DOTAREM; Contrast volume: 20 ml; Contrast route: INTRAVENOUS (IV); COMPARISON: CT BRAIN NECK CTA 03/23/2021 2:09 PM FINDINGS: Brain: Normal. No acute infarct. No hemorrhage. No significant white matter disease. No edema. Cerebral ventricles: Normal. No ventriculomegaly. Bones/joints: Hyperostosis frontalis interna. Paranasal sinuses: Mucous retention cyst/polyp of the right frontal sinus. Mastoid air cells: Normal as visualized. No mastoid effusion. Orbital cavity: Unremarkable. Soft tissues: Unremarkable. IMPRESSION: No acute intracranial abnormality. Dictated and Authenticated by: Carlton Thomas MD. Ordering:JITENDRA Jc MD
[2021-03-23 17:55] LABS: Bilirubin Negative (Negative); Blood Negative (Negative); Clarity Clear (Clear); Glucose Negative (Negative); Ketones Negative (Negative); Leukocyte Esterase Negative (Negative); Nitrite Negative (Negative); Urobilinogen 0.2 EU/dL (Up TO 0.2)
== END 2021-03-23 20:19 | disposition home or self-care (01) ==
PROVIDERS: Physician Assistant; Emergency Provider Physician Assistant; PCP Family Medicine
DX: R42 Dizziness and giddiness (principal); E83.42 Hypomagnesemia; E11.9 Type 2 diabetes mellitus without complications; H55.09 Other forms of nystagmus
CPT/HCPCS: 36416; 70496; 70498; 70553; 80053; 82962; 93005; 96361; 96374; 96375; 96376; 99285; 81003; 83735; 84443; 84484; 85025; 93010; J2765; J3360; J3490

== ENCOUNTER 2021-04-30 09:21 | Outpatient (REF) | payer MEDICARE, OTHER, SELFPAY ==
[2021-05-01 12:10] LABS: COVID-19 RT-PCR UVMMC Result Negative (Negative)
== END 2021-04-30 09:22 | disposition home or self-care (01) ==
LOC: NCHCN 09:21
PROVIDERS: PCP Family Medicine; Visit Provider Family Medicine
DX: Z20.822 Contact with and (suspected) exposure to COVID-19 (principal); R19.7 Diarrhea, unspecified
CPT/HCPCS: U0003; U0005

== ENCOUNTER 2021-05-06 02:29 | Outpatient (CLI) | payer MEDICARE, OTHER, SELFPAY ==
[2021-05-06 11:30] LABS: ESR 14 mm/hr (0-30); HGB 10.4 g/dL (11.2-15.7); MCH 30.3 pg (27.0-33.0); MCHC 32.5 % (32.0-36.0); MCV 93.3 fL (80-95); MPV 10.2 fL (8.0-11.0); Platelet Count 221 10^3/uL (130-400); RBC 3.43 10^6/uL (3.93-5.22); RDW-SD 46.8 fL; WBC 7.88 10^3/uL (4.4-10.8)
[2021-05-06 12:27] LABS: Anion Gap 13.3 mmol/L (3-11); BUN 15 mg/dL (7-18); C-Reactive Protein 1.79 mg/dL (0.0-0.3); CO2 21.7 mmol/L (21.0-32.0); CREATININE 1.2 mg/dL (0.55-1.02); Chloride 106 mmol/L (98-107); Estimated GFR 46.82 (mL/min/1.73m2); Glucose 226 mg/dL (74-106); Potassium 4.7 mmol/L (3.5-5.1); Sodium 141 mmol/L (136-145)
[2021-05-06 15:52] LABS: Abs Immature Grans 0.02 10^3/uL (0.0-0.06); Absolute Basophil Count 0.05 10^3/uL (0.0-0.2); Absolute Eosinophil Count 0.21 10^3/uL (0.0-0.7); Absolute Lymphocyte Count 1.61 10^3/uL (1.2-3.4); Absolute Monocyte Count 0.42 10^3/uL (0.1-0.8); Absolute Neutrophil Count 5.13 10^3/uL (1.2-6.7); Basophils % 0.7; Eosinophils % 2.8; Immature Grans % 0.3; Lymphocytes % 21.6; Monocytes % 5.6
== END 2021-05-06 02:30 | disposition home or self-care (01) ==
LOC: LBO 02:29
PROVIDERS: Nurse Practitioner Family; PCP Family Medicine; Visit Provider Family Medicine
DX: M19.90 Unspecified osteoarthritis, unspecified site (principal); Z79.899 Other long term (current) drug therapy; N18.30 Chronic kidney disease, stage 3 unspecified; R19.7 Diarrhea, unspecified; M25.59 Pain in other specified joint
CPT/HCPCS: 36415; 80048; 85027; 85652; 85007; 86140

== ENCOUNTER 2021-06-03 17:24 | Emergency (ER) | payer MEDICARE, OTHER, SELFPAY ==
[2021-06-03 17:33] VITALS: BP 124/71; PULSE 70; RESP 16; TEMP 37.2; O2SAT 97
[2021-06-03 17:46] VITALS: BP 124/71; PULSE 73; RESP 20; O2SAT 97
--- NOTE | 2021-06-03 17:48 | DI.RAD_ITS ---
Exam(s) XR PORTABLE CHEST AP EXAM: XR PORTABLE CHEST AP CLINICAL HISTORY: cough, shortness of breath TECHNIQUE: 2D digital imaging was performed. COMPARISON: CR,XR XR CHEST 2V PA LATERAL from 06/03/2019 FINDINGS: LUNGS: Clear. No pleural abnormality seen. HEART: Normal. MEDIASTINUM: Normal. BONES: Degenerative changes in the spine. IMPRESSION: No acute pulmonary findings. DATA REPOSITORY: RADIATION DOSE DELIVERED:
--- NOTE | 2021-06-03 18:20 | NUR.NOTE ---
Nursing Note:Radiology to room for portable CXR.
--- NOTE | 2021-06-03 19:28 | DI.VRAD_ITS ---
PROCEDURE INFORMATION: Exam: XR Chest Exam date and time: 06/03/2021 6:02 PM Age: 55 years old Clinical indication: Other: Cough, shortness of breath TECHNIQUE: Imaging protocol: XR of the chest. Views: 1 view. Total images: 1 COMPARISON: CT CHEST/ABD/PEL W 06/09/2019 6:25 PM FINDINGS: Lungs: Unremarkable. No consolidation. Pleural spaces: No pleural effusion. No pneumothorax. Heart/Mediastinum: Heart size is normal for technique. Bones/joints: No acute bone abnormality. IMPRESSION: No acute findings. Dictated and Authenticated by: Dixie Stock MD. Ordering:NINFA Rose MD
--- NOTE | 2021-06-03 19:28 | ED.GENADUL_ITS ---
Discharge Plan Disposition Patient Disposition: HOME Condition: Stable Discharge Details Clinical Impression: Upper respiratory infection, viral Primary Care Provider: Katarina Rodriguez ED Provider: Rose Ford Home Meds and New Rx's Prescriptions: Continued fexofenadine [Irma Allergy] 60 mg tablet 60 mg PO BID Qty: 30 RF: 0 ketamine thom 10 mg PO QID PRNRF: 0 ketamine/lidocaine 1 applic Topical HS RF: 0 topiramate [Topamax] 100 mg tablet 500 mg PO BID RF: 0 Victoza 3-Norbert 0.6 mg/0.1 mL (18 mg/3 mL) pen injector 1.8 mg subcut DAILY RF: 0 pantoprazole [Protonix] 20 mg tablet,delayed release (DR/EC) 40 mg PO DAILY RF: 0 hydromorphone [Dilaudid] 2 mg tablet 2 mg PO Q12H PRNRF: 0 naratriptan [Amerge] 2.5 mg tablet 2.5 mg PO ONCE RF: 0 losartan 100 mg tablet 100 mg PO DAILY RF: 0 furosemide [Lasix] 20 mg tablet 20 mg PO DAILY PRNRF: 0 zolmitriptan [Zomig] 5 mg tablet 5 mg PO ONCE PRNRF: 0 pregabalin [Lyrica] 50 mg capsule 100 mg PO BID RF: 0 albuterol sulfate [ProAir HFA] 90 mcg/actuation HFA aerosol inhaler 2 puff IH Q6H PRNRF: 0 Zyrtec 10 MG capsule 10 mg PO DAILY RF: 0 ondansetron 4 MG tablet,disintegrating 4 mg PO TID PRN PRNRF: 0 bisacodyl [Dulcolax (bisacodyl)] 5 MG tablet,delayed release (DR/EC) 5 mg PO BID PRNQty: 10 RF: 0 duloxetine [Cymbalta] 30 MG capsule,delayed release(DR/EC) 30 mg PO BID RF: 0 ascorbic acid (vitamin C) 1,000 MG tablet 1 tab PO DAILY RF: 0 cholecalciferol (vitamin D3) 1,000 UNITS tablet 1 tab PO DAILY RF: 0 baclofen 10 MG tablet 20 mg PO BID RF: 0 polyethylene glycol 3350 17 GM powder in packet 2 pkt PO PRN PRNRF: 0 budesonide-formoterol [Symbicort] 10.2 GM HFA aerosol inhaler 2 puff Inhalation DAILY PRN PRNRF: 0 clonidine HCl [Catapres] 0.1 MG tablet 0.1 mg PO DIRECTED PRNQty: 0 RF: 0 acetaminophen [Acetaminophen Extra Strength] 500 MG tablet 1,000 mg PO TID PRNQty: 180 RF: 0 nabumetone 750 mg tablet 750 mg PO BID RF: 0 fexofenadine 60 mg Capsule 60 mg PO DAILY RF: 0 prochlorperazine maleate [Compazine] 10 mg tablet 10 mg PO TID PRN (Reason: nausea and vomiting) Qty: 7 RF: 0 metformin 500 MG tablet extended release 24 hr 1,500 mg PO DAILY RF: 0 atorvastatin 40 mg tablet 40 mg PO HS RF: 0 hydroxychloroquine 200 mg tablet 400 mg PO DAILY RF: 0 scopolamine base 1 mg over 3 days patch 3 day 1 mg transdermal DAILY RF: 0 diazepam [Valium] 2 mg tablet 2 mg PO TID PRN (Reason: vertigo) Qty: 10 RF: 0 Emgality Syringe 120 mg/mL Syringe 120 mg SUBCUT QMONTH RF: 0 methylprednisolone 8 mg Tablet 8 mg PO QAM RF: 0 folic acid 1 mg Tablet 1 mg PO DAILY RF: 0 methotrexate sodium 15 mg Tablet 15 mg PO QWEEK RF: 0 Discharge Instructions Instructions: Upper Respiratory Infection (ED) Additional Instructions: continue to isolate until covid results are available drink at least 6-8 glasses of water daily to stay well hydrated Referrals: Katarina Rodriguez MD [Primary Care Provider] - Discharge Data Discharge Date/Time-TO BE ENTERED AT DEPARTURE: 06/03/21 20:03 Medical Decision Making patient presents with upper respiratory symptoms, most consistent with a viral syndrome. her vitals are normal and she is oxygenating well on room air, in the high 90's. will get cxr to r/o pneumonia. send out covid pending at discharge. she will be advised to isolate until results available. Medical Records Medical records reviewed: Yes I reviewed the patient's medical records. Imaging Data Radiologic Study: Imaging: X-Ray My impression: chest xray: no acute findings. Lab Data Lab results reviewed: Yes I reviewed the patient's lab results. HPI General Mode of arrival: ambulatory . Date/Time Provider Initiated Documentation: 06/03/21 17:47 . Limitations to Documentation: no limitations . Information obtained by: patient . HPI Narrative: patient presents with one week history of cough, no fever, using OTC cold medication with no results. is vaccinated for covid. no known covid exposures. Related Data Home Medications Medication Instructions Recorded Confirmed Zyrtec 10 mg PO DAILY 11/20/12 08/07/20 ondansetron 4 mg PO TID PRN PRN 07/07/13 06/03/21 bisacodyl [Dulcolax (bisacodyl)] 5 mg PO BID PRN #10 tablet. 07/26/13 06/03/21 duloxetine [Cymbalta] 30 mg PO BID 09/15/13 08/07/20 ascorbic acid (vitamin C) 1 tab PO DAILY 07/18/14 06/03/21 cholecalciferol (vitamin D3) 1 tab PO DAILY 07/18/14 06/03/21 baclofen 20 mg PO BID 08/26/14 06/03/21 budesonide-formoterol [Symbicort] 2 puff INHALATION DAILY PRN PRN 08/04/15 06/03/21 polyethylene glycol 3350 2 pkt PO PRN PRN 08/04/15 06/03/21 Ketamine Thom 10 mg PO QID PRN 03/10/16 06/03/21 Ketamine/Lidocaine 1 applic TOPICAL HS 03/10/16 06/03/21 metformin 1,500 mg PO DAILY 09/21/16 06/03/21 clonidine HCl [Catapres] 0.1 mg PO DIRECTED PRN #0 10/21/16 06/03/21 acetaminophen [Acetaminophen Extra 1,000 mg PO TID PRN #180 tab 02/22/17 06/03/21 Strength] albuterol sulfate 90 mcg/actuation 2 puff IH Q6H PRN 10/04/19 06/03/21 aerosol inhaler furosemide 20 mg tablet 20 mg PO DAILY PRN 10/04/19 08/07/20 hydromorphone 2 mg tablet 2 mg PO Q12H PRN tab 10/04/19 08/07/20 liraglutide 0.6 mg/0.1 mL (18 mg/3 1.8 mg SUBCUT DAILY ml 10/04/19 06/03/21 mL) subcutaneous pen injector losartan 100 mg tablet 100 mg PO DAILY 10/04/19 06/03/21 naratriptan 2.5 mg tablet 2.5 mg PO ONCE 10/04/19 06/03/21 pantoprazole 20 mg tablet,delayed 40 mg PO DAILY tab 10/04/19 06/03/21 release pregabalin 50 mg capsule 100 mg PO BID cap 10/04/19 06/03/21 topiramate 100 mg tablet 500 mg PO BID tab 10/04/19 08/07/20 zolmitriptan 5 mg tablet 5 mg PO ONCE PRN 10/04/19 06/03/21 nabumetone 750 mg PO BID 03/22/20 08/07/20 atorvastatin 40 mg PO HS 05/02/20 06/03/21 hydroxychloroquine 400 mg PO DAILY 05/02/20 06/03/21 scopolamine base 1 mg TRANSDERMAL DAILY 05/02/20 06/03/21 fexofenadine 60 mg tablet 60 mg PO BID #30 tab 07/29/20 06/03/21 fexofenadine 60 mg PO DAILY 08/07/20 08/07/20 prochlorperazine maleate 10 mg PO TID PRN #7 tab 08/07/20 06/03/21 [Compazine] diazepam [Valium] 2 mg PO TID PRN #10 tab 03/23/21 Emgality Syringe 120 mg SUBCUT QMONTH 06/03/21 06/03/21 folic acid 1 mg PO DAILY 06/03/21 06/03/21 methotrexate sodium 15 mg PO QWEEK 06/03/21 06/03/21 methylprednisolone 8 mg PO QAM 06/03/21 06/03/21 Previous Rx's Medication Instructions Recorded bisacodyl [Dulcolax (bisacodyl)] 5 mg PO BID PRN #10 nicole. 07/26/13 clonidine HCl [Catapres] 0.1 mg PO DIRECTED PRN #0 10/21/16 acetaminophen [Acetaminophen Extra 1,000 mg PO TID PRN #180 tab 02/22/17 Strength] fexofenadine 60 mg tablet 60 mg PO BID #30 tab 07/29/20 prochlorperazine maleate 10 mg PO TID PRN #7 tab 08/07/20 [Compazine] diazepam [Valium] 2 mg PO TID PRN #10 tab 03/23/21 Allergies Allergy/AdvReac Type Severity Reaction Status Date / Time NSAIDS (Non-Steroidal Allergy Severe Other (See Verified 06/03/21 19:10 Anti-Inflamma Comment) phenytoin sodium Allergy Severe Hives Verified 06/03/21 19:09 [From Dilantin] phenytoin sodium extended Allergy Severe Hives Verified 06/03/21 19:09 [From Dilantin] amoxicillin [Amoxicillin] Allergy Intermediate Hives Verified 06/03/21 19:09 lisinopril Allergy Intermediate Verified 06/03/21 19:09 oxycodone Allergy Intermediate Verified 06/03/21 19:09 potassium clavulanate Allergy Intermediate Hives Verified 06/03/21 19:09 [From Augmentin] Sulfa (Sulfonamide Allergy Mild Skin Rash Verified 06/03/21 19:09 Antibiotics) tomato [Tomato] Allergy Mild Skin Rash Verified 06/03/21 19:09 erythromycin base AdvReac Severe Verified 06/03/21 19:09 sumatriptan [From Imitrex] AdvReac Severe Visual Verified 06/03/21 19:09 Disturbances,burning sensation through out body General Stated Complaint: RespSymp HARRIET: 3 Review of Systems All systems reviewed & are unremarkable except as noted in HPI and below ENT Ears, Nose, Mouth, and Throat: Denies dizziness Cardiovascular Cardiovascular: Denies chest pain and Reports dyspnea Respiratory Respiratory: Reports cough, Denies pain with cough, Reports dyspnea and Denies wheezing Gastrointestinal Gastrointestinal: Denies abdominal pain, Denies nausea and Denies vomiting Neurologic Neurologic: Denies dizziness Allergic/Immunologic Allergic/Immunologic: Denies wheezing PFSH All Active Problems Vertigo (Acute) Hypomagnesemia (Acute) Upper respiratory infection, viral (Acute) Sensorineural hearing loss (SNHL) of right ear with unrestricted hearing of left ear (Acute) Fracture of radial neck, right, closed (Acute 06/09/19) Port-A-Cath in place (Acute) Sacroiliac joint dysfunction (Acute) Trochanteric bursitis of left hip (Acute) Corticosteroid injection: 08/07/18 Left ankle sprain (Acute) Tubular adenoma of colon (Acute 06/15/17) Tendinitis of left rotator cuff (Acute 06/30/16) Subacromial injection: 04/26/18; 04/06/17 Injection under fluoroscopy: 08/10/18 Otalgia (Acute 05/03/13) Neck pain (Acute 05/24/13) Chronic otitis media with effusion (Acute 04/25/14) Biceps tendinitis of left upper extremity (Acute 10/13/16) Adhesive capsulitis of left shoulder (Acute 08/25/16) CRPS (complex regional pain syndrome) (Chronic) Neuralgia (Chronic) Cholecystitis (Acute) Prediabetes (Chronic) Hypertension (Chronic) GERD (gastroesophageal reflux disease) (Chronic) Migraine (Chronic) Asthma (Chronic) Back pain (Chronic) H/O surgical procedure (Chronic) a. hysterectomy b. orthopedic surgery Medical History (Updated 06/03/21 @ 19:35 by Rose Ford NP) Allergic rhinitis Asthma Constipation DM (diabetes mellitus) Eczema Fatty infiltration of liver GERD (gastroesophageal reflux disease) Hand pain History of depression History of neck pain HTN (hypertension) Incontinence Insomnia Leg cramps Migraine Obesity Otalgia Ovarian cyst Preventative health care Screening breast examination Tendinitis Trigeminal neuralgia Surgical History Colonoscopy - MAC (06/15/17) H/O shoulder surgery H/O tooth extraction History of appendectomy History of cholecystectomy History of ear surgery History of eye surgery History of hysterectomy History of knee surgery Mediport placement (05/02/15) Family History Mother Hx of migraines Social History Smoking/Tobacco Use Status: Never Smoking risk assessment performed?: Yes Alcohol Intake: current Alcohol Intake frequency: holidays/special occasions only Drug use: Never Substance use type: does not use Current gender identity: female Do you feel safe at home: Yes Do you feel safe in your relationship?: Yes Exam Const General: cooperative, healthy appearing, comfortable and no acute distress Nutritional Appearance: overweight Orientation: alert, awake and oriented x3 HENMT Head: normal to inspection, normocephalic and atraumatic Face and sinus: normal facial exam Mouth: oral mucosae normal Throat: posterior oropharynx normal Chest Chest: normal inspection of the chest Resp Effort & Inspection: normal respiratory effort Auscultation: clear to auscultation bilaterally and no wheezes Cardio Rate: regular rate Rhythm: regular rhythm GI Inspection: normal to inspection Palpation: soft and nontender Auscultation: normal bowel sounds Skin General skin exam: no rashes or lesions noted Neuro General: patient alert, patient awake, patient oriented x3 and no focal motor deficits Cognition: normal cognition Speech: speech normal Course Vital Signs Vital signs: Vital Signs Temperature 37.2 C 06/03/21 17:33 Pulse 70 06/03/21 17:33 Respiratory Rate 16 06/03/21 17:33 Blood Pressure 124/71 06/03/21 17:33 Pulse Oximetry 97 06/03/21 17:33 Temperature 37.2 C 06/03/21 17:33 Temperature Source Skin 06/03/21 17:46 Pulse 73 06/03/21 17:46 Respiratory Rate 20 06/03/21 17:46 Respiratory Effort 06/03/21 17:51 Respiratory Depth Normal 06/03/21 17:51 Blood Pressure 124/71 06/03/21 17:46 Blood Pressure Position Sitting 06/03/21 17:46 Pulse Oximetry 97 06/03/21 17:46 Oxygen Delivery Method Room Air 06/03/21 17:46 Oxygen Flow Rate 0 06/03/21 17:46 Pain Level 5 06/03/21 17:46 PAWSS Have you Been Recently Intoxicated or Drunk Within the Last 30 days?: No Have you Ever Experienced Previous Episodes of Alcohol Withdrawal?: No Have you ever Experienced Withdrawal Seizures?: No Have you ever Experienced Delirium Tremens(DT)s?: No Have you ever undergone Alcohol Rehabilitation Treatment (i.e, inpt ot outpatient treatment programs)?: No Have you ever Experienced Blackouts?: No Have you ever Combined Alcohol with other Downers within the last 90 days?: No Have you ever Combined Alcohol with any other Substance of Abuse during the last 90 days?: No Positive Blood Alcohol level on Presentation? [PCS.BAL]: No Evidence of Increased Autonomic Activity (i.e. HR>120, tremor, sweating, agitation, nausea)?: No Result: 0
[2021-06-03 19:45] VITALS: BP 126/78; PULSE 72; RESP 18; TEMP 37; O2SAT 98
[2021-06-05 16:02] LABS: COVID-19 RT-PCR UVMMC Result Negative (Negative)
== END 2021-06-03 20:03 | disposition home or self-care (01) ==
PROVIDERS: Emergency Provider Nurse Practitioner Acute Care; PCP Family Medicine
DX: J06.9 Acute upper respiratory infection, unspecified (principal); R06.02 Shortness of breath; Z20.822 Contact with and (suspected) exposure to COVID-19
CPT/HCPCS: 99283; U0003; U0005; 71045

== ENCOUNTER 2021-06-24 03:16 | Outpatient (CLI) | payer MEDICARE, OTHER, SELFPAY ==
[2021-06-24 13:08] LABS: Abs Immature Grans 0.03 10^3/uL (0.0-0.06); Absolute Basophil Count 0.03 10^3/uL (0.0-0.2); Absolute Eosinophil Count 0.09 10^3/uL (0.0-0.7); Absolute Lymphocyte Count 1.35 10^3/uL (1.2-3.4); Absolute Monocyte Count 0.49 10^3/uL (0.1-0.8); Absolute Neutrophil Count 4.24 10^3/uL (1.2-6.7); Basophils % 0.5; Eosinophils % 1.4; HCT 34.8 % (36.0-46.0); HGB 11.5 g/dL (11.2-15.7); Immature Grans % 0.5; Lymphocytes % 21.7; MCH 31.4 pg (27.0-33.0); MCV 95.1 fL (80-95); MPV 9.9 fL (8.0-11.0); Monocytes % 7.9; Nucleated RBC 0 %; Platelet Count 203 10^3/uL (130-400); RBC 3.66 10^6/uL (3.93-5.22); RDW 15.2 % (11.7-14.6); RDW-SD 52.1 fL; WBC 6.23 10^3/uL (4.4-10.8)
[2021-06-24 13:11] LABS: Anion Gap 8.7 mmol/L (3-11); BUN 16 mg/dL (7-18); CO2 25.3 mmol/L (21.0-32.0); CREATININE 1.1 mg/dL (0.55-1.02); Calcium 8.6 mg/dL (8.5-10.1); Chloride 104 mmol/L (98-107); Estimated GFR 51.76 (mL/min/1.73m2); Glucose 234 mg/dL (74-106); Potassium 4.2 mmol/L (3.5-5.1); Sodium 138 mmol/L (136-145)
[2021-06-24 14:23] LABS: ALT 23 U/L (14-59); AST 18 U/L (15-37); Albumin 3.4 g/dL (3.4-5.0); Alkaline Phosphatase 74 U/L (46-116); Bilirubin, Total 0.4 mg/dL (0.2-1.0); C-Reactive Protein 2.37 mg/dL (0.0-0.3); Total Protein 6.9 g/dL (6.4-8.2)
== END 2021-06-24 03:17 | disposition home or self-care (01) ==
LOC: LBO 03:17
PROVIDERS: Nurse Practitioner Family; PCP Family Medicine; Visit Provider Family Medicine
DX: Z79.899 Other long term (current) drug therapy (principal); N18.30 Chronic kidney disease, stage 3 unspecified; M25.59 Pain in other specified joint
CPT/HCPCS: 36415; 80048; 80053; 85025; 86140

== ENCOUNTER 2021-07-21 14:52 | Emergency (ER) | payer MEDICARE, OTHER, SELFPAY ==
[2021-07-21 14:59] VITALS: BP 158/82; PULSE 98; RESP 14; O2SAT 97
--- NOTE | 2021-07-21 15:00 | RT.EKG_ITS ---
APPROVED REPORT Exam: Resting ECG Reason for Exam: chest pain Patient Location: E HR:89 bpm ECG Measurements Heart Rate 89 AXIS CO 182 P 24 QRSd 96 QRS -42 QT 383 T 27 QTc 466 Conclusion Sinus rhythm...normal P axis, V-rate 60- 99 Inferior infarct, old...Q >35mS, II III aVF
[2021-07-21 15:07] VITALS: BP 129/81; PULSE 91; O2SAT 96
[2021-07-21 15:30] VITALS: O2SAT 96
--- NOTE | 2021-07-21 15:35 | DI.CT_ITS ---
Exam(s) CT LUMBAR SPINE RECONS CT THORAX ABD/PEL CTA EXAM: CT THORAX ABD/PEL CTA and CT lumbar spine recons CLINICAL HISTORY: mid upper abd pain radiating to back. TECHNIQUE: Imaging Protocol: Axial CT angiography was performed with multi-slice acquisition and m ulti-planar and/or 3D reconstructions. CONTRAST MATERIAL: Intravenous: Omnipaque 350 Contrast volume:124 mL Oral: No COMPARISON: CT CT CHEST/ABD/PEL W from 06/09/[address] THORACIC LUMBAR SPINE REC from 06/09/[address] LUMBAR SPINE RECONS from 07/21/2021 FINDINGS: CHEST: Tracheobronchial tree: Patent where visualized. Pulmonary parenchyma: No consolidation or dominant measurable mass. No architectural distortion. Pulmonary Arteries: No evidence of filling defect to suggest pulmonary emboli. Mediastinum and Sweetie: No dominant adenopathy or fluid collection. Visualized thyroid: Unremarkable. Pleura: No effusion or pneumothorax. Heart: The heart is not dilated. No coronary artery calcifications are seen. No pericardial effusion. Aorta: Thoracic aorta non-dilated. No evidence of dissection. Soft Tissues: Unremarkable. Bones: Within normal limits for the patient's age. ABDOMEN AND PELVIS: Abdomen: Celiac axis/mesenteric arteries: No evidence of occlusion or significant stenosis. Renal Arteries: No evidence of occlusion or significant stenosis. There is a single renal artery per fusing each kidney. Aorta: No evidence of occlusion or significant stenosis. No aneurysm or dissection. Mild atheroscl erosis. Pelvis: Iliac Arteries: No evidence of occlusion or significant stenosis. Common Femoral Arteries: No evidence of occlusion or significant stenosis. Mild atherosclerosis. ABDOMEN: Liver: Normal density. No measurable mass. Portal, Superior Mesenteric, and Splenic Veins: Unremarkable. Gallbladder and Biliary Tract: Status post cholecystectomy. No biliary ductal dilatation. Pancreas: Normal density, no abnormal calcifications or inflammatory process. Spleen: Normal. Adrenals: No masses seen. Kidneys: Normal size, contour and axis. No radiodense stones or obstructive uropathy. There is a 1.2 cm simple left renal cyst. There is a 0.6 cm simple left renal cyst. These are stable. No follow-u p is recommended. Bowel: No obstruction or bowel wall thickening. No evidence of appendicitis. Peritoneal Cavity: No ascites, collection or mesenteric inflammatory response. No free air. Lymph Nodes: Within normal limits. Bones: Age-appropriate degenerative changes. Soft Tissues: Unremarkable. Lumbar spine CT recons: Degenerative changes are seen in the lumbar spine. No acute fracture or subl uxation. PELVIS: Bladder: Symmetric distention, no gross wall thickening. Reproductive Organs: Status post hysterectomy. Lymph Nodes: Within normal limits. Bones: Within normal limits. IMPRESSION: 1. Normal CT Angiogram of the chest, abdomen and pelvis. 2. No acute abdominal or pelvic process. 3. No acute fracture. 4. Results of this exam have been verbally communicated with provider. RADIATION DOSE DELIVERED: Total DLP DATA REPOSITORY: All CT scans at this facility are submitted to the National Radiology Data Registry (NRDR) Dose Index Registry (DIR) with the [employer] (A[employer]). RADIATION OPTIMIZATION: All CT scans at this facility use at least one of these dose optimization te chniques: automated exposure control; mA and/or kV adjustment per patient size (includes targeted exa ms where dose is matched to clinical indication); or iterative reconstruction.
[2021-07-21 16:09] LABS: Abs Immature Grans 0.02 10^3/uL (0.0-0.06); Absolute Basophil Count 0.04 10^3/uL (0.0-0.2); Absolute Eosinophil Count 0.18 10^3/uL (0.0-0.7); Absolute Lymphocyte Count 2.15 10^3/uL (1.2-3.4); Absolute Monocyte Count 0.46 10^3/uL (0.1-0.8); Basophils % 0.5; Eosinophils % 2.3; HCT 34.9 % (36.0-46.0); HGB 11.4 g/dL (11.2-15.7); Immature Grans % 0.3; MCH 32.1 pg (27.0-33.0); MCHC 32.7 % (32.0-36.0); MCV 98.3 fL (80-95); MPV 9.8 fL (8.0-11.0); Monocytes % 5.8; Neutrophils % 64.1; Nucleated RBC 0 %; Platelet Count 196 10^3/uL (130-400); RBC 3.55 10^6/uL (3.93-5.22); RDW 15.9 % (11.7-14.6); RDW-SD 57.5 fL; WBC 7.95 10^3/uL (4.4-10.8)
[2021-07-21] MEDS: Omnipaque 350 MG/ML 100 ML BTL IV (16:29)
[2021-07-21 16:31] LABS: ALT 23 U/L (14-59); AST 7 U/L (15-37); Albumin 3.4 g/dL (3.4-5.0); Alkaline Phosphatase 70 U/L (46-116); Anion Gap 11.7 mmol/L (3-11); BUN 16 mg/dL (7-18); Bilirubin, Total 0.4 mg/dL (0.2-1.0); CO2 23.3 mmol/L (21.0-32.0); CREATININE 1.1 mg/dL (0.55-1.02); Chloride 106 mmol/L (98-107); Estimated GFR 51.57 (mL/min/1.73m2); Glucose 150 mg/dL (74-106); Sodium 141 mmol/L (136-145); Total Protein 6.7 g/dL (6.4-8.2)
[2021-07-21 16:33] LABS: Lipase 152 U/L (73-393); Troponin I < 50 ng/L (<or=60)
[2021-07-21] MEDS: HYDROmorphone 2 MG/ML VIAL 1 MG IVP (16:51)
[2021-07-21] MEDS: Normal Saline Flush 10 ML SYR IVP ×2 (16:53→17:54)
[2021-07-21] MEDS: Ondansetron 4 MG/2 ML VIAL IVP (16:53)
--- NOTE | 2021-07-21 17:06 | ED.GENADUL_ITS ---
Discharge Plan Disposition Patient Disposition: HOME Condition: Stable Discharge Details Clinical Impression: Abdominal pain, Low back pain Primary Care Provider: Katarina Rodriguez ED Provider: Oral Bucio Home Meds and New Rx's Prescriptions: New ondansetron 4 mg tablet,disintegrating 4 mg PO Q8H PRNQty: 10 RF: 0 Continued ketamine thom 10 mg PO QID PRNRF: 0 Victoza 3-Norbert 0.6 mg/0.1 mL (18 mg/3 mL) pen injector 1.8 mg subcut DAILY RF: 0 pantoprazole [Protonix] 20 mg tablet,delayed release (DR/EC) 40 mg PO DAILY RF: 0 naratriptan [Amerge] 2.5 mg tablet 2.5 mg PO ONCE RF: 0 losartan 100 mg tablet 100 mg PO DAILY RF: 0 furosemide [Lasix] 20 mg tablet 20 mg PO DAILY PRNRF: 0 zolmitriptan [Zomig] 5 mg tablet 5 mg PO ONCE PRNRF: 0 pregabalin [Lyrica] 50 mg capsule 100 mg PO BID RF: 0 albuterol sulfate [ProAir HFA] 90 mcg/actuation HFA aerosol inhaler 2 puff IH Q6H PRNRF: 0 ondansetron 4 MG tablet,disintegrating 4 mg PO TID PRN PRNRF: 0 bisacodyl [Dulcolax (bisacodyl)] 5 MG tablet,delayed release (DR/EC) 5 mg PO BID PRNQty: 10 RF: 0 ascorbic acid (vitamin C) 1,000 MG tablet 1 tab PO DAILY RF: 0 cholecalciferol (vitamin D3) 1,000 UNITS tablet 1 tab PO DAILY RF: 0 baclofen 10 MG tablet 20 mg PO BID RF: 0 polyethylene glycol 3350 17 GM powder in packet 2 pkt PO PRN PRNRF: 0 budesonide-formoterol [Symbicort] 10.2 GM HFA aerosol inhaler 2 puff Inhalation DAILY PRN PRNRF: 0 clonidine HCl [Catapres] 0.1 MG tablet 0.1 mg PO DIRECTED PRNQty: 0 RF: 0 acetaminophen [Acetaminophen Extra Strength] 500 MG tablet 1,000 mg PO TID PRNQty: 180 RF: 0 prochlorperazine maleate [Compazine] 10 mg tablet 10 mg PO TID PRN (Reason: nausea and vomiting) Qty: 7 RF: 0 metformin 500 MG tablet extended release 24 hr 1,500 mg PO DAILY RF: 0 atorvastatin 40 mg tablet 40 mg PO HS RF: 0 hydroxychloroquine 200 mg tablet 400 mg PO DAILY RF: 0 scopolamine base 1 mg over 3 days patch 3 day 1 mg transdermal DAILY RF: 0 Emgality Syringe 120 mg/mL Syringe 120 mg SUBCUT QMONTH RF: 0 folic acid 1 mg Tablet 1 mg PO DAILY RF: 0 methotrexate sodium 15 mg Tablet 15 mg PO QWEEK RF: 0 Discharge Instructions Instructions: Low Back Strain (ED), Abdominal Pain (ED) Additional Instructions: Please take nausea medicine zofran (ondansetron) as prescribed. Hold hydroxychloroquine while you are taking Zofran as these medications can interact. Use lidocaine patches, these are [id number]. Dose according to label. Please contact your primary care physician to arrange follow-up. Return to the ER immediately for any worsening or new concerning symptoms. Referrals: Katarina Rodriguez MD [Primary Care Provider] - Medical Decision Making 56-year-old female here with mid upper abdominal pain radiating to back and chest as well as low back pain radiating to lateral lower leg that started after fall 3 days ago. Patient is neurovascular intact on exam. Patient was given Dilaudid 1 mg IV for pain and Zofran 4 mg IV for nausea. Considered aortic dissection. CTA of the chest abdomen pelvis was interpreted by radiology as no acute process. Considered L-spine fracture given fall. Recon CT of the lumbar spine were interpreted by radiology and no acute process. Labs reviewed and nondiagnostic. Normal troponin. EKG nondiagnostic, please see report I suspect low back pain is a result of lumbar strain and nerve root irritation. Patient has multiple allergies including nonsteroidal anti-inflammatory. I will place lidocaine patch and recommend that she use acetaminophen. Unclear etiology for upper abdominal pain. Patient was given dose of Pepcid 20 mg and monitored. Her nausea and vomiting did improve. Plan for close outpatient followup. Usual customary discharge instructions were reviewed with patient. HPI General Mode of arrival: ambulatory . Date/Time Provider Initiated Documentation: 07/21/21 14:53 . Limitations to Documentation: no limitations . Information obtained by: patient . HPI Narrative: 56-year-old female with medical history listed of prior back pain, sacroiliac joint dysfunction, multiple musculoskeletal problems, complex regional pain syndrome, presents today with chief complaint of abdominal pain. Patient notes pain in her upper abdomen radiating to her mid and left mid back. Pain is been present for the past 4 days. Pain is moderate. No modifiers. She has some associated nausea. No vomiting. Patient also notes pain in her low back. She states that 3 days ago she slipped and fell landing on her buttocks and experienced pain in her lower spine. This pain has persisted and is worse with certain positions. She has some radiation of pain down her left lateral leg. No associated bowel or bladder dysfunction. No numbness or focal weakness. Related Data Home Medications Medication Instructions Recorded Confirmed ondansetron 4 mg PO TID PRN PRN 07/07/13 07/21/21 bisacodyl [Dulcolax (bisacodyl)] 5 mg PO BID PRN #10 tablet. 07/26/13 07/21/21 ascorbic acid (vitamin C) 1 tab PO DAILY 07/18/14 07/21/21 cholecalciferol (vitamin D3) 1 tab PO DAILY 07/18/14 07/21/21 baclofen 20 mg PO BID 08/26/14 07/21/21 budesonide-formoterol [Symbicort] 2 puff INHALATION DAILY PRN PRN 08/04/15 07/21/21 polyethylene glycol 3350 2 pkt PO PRN PRN 08/04/15 07/21/21 Ketamine Thom 10 mg PO QID PRN 03/10/16 07/21/21 metformin 1,500 mg PO DAILY 09/21/16 07/21/21 clonidine HCl [Catapres] 0.1 mg PO DIRECTED PRN #0 10/21/16 07/21/21 acetaminophen [Acetaminophen Extra 1,000 mg PO TID PRN #180 tab 02/22/17 07/21/21 Strength] albuterol sulfate 90 mcg/actuation 2 puff IH Q6H PRN 10/04/19 07/21/21 aerosol inhaler furosemide 20 mg tablet 20 mg PO DAILY PRN 10/04/19 08/07/20 liraglutide 0.6 mg/0.1 mL (18 mg/3 1.8 mg SUBCUT DAILY ml 10/04/19 07/21/21 mL) subcutaneous pen injector losartan 100 mg tablet 100 mg PO DAILY 10/04/19 07/21/21 naratriptan 2.5 mg tablet 2.5 mg PO ONCE 10/04/19 06/03/21 pantoprazole 20 mg tablet,delayed 40 mg PO DAILY tab 10/04/19 07/21/21 release pregabalin 50 mg capsule 100 mg PO BID cap 10/04/19 07/21/21 zolmitriptan 5 mg tablet 5 mg PO ONCE PRN 10/04/19 07/21/21 atorvastatin 40 mg PO HS 05/02/20 07/21/21 hydroxychloroquine 400 mg PO DAILY 05/02/20 07/21/21 scopolamine base 1 mg TRANSDERMAL DAILY 05/02/20 07/21/21 prochlorperazine maleate 10 mg PO TID PRN #7 tab 08/07/20 07/21/21 [Compazine] Emgality Syringe 120 mg SUBCUT QMONTH 06/03/21 07/21/21 folic acid 1 mg PO DAILY 06/03/21 07/21/21 methotrexate sodium 15 mg PO QWEEK 06/03/21 07/21/21 ondansetron 4 mg PO Q8H PRN #10 tab 07/21/21 Previous Rx's Medication Instructions Recorded bisacodyl [Dulcolax (bisacodyl)] 5 mg PO BID PRN #10 tablet. 07/26/13 clonidine HCl [Catapres] 0.1 mg PO DIRECTED PRN #0 10/21/16 acetaminophen [Acetaminophen Extra 1,000 mg PO TID PRN #180 tab 02/22/17 Strength] prochlorperazine maleate 10 mg PO TID PRN #7 tab 08/07/20 [Compazine] ondansetron 4 mg PO Q8H PRN #10 tab 07/21/21 Allergies Allergy/AdvReac Type Severity Reaction Status Date / Time NSAIDS (Non-Steroidal Allergy Severe Other (See Verified 07/21/21 15:03 Anti-Inflamma Comment) phenytoin sodium Allergy Severe Hives Verified 07/21/21 15:03 [From Dilantin] phenytoin sodium extended Allergy Severe Hives Verified 07/21/21 15:03 [From Dilantin] amoxicillin [Amoxicillin] Allergy Intermediate Hives Verified 07/21/21 15:03 lisinopril Allergy Intermediate Verified 07/21/21 15:03 oxycodone Allergy Intermediate Verified 07/21/21 15:03 potassium clavulanate Allergy Intermediate Hives Verified 07/21/21 15:03 [From Augmentin] Sulfa (Sulfonamide Allergy Mild Skin Rash Verified 07/21/21 15:03 Antibiotics) tomato [Tomato] Allergy Mild Skin Rash Verified 07/21/21 15:03 erythromycin base AdvReac Severe Verified 07/21/21 15:03 sumatriptan [From Imitrex] AdvReac Severe Visual Verified 07/21/21 15:03 Disturbances,burning sensation through out body General Stated Complaint: Chest Pain HARRIET: 3 Review of Systems All systems reviewed & are unremarkable except as noted in HPI and below Constitutional Constitutional: Denies fever(s) Cardiovascular Cardiovascular: Denies chest pain Respiratory Respiratory: Denies as per HPI Gastrointestinal Gastrointestinal: Reports abdominal pain Musculoskeletal Musculoskeletal: Reports as per HPI PFSH All Active Problems Vertigo (Acute) Hypomagnesemia (Acute) Abdominal pain (Acute) Low back pain (Acute) Sensorineural hearing loss (SNHL) of right ear with unrestricted hearing of left ear (Acute) Fracture of radial neck, right, closed (Acute 06/09/19) Port-A-Cath in place (Acute) Sacroiliac joint dysfunction (Acute) Trochanteric bursitis of left hip (Acute) Corticosteroid injection: 08/07/18 Left ankle sprain (Acute) Tubular adenoma of colon (Acute 06/15/17) Tendinitis of left rotator cuff (Acute 06/30/16) Subacromial injection: 04/26/18; 04/06/17 Injection under fluoroscopy: 08/10/18 Otalgia (Acute 05/03/13) Neck pain (Acute 05/24/13) Chronic otitis media with effusion (Acute 04/25/14) Biceps tendinitis of left upper extremity (Acute 10/13/16) Adhesive capsulitis of left shoulder (Acute 08/25/16) CRPS (complex regional pain syndrome) (Chronic) Neuralgia (Chronic) Cholecystitis (Acute) Prediabetes (Chronic) Hypertension (Chronic) GERD (gastroesophageal reflux disease) (Chronic) Migraine (Chronic) Asthma (Chronic) Back pain (Chronic) H/O surgical procedure (Chronic) a. hysterectomy b. orthopedic surgery Medical History (Updated 07/21/21 @ 17:24 by Oral Bucio MD) Allergic rhinitis Asthma Constipation DM (diabetes mellitus) Eczema Fatty infiltration of liver GERD (gastroesophageal reflux disease) Hand pain History of depression History of neck pain HTN (hypertension) Incontinence Insomnia Leg cramps Migraine Obesity Otalgia Ovarian cyst Preventative health care Screening breast examination Tendinitis Trigeminal neuralgia Surgical History Colonoscopy - MAC (06/15/17) H/O shoulder surgery H/O tooth extraction History of appendectomy History of cholecystectomy History of ear surgery History of eye surgery History of hysterectomy History of knee surgery Mediport placement (05/02/15) Family History Mother Hx of migraines Social History Smoking/Tobacco Use Status: Former Tobacco Use Quit Date: 06/13/10 Smoking risk assessment performed?: Yes Alcohol Intake: current Alcohol Intake frequency: holidays/special occasions only Drug use: Never Substance use type: does not use Current gender identity: female Do you feel safe at home: Yes Do you feel safe in your relationship?: Yes Exam Const General: cooperative and no acute distress HENMT Mouth: moist mucous membranes Eyes Conjunctivae: normal conjunctivae Sclera: normal sclerae Neck Neck: trachea midline and supple Resp Auscultation: clear to auscultation bilaterally, no rales, no rhonchi and no wheezes Cardio Rate: regular rate and not tachycardic Rhythm: regular rhythm GI Palpation: soft, not firm, no guarding, no masses, not rigid and tender in the epigastrum; with no rebound tenderness Auscultation: normal bowel sounds Back/Spine/Pelvis Cervical Spine: cervical ROM normal and No cervical spinal tenderness Thoracic/Lumbar Spine: paraspinal tenderness (left) Skin General skin exam: no rashes or lesions noted Neuro General: patient alert, patient awake, patient oriented x3 and tone normal Motor: strength 5/5 throughout (bilateral LEs) Sensory Exam: no sensory deficits noted (bilateral LEs) Extrem General: no edema Psych Appearance: grossly normal Mental Status: mental status grossly normal Speech and Movement: speech and movement normal Course Vital Signs Vital signs: Vital Signs Pulse 98 H 07/21/21 14:59 Respiratory Rate 14 07/21/21 14:59 Blood Pressure 158/82 H 07/21/21 14:59 Pulse Oximetry 97 07/21/21 14:59 Pulse 91 H 07/21/21 15:07 Respiratory Rate 14 07/21/21 14:59 Respiratory Effort Non-Labored 07/21/21 15:09 Respiratory Depth Normal 07/21/21 15:09 Respiratory Pattern Normal 07/21/21 15:09 Blood Pressure 129/81 07/21/21 15:07 Blood Pressure Mean 91 07/21/21 15:07 Blood Pressure Position Sitting 07/21/21 14:59 Pulse Oximetry 96 07/21/21 15:30 Oxygen Delivery Method Room Air 07/21/21 14:59 Oxygen Flow Rate 0 07/21/21 14:59 Pain Level 10 07/21/21 16:53 Lab/Test Results Lab/Test Results: Laboratory Tests Range/Units 07/21/21 07/21/21 07/21/21 16:00 16:00 16:00 WBC (4.4-10.8) 10^3/uL 7.95 RBC (3.93-5.22) 10^6/uL 3.55 L Hgb (11.2-15.7) g/dL 11.4 Hct (36.0-46.0) % 34.9 L MCV (80-95) fL 98.3 H MCH (27.0-33.0) pg 32.1 MCHC (32.0-36.0) % 32.7 RDW (11.7-14.6) % 15.9 H Plt Count (130-400) 10^3/uL 196 MPV (8.0-11.0) fL 9.8 Immature Gran % 0.3 Neutrophils % 64.1 Lymphocytes % 27.0 Monocytes % 5.8 Eosinophils % 2.3 Basophils % 0.5 Nucleated RBC % % 0 Absolute Neutrophils (1.2-6.7) 10^3/uL 5.10 Absolute Lymphocytes (1.2-3.4) 10^3/uL 2.15 Absolute Monocytes (0.1-0.8) 10^3/uL 0.46 Absolute Eosinophils (0.0-0.7) 10^3/uL 0.18 Absolute Basophils (0.0-0.2) 10^3/uL 0.04 Sodium (136-145) mmol/L 141 Potassium (3.5-5.1) mmol/L 4.0 Chloride (98-107) mmol/L 106 Carbon Dioxide (21.0-32.0) mmol/L 23.3 Anion Gap (3-11) mmol/L 11.7 H BUN (7-18) mg/dL 16 Creatinine (0.55-1.02) mg/dL 1.1 H Estimated GFR/1.73 m2 (mL/min/1.73m2) 51.57 Glucose (74-106) mg/dL 150 H Calcium (8.5-10.1) mg/dL 9.0 Total Bilirubin (0.2-1.0) mg/dL 0.4 AST (15-37) U/L 7 L ALT (14-59) U/L 23 Alkaline Phosphatase (46-116) U/L 70 Troponin I (<or=60) ng/L < 50 Total Protein (6.4-8.2) g/dL 6.7 Albumin (3.4-5.0) g/dL 3.4 Lipase (73-393) U/L 152 PAWSS Have you Been Recently Intoxicated or Drunk Within the Last 30 days?: No Have you Ever Experienced Previous Episodes of Alcohol Withdrawal?: No Have you ever Experienced Withdrawal Seizures?: No Have you ever Experienced Delirium Tremens(DT)s?: No Have you ever undergone Alcohol Rehabilitation Treatment (i.e, inpt ot outpatient treatment programs)?: No Have you ever Experienced Blackouts?: No Have you ever Combined Alcohol with other Downers within the last 90 days?: No Have you ever Combined Alcohol with any other Substance of Abuse during the last 90 days?: No Positive Blood Alcohol level on Presentation? [PCS.BAL]: No Evidence of Increased Autonomic Activity (i.e. HR>120, tremor, sweating, agitation, nausea)?: No Result: 0
[2021-07-21] MEDS: Omnipaque 350 MG/ML 50 ML BTL IV (17:27)
[2021-07-21] MEDS: Lidocaine 5% Patch 1 PATCH TP (17:29)
[2021-07-21] MEDS: Famotidine 20 MG/2 ML VIAL IV (17:54)
[2021-07-21 18:47] VITALS: BP 153/80; PULSE 78; RESP 14; TEMP 36; O2SAT 96
[2021-07-21 19:03] VITALS: BP 153/80; PULSE 78; RESP 14; TEMP 36; O2SAT 96
--- NOTE | 2021-07-21 19:37 | NUR.NOTE ---
Referral faxed to PCP Dr Rodriguez to f/u in a week or so for abd. pain.Nursing Note:
== END 2021-07-21 19:07 | disposition home or self-care (01) ==
PROVIDERS: Emergency Provider Student in an Organized Health Care Education/Training Program; PCP Family Medicine
DX: R10.9 Unspecified abdominal pain (principal); R07.9 Chest pain, unspecified; M54.50 Low back pain, unspecified; R11.0 Nausea; W01.0XXA Fall on same level from slipping, tripping and stumbling without subsequent striking against object, initial encounter
CPT/HCPCS: 36415; 71275; 74177; 80053; 83690; 93005; 96374; 96375; 99285; 84484; 85025; 93010; 99284; J2405; J3490; Q9967

== ENCOUNTER 2021-07-24 13:40 | Outpatient (REF) | payer MEDICARE, OTHER, SELFPAY ==
[2021-07-26 17:09] LABS: HSV 1 DNA Result Indeterminate (Negative); HSV 2 DNA Result Indeterminate (Negative); Varicella Zoster DNA Result Negative (Negative)
== END 2021-07-24 13:41 | disposition home or self-care (01) ==
LOC: NCHCN 13:40
PROVIDERS: PCP Family Medicine; Visit Provider Family Medicine
DX: R21 Rash and other nonspecific skin eruption (principal); B02.9 Zoster without complications
CPT/HCPCS: 87529; 87798

== ENCOUNTER 2021-09-10 02:31 | Outpatient (CLI) | payer MEDICARE, OTHER, SELFPAY ==
--- NOTE | 2021-09-10 11:48 | DI.MAMMO_ITS ---
Exam(s) MAMMO SCREENING EXAM: MAMMO SCREENING CLINICAL HISTORY: SCREENING FOR BREAST CANCER Z12.31 TECHNIQUE: Mammograms were interpreted according to the usual protocol including computer analysis w [employer] CAD system, tomosynthesis and C-view imaging. COMPARISON: 2011 through 2020 FINDINGS: The breasts are composed of scattered fibroglandular densities, Breast Density category B. No suspicious masses or suspicious microcalcifications are seen. No skin thickening or abnormal axillary lymph nodes are seen. There has been no significant change from prior exams. IMPRESSION: BI-RADS Category 1, Negative mammogram Yearly screening mammography is recommended. Breast Density - Category B, scattered fibroglandular densities. A negative radiographic report should not delay biopsy if a dominant or clinically suspicious mass is present. Up to ten percent of cancers are not identified on mammography. A negative report may reinforce clinical impression. Adenosis and dense breasts may obscure an underlying neoplasm. False positive reports average 6 to 10%. Patient will receive a letter notifying them of these results.
== END 2021-09-10 02:51 ==
PROVIDERS: PCP Family Medicine; Visit Provider Family Medicine
DX: Z12.31 Encounter for screening mammogram for malignant neoplasm of breast (principal)
CPT/HCPCS: 77063; 77067

== ENCOUNTER 2021-09-14 18:42 | Outpatient (REF) | payer MEDICARE, OTHER, SELFPAY ==
[2021-09-14 17:46] LABS: COMMENT (LAB VIEW ONLY) 140.91 mg/dL; Microalb ug/mg Crea 11.2 ug/mg Cr
== END 2021-09-14 18:43 | disposition home or self-care (01) ==
LOC: NCHCN 18:42
PROVIDERS: PCP Family Medicine; Visit Provider Family Medicine
DX: E11.9 Type 2 diabetes mellitus without complications (principal); N18.30 Chronic kidney disease, stage 3 unspecified
CPT/HCPCS: 82043; 82570

== ENCOUNTER 2021-09-21 02:42 | Outpatient (CLI) | payer MEDICARE, OTHER, SELFPAY ==
[2021-09-21 15:40] LABS: Abs Immature Grans 0.03 10^3/uL (0.0-0.06); Absolute Basophil Count 0.07 10^3/uL (0.0-0.2); Absolute Eosinophil Count 0.28 10^3/uL (0.0-0.7); Absolute Monocyte Count 0.49 10^3/uL (0.1-0.8); Basophils % 0.7; HCT 35.6 % (36.0-46.0); HGB 11.4 g/dL (11.2-15.7); Immature Grans % 0.3; Lymphocytes % 22.2; MCH 30.5 pg (27.0-33.0); MCV 95.2 fL (80-95); MPV 10.5 fL (8.0-11.0); Monocytes % 5.2; Neutrophils % 68.6; Nucleated RBC 0 %; Platelet Count 261 10^3/uL (130-400); RBC 3.74 10^6/uL (3.93-5.22); RDW 13.1 % (11.7-14.6); RDW-SD 45.4 fL; WBC 9.47 10^3/uL (4.4-10.8)
[2021-09-21 17:06] LABS: ALT 21 U/L (14-59); AST 9 U/L (15-37); Albumin 3.6 g/dL (3.4-5.0); Alkaline Phosphatase 79 U/L (46-116); Anion Gap 9.8 mmol/L (3-11); BUN 17 mg/dL (7-18); Bilirubin, Total 0.3 mg/dL (0.2-1.0); C-Reactive Protein 0.56 mg/dL (0.0-0.3); CO2 25.2 mmol/L (21.0-32.0); CREATININE 1.1 mg/dL (0.55-1.02); Calcium 8.2 mg/dL (8.5-10.1); Chloride 108 mmol/L (98-107); Estimated GFR 51.57 (mL/min/1.73m2); Glucose 188 mg/dL (74-106); Potassium 4.2 mmol/L (3.5-5.1); Sodium 143 mmol/L (136-145); Total Protein 6.2 g/dL (6.4-8.2)
[2021-09-23 12:02] LABS: TB Interpretation Negative (Negative); TB1 Ag minus Nil 0.01 IU/ml; TB2 Ag minus Nil 0.01 IU/mL
[2021-09-23 22:49] LABS: Hepatitis Be Antigen Negative (Negative)
== END 2021-09-21 02:43 | disposition home or self-care (01) ==
LOC: LBO 02:42
PROVIDERS: PCP Family Medicine; Visit Provider Nurse Practitioner Family
DX: M19.90 Unspecified osteoarthritis, unspecified site (principal); Z79.899 Other long term (current) drug therapy; Z11.59 Encounter for screening for other viral diseases
CPT/HCPCS: 36415; 80053; 85025; 86140; 86480; 87350

== ENCOUNTER 2021-10-15 09:36 | Emergency (ER) | payer MEDICARE, OTHER, SELFPAY ==
[2021-10-15 10:01] VITALS: BP 138/75; PULSE 78; RESP 16; TEMP 37.2; O2SAT 98
--- NOTE | 2021-10-15 10:30 | ED.GENADUL_ITS ---
Discharge Plan Disposition Patient Disposition: HOME Condition: Stable Discharge Details Clinical Impression: Contusion of back, Right wrist sprain, Contusion of right elbow, Rib pain on right side Primary Care Provider: Katarina Rodriguez ED Provider: Ana Layne Home Meds and New Rx's Prescriptions: Continued ketamine thom 10 mg PO QID PRN0RF Victoza 3-Norbert 0.6 mg/0.1 mL (18 mg/3 mL) pen injector 1.8 mg subcut DAILY 0RF pantoprazole [Protonix] 20 mg tablet,delayed release (DR/EC) 40 mg PO DAILY 0RF naratriptan [Amerge] 2.5 mg tablet 2.5 mg PO ONCE 0RF losartan 100 mg tablet 100 mg PO DAILY 0RF furosemide [Lasix] 20 mg tablet 20 mg PO DAILY PRN0RF zolmitriptan [Zomig] 5 mg tablet 5 mg PO ONCE PRN0RF Label Comments: may repeat after two hours once for migraine pregabalin [Lyrica] 50 mg capsule 100 mg PO TID 0RF albuterol sulfate [ProAir HFA] 90 mcg/actuation HFA aerosol inhaler 2 puff IH Q6H PRN0RF ondansetron 4 MG tablet,disintegrating 4 mg PO TID PRN PRN0RF bisacodyl [Dulcolax (bisacodyl)] 5 MG tablet,delayed release (DR/EC) 5 mg PO BID PRNQty: 10 0RF ascorbic acid (vitamin C) 1,000 MG tablet 1 tab PO DAILY 0RF cholecalciferol (vitamin D3) 1,000 UNITS tablet 1 tab PO DAILY 0RF baclofen 10 MG tablet 20 mg PO TID 0RF polyethylene glycol 3350 17 GM powder in packet 2 pkt PO PRN PRN0RF budesonide-formoterol [Symbicort] 10.2 GM HFA aerosol inhaler 2 puff Inhalation DAILY PRN PRN0RF clonidine HCl [Catapres] 0.1 MG tablet 0.1 mg PO DIRECTED PRNQty: 0 0RF Label Comments: 05/27/16 per pt takes prior to infusions.jw acetaminophen [Acetaminophen Extra Strength] 500 MG tablet 1,000 mg PO TID PRNQty: 180 0RF prochlorperazine maleate [Compazine] 10 mg tablet 10 mg PO TID PRN (Reason: nausea and vomiting) Qty: 7 0RF amlodipine 2.5 mg tablet 2.5 mg PO DAILY 0RF Label Comments: TAKE ONE TABLET BY MOUTH EVERY DAY lamotrigine 25 mg tablet 50 mg PO .QHS 0RF Label Comments: TAKE 1 TABLET BY MOUTH AT BEDTIME FOR 2 WEEKS , 1 TABLET TWICE A DAY FOR 2 WEEKS, 1 TABLET IN MORNING AND 2 TABLETS IN EVENING FOR 2 WEEKS T fluoxetine 20 mg capsule 20 mg PO DAILY 0RF Label Comments: TAKE ONE CAPSULE BY MOUTH EVERY DAY metformin 500 MG tablet extended release 24 hr 1,500 mg PO DAILY 0RF atorvastatin 40 mg tablet 40 mg PO HS 0RF Label Comments: TAKE ONE TABLET BY MOUTH EVERY EVENING hydroxychloroquine 200 mg tablet 400 mg PO DAILY 0RF Label Comments: TAKE TWO TABLETS BY MOUTH EVERY DAY scopolamine base 1 mg over 3 days patch 3 day 1 mg transdermal DAILY 0RF Emgality Syringe 120 mg/mL Syringe 300 mg SUBCUT QMONTH 0RF folic acid 1 mg Tablet 1 mg PO DAILY 0RF methotrexate sodium 15 mg Tablet 20 mg PO QWEEK 0RF ondansetron 4 mg tablet,disintegrating 4 mg PO Q8H PRNQty: 10 0RF Discharge Instructions Instructions: Contusion in Adults (ED), Wrist Sprain (ED), Chest Wall Pain (ED) Additional Instructions: Your imaging today is reassuring and shows no evidence of acute concerning or significant findings. It is recommended that you apply ice to the affected areas several times daily for 20 minutes at a time. You were tramadol to take at home as needed for pain not relieved with Tylenol. Follow-up with your primary care doctor in 1 week. Return to the emergency department with any worsening or new concerning symptoms. Discharge Data Discharge Date/Time-TO BE ENTERED AT DEPARTURE: 10/15/21 12:26 Discharge Physician: Ana Layne Medical Decision Making 56-year-old female with a history of obesity, asthma, depression, GERD, diabetes, hypertension, hyperlipidemia, trigeminal neuralgia who presents with mid back, right inferior chest, right elbow and right wrist pain after mechanical fall last night. Vitals within normal limits. Patient appears comfortable and nontoxic. There is no evidence of head injury. She has no midline cervical or lumbar spinal tenderness. She is tender to her midline lower T-spine and bilateral inferior lower posterior ribs and right anterior inferior rib. She has pain with range of motion in her right elbow right wrist and no orthopedic deformities. Remainder of her chest nontender and abdomen soft and nontender. Neurovascularly intact without focal deficits. Will give a dose of tramadol and refer for CT chest and T-spine imaging to rule out rib fracture or thoracic spine fracture. Will obtain a right wrist and elbow x-ray to rule out fracture. Imaging reviewed and all negative for acute findings. Patient reassessed and her pain improved. Will send home with 2 tabs of tramadol to take for breakthrough pain. Advised to follow up with the primary care doctor for re- evaluation. Usual and customary return precautions given prior to discharge. Medical Records Medical records reviewed: Yes I reviewed the patient's medical records. Imaging Data Radiologic Study: Radiologist's impression: CT CHEST WO CLINICAL HISTORY:? s/p fall onto back, rib pain, r/o fx mid post ribs TECHNIQUE:? CT examination of the chest was performed utilizing low-dose lung cancer screening protocol.? Additional multiplanar bony reconstructions were obtained to evaluate thoracic spine. COMPARISON:? CT CHEST FOR PULMONARY EMBOLUS from 05/01/[address] THORACIC SPINE RECONS from 10/15/2021 FINDINGS: ?Images obtained through the upper abdomen show unremarkable appearance of visualized portions of the liver and spleen. There is no mediastinal or hilar adenopathy.? Mediastinal vascular structures appear intact by noncontrast criteria. Tracheobronchial tree appears intact. No pleural effusion or pleural-based mass. The lungs are clear with no significant intrapulmonary nodule or consolidation identified. There are moderate hypertrophic endplate and facet joint changes of the thoracic spine with no evidence of acute spine or rib fracture. IMPRESSION: Negative noncontrast chest CT. No evident acute bony injury. XR WRIST RT COMPLETE CLINICAL HISTORY:? fall onto R wrist, r/o fx TECHNIQUE:? COMPARISON:? No exams were available for comparison FINDINGS: Three views were obtained.? There are mild degenerative changes of the carpus.? There is no evidence of acute fracture or dislocation. XR ELBOW RT COMPLETE CLINICAL HISTORY:? fall onto R elbow, r/o fx TECHNIQUE:? COMPARISON:? CR XR ELBOW RT COMPLETE from 08/17/2019 FINDINGS: Three views were obtained.? There is no evidence of an elbow joint effusion or hemarthrosis.? There is a prominent enthesophyte of the olecranon.? There are mild marginal osteophytes of the joints of the elbow.? Cartilaginous joint spaces appear well maintained.? No other significant bony abnormality seen, no evidence of fracture. IMPRESSION: DJD, no evidence of fracture. HPI General Mode of arrival: ambulatory . Date/Time Provider Initiated Documentation: 10/15/21 10:13 . Limitations to Documentation: no limitations . Information obtained by: patient . HPI Narrative: Patient is a 56-year-old female with a history of obesity, diabetes, hypertension, hyperlipidemia, GERD, asthma, trigeminal neuralgia who presents with mid back pain, right elbow and right wrist pain after fall last night. Patient states she chronically has balance issues and states she was stepping backward and turning around yesterday when she lost her balance and struck her mid back on a wooden log. She states she also braced her fall striking her right elbow and wrist on a wooden shoe rack. She denies any head injury, headache, LOC, vomiting or neck pain. She admits to some stiffness in her shoulders with range of motion but no significant pain. She admits to some pain under her right breast within her ribs but denies any abdominal pain. She denies any pain in her lower extremities. Related Data Home Medications Medication Instructions Recorded Confirmed ondansetron 4 mg disintegrating 4 mg PO TID PRN PRN 07/07/13 10/15/21 tablet bisacodyl 5 mg tablet,delayed 5 mg PO BID PRN #10 tablet. 07/26/13 10/15/21 release (Dulcolax (bisacodyl)) ascorbic acid (vitamin C) 1,000 mg 1 tab PO DAILY 07/18/14 10/15/21 tablet cholecalciferol (vitamin D3) 25 1 tab PO DAILY 07/18/14 10/15/21 mcg (1,000 unit) tablet baclofen 10 mg tablet 20 mg PO TID 08/26/14 10/15/21 budesonide-formoterol HFA 160 2 puff INHALATION DAILY PRN PRN 08/04/15 10/15/21 mcg-4.5 mcg/actuation aerosol inhaler (Symbicort) polyethylene glycol 3350 17 gram 2 pkt PO PRN PRN 08/04/15 10/15/21 oral powder packet Ketamine Thom 10 mg PO QID PRN 03/10/16 10/15/21 metformin 500 mg tablet,extended 1,500 mg PO DAILY 09/21/16 10/15/21 release 24 hr clonidine HCl 0.1 mg tablet 0.1 mg PO DIRECTED PRN #0 10/21/16 10/15/21 (Catapres) acetaminophen 500 mg tablet 1,000 mg PO TID PRN #180 tab 02/22/17 10/15/21 (Acetaminophen Extra Strength) albuterol sulfate 90 mcg/actuation 2 puff IH Q6H PRN 10/04/19 10/15/21 aerosol inhaler (ProAir HFA) furosemide 20 mg tablet (Lasix) 20 mg PO DAILY PRN 10/04/19 10/15/21 liraglutide 0.6 mg/0.1 mL (18 mg/3 1.8 mg SUBCUT DAILY ml 10/04/19 10/15/21 mL) subcutaneous pen injector (Victoza 3-Norbert) losartan 100 mg tablet 100 mg PO DAILY 10/04/19 10/15/21 naratriptan 2.5 mg tablet (Amerge) 2.5 mg PO ONCE 10/04/19 10/15/21 pantoprazole 20 mg tablet,delayed 40 mg PO DAILY tab 10/04/19 10/15/21 release (Protonix) pregabalin 50 mg capsule (Lyrica) 100 mg PO TID cap 10/04/19 10/15/21 zolmitriptan 5 mg tablet (Zomig) 5 mg PO ONCE PRN 10/04/19 10/15/21 atorvastatin 40 mg tablet 40 mg PO HS 05/02/20 10/15/21 hydroxychloroquine 200 mg tablet 400 mg PO DAILY 05/02/20 10/15/21 scopolamine base 1 mg over 3 days 1 mg TRANSDERMAL DAILY 05/02/20 10/15/21 transdermal patch prochlorperazine maleate 10 mg 10 mg PO TID PRN #7 tab 08/07/20 10/15/21 tablet (Compazine) folic acid 1 mg tablet 1 mg PO DAILY 06/03/21 10/15/21 galcanezumab-gnlm 120 mg/mL 300 mg SUBCUT QMONTH 06/03/21 10/15/21 subcutaneous syringe (Emgality) methotrexate sodium 15 mg tablet 20 mg PO QWEEK 06/03/21 10/15/21 ondansetron 4 mg disintegrating 4 mg PO Q8H PRN #10 tab 07/21/21 10/15/21 tablet amlodipine 2.5 mg tablet 2.5 mg PO DAILY 10/15/21 10/15/21 fluoxetine 20 mg capsule 20 mg PO DAILY 10/15/21 10/15/21 lamotrigine 25 mg tablet 50 mg PO .QHS 10/15/21 10/15/21 Previous Rx's Medication Instructions Recorded bisacodyl 5 mg tablet,delayed 5 mg PO BID PRN #10 tablet. 07/26/13 release (Dulcolax (bisacodyl)) clonidine HCl 0.1 mg tablet 0.1 mg PO DIRECTED PRN #0 10/21/16 (Catapres) acetaminophen 500 mg tablet 1,000 mg PO TID PRN #180 tab 02/22/17 (Acetaminophen Extra Strength) prochlorperazine maleate 10 mg 10 mg PO TID PRN #7 tab 08/07/20 tablet (Compazine) ondansetron 4 mg disintegrating 4 mg PO Q8H PRN #10 tab 07/21/21 tablet Allergies Allergy/AdvReac Type Severity Reaction Status Date / Time NSAIDS (Non-Steroidal Allergy Severe Other (See Verified 10/15/21 10:08 Anti-Inflamma Comment) phenytoin sodium Allergy Severe Hives Verified 10/15/21 10:08 [From Dilantin] phenytoin sodium extended Allergy Severe Hives Verified 10/15/21 10:08 [From Dilantin] amoxicillin [Amoxicillin] Allergy Intermediate Hives Verified 10/15/21 10:08 lisinopril Allergy Intermediate Verified 10/15/21 10:08 oxycodone Allergy Intermediate Verified 10/15/21 10:08 potassium clavulanate Allergy Intermediate Hives Verified 10/15/21 10:08 [From Augmentin] Sulfa (Sulfonamide Allergy Mild Skin Rash Verified 10/15/21 10:08 Antibiotics) tomato [Tomato] Allergy Mild Skin Rash Verified 10/15/21 10:08 erythromycin base AdvReac Severe Verified 10/15/21 10:08 sumatriptan [From Imitrex] AdvReac Severe Visual Verified 10/15/21 10:08 Disturbances,burning sensation through out body General Stated Complaint: Trauma HARRIET: 3 Review of Systems All systems reviewed & are unremarkable except as noted in HPI and below Constitutional Constitutional: Denies chills, Denies excessive sweating, Denies fatigue, Denies fever(s), Denies weakness and Denies weight loss Eyes Eyes: Reports system reviewed and no additional complaints, except as documented and Denies blurry vision ENT Ears, Nose, Mouth, and Throat: Denies vertigo, Denies dizziness, Denies otalgia, Denies nasal congestion, Denies sore throat and Denies throat swelling Cardiovascular Cardiovascular: Denies chest pain, Denies syncope, Denies rapid heart rate and Denies dyspnea Respiratory Respiratory: Denies chest congestion, Denies cough, Denies pain on inspiration a nd Denies dyspnea Gastrointestinal Gastrointestinal: Denies abdominal pain, Denies diarrhea and Denies vomiting Genitourinary Genitourinary: Denies hematuria, Denies dysuria and Denies flank pain Musculoskeletal Musculoskeletal: Reports back pain and Denies joint swelling Comments: R elbow and wrist pain Integumentary/Breasts Skin/Breast: Denies lesions and Denies rash Neurologic Neurologic: Denies behavioral changes, Denies confusion, Denies vertigo, Denies dizziness, Denies syncope, Denies localized weakness and Denies weakness Psychiatric Psychiatric: Denies behavioral changes, Denies confusion and Denies depression Endocrine Endocrine: Denies excessive sweating and Denies fatigue Hematologic/Lymphatic Hematologic/Lymphatic: Denies easy bruising and Denies lymphadenopathy Allergic/Immunologic Allergic/Immunologic: Denies throat swelling PFSH All Active Problems Vertigo (Acute) Hypomagnesemia (Acute) Contusion of back (Acute) Right wrist sprain (Acute) Contusion of right elbow (Acute) Rib pain on right side (Acute) Sensorineural hearing loss (SNHL) of right ear with unrestricted hearing of left ear (Acute) Fracture of radial neck, right, closed (Acute 06/09/19) Port-A-Cath in place (Acute) Sacroiliac joint dysfunction (Acute) Trochanteric bursitis of left hip (Acute) Corticosteroid injection: 08/07/18 Left ankle sprain (Acute) Tubular adenoma of colon (Acute 06/15/17) Tendinitis of left rotator cuff (Acute 06/30/16) Subacromial injection: 04/26/18; 04/06/17 Injection under fluoroscopy: 08/10/18 Otalgia (Acute 05/03/13) Neck pain (Acute 05/24/13) Chronic otitis media with effusion (Acute 04/25/14) Biceps tendinitis of left upper extremity (Acute 10/13/16) Adhesive capsulitis of left shoulder (Acute 08/25/16) CRPS (complex regional pain syndrome) (Chronic) Neuralgia (Chronic) Cholecystitis (Acute) Prediabetes (Chronic) Hypertension (Chronic) GERD (gastroesophageal reflux disease) (Chronic) Migraine (Chronic) Asthma (Chronic) Back pain (Chronic) H/O surgical procedure (Chronic) a. hysterectomy b. orthopedic surgery Medical History (Updated 10/15/21 @ 12:16 by Ana Layne DO) Allergic rhinitis Asthma Constipation DM (diabetes mellitus) Eczema Fatty infiltration of liver GERD (gastroesophageal reflux disease) Hand pain History of depression History of neck pain HTN (hypertension) Incontinence Insomnia Leg cramps Migraine Obesity Otalgia Ovarian cyst Preventative health care Screening breast examination Tendinitis Trigeminal neuralgia Surgical History Colonoscopy - MAC (06/15/17) H/O shoulder surgery H/O tooth extraction History of appendectomy History of cholecystectomy History of ear surgery History of eye surgery History of hysterectomy History of knee surgery Mediport placement (05/02/15) Family History Mother Hx of migraines Social History Smoking/Tobacco Use Status: Former Tobacco Use Quit Date: 06/13/10 Smoking risk assessment performed?: Yes Alcohol Intake: current Alcohol Intake frequency: holidays/special occasions only Drug use: Never Substance use type: does not use Current gender identity: female Do you feel safe at home: Yes Do you feel safe in your relationship?: Yes Exam Const General: cooperative, healthy appearing and no acute distress Orientation: alert, awake and oriented x3 HENMT Head: normal to inspection Ears: hearing grossly normal bilaterally, external ears normal and TM's normal bilaterally General nose exam: external nose normal Face and sinus: normal facial exam Mouth: oral mucosae normal Eyes General: appearance normal, both eyes and all related structures Eyelids: eyelids normal Pupils: PERRL EOM: EOM intact bilaterally Neck Neck: normal visual inspection, no meningeal signs, trachea midline, supple, no anterior neck swelling and No submandibular swelling Lymphatic: no lymphadenopathy noted Chest Chest: normal inspection of the chest Chest/axillae images: 1. Tenderness to palpation anterior inferior ribs just below right breast. The re is no erythema, edema, ecchymosis, step-off or open wounds. Resp Effort & Inspection: normal respiratory effort and able to speak in complete sentences Auscultation: clear to auscultation bilaterally Cardio Rate: regular rate Rhythm: regular rhythm GI Inspection: normal to inspection and no abdominal wall ecchymosis Palpation: soft, not firm, no guarding, no hepatosplenomegaly, no masses and nontender Auscultation: hypoactive bowel sounds Back/Spine/Pelvis Thoracic/Lumbar Spine: thoracic and lumbar spine normal to inspection Back/spine/pelvis image: 1. Tenderness to palpation of midline lower T-spine and bilateral inferior ribs. There is no evidence of erythema, edema, ecchymosis or step-off. Skin General skin exam: no rashes or lesions noted Neuro General: patient alert, patient awake, moves all extremities, no meningeal signs and no focal motor deficits Cognition: normal cognition Speech: speech normal Gait: normal gait Motor: muscle tone normal throughout Sensory Exam: no sensory deficits noted Extrem General: normal to inspection, full ROM and capillary refill normal Other: There is tenderness palpation overlying the right elbow olecranon with pain with supination and pronation, flexion and extension with a bony prominence of the o lecranon without erythema, bogginess, ecchymosis. There is pain in right wrist with flexion and extension. There is some tenderness overlying dorsal medial wrist. There is no obvious deformity noted. Mild stiffness in shoulders with range of motion but no significant pain or deformity. Remainder of left upper extremity and bilateral lower extremities with normal range of motion without pain. Psych Appearance: grossly normal Mental Status: mental status grossly normal Speech and Movement: speech and movement normal Affect: normal affect Thought Process: normal Course Vital Signs Vital signs: Vital Signs Temperature 99 F 10/15/21 10:01 Pulse 78 10/15/21 10:01 Respiratory Rate 16 10/15/21 10:01 Blood Pressure 138/75 10/15/21 10:01 Pulse Oximetry 98 10/15/21 10:01 Temperature 99 F 10/15/21 10:01 Temperature Source Oral 10/15/21 10:01 Pulse 78 10/15/21 10:01 Respiratory Rate 16 10/15/21 10:01 Respiratory Effort 10/15/21 10:01 Blood Pressure 138/75 10/15/21 10:01 Blood Pressure Position Sitting 10/15/21 10:01 Pulse Oximetry 98 10/15/21 10:01 Oxygen Delivery Method Room Air 10/15/21 10:01 Oxygen Flow Rate 0 10/15/21 10:01 Pain Level 8 10/15/21 10:01
--- NOTE | 2021-10-15 10:30 | DI.RAD_ITS ---
Exam(s) XR ELBOW RT COMPLETE EXAM: XR ELBOW RT COMPLETE CLINICAL HISTORY: fall onto R elbow, r/o fx TECHNIQUE: COMPARISON: CR XR ELBOW RT COMPLETE from 08/17/2019 FINDINGS: Three views were obtained. There is no evidence of an elbow joint effusion or hemarthrosis. There i s a prominent enthesophyte of the olecranon. There are mild marginal osteophytes of the joints of th e elbow. Cartilaginous joint spaces appear well maintained. No other significant bony abnormality s een, no evidence of fracture. IMPRESSION: DJD, no evidence of fracture. RADIATION DOSE DELIVERED: Total DLP
--- NOTE | 2021-10-15 10:30 | DI.CT_ITS ---
Exam(s) CT THORACIC SPINE RECONS CT CHEST WO EXAM: CT CHEST WO CLINICAL HISTORY: s/p fall onto back, rib pain, r/o fx mid post ribs TECHNIQUE: CT examination of the chest was performed utilizing low-dose lung cancer screening protoc ol. Additional multiplanar bony reconstructions were obtained to evaluate thoracic spine. COMPARISON: CT CHEST FOR PULMONARY EMBOLUS from 05/01/[address] THORACIC SPINE RECONS from 10/15/2021 FINDINGS: Images obtained through the upper abdomen show unremarkable appearance of visualized portions of the liver and spleen. There is no mediastinal or hilar adenopathy. Mediastinal vascular structures appear intact by noncon trast criteria. Tracheobronchial tree appears intact. No pleural effusion or pleural-based mass. The lungs are clear with no significant intrapulmonary nodule or consolidation identified. There are moderate hypertrophic endplate and facet joint changes of the thoracic spine with no eviden ce of acute spine or rib fracture. IMPRESSION: Negative noncontrast chest CT. No evident acute bony injury. RADIATION DOSE DELIVERED: Total DLP CTDIvol Total DLP !Error CTDIvol RADIATION OPTIMIZATION: All CT scans at this facility use at least one of these dose optimization te chniques: automated exposure control; mA and/or kV adjustment per patient size (includes targeted exa ms where dose is matched to clinical indication); or iterative reconstruction.
--- NOTE | 2021-10-15 10:30 | DI.RAD_ITS ---
Exam(s) XR WRIST RT COMPLETE EXAM: XR WRIST RT COMPLETE CLINICAL HISTORY: fall onto R wrist, r/o fx TECHNIQUE: COMPARISON: No exams were available for comparison FINDINGS: Three views were obtained. There are mild degenerative changes of the carpus. There is no evidence of acute fracture or dislocation. IMPRESSION: RADIATION DOSE DELIVERED: Total DLP
[2021-10-15] MEDS: traMADol 50 MG TAB PO (11:20)
[2021-10-15 11:30] VITALS: BP 107/72; PULSE 72; RESP 16; TEMP 37.1; O2SAT 95
[2021-10-15 12:26] VITALS: BP 107/72; PULSE 72; RESP 16; TEMP 37.1; O2SAT 95
== END 2021-10-15 12:26 | disposition home or self-care (01) ==
PROVIDERS: Emergency Provider Physician Assistant; PCP Family Medicine
DX: S20.224A Contusion of middle back wall of thorax, initial encounter (principal); S50.01XA Contusion of right elbow, initial encounter; S63.591A Other specified sprain of right wrist, initial encounter; R07.89 Other chest pain; W01.198A Fall on same level from slipping, tripping and stumbling with subsequent striking against other object, initial encounter
CPT/HCPCS: 71250; 99284; 73080; 73110; 99283

== ENCOUNTER 2021-10-28 16:28 | Outpatient (REF) | payer MEDICARE, OTHER, SELFPAY ==
[2021-10-30 14:26] LABS: HSV 1 DNA Result Negative (Negative); HSV 2 DNA Result Positive (Negative); Varicella Zoster DNA Result Negative ((See Note))
== END 2021-10-28 16:29 | disposition home or self-care (01) ==
LOC: LBN 16:28
PROVIDERS: PCP Family Medicine; Visit Provider Family Medicine
DX: B02.9 Zoster without complications (principal)
CPT/HCPCS: 87529; 87798

== ENCOUNTER 2021-11-17 02:04 | Outpatient (CLI) | payer MEDICARE, OTHER, SELFPAY ==
[2021-11-17 09:12] LABS: Abs Immature Grans 0.01 10^3/uL (0.0-0.06); Absolute Basophil Count 0.07 10^3/uL (0.0-0.2); Absolute Eosinophil Count 0.24 10^3/uL (0.0-0.7); Absolute Lymphocyte Count 1.97 10^3/uL (1.2-3.4); Absolute Monocyte Count 0.44 10^3/uL (0.1-0.8); Absolute Neutrophil Count 3.53 10^3/uL (1.2-6.7); Basophils % 1.1; Eosinophils % 3.8; HCT 36.4 % (36.0-46.0); HGB 11.8 g/dL (11.2-15.7); Immature Grans % 0.2; Lymphocytes % 31.5; MCH 29.5 pg (27.0-33.0); MCHC 32.4 % (32.0-36.0); MCV 91 fL (80-95); MPV 10.2 fL (8.0-11.0); Neutrophils % 56.4; Platelet Count 238 10^3/uL (130-400); RDW 13.7 % (11.7-14.6); RDW-SD 45.5 fL; WBC 6.26 10^3/uL (4.4-10.8)
[2021-11-17 09:35] LABS: ALT 34 U/L (14-59); AST 14 U/L (15-37); Albumin 3.7 g/dL (3.4-5.0); Alkaline Phosphatase 78 U/L (46-116); Anion Gap 5.4 mmol/L (3-11); BUN 17 mg/dL (7-18); Bilirubin, Total 0.3 mg/dL (0.2-1.0); C-Reactive Protein 0.42 mg/dL (0.0-0.3); CO2 24.6 mmol/L (21.0-32.0); CREATININE 1.2 mg/dL (0.55-1.02); Calcium 8.5 mg/dL (8.5-10.1); Chloride 104 mmol/L (98-107); Estimated GFR 46.64 (mL/min/1.73m2); Glucose 178 mg/dL (74-106); Potassium 4.3 mmol/L (3.5-5.1); Sodium 134 mmol/L (136-145); Total Protein 6.8 g/dL (6.4-8.2)
== END 2021-11-17 02:05 | disposition home or self-care (01) ==
LOC: LBO 02:04
PROVIDERS: PCP Family Medicine; Visit Provider Nurse Practitioner Family
DX: M19.90 Unspecified osteoarthritis, unspecified site (principal); Z79.899 Other long term (current) drug therapy
CPT/HCPCS: 36415; 80053; 85025; 86140

== ENCOUNTER → 2022-02-11 04:14 | Outpatient (CLI) | payer MEDICARE, OTHER, SELFPAY ==
--- NOTE | 2022-02-11 10:56 | DI.RAD_ITS ---
Exam(s) XR KNEE LT 3V AP,LAT,ZEKE EXAM: XR KNEE LT 3V AP,LAT,ZEKE CLINICAL HISTORY: LT KNEE PAIN, M25.562. TECHNIQUE: 2D digital imaging was performed. COMPARISON: No exams were available for comparison FINDINGS: 3 views No evidence of fracture although there does appear to be a small joint effusion which may signify an internal derangement. No obvious degenerative changes. No osseous lesions. Bone density normal. IMPRESSION: No significant osseous findings but there is a small joint effusion noted. This may signify an inter nal derangement. DATA REPOSITORY: RADIATION DOSE DELIVERED:
== END ==
PROVIDERS: PCP Family Medicine; Visit Provider Family Medicine
DX: M25.562 Pain in left knee (principal); M25.462 Effusion, left knee; M23.8X2 Other internal derangements of left knee
CPT/HCPCS: 73562

== ENCOUNTER 2022-02-19 01:17 | Outpatient (CLI) | payer MEDICARE, OTHER, SELFPAY ==
[2022-02-19 12:23] LABS: Abs Immature Grans 0.01 10^3/uL (0.0-0.06); Absolute Basophil Count 0.05 10^3/uL (0.0-0.2); Absolute Eosinophil Count 0.22 10^3/uL (0.0-0.7); Absolute Lymphocyte Count 2.13 10^3/uL (1.2-3.4); Absolute Monocyte Count 0.46 10^3/uL (0.1-0.8); Absolute Neutrophil Count 5.62 10^3/uL (1.2-6.7); Basophils % 0.6; Eosinophils % 2.6; HCT 38.1 % (36.0-46.0); HGB 12.5 g/dL (11.2-15.7); Immature Grans % 0.1; Lymphocytes % 25.1; MCHC 32.8 % (32.0-36.0); MCV 97 fL (80-95); MPV 10.8 fL (8.0-11.0); Monocytes % 5.4; Neutrophils % 66.2; Platelet Count 265 10^3/uL (130-400); RBC 3.91 10^6/uL (3.93-5.22); RDW 14.6 % (11.7-14.6); RDW-SD 51.9 fL; WBC 8.49 10^3/uL (4.4-10.8)
[2022-02-19 12:32] LABS: ALT 23 U/L (14-59); AST 16 U/L (15-37); Alkaline Phosphatase 89 U/L (46-116); Anion Gap 9.5 mmol/L (3-11); BUN 17 mg/dL (7-18); Bilirubin, Total 0.5 mg/dL (0.2-1.0); C-Reactive Protein 0.41 mg/dL (0.0-0.3); CO2 25.5 mmol/L (21.0-32.0); CREATININE 1.2 mg/dL (0.55-1.02); Calcium 8.5 mg/dL (8.5-10.1); Chloride 104 mmol/L (98-107); Estimated GFR 53.46 (mL/min/1.73m2); Glucose 121 mg/dL (74-106); Sodium 139 mmol/L (136-145); Total Protein 7.4 g/dL (6.4-8.2)
== END 2022-02-19 01:18 | disposition home or self-care (01) ==
LOC: LOS 01:17
PROVIDERS: PCP Family Medicine; Visit Provider Nurse Practitioner Family
DX: Z79.899 Other long term (current) drug therapy (principal); M19.90 Unspecified osteoarthritis, unspecified site
CPT/HCPCS: 36415; 80053; 85025; 86140

== ENCOUNTER 2022-03-12 16:57 | Outpatient (REF) | payer MEDICARE, OTHER, SELFPAY ==
[2022-03-12 20:51] LABS: Vitamin B12 230 pg/mL (193-986)
== END 2022-03-12 16:58 | disposition home or self-care (01) ==
LOC: NCHCN 16:57
PROVIDERS: PCP Family Medicine; Visit Provider Family Medicine
DX: E53.8 Deficiency of other specified B group vitamins (principal)
CPT/HCPCS: 82607

== ENCOUNTER 2022-03-29 03:06 | Outpatient (RCR) | payer MEDICARE, OTHER, SELFPAY | END 2022-04-12 23:59 | disposition home or self-care (01) | LOC: INF 03:06 | PROVIDERS: PCP Family Medicine; Visit Provider Nurse Practitioner Acute Care | DX: M06.9 Rheumatoid arthritis, unspecified (principal); Z29.8 Encounter for other specified prophylactic measures | CPT/HCPCS: 96372; Q0221 ==

== ENCOUNTER → 2022-04-12 09:30 | Outpatient (BNVA) | payer MEDICARE, OTHER, SELFPAY | PROVIDERS: PCP Family Medicine; Referring Provider Family Medicine; Visit Provider Student in an Organized Health Care Education/Training Program | DX: M19.021 Primary osteoarthritis, right elbow (principal); M23.92 Unspecified internal derangement of left knee | CPT/HCPCS: 20550; J1030 ==

== ENCOUNTER → 2022-05-03 01:34 | Outpatient (CLI) | payer MEDICARE, OTHER, SELFPAY ==
--- NOTE | 2022-05-03 07:15 | DI.MRI_ITS ---
Exam(s) MR LOWER JOINT LT WO EXAM: MR LOWER JOINT LT WO CLINICAL HISTORY: PAIN,internal derangement, m23.92. TECHNIQUE: Multiplanar multisequence MRI was performed. COMPARISON: CR XR KNEE LT 3V AP,LAT,ZEKE from 02/11/2022 FINDINGS: BONES: There is no fracture or contusion pattern. JOINTS: A small joint effusion is present. Articular cartilage: Patellofemoral joint: Thinning of cartilage over the patellar apex and medial p atellar facet. Medial femoral tibial joint: Mild periarticular spurring articular cartilage is unremarkable. Lateral femoral tibial joint: Mild periarticular spurring. Articular cartilage is unremarkable. TENDONS: Extensor mechanism: Enthesophyte at quadriceps insertion on patella. Medial retinaculum: Unremarkable. Lateral retinaculum: Unremarkable. Popliteus: Unremarkable. MUSCLES: Unremarkable. MENISCI: The medial meniscus is unremarkable. The lateral meniscus is unremarkable. SOFT TISSUES: Unremarkable. LIGAMENTS: Anterior Cruciate: Unremarkable. Posterior Cruciate: Unremarkable. Medial Collateral:Unremarkable. Lateral Collateral: Unremarkable. OTHER: IMPRESSION: Cartilage thinning at the patellar apex and medial patellar facet. Small joint effusion. No evidence of meniscal tear or ligament tear. DATA REPOSITORY:
== END ==
PROVIDERS: PCP Family Medicine; Visit Provider Student in an Organized Health Care Education/Training Program
DX: M23.92 Unspecified internal derangement of left knee (principal)
CPT/HCPCS: 73721

== ENCOUNTER → 2022-06-10 10:46 | Outpatient (BNVA) | payer MEDICARE, OTHER, SELFPAY | PROVIDERS: PCP Family Medicine; Referring Provider Family Medicine; Visit Provider Physical Therapy Assistant | DX: Z12.11 Encounter for screening for malignant neoplasm of colon (principal); Z86.010 Personal history of colon polyps; Z80.0 Family history of malignant neoplasm of digestive organs ==

== ENCOUNTER 2022-06-23 07:28 | Day surgery (SDC) | payer MEDICARE, OTHER, SELFPAY ==
[2022-06-23 07:33] VITALS: BP 140/82; PULSE 78; RESP 18; TEMP 36.2; O2SAT 96
[2022-06-23] MEDS: Lactated Ringers 1,000 ML 80 ML IV (08:30)
--- NOTE | 2022-06-23 08:35 | W.ANESPRE ---
General Info Date of Service Date Performed: 06/23/22 Height: 5 ft 7 in Weight: 99.5 kg Body Mass Index (BMI): 34.3 Surgical Procedure: Operation Date: 06/23/22 09:20 Proposed Procedure Side Surgeon kiana Benitez MD Meds Allergies and Home Medications Allergies Allergy/AdvReac Type Severity Reaction Status Date / Time NSAIDS (Non-Steroidal Allergy Severe Other (See Verified 06/23/22 07:47 Anti-Inflamma Comment) phenytoin sodium Allergy Severe Hives Verified 06/23/22 07:47 [From Dilantin] phenytoin sodium extended Allergy Severe Hives Verified 06/23/22 07:47 [From Dilantin] amoxicillin [Amoxicillin] Allergy Intermediate Hives Verified 06/23/22 07:47 lisinopril Allergy Intermediate Verified 06/23/22 07:47 oxycodone Allergy Intermediate Verified 06/23/22 07:47 potassium clavulanate Allergy Intermediate Hives Verified 06/23/22 07:47 [From Augmentin] Sulfa (Sulfonamide Allergy Mild Skin Rash Verified 06/23/22 07:47 Antibiotics) tomato [Tomato] Allergy Mild Skin Rash Verified 06/23/22 07:47 erythromycin base AdvReac Severe Verified 06/23/22 07:47 sumatriptan [From Imitrex] AdvReac Severe Visual Verified 06/23/22 07:47 Disturbances,burning sensation through out body Home Medication Medication Instructions Recorded ascorbic acid (vitamin C) 1,000 mg 1 tab PO DAILY 07/18/14 tablet cholecalciferol (vitamin D3) 25 1 tab PO DAILY 07/18/14 mcg (1,000 unit) tablet budesonide-formoterol HFA 160 2 puff inhalation DAILY PRN PRN 08/04/15 mcg-4.5 mcg/actuation aerosol inhaler (Symbicort) polyethylene glycol 3350 17 gram 2 pkt PO PRN PRN 08/04/15 oral powder packet acetaminophen 500 mg tablet 1,000 mg PO TID PRN #180 tabs 02/22/17 (Acetaminophen Extra Strength) albuterol sulfate 90 mcg/actuation 2 puff inhalation Q6H PRN 10/04/19 aerosol inhaler (ProAir HFA) furosemide 20 mg tablet (Lasix) 20 mg PO DAILY PRN 10/04/19 losartan 100 mg tablet 100 mg PO DAILY 10/04/19 pantoprazole 20 mg tablet,delayed 40 mg PO DAILY 10/04/19 release (Protonix) pregabalin 50 mg capsule (Lyrica) 100 mg PO TID 10/04/19 atorvastatin 40 mg tablet 40 mg PO HS 05/02/20 hydroxychloroquine 200 mg tablet 400 mg PO DAILY 05/02/20 folic acid 1 mg tablet 1 mg PO DAILY 06/03/21 galcanezumab-gnlm 120 mg/mL 300 mg subcut QMONTH 06/03/21 subcutaneous syringe (Emgality) ondansetron 4 mg disintegrating 4 mg PO Q8H PRN #10 tabs 07/21/21 tablet amlodipine 2.5 mg tablet 2.5 mg PO DAILY 10/15/21 fluoxetine 20 mg capsule 20 mg PO DAILY 10/15/21 baclofen 10 mg tablet 10 mg PO TID 02/16/22 cetirizine 10 mg tablet 10 mg PO DAILY PRN 02/16/22 lamotrigine 100 mg tablet 100 mg PO BID 02/16/22 lidocaine 5 % topical patch 1 patch topical PRN 02/16/22 methotrexate sodium 2.5 mg tablet 10 mg PO QWEEK 02/16/22 naratriptan 2.5 mg tablet (Amerge) 2.5 mg PO ONCE PRN 02/16/22 riboflavin (vitamin B2) 100 mg 100 mg PO BID 02/16/22 tablet semaglutide 1 mg/dose (4 mg/3 mL) 1 mg subcut QWEEK 02/16/22 subcutaneous pen injector (Ozempic) valacyclovir 1 gram tablet 1,000 mg PO DAILY 02/16/22 (Valtrex) vitamin B complex (B 1 tab PO DAILY 02/16/22 Complex-Vitamin B12 tablet) nystatin 100,000 unit/gram topical 1 applic topical QID 04/05/22 ointment nystatin 100,000 unit/gram topical 1 applic topical BID 04/05/22 powder triamcinolone acetonide 0.1 % 1 applic topical BID 04/05/22 topical cream metformin 500 mg tablet,extended 1,000 mg PO DAILY 04/12/22 release 24 hr bisacodyl 5 mg tablet,delayed 5 mg PO ONCE #4 tabs 06/10/22 release (Dulcolax (bisacodyl)) polyethylene glycol 3350 17 17 g PO ONCE #238 grams 06/10/22 gram/dose oral powder scopolamine base 1 mg over 3 days 1 patch transdermal Q3D PRN 06/10/22 transdermal patch adalimumab 40 mg/0.8 mL 40 mg subcut Q2W 06/15/22 subcutaneous pen kit Current Visit Medications: Current Medications Generic Name Dose Route Start Last Admin Trade Name Freq PRN Reason Stop Dose Admin Ringer's Solution 1,000 mls @ 80 mls/hr 06/23/22 06:00 IV 06/23/22 23:59 INFUSION KEVIN IV Miscellaneous Supplies 1 each 06/23/22 06:00 Iv Access IV 06/23/22 23:59 DIRECTED KEVIN Sodium Chloride 0 ml 06/23/22 06:00 Normal Saline Flush 10 Ml Syr IV 06/23/22 23:59 PRN PRN Sodium Chloride 0 ml 06/23/22 06:00 Normal Saline 10 Ml Vial IJ 06/23/22 23:59 DIRECTED PRN Sterile Water 0 ml 06/23/22 06:00 Water,Injection,Sterile 10 Ml Vial IJ 06/23/22 23:59 DIRECTED PRN PFSH Active Problems Active Problems: Problem Status Onset Code CRPS (complex regional pain syndrome) G90.50 Neuralgia M79.2 Cholecystitis K81.9 Prediabetes R73.09 Hypertension I10 GERD (gastroesophageal reflux disease) K21.9 Migraine G43.909 Asthma J45.909 Back pain M54.9 H/O surgical procedure Z98.89 Adhesive capsulitis of left shoulder 08/25/16 M75.02 Biceps tendinitis of left upper extremity 10/13/16 M75.22 Chronic otitis media with effusion 04/25/14 H65.499 Neck pain 05/24/13 M54.2 Otalgia 05/03/13 H92.09 Tendinitis of left rotator cuff 06/30/16 M75.82 Tubular adenoma of colon 06/15/17 D12.6 Left ankle sprain S93.402A Trochanteric bursitis of left hip M70.62 Sacroiliac joint dysfunction M53.3 Port-A-Cath in place Z95.828 Fracture of radial neck, right, closed 06/09/19 S52.131A Sensorineural hearing loss (SNHL) of right ear with unrestricted hearing of left ear H90.41 Vertigo R42 Hypomagnesemia E83.42 Screening for colon cancer Z12.11 Genital herpes A60.00 Chronic kidney disease N18.9 Vitamin B12 deficiency E53.8 Raynauds syndrome I73.00 Internal derangement of left knee M23.92 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 Family history of colon cancer Z80.0 Rheumatoid arthritis, seronegative, multiple sites M06.09 Medical History Medical History Adenomatous colon polyp Allergic rhinitis Asthma Constipation Deafness in right ear DM (diabetes mellitus) Eczema Fatty infiltration of liver GERD (gastroesophageal reflux disease) Hand pain History of depression History of neck pain HTN (hypertension) Incontinence Insomnia Leg cramps Migraine Obesity Otalgia Ovarian cyst Preventative health care Screening breast examination Tendinitis Trigeminal neuralgia Surgical History Surgical History Colonoscopy - MAC (06/15/17) H/O shoulder surgery H/O tooth extraction History of appendectomy History of cholecystectomy History of ear surgery History of eye surgery History of hysterectomy History of knee surgery Mediport placement (05/02/15) no longer in place Tobacco Smoking/Tobacco Use Status: Former Tobacco Use Alcohol Alcohol Intake: current Alcohol intake frequency: holidays/special occasions only Substance Use Substance use: Never Substance use type: does not use Vital Signs and Lab Results Vital Signs Most Recent Vital Signs in EMR: Most Recent Vital Signs Temp Pulse Resp BP Pulse Ox 36.2 C L 78 18 140/82 96 06/23/22 07:33 06/23/22 07:33 06/23/22 07:33 06/23/22 07:33 06/23/22 07:33 Lab Results Blood Type / Crossmatch: No Data to Display Complete Blood Count: No Data to Display Complete Metabolic Panel: No Data to Display Liver Function Panel: No Data to Display Coagulation Panel: No Data to Display Cardiac Panel: No Data to Display Arterial Blood Gas: No Data to Display Venous Blood Gas: No Data to Display Pancreas Panel: No Data to Display Thyroid Panel: No Data to Display Infectious Disease: No Data to Display Blood Cultures: No Data to Display Toxicology Panel: No Data to Display Anesthesia Assessment and Plan Anesthesia History Personal History: PONV Family History: No Family History of Anesthesia Complications Exercise Tolerance Exercise Tolerance: Metabolic Equivalents>4 Pertinent Negatives Pertinent Negatives: No Symptoms of GERD, No Major Cardiovascular Symptoms or Complaints, No Major Pulmonary Symptoms or Complaints and No History of CVA/TIA Cardiac & Pulmonary Exam Cardiac Exam: Normal S1/S2 Heart Sounds Pulmonary Exam: Clear Bilateral Breath Sounds Implantable Cardiac Device Does patient have a Pacemaker or an ICD?: No Airway Exam Known Difficult Airway: No Mallampati Class: 2 Mouth Opening: Normal (> 3cm) Thyromental Distance: Greater than 3 cm Neck Range of Motion: Full ROM Neck Circumference: Thick Teeth Condition: Normal Dentition and Removable Dentures/Plates Upper ASA Classification ASA Score: ASA 2 Emergency Case?: No NPO Status NPO Status: NPO Clears >2 hours, Solids >8 hours Anesthesia Plan Resuscitation Status: Full Code Anesthesia Technique: General Anesthesia Airway Planned: Natural Airway Monitors Used: Standard Monitors
--- NOTE | 2022-06-23 08:37 | W.COLOREPORT ---
Date of service: 06/23/22 Time of Service: 09:28 Colonoscopy Report Procedure Description: Procedures performed: 1. Colonoscopy Preoperative diagnosis: Surveillance colonoscopy, family history, colon polyps Postoperative diagnosis: Normal colon, limited prep Surgeon: Salvador Benitez Anesthesia: Laura Indication for procedure: Patient is a 56-year-old woman who does not have any symptoms but has a personal history of adenomatous polyps being removed, she has 3 maternal aunts and uncles who have all had colon cancer. Surgical history includes gallbladder, appendix and uterus. Findings: Normal terminal ileum. No new medium/large polyps. Small polyps could have been missed because the prep was somewhat poor. It was not prohibitive but definitely polyps under 5 mm could have been hidden. Surveillance/follow-up recommendations: 3 years because the prep was limited. Complications: None Blood loss: Minimal Specimens:?? No Quality of Prep:?? Poor, but not prohibitive Procedure in detail: Written consent was obtained from the patient who was in agreement with the risks, benefits and indications of the procedure.? We went to the endoscopy suite and laid the patient in left lateral decubitus position.? Anesthesia was administered which was tolerated well.? A timeout was performed and when we are all in agreement we began the procedure. Digital rectal exam and visual examination was performed and within normal limits.? A well?lubricated colonoscope was advanced without difficulty all the way to the cecum identified by the ileocecal valve, and triangular folds and appendiceal orifice (ablated because of prior appendectomy). The terminal ileum was briefly intubated and look normal.? The scope was then slowly withdrawn.?? Retroflexion was performed in the rectum.? The findings/interventions are noted above. The scope was then removed and the patient tolerated the procedure well and was then taken back to the PACU in hemodynamically stable condition.
[2022-06-23 08:38] VITALS: BMI 34.3
[2022-06-23 09:14] VITALS: BP 111/68; PULSE 75; RESP 18; TEMP 36.5; O2SAT 93
--- NOTE | 2022-06-23 09:41 | W.ANESPOSTOP ---
Postoperative Evaluation Date, Time and Location Date Performed: 06/23/22 Time Performed: 09:28 Patient Location: Day Surgery Unit Vital Signs Most Recent Imported Vital Signs: Most Recent Vital Signs Temp Pulse Resp BP Pulse Ox 36.5 C 75 18 111/68 93 06/23/22 09:14 06/23/22 09:14 06/23/22 09:14 06/23/22 09:14 06/23/22 09:14 Pain Score Most Recent Pain Score: Most Recent Pain Score Pain Level 4 06/23/22 09:14 Assessment Mental Status: Awake (Alert & Oriented to Patient Baseline) Airway and Respiratory Function: Patent airway with normal (patient baseline) respiratory exam Cardiovascular Function: Hemodynamically Stable Hydration Status: Adequately Hydrated Nausea & Vomiting: No Nausea or Vomiting Pain: Pain is tolerable per patient (Being medicated for gas discomfort) Peripheral Nerve Block: Patient did not receive a nerve block
[2022-06-23 09:48] VITALS: BP 120/76; PULSE 66; RESP 18; TEMP 36.3; O2SAT 97
== END 2022-06-23 07:29 | disposition home or self-care (01) ==
PROVIDERS: PCP Family Medicine; Visit Provider Student in an Organized Health Care Education/Training Program
PROC: 0DJD8ZZ Inspection of Lower Intestinal Tract, Via Natural or Artificial Opening Endoscopic (ICD-10-PCS; CPT 45378; principal; 2022-06-23 09:15)
DX: Z12.11 Encounter for screening for malignant neoplasm of colon (principal); Z80.0 Family history of malignant neoplasm of digestive organs; Z86.010 Personal history of colon polyps
CPT/HCPCS: G0105; J2405

== ENCOUNTER 2022-06-24 04:13 | Outpatient (CLI) | payer MEDICARE, OTHER, SELFPAY ==
[2022-06-24 12:37] LABS: Abs Immature Grans 0.01 10^3/uL (0.0-0.06); Absolute Basophil Count 0.06 10^3/uL (0.0-0.2); Absolute Eosinophil Count 0.15 10^3/uL (0.0-0.7); Absolute Lymphocyte Count 1.93 10^3/uL (1.2-3.4); Absolute Monocyte Count 0.53 10^3/uL (0.1-0.8); Absolute Neutrophil Count 4.37 10^3/uL (1.2-6.7); Basophils % 0.9; Eosinophils % 2.1; HCT 40.2 % (36.0-46.0); HGB 13.5 g/dL (11.2-15.7); Immature Grans % 0.1; Lymphocytes % 27.4; MCH 33.4 pg (27.0-33.0); MCHC 33.6 % (32.0-36.0); MCV 100 fL (80-95); Monocytes % 7.5; Platelet Count 265 10^3/uL (130-400); RBC 4.04 10^6/uL (3.93-5.22); RDW 12.8 % (11.7-14.6); RDW-SD 46.5 fL; WBC 7.05 10^3/uL (4.4-10.8)
[2022-06-24 13:29] LABS: ALT 21 U/L (14-59); AST 17 U/L (15-37); Albumin 4.4 g/dL (3.4-5.0); Alkaline Phosphatase 94 U/L (46-116); Anion Gap 11.7 mmol/L (3-11); BUN 17 mg/dL (7-18); Bilirubin, Total 0.5 mg/dL (0.2-1.0); CO2 25.3 mmol/L (21.0-32.0); CREATININE 1.5 mg/dL (0.55-1.02); Calcium 9.3 mg/dL (8.5-10.1); Chloride 105 mmol/L (98-107); Glucose 88 mg/dL (74-106); Potassium 4.2 mmol/L (3.5-5.1); Sodium 142 mmol/L (136-145); Total Protein 7.7 g/dL (6.4-8.2); Vitamin B12 453 pg/mL (193-986)
[2022-06-24 14:00] LABS: Hemoglobin A1C 5.3 % (<5.7)
[2022-06-24 17:40] LABS: C-Reactive Protein 0.97 mg/dL (0.0-0.3)
== END 2022-06-24 04:14 | disposition home or self-care (01) ==
LOC: LBO 04:13
PROVIDERS: PCP Family Medicine; Visit Provider Nurse Practitioner Family
DX: E11.9 Type 2 diabetes mellitus without complications (principal); E53.8 Deficiency of other specified B group vitamins; M19.90 Unspecified osteoarthritis, unspecified site; M06.9 Rheumatoid arthritis, unspecified
CPT/HCPCS: 36415; 80053; 82607; 83036; 85025; 86140

== ENCOUNTER 2022-07-12 10:49 | Outpatient (REF) | payer MEDICARE, OTHER, SELFPAY ==
[2022-07-12 20:22] LABS: COMMENT (LAB VIEW ONLY) 215.45 mg/dL; Microalb ug/mg Crea 4.1 ug/mg Cr
== END 2022-07-12 10:50 | disposition home or self-care (01) ==
LOC: NCHCN 10:49
PROVIDERS: PCP Family Medicine; Visit Provider Family Medicine
DX: E11.9 Type 2 diabetes mellitus without complications (principal)
CPT/HCPCS: 82043; 82570

== ENCOUNTER 2022-07-19 03:05 | Outpatient (CLI) | payer MEDICARE, OTHER, SELFPAY ==
[2022-07-19 14:52] LABS: Abs Immature Grans 0.02 10^3/uL (0.0-0.06); Absolute Basophil Count 0.09 10^3/uL (0.0-0.2); Absolute Eosinophil Count 0.24 10^3/uL (0.0-0.7); Absolute Lymphocyte Count 2.69 10^3/uL (1.2-3.4); Absolute Monocyte Count 0.55 10^3/uL (0.1-0.8); Absolute Neutrophil Count 4.84 10^3/uL (1.2-6.7); Basophils % 1.1; Eosinophils % 2.8; HCT 38.8 % (36.0-46.0); Immature Grans % 0.2; Lymphocytes % 31.9; MCHC 33.5 % (32.0-36.0); MCV 99 fL (80-95); MPV 9.8 fL (8.0-11.0); Monocytes % 6.5; Neutrophils % 57.5; Platelet Count 234 10^3/uL (130-400); RBC 3.94 10^6/uL (3.93-5.22); RDW 12.5 % (11.7-14.6); WBC 8.43 10^3/uL (4.4-10.8)
[2022-07-19 15:21] LABS: ALT 25 U/L (14-59); AST 17 U/L (15-37); Albumin 3.9 g/dL (3.4-5.0); Alkaline Phosphatase 83 U/L (46-116); BUN 10 mg/dL (7-18); Bilirubin, Total 0.4 mg/dL (0.2-1.0); C-Reactive Protein 0.14 mg/dL (0.0-0.3); CREATININE 1.3 mg/dL (0.55-1.02); Calcium 8.6 mg/dL (8.5-10.1); Chloride 108 mmol/L (98-107); Estimated GFR 48.26 (mL/min/1.73m2); Glucose 87 mg/dL (74-106); Potassium 3.9 mmol/L (3.5-5.1); Sodium 142 mmol/L (136-145); Total Protein 6.8 g/dL (6.4-8.2)
[2022-07-19 15:47] LABS: Folate 11.6 ng/mL (8.6-20.0)
[2022-07-20 10:13] LABS: Hep B Core Antibody Negative (Negative)
== END 2022-07-19 03:06 | disposition home or self-care (01) ==
PROVIDERS: PCP Family Medicine; Visit Provider Nurse Practitioner Family
DX: Z79.899 Other long term (current) drug therapy (principal); M06.09 Rheumatoid arthritis without rheumatoid factor, multiple sites; Z11.59 Encounter for screening for other viral diseases; M19.90 Unspecified osteoarthritis, unspecified site
CPT/HCPCS: 36415; 80053; 86704; 82746; 85025; 86140

== ENCOUNTER 2022-08-02 10:48 | Outpatient (CLI) | payer MEDICARE, OTHER, SELFPAY ==
--- NOTE | 2022-08-02 10:30 | DI.RAD_ITS ---
Exam(s) XR SHOULDER RT COMPLETE 2+V EXAM: XR SHOULDER RT COMPLETE 2+V CLINICAL HISTORY: R shoulder pain. TECHNIQUE: 2D digital imaging was performed. Five views. COMPARISON: None FINDINGS: BONES: No acute fracture is present. No bony destructive lesion is seen. Prior distal clavicular res ection. Mild spurring tip of the acromion. JOINTS: No dislocation present. Glenohumeral joint space is maintained. There is spurring at the ma rgin of the glenoid. SOFT TISSUE: Normal. IMPRESSION: Mild degenerative changes of the glenohumeral joint. DATA REPOSITORY: RADIATION DOSE DELIVERED:
== END 2022-08-02 10:49 | disposition home or self-care (01) ==
LOC: DIORS 10:48
PROVIDERS: PCP Family Medicine; Referring Provider Family Medicine; Visit Provider Student in an Organized Health Care Education/Training Program
DX: M75.81 Other shoulder lesions, right shoulder (principal); M19.021 Primary osteoarthritis, right elbow
CPT/HCPCS: 20610; 73030; J1040

== ENCOUNTER 2022-08-06 23:31 | Emergency (ER) | payer MEDICARE, OTHER, SELFPAY ==
[2022-08-06 23:34] VITALS: BP 167/86; PULSE 66; RESP 16; TEMP 36.8; O2SAT 100
--- NOTE | 2022-08-06 23:36 | W.ED.GENAD ---
Discharge Plan Disposition Patient Disposition: Home Condition: Stable Discharge Details Clinical Impression: Contusion of right middle finger, Laceration of finger of right hand, Abrasion of right elbow, Contusion of rib on right side, Fall Primary Care Provider: Katarina Rodriguez ED Provider: Ana Layne Home Meds and New Rx's Prescriptions: Continued scopolamine base 1 mg over 3 days patch 3 day 1 patch transdermal Q3D PRN bisacodyl [Dulcolax (bisacodyl)] 5 mg tablet,delayed release (DR/EC) 5 mg PO ONCE Qty: 4 0RF Rx Instructions: Take according to provider's instructions for colonoscopy prep. polyethylene glycol 3350 17 gram/dose powder 17 g PO ONCE Qty: 238 0RF Rx Instructions: To be taken as directed by prescriber's office for colonoscopy prep. Enbrel 25 mg/0.5 mL (0.5) syringe 25 mg subcut QWEEK pantoprazole [Protonix] 20 mg tablet,delayed release (DR/EC) 40 mg PO DAILY losartan 100 mg tablet 100 mg PO DAILY pregabalin [Lyrica] 50 mg capsule 100 mg PO TID albuterol sulfate [ProAir HFA] 90 mcg/actuation HFA aerosol inhaler 2 puff IH Q6H PRN Ozempic 1 mg/dose (4 mg/3 mL) pen injector 1 mg subcut QWEEK methotrexate sodium 2.5 mg tablet 10 mg PO QWEEK Patient Comments: directions read once a week, twice a day. lamotrigine 100 mg tablet 100 mg PO BID baclofen 10 mg tablet 10 mg PO TID valacyclovir [Valtrex] 1 gram tablet 1,000 mg PO DAILY cetirizine 10 mg tablet 10 mg PO DAILY PRN riboflavin (vitamin B2) 100 mg tablet 100 mg PO BID naratriptan [Amerge] 2.5 mg tablet 2.5 mg PO ONCE PRN lidocaine 5 % adhesive patch,medicated 1 patch topical PRN Rx Instructions: leave on most painful area for up to 12 hrs vitamin B complex [B Complex-Vitamin B12] Tablet 1 tab PO DAILY triamcinolone acetonide 0.1 % cream 1 applic topical BID nystatin 100,000 unit/gram powder 1 applic topical BID nystatin 100,000 unit/gram ointment 1 applic topical QID ascorbic acid (vitamin C) 1,000 MG tablet 1 tab PO DAILY cholecalciferol (vitamin D3) 1,000 UNITS tablet 1 tab PO DAILY polyethylene glycol 3350 17 GM powder in packet 2 pkt PO PRN PRN budesonide-formoterol [Symbicort] 10.2 GM HFA aerosol inhaler 2 puff Inhalation DAILY PRN PRN acetaminophen [Acetaminophen Extra Strength] 500 MG tablet 1,000 mg PO TID PRNQty: 180 0RF amlodipine 2.5 mg tablet 2.5 mg PO DAILY Patient Comments: TAKE ONE TABLET BY MOUTH EVERY DAY fluoxetine 20 mg capsule 20 mg PO DAILY Patient Comments: TAKE ONE CAPSULE BY MOUTH EVERY DAY atorvastatin 40 mg tablet 40 mg PO HS Patient Comments: TAKE ONE TABLET BY MOUTH EVERY EVENING hydroxychloroquine 200 mg tablet 400 mg PO DAILY Patient Comments: TAKE TWO TABLETS BY MOUTH EVERY DAY Emgality Syringe 120 mg/mL Syringe 100 mg SUBCUT 4-8XD folic acid 1 mg Tablet 1 mg PO DAILY ondansetron 4 mg tablet,disintegrating 4 mg PO Q8H PRNQty: 10 0RF Discharge Instructions Instructions: Contusion in Adults (ED), Finger Laceration (ED), Abrasion (ED), Rib Contusion (ED) Additional Instructions: Your imaging today is reassuring and shows no evidence of acute fracture. Rest, ice, and elevate the affected area as much as possible. Take Tylenol as needed and directed for pain. Take the tramadol as needed and directed for pain not relieved with Tylenol. Wear the finger splint as much as possible to help with pain. Follow-up with your primary care doctor in 1 week. Return to the emergency department with any worsening or new concerning symptoms. Discharge Data Discharge Date/Time-TO BE ENTERED AT DEPARTURE: 08/07/22 01:36 Discharge Physician: Ana Layne Medical Decision Making 57-year-old [id number] female presents with right ribs, shoulder, elbow, wrist and hand pain status post mechanical fall this evening. She denies head injury. She has no significant pain with range of motion of her right shoulder. She is tender in the right anterior lateral and posterior inferior ribs. No evidence of step-off. Lungs clear throughout. She also has an abrasion to her right elbow and superficial laceration to the tip of her right third finger. Her lungs are clear and her abdomen is soft and nontender. We will obtain CT imaging to assess multiple areas including ribs, T-spine, hip and pelvis. We will also obtain x-rays of the right elbow, wrist and hand. Will irrigate right third finger. Imaging reviewed and negative for acute findings. Her right third finger after irrigation reveals a 2 x 2 centimeter skin avulsion on the right medial DIP in addition to the 3 mm flap laceration on the tip of the finger which is not amenable to sutures. Will cover with antibiotic ointment and nonadherent dressings. We will place an aluminum finger splint. Patient advised on the importance of controlling pain of her ribs to prevent pneumonia. She was advised to keep wounds clean and dry and apply topical antibiotic ointment with any signs of infection. She is also advised in the importance of rest, ice and elevation of the affected extremity. Advised to follow up with the primary care doctor for re-evaluation. Usual and customary return precautions given prior to discharge. Medical Records Medical records reviewed: Yes I reviewed the patient's medical records. Imaging Data Radiologic Study: Radiologist's impression: XR Right Hand Exam date and time: 08/07/2022 12:29 AM Age: 57 years old Clinical indication: Injury or trauma; Fall; Blunt trauma (contusions or hematomas); Hand; Right; Additional info: S/P fall, R/O FX TECHNIQUE: Imaging protocol: Radiologic exam of the right hand. Views: 3 or more views. COMPARISON: CR XR HAND RT COMPLETE 06/28/2019 11:39 AM FINDINGS: Bones/joints:? Mild degenerative changes. Chronic ossicle noted measuring 3-4 mm along the volar aspect of the carpal bones new since the prior study Soft tissues: Normal. IMPRESSION: No acute findings. XR Right Wrist Exam date and time: 08/07/2022 12:30 AM Age: 57 years old Clinical indication: Injury or trauma; Blunt trauma (contusions or hematomas); Wrist; Right; Injury details: S/P fall, R/O FX TECHNIQUE: Imaging protocol: Radiologic exam of the right wrist. Views: 3 or more views. COMPARISON: CR XR WRIST RT COMPLETE 10/15/2021 11:08 AM FINDINGS: Bones/joints:? Mild degenerative changes.? No acute fracture or dislocation. Chronic ossicle is grossly stable Soft tissues: Normal. IMPRESSION: No acute findings. XR Right Elbow Exam date and time: 08/07/2022 12:32 AM Age: 57 years old Clinical indication: Injury or trauma; Fall; Blunt trauma (contusions or hematomas); Elbow; Right; Additional info: S/P fall, R/O FX TECHNIQUE: Imaging protocol: Radiologic exam of the right elbow. Views: 3 or more views. COMPARISON: CR XR ELBOW RT COMPLETE 10/15/2021 11:11 AM FINDINGS: Bones/joints:? Degenerative changes at the olecranon and medial humeral condyle No acute fracture dislocation or joint effusion Soft tissues: Normal. IMPRESSION: No acute findings. Chronic findings as noted CT Chest Without Contrast; Diagnostic Exam date and time: 08/07/2022 12:21 AM Age: 57 years old Clinical indication: Injury or trauma; Bleeding/hemorrhage; Generalized abdominal region; Blunt trauma (contusions or hematomas); Injury details: S/P fall, R/O fracture R ribs/t-spine/r pelvis; Additional info: Patient states right sided rib pain TECHNIQUE: Imaging protocol: Diagnostic computed tomography of the chest without contrast. 3D rendering (Not supervised by radiologist): MIP and/or 3D reconstructed images were created by the technologist. Radiation optimization: All CT scans at this facility use at least one of these dose optimization techniques: automated exposure control; mA and/or kV adjustment per patient size (includes targeted exams where dose is matched to clinical indication); or iterative reconstruction. COMPARISON: CT THORAX ABD/PEL CTA 07/21/2021 4:21 PM FINDINGS: Lungs: Unremarkable. No consolidation. No masses. Pleural spaces: Unremarkable. No pneumothorax. No pleural effusion. Heart: Unremarkable. No cardiomegaly. No pericardial effusion. Lymph nodes: Unremarkable. No enlarged lymph nodes. Vasculature: Unremarkable. No aortic aneurysm.? Bones/joints: Unremarkable. No acute fracture. Soft tissues: Unremarkable. IMPRESSION: No acute findings. CT Abdomen And Pelvis Without Contrast Exam date and time: 08/07/2022 12:21 AM Age: 57 years old Clinical indication: Injury or trauma; Bleeding/hemorrhage; Generalized abdominal region; Blunt trauma (contusions or hematomas); Injury details: S/P fall, R/O fracture R ribs/t-spine/r pelvis; Additional info: Patient states right sided rib pain TECHNIQUE: Imaging protocol: Computed tomography of the abdomen and pelvis without contrast. 3D rendering (Not supervised by radiologist): MIP and/or 3D reconstructed images were created by the technologist. Radiation optimization: All CT scans at this facility use at least one of these dose optimization techniques: automated exposure control; mA and/or kV adjustment per patient size (includes targeted exams where dose is matched to clinical indication); or iterative reconstruction. COMPARISON: CT THORAX ABD/PEL CTA 07/21/2021 4:21 PM FINDINGS: Liver: Normal. No mass. Gallbladder and bile ducts: Normal. No calcified stones. No ductal dilation. Pancreas: Normal. No ductal dilation. Spleen: Normal. No splenomegaly. Adrenal glands: Normal. No mass. Kidneys and ureters: Normal. No hydronephrosis. Stomach and bowel: Unremarkable. No obstruction. No mucosal thickening. Appendix: No evidence of appendicitis. Intraperitoneal space: Unremarkable. No free air. No significant fluid collection. Vasculature: Unremarkable. No abdominal aortic aneurysm. Lymph nodes: Unremarkable. No enlarged lymph nodes. Urinary bladder: Unremarkable as visualized. Reproductive:? Prior hysterectomy. Bones/joints:? Degenerative changes in the lumbar spine. No acute fracture. Soft tissues: Unremarkable. IMPRESSION: No acute findings. HPI General Mode of arrival: wheelchair. Date/Time Provider Initiated Documentation: 08/06/22 23:35. Limitations to Documentation: no limitations. Information obtained by: patient. HPI Narrative: Patient is a 57-year-old female presents with right rib, right shoulder, right elbow, right wrist and hand pain after mechanical fall at 530 this evening. Patient states she was in [facility] when the fall occurred and went to a local ER but states she was told the wait would be at least [address] here near home. Patient has not taken anything for pain. Her tetanus is up-to-date. She is complaining of pain mainly in her right elbow, wrist and hand and right ribs. Denies any chest or abdominal pain. Denies head injury, headache, neck pain, LOC or vomiting. Related Data Home Medications Medication Instructions Recorded Confirmed ascorbic acid (vitamin C) 1,000 mg 1 tab PO DAILY 07/18/14 08/07/22 tablet cholecalciferol (vitamin D3) 25 1 tab PO DAILY 07/18/14 08/07/22 mcg (1,000 unit) tablet budesonide-formoterol HFA 160 2 puff inhalation DAILY PRN PRN 08/04/15 08/07/22 mcg-4.5 mcg/actuation aerosol inhaler (Symbicort) polyethylene glycol 3350 17 gram 2 pkt PO PRN PRN 08/04/15 08/07/22 oral powder packet acetaminophen 500 mg tablet 1,000 mg PO TID PRN #180 tabs 02/22/17 08/07/22 (Acetaminophen Extra Strength) albuterol sulfate 90 mcg/actuation 2 puff inhalation Q6H PRN 10/04/19 08/07/22 aerosol inhaler (ProAir HFA) losartan 100 mg tablet 100 mg PO DAILY 10/04/19 08/07/22 pantoprazole 20 mg tablet,delayed 40 mg PO DAILY 10/04/19 08/07/22 release (Protonix) pregabalin 50 mg capsule (Lyrica) 100 mg PO TID 10/04/19 08/07/22 atorvastatin 40 mg tablet 40 mg PO HS 05/02/20 08/07/22 hydroxychloroquine 200 mg tablet 400 mg PO DAILY 05/02/20 08/07/22 folic acid 1 mg tablet 1 mg PO DAILY 06/03/21 08/07/22 galcanezumab-gnlm 120 mg/mL 100 mg subcut 4-8XD 06/03/21 08/07/22 subcutaneous syringe (Emgality) ondansetron 4 mg disintegrating 4 mg PO Q8H PRN #10 tabs 07/21/21 08/07/22 tablet amlodipine 2.5 mg tablet 2.5 mg PO DAILY 10/15/21 08/07/22 fluoxetine 20 mg capsule 20 mg PO DAILY 10/15/21 08/07/22 baclofen 10 mg tablet 10 mg PO TID 02/16/22 08/07/22 cetirizine 10 mg tablet 10 mg PO DAILY PRN 02/16/22 08/07/22 lamotrigine 100 mg tablet 100 mg PO BID 02/16/22 08/07/22 lidocaine 5 % topical patch 1 patch topical PRN 02/16/22 08/07/22 methotrexate sodium 2.5 mg tablet 10 mg PO QWEEK 02/16/22 08/07/22 naratriptan 2.5 mg tablet (Amerge) 2.5 mg PO ONCE PRN 02/16/22 08/07/22 riboflavin (vitamin B2) 100 mg 100 mg PO BID 02/16/22 08/07/22 tablet semaglutide 1 mg/dose (4 mg/3 mL) 1 mg subcut QWEEK 02/16/22 08/07/22 subcutaneous pen injector (Ozempic) valacyclovir 1 gram tablet 1,000 mg PO DAILY 02/16/22 08/06/22 (Valtrex) vitamin B complex (B 1 tab PO DAILY 02/16/22 08/07/22 Complex-Vitamin B12 tablet) nystatin 100,000 unit/gram topical 1 applic topical QID 04/05/22 08/07/22 ointment nystatin 100,000 unit/gram topical 1 applic topical BID 04/05/22 08/07/22 powder triamcinolone acetonide 0.1 % 1 applic topical BID 04/05/22 08/06/22 topical cream bisacodyl 5 mg tablet,delayed 5 mg PO ONCE #4 tabs 06/10/22 08/07/22 release (Dulcolax (bisacodyl)) polyethylene glycol 3350 17 17 g PO ONCE #238 grams 06/10/22 08/07/22 gram/dose oral powder scopolamine base 1 mg over 3 days 1 patch transdermal Q3D PRN 06/10/22 08/07/22 transdermal patch etanercept 25 mg/0.5 mL (0.5 mL) 25 mg subcut QWEEK 08/02/22 08/07/22 subcutaneous syringe (Enbrel) Previous Rx's Medication Instructions Recorded acetaminophen 500 mg tablet 1,000 mg PO TID PRN #180 tabs 02/22/17 (Acetaminophen Extra Strength) ondansetron 4 mg disintegrating 4 mg PO Q8H PRN #10 tabs 07/21/21 tablet bisacodyl 5 mg tablet,delayed 5 mg PO ONCE #4 tabs 06/10/22 release (Dulcolax (bisacodyl)) polyethylene glycol 3350 17 17 g PO ONCE #238 grams 06/10/22 gram/dose oral powder Allergies Allergy/AdvReac Type Severity Reaction Status Date / Time NSAIDS (Non-Steroidal Allergy Severe Other (See Verified 08/06/22 23:40 Anti-Inflamma Comment) phenytoin sodium Allergy Severe Hives Verified 08/06/22 23:40 [From Dilantin] phenytoin sodium extended Allergy Severe Hives Verified 02/24/23 23:40 [From Dilantin] amoxicillin [Amoxicillin] Allergy Intermediate Hives Verified 08/06/22 23:40 lisinopril Allergy Intermediate Verified 08/06/22 23:40 oxycodone Allergy Intermediate Verified 08/06/22 23:40 potassium clavulanate Allergy Intermediate Hives Verified 08/06/22 23:40 [From Augmentin] Sulfa (Sulfonamide Allergy Mild Skin Rash Verified 08/06/22 23:40 Antibiotics) tomato [Tomato] Allergy Mild Skin Rash Verified 08/06/22 23:40 erythromycin base AdvReac Severe Verified 08/06/22 23:40 sumatriptan [From Imitrex] AdvReac Severe Visual Verified 08/06/22 23:40 Disturbances,burning sensation through out body General Stated Complaint: Fall/Non TraumaCriteria HARRIET: 3 Review of Systems All systems reviewed & are unremarkable except as noted in HPI and below Constitutional Constitutional: Reports as per HPI, Denies chills and Denies fever(s) Eyes Eyes: Denies blurry vision ENT Ears, Nose, Mouth, and Throat: Denies dizziness, Denies sore throat and Denies throat swelling Cardiovascular Cardiovascular: Denies chest pain and Denies dyspnea Respiratory Respiratory: Denies cough and Denies dyspnea Gastrointestinal Gastrointestinal: Denies abdominal pain, Denies diarrhea and Denies vomiting Genitourinary Genitourinary: Denies hematuria and Denies dysuria Musculoskeletal Musculoskeletal: Denies back pain and Denies numbness Comments: Right ribs, shoulder, elbow, wrist and hand pain. Integumentary/Breasts Skin/Breast: Denies lesions and Denies rash Neurologic Neurologic: Denies dizziness, Denies localized weakness and Denies numbness Allergic/Immunologic Allergic/Immunologic: Denies throat swelling PFSH All Active Problems (Updated 08/07/22 @ 01:15 by Ana Layne DO) Contusion of right middle finger (Acute) Laceration of finger of right hand (Acute) Abrasion of right elbow (Acute) Contusion of rib on right side (Acute) Fall (Acute) Right rotator cuff tendonitis (Acute) Steroid injection: 08/02/2022 CRPS (complex regional pain syndrome) (Chronic) Neuralgia (Chronic) Cholecystitis (Acute) Prediabetes (Chronic) Hypertension (Chronic) GERD (gastroesophageal reflux disease) (Chronic) Migraine (Chronic) Asthma (Chronic) Back pain (Chronic) H/O surgical procedure (Chronic) a. hysterectomy b. orthopedic surgery Adhesive capsulitis of left shoulder (Acute 08/25/16) Biceps tendinitis of left upper extremity (Acute 10/13/16) Chronic otitis media with effusion (Acute 04/25/14) Neck pain (Acute 05/24/13) Otalgia (Acute 05/03/13) Tendinitis of left rotator cuff (Acute 06/30/16) Subacromial injection: 04/26/18; 04/06/17 Injection under fluoroscopy: 08/10/18 Tubular adenoma of colon (Acute 06/15/17) Left ankle sprain (Acute) Trochanteric bursitis of left hip (Acute) Corticosteroid injection: 08/07/18 Sacroiliac joint dysfunction (Acute) Port-A-Cath in place (Acute) Fracture of radial neck, right, closed (Acute 06/09/19) Sensorineural hearing loss (SNHL) of right ear with unrestricted hearing of left ear (Acute) Vertigo (Acute) Hypomagnesemia (Acute) Screening for colon cancer (Acute) Genital herpes (Acute) Chronic kidney disease (Chronic) Vitamin B12 deficiency (Acute) Raynauds syndrome (Acute) Internal derangement of left knee (Acute) Arthritis of right elbow (Acute) lateral epicondyle injection 04/12/2022 Family history of colon cancer (Acute) Rheumatoid arthritis, seronegative, multiple sites (Acute) Medical History (Updated 08/07/22 @ 01:15 by Ana Layne DO) Adenomatous colon polyp Allergic rhinitis Asthma Constipation Deafness in right ear DM (diabetes mellitus) Eczema Fatty infiltration of liver GERD (gastroesophageal reflux disease) Hand pain History of depression History of neck pain HTN (hypertension) Incontinence Insomnia Leg cramps Migraine Obesity Otalgia Ovarian cyst Preventative health care Screening breast examination Tendinitis Trigeminal neuralgia Surgical History Colonoscopy - MAC (06/15/17) H/O shoulder surgery H/O tooth extraction History of appendectomy History of cholecystectomy History of ear surgery History of eye surgery History of hysterectomy History of knee surgery Mediport placement (05/02/15) no longer in place Family History Mother Hx of migraines Social History Smoking/Tobacco Use Status: Former Tobacco Use Quit Date: 06/13/10 Smoking risk assessment performed?: Yes Alcohol Intake: current Alcohol Intake frequency: holidays/special occasions only Drug use: Never Substance use type: does not use Current gender identity: female Do you feel safe at home: Yes Do you feel safe in your relationship?: Yes Exam Const General: cooperative and no acute distress Orientation: alert, awake and oriented x3 HENMT Head: normal to inspection Face and sinus: normal facial exam Eyes General: appearance normal, both eyes and all related structures Pupils: PERRL EOM: EOM intact bilaterally Neck Neck: normal visual inspection and No submandibular swelling Lymphatic: no lymphadenopathy noted Chest Chest: normal inspection of the chest and no tenderness Chest/axillae images: 1. Tenderness to palpation. No evidence of edema, ecchymosis, crepitus or step-off. Resp Effort & Inspection: normal respiratory effort and able to speak in complete sentences Auscultation: clear to auscultation bilaterally Cardio Rate: regular rate Rhythm: regular rhythm GI Inspection: normal to inspection and obesity Palpation: soft, not firm, not rigid and nontender Auscultation: hypoactive bowel sounds Back/Spine/Pelvis Thoracic/Lumbar Spine: thoracic and lumbar spine normal to inspection, thoracic spinal tenderness and No lumbar spinal tenderness Pelvis: no pain with anterior-posterior compression Back/spine/pelvis image: 1. Mild tenderness to palpation. No edema, ecchymosis, step-off 2. Tenderness to palpation. No evidence of edema, ecchymosis, crepitus or step-off. Skin General skin exam: no rashes or lesions noted Neuro General: patient alert, patient awake and patient oriented x3 Cognition: normal cognition Speech: speech normal Motor: muscle tone normal throughout Sensory Exam: no sensory deficits noted Extrem General: normal to inspection, full ROM, capillary refill normal, no calf tenderness bilaterally and no edema Shoulder/upper arm images: 1. Superficial abrasion Hand/finger images: 1. 3 mm C-shaped flap laceration on tip of right third finger. There is also edema of the right third finger and ecchymosis of the middle phalanx. No obvious deformity. 2. 2x2cm skin avulsion located on skin overlying DIP joint on medial aspect. No bony deformity. Other: Pain in right wrist with flexion and extension but no obvious deformity or evidence of trauma. There is pain in right elbow with supination and pronation and tenderness to palpation to right lateral epicondyle. There is no significant pain in the right shoulder with range of motion. Right upper arm and right forearm appear normal to inspection without tenderness. There is no right snuffbox tenderness. Right radial pulse intact. There is normal range of motion of the right and left lower extremities and left upper extremity without evidence of trauma or pain. Psych Appearance: grossly normal Mental Status: mental status grossly normal Speech and Movement: speech and movement normal Affect: normal affect Procedures Orthopedic Splinting/Casting Injury #1: Side: right Upper Extremity Injury Location: finger Upper Extremity Immobilizer: aluminum form splint
--- NOTE | 2022-08-06 23:45 | DI.RAD_ITS ---
Exam(s) XR HAND RT COMPLETE XR WRIST RT COMPLETE EXAM: XR HAND RT COMPLETE and XR wrist RT complete CLINICAL HISTORY: s/p fall, r/o fx. TECHNIQUE: 2D digital imaging was performed of the right hand. Six images were obtained. AP, latera l and oblique views were obtained. COMPARISON: CR XR HAND RT COMPLETE from 06/28/2019 CR,XR XR WRIST RT COMPLETE from 08/07/2022 FINDINGS: BONES: No acute fracture is present. There is a chronic appearing 4 mm ossicle anterior to the carpa l bones on the lateral view. There is well corticated ossicle seen anterior to the middle phalanx of the 3rd or 4th finger on the lateral view. It appears old. No bony destructive lesion is seen. JOINTS: No dislocation present. SOFT TISSUE: Normal. IMPRESSION: No definite acute fracture or dislocation. Please correlate with the patient's site of pain. If the re is continued clinical concern, a CT scan may be obtained for further evaluation. DATA REPOSITORY: RADIATION DOSE DELIVERED:
--- NOTE | 2022-08-06 23:45 | DI.CT_ITS ---
Exam(s) CT CHEST/ABD/PEL WO EXAM: CT CHEST/ABD/PEL WO CLINICAL HISTORY: s/p fall, r/o fracture R ribs/T-spine/R pelvis TECHNIQUE: Imaging Protocol: Axial computed tomography images with coronal and sagittal reformatted images were created and reviewed COMPARISON: CT CT THORAX ABD/PEL CTA from 07/21/2021 FINDINGS: CHEST: Tracheobronchial tree: Patent where visualized. Pulmonary parenchyma: No consolidation or dominant measurable mass. No architectural distortion. Mediastinum and Sweetie: No dominant adenopathy or fluid collection. The esophagus is unremarkable. Thyroid gland: Unremarkable. Pleura: No effusion or pneumothorax. Heart: The heart is not dilated. No coronary artery calcifications are seen. No pericardial effusion. Aorta: Thoracic aorta non-dilated. There is atherosclerosis present. Lymph nodes: Within normal limits. Bones:Within normal limits for the patient's age. Soft tissues: Unremarkable. ABDOMEN: Liver: Normal density. No measurable mass. Gallbladder and Biliary Tract: Status post cholecystectomy. No biliary ductal dilatation. Pancreas: Normal density, no abnormal calcifications or inflammatory process. Spleen: Normal. Adrenals: No masses seen. Kidneys: Normal size, contour and axis. No radiodense stones or obstructive uropathy. No masses seen. Abdominal Aorta: Abdominal portion non-dilated. Atherosclerosis. Bowel: No obstruction or bowel wall thickening. No evidence of appendicitis. Peritoneal Cavity: No ascites, collection or mesenteric inflammatory response. No free air. Lymph Nodes: Within normal limits. Bones: Within normal limits for the patient's age. Soft Tissues: Unremarkable. PELVIS: Bladder: Symmetric distention, no gross wall thickening. Reproductive Organs: Status post hysterectomy. Lymph Nodes: Within normal limits. Bones: Within normal limits for the patient's age. IMPRESSION: No acute abnormality is seen in the chest, abdomen or pelvis. RADIATION DOSE DELIVERED: 1,624.75mGy.cm Total DLP 1,624.75mGy.cm Total DLP DATA REPOSITORY: All CT scans at this facility are submitted to the National Radiology Data Registry (NRDR) Dose Index Registry (DIR) with the [employer] ([employer]). RADIATION OPTIMIZATION: All CT scans at this facility use at least one of these dose optimization te chniques: automated exposure control; mA and/or kV adjustment per patient size (includes targeted exa ms where dose is matched to clinical indication); or iterative reconstruction.
--- NOTE | 2022-08-06 23:45 | DI.RAD_ITS ---
Exam(s) XR ELBOW RT COMPLETE EXAM: XR ELBOW RT COMPLETE CLINICAL HISTORY: s/p fall, r/o fracture. TECHNIQUE: 2D digital imaging was performed of the left elbow. Three images were obtained. AP, lat eral and oblique views were obtained. COMPARISON: CR XR ELBOW RT COMPLETE from 10/15/2021 FINDINGS: BONES: No acute fracture is present. No bony destructive lesion is seen. There is a small enthesophyt e at the posterior olecranon. JOINTS: The elbow is normally aligned. No joint effusion is seen. SOFT TISSUE: Normal. IMPRESSION: No acute fracture or dislocation. DATA REPOSITORY: RADIATION DOSE DELIVERED:
[2022-08-07] MEDS: traMADol 50 MG TAB PO (00:06)
--- NOTE | 2022-08-07 01:05 | DI.VRAD_ITS ---
PROCEDURE INFORMATION: Exam: XR Right Wrist Exam date and time: 08/07/2022 12:30 AM Age: 57 years old Clinical indication: Injury or trauma; Blunt trauma (contusions or hematomas); Wrist; Right; Injury details: S/P fall, R/O FX TECHNIQUE: Imaging protocol: Radiologic exam of the right wrist. Views: 3 or more views. COMPARISON: CR XR WRIST RT COMPLETE 10/15/2021 11:08 AM FINDINGS: Bones/joints: Mild degenerative changes. No acute fracture or dislocation. Chronic ossicle is grossly stable Soft tissues: Normal. IMPRESSION: No acute findings. Dictated and Authenticated by: Elton Cisse MD. Ordering:STACI Perez MD
--- NOTE | 2022-08-07 01:05 | DI.VRAD_ITS ---
PROCEDURE INFORMATION: Exam: CT Chest Without Contrast; Diagnostic Exam date and time: 08/07/2022 12:21 AM Age: 57 years old Clinical indication: Injury or trauma; Bleeding/hemorrhage; Generalized abdominal region; Blunt trauma (contusions or hematomas); Injury details: S/P fall, R/O fracture R ribs/t-spine/r pelvis; Additional info: Patient states right sided rib pain TECHNIQUE: Imaging protocol: Diagnostic computed tomography of the chest without contrast. 3D rendering (Not supervised by radiologist): MIP and/or 3D reconstructed images were created by the technologist. Radiation optimization: All CT scans at this facility use at least one of these dose optimization techniques: automated exposure control; mA and/or kV adjustment per patient size (includes targeted exams where dose is matched to clinical indication); or iterative reconstruction. COMPARISON: CT THORAX ABD/PEL CTA 07/21/2021 4:21 PM FINDINGS: Lungs: Unremarkable. No consolidation. No masses. Pleural spaces: Unremarkable. No pneumothorax. No pleural effusion. Heart: Unremarkable. No cardiomegaly. No pericardial effusion. Lymph nodes: Unremarkable. No enlarged lymph nodes. Vasculature: Unremarkable. No aortic aneurysm. Bones/joints: Unremarkable. No acute fracture. Soft tissues: Unremarkable. IMPRESSION: No acute findings. PROCEDURE INFORMATION: Exam: CT Abdomen And Pelvis Without Contrast Exam date and time: 08/07/2022 12:21 AM Age: 57 years old Clinical indication: Injury or trauma; Bleeding/hemorrhage; Generalized abdominal region; Blunt trauma (contusions or hematomas); Injury details: S/P fall, R/O fracture R ribs/t-spine/r pelvis; Additional info: Patient states right sided rib pain TECHNIQUE: Imaging protocol: Computed tomography of the abdomen and pelvis without contrast. 3D rendering (Not supervised by radiologist): MIP and/or 3D reconstructed images were created by the technologist. Radiation optimization: All CT scans at this facility use at least one of these dose optimization techniques: automated exposure control; mA and/or kV adjustment per patient size (includes targeted exams where dose is matched to clinical indication); or iterative reconstruction. COMPARISON: CT THORAX ABD/PEL CTA 07/21/2021 4:21 PM FINDINGS: Liver: Normal. No mass. Gallbladder and bile ducts: Normal. No calcified stones. No ductal dilation. Pancreas: Normal. No ductal dilation. Spleen: Normal. No splenomegaly. Adrenal glands: Normal. No mass. Kidneys and ureters: Normal. No hydronephrosis. Stomach and bowel: Unremarkable. No obstruction. No mucosal thickening. Appendix: No evidence of appendicitis. Intraperitoneal space: Unremarkable. No free air. No significant fluid collection. Vasculature: Unremarkable. No abdominal aortic aneurysm. Lymph nodes: Unremarkable. No enlarged lymph nodes. Urinary bladder: Unremarkable as visualized. Reproductive: Prior hysterectomy. Bones/joints: Degenerative changes in the lumbar spine. No acute fracture. Soft tissues: Unremarkable. IMPRESSION: No acute findings. Dictated and Authenticated by: Elton Cisse MD. Ordering:STACI Perez MD
--- NOTE | 2022-08-07 01:05 | DI.VRAD_ITS ---
PROCEDURE INFORMATION: Exam: XR Right Elbow Exam date and time: 08/07/2022 12:32 AM Age: 57 years old Clinical indication: Injury or trauma; Fall; Blunt trauma (contusions or hematomas); Elbow; Right; Additional info: S/P fall, R/O FX TECHNIQUE: Imaging protocol: Radiologic exam of the right elbow. Views: 3 or more views. COMPARISON: CR XR ELBOW RT COMPLETE 10/15/2021 11:11 AM FINDINGS: Bones/joints: Degenerative changes at the olecranon and medial humeral condyle No acute fracture dislocation or joint effusion Soft tissues: Normal. IMPRESSION: No acute findings. Chronic findings as noted Dictated and Authenticated by: Elton Cisse MD. Ordering:STACI Perez MD
--- NOTE | 2022-08-07 01:05 | DI.VRAD_ITS ---
PROCEDURE INFORMATION: Exam: XR Right Hand Exam date and time: 08/07/2022 12:29 AM Age: 57 years old Clinical indication: Injury or trauma; Fall; Blunt trauma (contusions or hematomas); Hand; Right; Additional info: S/P fall, R/O FX TECHNIQUE: Imaging protocol: Radiologic exam of the right hand. Views: 3 or more views. COMPARISON: CR XR HAND RT COMPLETE 06/28/2019 11:39 AM FINDINGS: Bones/joints: Mild degenerative changes. Chronic ossicle noted measuring 3-4 mm along the volar aspect of the carpal bones new since the prior study Soft tissues: Normal. IMPRESSION: No acute findings. Dictated and Authenticated by: Elton Cisse MD. Ordering:STACI Perez MD
[2022-08-07 01:16] VITALS: BP 149/73; PULSE 61; RESP 20; TEMP 36.7; O2SAT 99
--- NOTE | 2022-08-07 01:42 | NUR.NOTE ---
R middle finger soaked in saline. bacitracin then applied with dressing and aluminum splint.Nursing Note:
== END 2022-08-07 01:36 | disposition home or self-care (01) ==
PROVIDERS: Emergency Provider Physician Assistant; PCP Family Medicine
DX: S61.212A Laceration without foreign body of right middle finger without damage to nail, initial encounter (principal); S20.211A Contusion of right front wall of thorax, initial encounter; S50.311A Abrasion of right elbow, initial encounter; I10 Essential (primary) hypertension; J45.909 Unspecified asthma, uncomplicated; E11.9 Type 2 diabetes mellitus without complications; Z79.51 Long term (current) use of inhaled steroids; W19.XXXA Unspecified fall, initial encounter
CPT/HCPCS: 29130; 71250; 99284; 73080; 73110; 73130; 74176

== ENCOUNTER → 2022-08-26 09:24 | Outpatient (BNVA) | payer MEDICARE, OTHER, SELFPAY | PROVIDERS: PCP Family Medicine; Referring Provider Family Medicine; Visit Provider Student in an Organized Health Care Education/Training Program | DX: S69.81XA Other specified injuries of right wrist, hand and finger(s), initial encounter (principal); W00.0XXA Fall on same level due to ice and snow, initial encounter; M25.541 Pain in joints of right hand | CPT/HCPCS: 76882; 99214 ==

== ENCOUNTER 2022-09-20 11:59 | Outpatient (CLI) | payer MEDICARE, OTHER, SELFPAY ==
--- NOTE | 2022-09-20 10:45 | DI.RAD_ITS ---
Exam(s) XR FINGER RT MIDDLE EXAM: XR FINGER RT MIDDLE CLINICAL HISTORY: RMF injury. TECHNIQUE: 2D digital imaging was performed of the right finger. Three views were obtained. PA/AP, oblique, and lateral views were obtained. COMPARISON: CR,XR XR WRIST RT COMPLETE from 08/07/2022 CR,XR XR HAND RT COMPLETE from 08/07/2022 FINDINGS: BONES: No acute fracture is present. No bony destructive lesion is seen. JOINTS: There is again seen a posterior dislocation of the DIP joint of the right middle finger. The re is a bony linear fragment anterior to the base of the middle phalanx consistent with a small avuls ed fracture. SOFT TISSUE: Soft tissue swelling. IMPRESSION: 1. Posterior dislocation of the DIP joint of the right middle finger. 2. Small avulsed fracture fragment at the anterior aspect of the base of the middle phalanx. DATA REPOSITORY: RADIATION DOSE DELIVERED:
== END 2022-09-20 12:00 | disposition home or self-care (01) ==
LOC: DIORS 11:59
PROVIDERS: PCP Family Medicine; Referring Provider Family Medicine; Visit Provider Student in an Organized Health Care Education/Training Program
DX: S69.81XA Other specified injuries of right wrist, hand and finger(s), initial encounter; S63.292A Dislocation of distal interphalangeal joint of right middle finger, initial encounter; S62.622A Displaced fracture of middle phalanx of right middle finger, initial encounter for closed fracture; X58.XXXA Exposure to other specified factors, initial encounter
CPT/HCPCS: 99213; 73140

== ENCOUNTER 2022-09-22 12:27 | Day surgery (SDC) | payer MEDICARE, OTHER, SELFPAY ==
--- NOTE | 2022-09-22 13:00 | W.ANESPRE ---
General Info Date of Service Date Performed: 09/22/22 Height: 5 ft 7 in Weight: 96.162 kg Body Mass Index (BMI): 33.2 Surgical Procedure: Operation Date: 09/22/22 15:25 Proposed Procedure Side Surgeon p Closed Reduction/Pinning RMF Right Blaze Snow MD Meds Allergies and Home Medications Allergies Allergy/AdvReac Type Severity Reaction Status Date / Time erythromycin base Allergy Severe Skin Rash Verified 09/22/22 12:47 phenytoin sodium Allergy Severe Hives Verified 09/22/22 12:47 [From Dilantin] phenytoin sodium extended Allergy Severe Hives Verified 09/22/22 12:47 [From Dilantin] amoxicillin [Amoxicillin] Allergy Intermediate Hives Verified 09/22/22 12:47 lisinopril Allergy Intermediate cough Verified 09/22/22 12:47 potassium clavulanate Allergy Intermediate Hives Verified 09/22/22 12:47 [From Augmentin] Sulfa (Sulfonamide Allergy Mild Skin Rash Verified 09/22/22 12:47 Antibiotics) tomato [Tomato] Allergy Mild Skin Rash Verified 09/22/22 12:47 NSAIDS (Non-Steroidal AdvReac Severe Per pt, Verified 09/22/22 12:47 Anti-Inflamma states kidney function declines sumatriptan [From Imitrex] AdvReac Severe Visual Verified 09/22/22 12:47 Disturbances,burning sensation through out body oxycodone AdvReac Intermediate n/v Verified 09/22/22 12:47 Home Medication Medication Instructions Recorded ascorbic acid (vitamin C) 1,000 mg 1 tab PO DAILY 07/18/14 tablet cholecalciferol (vitamin D3) 25 1 tab PO DAILY 07/18/14 mcg (1,000 unit) tablet budesonide-formoterol HFA 160 2 puff inhalation DAILY PRN PRN 08/04/15 mcg-4.5 mcg/actuation aerosol inhaler (Symbicort) polyethylene glycol 3350 17 gram 2 pkt PO PRN PRN 08/04/15 oral powder packet acetaminophen 500 mg tablet 1,000 mg PO TID PRN #180 tabs 02/22/17 (Acetaminophen Extra Strength) albuterol sulfate 90 mcg/actuation 2 puff inhalation Q6H PRN 10/04/19 aerosol inhaler (ProAir HFA) losartan 100 mg tablet 100 mg PO DAILY 10/04/19 pantoprazole 20 mg tablet,delayed 40 mg PO DAILY 10/04/19 release (Protonix) pregabalin 50 mg capsule (Lyrica) 100 mg PO TID 10/04/19 atorvastatin 40 mg tablet 40 mg PO HS 05/02/20 hydroxychloroquine 200 mg tablet 400 mg PO DAILY 05/02/20 folic acid 1 mg tablet 1 mg PO DAILY 06/03/21 galcanezumab-gnlm 120 mg/mL 100 mg subcut DIRECTED 06/03/21 subcutaneous syringe (Emgality) ondansetron 4 mg disintegrating 4 mg PO Q8H PRN #10 tabs 07/21/21 tablet fluoxetine 20 mg capsule 20 mg PO DAILY 10/15/21 baclofen 10 mg tablet 10 mg PO TID 02/16/22 cetirizine 10 mg tablet 10 mg PO DAILY PRN 02/16/22 lamotrigine 100 mg tablet 100 mg PO BID 02/16/22 lidocaine 5 % topical patch 1 patch topical PRN 02/16/22 methotrexate sodium 2.5 mg tablet 10 mg PO QWEEK 02/16/22 naratriptan 2.5 mg tablet (Amerge) 2.5 mg PO ONCE PRN 02/16/22 riboflavin (vitamin B2) 100 mg 100 mg PO BID 02/16/22 tablet semaglutide 1 mg/dose (4 mg/3 mL) 1 mg subcut QWEEK 02/16/22 subcutaneous pen injector (Ozempic) valacyclovir 1 gram tablet 1,000 mg PO DAILY 02/16/22 (Valtrex) vitamin B complex (B 1 tab PO DAILY 02/16/22 Complex-Vitamin B12 tablet) nystatin 100,000 unit/gram topical 1 applic topical QID 04/05/22 ointment nystatin 100,000 unit/gram topical 1 applic topical BID 04/05/22 powder triamcinolone acetonide 0.1 % 1 applic topical BID 04/05/22 topical cream bisacodyl 5 mg tablet,delayed 5 mg PO ONCE #4 tabs 06/10/22 release (Dulcolax (bisacodyl)) scopolamine base 1 mg over 3 days 1 patch transdermal Q3D PRN 06/10/22 transdermal patch etanercept 25 mg/0.5 mL (0.5 mL) 25 mg subcut QWEEK 08/02/22 subcutaneous syringe (Enbrel) lamotrigine 25 mg tablet 25 mg PO BID 09/21/22 Current Visit Medications: Current Medications Generic Name Dose Route Start Last Admin Trade Name Mani PRN Reason Stop Dose Admin Ringer's Solution 1,000 mls @ 80 mls/hr 09/22/22 06:00 IV 10/21/22 23:59 INFUSION KEVIN IV Miscellaneous Supplies 1 each 09/22/22 06:00 Iv Access IV 10/21/22 23:59 DIRECTED KEVIN Sodium Chloride 0 ml 09/22/22 06:00 Normal Saline Flush 10 Ml Syr IV 10/21/22 23:59 PRN PRN Sodium Chloride 0 ml 09/22/22 06:00 Normal Saline 10 Ml Vial IJ 10/21/22 23:59 DIRECTED PRN Sterile Water 0 ml 09/22/22 06:00 Water,Injection,Sterile 10 Ml Vial IJ 10/21/22 23:59 DIRECTED PRN PFSH Active Problems Active Problems: Problem Status Onset Code CRPS (complex regional pain syndrome) G90.50 Neuralgia M79.2 Cholecystitis K81.9 Prediabetes R73.09 Hypertension I10 GERD (gastroesophageal reflux disease) K21.9 Migraine G43.909 Asthma J45.909 Back pain M54.9 H/O surgical procedure Z98.89 Adhesive capsulitis of left shoulder 08/25/16 M75.02 Biceps tendinitis of left upper extremity 10/13/16 M75.22 Chronic otitis media with effusion 04/25/14 H65.499 Neck pain 05/24/13 M54.2 Otalgia 05/03/13 H92.09 Tendinitis of left rotator cuff 06/30/16 M75.82 Tubular adenoma of colon 06/15/17 D12.6 Left ankle sprain S93.402A Trochanteric bursitis of left hip M70.62 Sacroiliac joint dysfunction M53.3 Port-A-Cath in place Z95.828 Fracture of radial neck, right, closed 06/09/19 S52.131A Sensorineural hearing loss (SNHL) of right ear with unrestricted hearing of left ear H90.41 Vertigo R42 Hypomagnesemia E83.42 Screening for colon cancer Z12.11 Genital herpes A60.00 Chronic kidney disease N18.9 Vitamin B12 deficiency E53.8 Raynauds syndrome I73.00 Internal derangement of left knee M23.92 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 Family history of colon cancer Z80.0 Rheumatoid arthritis, seronegative, multiple sites M06.09 Right rotator cuff tendonitis M75.81 Injury of right hand S69.91XA Dislocation of distal interphalangeal joint of right middle finger S63.292A Medical History Medical History Adenomatous colon polyp Allergic rhinitis Asthma Constipation Deafness in right ear DM (diabetes mellitus) Eczema Fatty infiltration of liver GERD (gastroesophageal reflux disease) Hand pain History of depression History of neck pain HTN (hypertension) Incontinence Insomnia Leg cramps Migraine Obesity Otalgia Ovarian cyst Preventative health care Screening breast examination Tendinitis Trigeminal neuralgia Surgical History Surgical History Colonoscopy - MAC (06/15/17) H/O craniotomy H/O shoulder surgery H/O tooth extraction History of appendectomy History of cholecystectomy History of ear surgery History of eye surgery History of hysterectomy History of knee surgery Mediport placement (05/02/15) no longer in place Tobacco Smoking/Tobacco Use Status: Former Tobacco Use Alcohol Alcohol Intake: current Alcohol intake frequency: holidays/special occasions only Substance Use Substance use: Never Substance use type: does not use Vital Signs and Lab Results Vital Signs Most Recent Vital Signs in EMR: Temp Pulse Resp BP Pulse Ox 36.8 C 80 16 128/89 94 09/22/22 13:06 09/22/22 13:06 09/22/22 13:06 09/22/22 13:06 09/22/22 13:06 Lab Results Blood Type / Crossmatch: No Data to Display Complete Blood Count: No Data to Display Complete Metabolic Panel: No Data to Display Liver Function Panel: No Data to Display Coagulation Panel: No Data to Display Cardiac Panel: No Data to Display Arterial Blood Gas: No Data to Display Venous Blood Gas: No Data to Display Pancreas Panel: No Data to Display Thyroid Panel: No Data to Display Infectious Disease: No Data to Display Blood Cultures: No Data to Display Toxicology Panel: No Data to Display Imaging and Studies Imaging and Studies Study information below may be from another EMR and interpreted by another provider. Please see original notes in EMR for more complete details. EKG Summary: DATE/TIME OF SERVICE: 07/21/21 1504 : 1965PERFORMING LOCATION: ER APPROVED REPORT Exam: Resting ECG Reason for Exam: chest pain Patient Location: E HR:89 bpm ECG Measurements Heart Rate 89 AXIS PA 182 P 24 QRSd 96 QRS -42 QT 383 T27 QTc 466 Conclusion Sinus rhythm...normal P axis, V-rate 60- 99 Inferior infarct, old...Q >35mS, II III aVF Stress Test Summary: Date of study: 09/07/2017 *PATIENT PRESENTATION* Height: 170.2cm (67in) Blood Pressure: Weight: 105.5kg (232lb) BSA: 2.28m^2 Referring physician: Ryder Turner Ordering physician: Oral Bucio Impressions: - Negative stress test after pharmacologic stress. - Low risk of cardiac events but higher compared to non-diabetics. Summary: Echocardiogram Summary: DATE OF SERVICE: 08/22/13 : 1965 August 22, 2013 OUTPATIENT ORDERING PHYSICIAN: Katarina Rodriguez MD HEIGHT: 5 FT 7 IN WEIGHT: 238 LBS BSA: 2.2 m2 STUDY INDICATIONS: Edema. Hypertension. Diabetes. FINDINGS: LEFT VENTRICLE: Concentric-type hypertrophy with normal regional wall motion. Estimated LVEF 65%. RIGHT VENTRICLE: Normal size and systolic function. AORTIC VALVE: Trileaflet. Opens well, without regurgitation. MITRAL VALVE: Opens well, with mild regurgitation. TRICUSPID VALVE: Trace regurgitation. RSV/PA PRESSURE: RSV pressure normal. PULMONIC VALVE: Normal. LEFT/RIGHT ATRIA: Normal biatrial size. DIASTOLIC INDICES: Normal. GREAT VESSELS: Normal. PERICARDIUM: No effusion. Anesthesia Assessment and Plan Anesthesia History Personal History: PONV Family History: No Family History of Anesthesia Complications Exercise Tolerance Exercise Tolerance: Metabolic Equivalents>4 Pertinent Negatives Pertinent Negatives: No Symptoms of GERD and No Major Cardiovascular Symptoms or Complaints Cardiac & Pulmonary Exam Cardiac Exam: Normal S1/S2 Heart Sounds Pulmonary Exam: Clear Bilateral Breath Sounds Implantable Cardiac Device Does patient have a Pacemaker or an ICD?: No Airway Exam Known Difficult Airway: No Mallampati Class: 2 Mouth Opening: Normal (> 3cm) Thyromental Distance: Greater than 3 cm Neck Range of Motion: Full ROM Neck Circumference: Thick Teeth Condition: Normal Dentition and Removable Dentures/Plates Upper ASA Classification ASA Score: ASA 3 Emergency Case?: No NPO Status NPO Status: NPO Clears >2 hours, Solids >8 hours Anesthesia Plan Resuscitation Status: Full Code Anesthesia Technique: General Anesthesia Airway Planned: Natural Airway Monitors Used: Standard Monitors
[2022-09-22 13:04] VITALS: BMI 33.2
[2022-09-22 13:06] VITALS: BP 128/89; PULSE 80; RESP 16; TEMP 36.8; O2SAT 94
[2022-09-22] MEDS: Lactated Ringers 1,000 ML 80 ML IV (13:21)
[2022-09-22] MEDS: Bupivacaine 0.5% Pres-Free 30 ML VIAL (14:02)
--- NOTE | 2022-09-22 14:20 | DI.RAD_ITS ---
Exam(s) XR HAND RT COMPLETE EXAM: XR HAND RT COMPLETE CLINICAL HISTORY: FRACTURED FINGER. TECHNIQUE: 2D digital imaging was performed. COMPARISON: No exams were available for comparison FINDINGS: Fluoroscopy provided during orthopedic finger surgery. See procedure report for details. Total fluoroscopy time 55 seconds. IMPRESSION: Radiation exposure index/cumulative dose:trae Allred= 1.703mGy DATA REPOSITORY: RADIATION DOSE DELIVERED:
--- NOTE | 2022-09-22 14:22 | PDOC.DSDIS_ITS ---
Date of service: 09/22/22 Time of Service: 14:22 Discharge Plan Disposition Patient Disposition: Home Condition: Good Discharge Details Reason For Visit: FX RMF Attending Provider: Blaze Snow Primary Care Provider: Katarina Rodriguez Home Meds and New Rx's Prescriptions: New hydrocodone-acetaminophen 5-325 mg tablet 1 tab PO Q6H PRN (Reason: pain) Qty: 10 0RF acetaminophen 500 mg tablet 1,000 mg PO TID Qty: 90 0RF Continued scopolamine base 1 mg over 3 days patch 3 day 1 patch transdermal Q3D PRN bisacodyl [Dulcolax (bisacodyl)] 5 mg tablet,delayed release (DR/EC) 5 mg PO ONCE Qty: 4 0RF Rx Instructions: Take according to provider's instructions for colonoscopy prep. Enbrel 25 mg/0.5 mL (0.5) syringe 25 mg subcut QWEEK pantoprazole [Protonix] 20 mg tablet,delayed release (DR/EC) 40 mg PO DAILY losartan 100 mg tablet 100 mg PO DAILY pregabalin [Lyrica] 50 mg capsule 100 mg PO TID albuterol sulfate [ProAir HFA] 90 mcg/actuation HFA aerosol inhaler 2 puff IH Q6H PRN Ozempic 1 mg/dose (4 mg/3 mL) pen injector 1 mg subcut QWEEK methotrexate sodium 2.5 mg tablet 10 mg PO QWEEK Patient Comments: directions read once a week, twice a day. lamotrigine 100 mg tablet 100 mg PO BID baclofen 10 mg tablet 10 mg PO TID valacyclovir [Valtrex] 1 gram tablet 1,000 mg PO DAILY cetirizine 10 mg tablet 10 mg PO DAILY PRN riboflavin (vitamin B2) 100 mg tablet 100 mg PO BID naratriptan [Amerge] 2.5 mg tablet 2.5 mg PO ONCE PRN lidocaine 5 % adhesive patch,medicated 1 patch topical PRN Rx Instructions: leave on most painful area for up to 12 hrs vitamin B complex [B Complex-Vitamin B12] Tablet 1 tab PO DAILY triamcinolone acetonide 0.1 % cream 1 applic topical BID nystatin 100,000 unit/gram powder 1 applic topical BID nystatin 100,000 unit/gram ointment 1 applic topical QID ascorbic acid (vitamin C) 1,000 MG tablet 1 tab PO DAILY cholecalciferol (vitamin D3) 1,000 UNITS tablet 1 tab PO DAILY polyethylene glycol 3350 17 GM powder in packet 2 pkt PO PRN PRN budesonide-formoterol [Symbicort] 10.2 GM HFA aerosol inhaler 2 puff Inhalation DAILY PRN PRN fluoxetine 20 mg capsule 20 mg PO DAILY Patient Comments: TAKE ONE CAPSULE BY MOUTH EVERY DAY lamotrigine 25 mg Tablet 25 mg PO BID atorvastatin 40 mg tablet 40 mg PO HS Patient Comments: TAKE ONE TABLET BY MOUTH EVERY EVENING hydroxychloroquine 200 mg tablet 400 mg PO DAILY Patient Comments: TAKE TWO TABLETS BY MOUTH EVERY DAY Emgality Syringe 120 mg/mL Syringe 100 mg SUBCUT DIRECTED Patient Comments: [id number] folic acid 1 mg Tablet 1 mg PO DAILY ondansetron 4 mg tablet,disintegrating 4 mg PO Q8H PRNQty: 10 0RF Discontinued acetaminophen [Acetaminophen Extra Strength] 500 MG tablet 1,000 mg PO TID PRNQty: 180 0RF Discharge Instructions Additional Instructions: Closed Reduction Percutaneous Pinning Finger discharge Instructions Activity: You should keep the finger elevated as much as possible for the first few days. You may use the other fingers as tolerated but avoid trying to do too much too soon. You may perform light activities with the splint in place. Dressing/Cast: Your splint should stay in place at all times. Do NOT get it wet. You may remove the AlumaFoam splint for comfort. Medications: - You should take Tylenol for baseline pain control. - You have Hydrocodone for breakthrough pain. - You may apply ice over the finger. Follow-up: 10-14 days Referrals: Blaze Snow MD [ [facility] STAFF PHYSICIAN] - Equipment/Supplies: Splint Activity:: Elevate Remove Dressings/Wound Care:: Do Not Remove Shower/Bathe:: Cover Diet:: As Tolerated Discharge Orders Discharge Orders: Discharge Order (Routine); Ordered 09/22/22 Ordered By: Delano Stewart
[2022-09-22 14:26] VITALS: BP 125/72; PULSE 77; RESP 18; TEMP 36.6; O2SAT 97
--- NOTE | 2022-09-22 14:52 | W.ANESPOSTOP ---
Postoperative Evaluation Date, Time and Location Date Performed: 09/22/22 Time Performed: 14:52 Patient Location: Day Surgery Unit Vital Signs Most Recent Imported Vital Signs: Most Recent Vital Signs Temp Pulse Resp BP Pulse Ox 36.6 C 77 18 125/72 97 09/22/22 14:26 09/22/22 14:26 09/22/22 14:26 09/22/22 14:26 09/22/22 14:26 Pain Score Most Recent Pain Score: Most Recent Pain Score Pain Level 0 09/22/22 14:26 Assessment Mental Status: Awake (Alert & Oriented to Patient Baseline) Airway and Respiratory Function: Patent airway with normal (patient baseline) respiratory exam Cardiovascular Function: Hemodynamically Stable Hydration Status: Adequately Hydrated Nausea & Vomiting: No Nausea or Vomiting Pain: Pt. Denies Any Pain Peripheral Nerve Block: Patient did not receive a nerve block
[2022-09-22 14:55] VITALS: BP 126/83; PULSE 70; RESP 18; TEMP 36.5; O2SAT 99
[2022-09-22] MEDS: HYDROcodone 5/Acetaminophen 325 TAB PO (15:03)
--- NOTE | 2022-09-24 06:19 | W.PM.OP ---
Date of service: 09/22/22 Time of Service: 14:00 Operative Note Operative Note DATE OF PROCEDURE: 09/22/22 PRE-OP DIAGNOSIS: Right middle finger DIP subluxation PROCEDURE: Closed reduction and pinning of right middle finger DIP joint SURGEON: Blaze Snow ANESTHESIA TYPE: General:No Airway Refer to Anesthesia Record ESTIMATED BLOOD LOSS: 0 TOURNIQUET TIME: 0 COMPLICATIONS: None Patient was transported to: PACU Indications: Alexia is a 57-year-old who I saw previously for her right middle finger. She suffered a fall almost 2 months ago where she landed on her right middle finger. This was thought to be a DIP joint sprain. However, on follow-up there was notable subluxation of the DIP joint dorsally and radially. Therefore, I recommended we proceed with a reduction and pinning is indicated. I discussed the technical details of the procedure. I reviewed the risk to include bleeding, infection, pain, stiffness, recurrence, need for repeat procedures, damage to nerves and vessels, damage to muscle and tendons. Despite these risks, she elected to proceed. Findings: There was a dorsally subluxed distal phalanx. It was difficult to reduce and closed treatment. However, getting it reduced there was a notable recreation of a fracture line which was likely present initially. After this was freed manually, I was able to reduce the distal phalanx onto the middle phalanx. This was held in position and pinned with a single 0.035 inch K wire. Procedure Description: Alexia was greeted in the preoperative holding area. Her attending was confirmed the correct site was identified and marked. The consent was reviewed the patient. She was taken to the operating room. A general, uninstrumented airway, anesthetic was administered given her notable anxiety and pain history. No prophylactic antibiotics are necessary. A timeout was performed for safe surgery. With fluoroscopic guidance I then performed a closed reduction. It was dorsally subluxed and was very difficult to reduce. However, with continued attempts there was a notable recreation of the fracture lines at the base of the distal phalanx, which was likely present all along. Once this was recreated I was now able to reduce the distal phalanx onto the middle phalanx. It still was very unstable in extension, more stable in flexion. However, the fracture at the base of the distal phalanx was distracted and flexion. Therefore, I proceeded to pin the finger. The right hand was then prepped with ChloraPrep. This was draped with a single U-splint drape. The finger was held in appropriate position, reduced DIP joint in extension. A 0.035 inch K wire was then advanced through the distal phalanx and into the middle phalanx such that it provided stability of the DIP joint. This was confirmed appropriate on the x-ray. The wire was cut and Riley ball was placed. The wound was then wrapped with Xeroform, 4 x 4 gauze, conformer. It was also reinforced with AlumaFoam splint.
== END 2022-09-22 15:19 | disposition home or self-care (01) ==
PROVIDERS: PCP Family Medicine; Visit Provider Student in an Organized Health Care Education/Training Program
PROC: (CPT 26776; principal; 2022-09-22 15:15)
DX: S63.292A Dislocation of distal interphalangeal joint of right middle finger, initial encounter (principal); W19.XXXA Unspecified fall, initial encounter; N18.9 Chronic kidney disease, unspecified; I12.9 Hypertensive chronic kidney disease with stage 1 through stage 4 chronic kidney disease, or unspecified chronic kidney disease; R73.03 Prediabetes
CPT/HCPCS: 26776; 73130; J1100; J2250; J2405; J2704

== ENCOUNTER 2022-09-29 03:02 | Outpatient (CLI) | payer MEDICARE, OTHER, SELFPAY ==
[2022-09-29 14:31] LABS: Abs Immature Grans 0.01 10^3/uL (0.0-0.06); Absolute Basophil Count 0.05 10^3/uL (0.0-0.2); Absolute Eosinophil Count 0.19 10^3/uL (0.0-0.7); Absolute Lymphocyte Count 2.04 10^3/uL (1.2-3.4); Absolute Monocyte Count 0.62 10^3/uL (0.1-0.8); Absolute Neutrophil Count 5.25 10^3/uL (1.2-6.7); Basophils % 0.6; Eosinophils % 2.3; HCT 41.2 % (36.0-46.0); HGB 13.8 g/dL (11.2-15.7); Immature Grans % 0.1; MCHC 33.5 % (32.0-36.0); MCV 102 fL (80-95); MPV 9.6 fL (8.0-11.0); Monocytes % 7.6; Neutrophils % 64.4; Platelet Count 231 10^3/uL (130-400); RBC 4.06 10^6/uL (3.93-5.22); RDW 14.2 % (11.7-14.6); RDW-SD 53.5 fL; WBC 8.16 10^3/uL (4.4-10.8)
[2022-09-29 14:48] LABS: ALT 298 U/L (14-59); AST 198 U/L (15-37); Alkaline Phosphatase 145 U/L (46-116); Anion Gap 6.1 mmol/L (3-11); BUN 20 mg/dL (7-18); Bilirubin, Total 0.5 mg/dL (0.2-1.0); C-Reactive Protein 0.25 mg/dL (0.0-0.3); CO2 27.9 mmol/L (21.0-32.0); CREATININE 1.1 mg/dL (0.55-1.02); Chloride 107 mmol/L (98-107); Estimated GFR 58.97 (mL/min/1.73m2); Glucose 103 mg/dL (74-106); Sodium 141 mmol/L (136-145); Total Protein 7.5 g/dL (6.4-8.2)
[2022-09-29 15:16] LABS: Hemoglobin A1C 5.6 % (<5.7)
== END 2022-09-29 03:03 | disposition home or self-care (01) ==
PROVIDERS: PCP Family Medicine; Visit Provider Nurse Practitioner Family
DX: Z79.899 Other long term (current) drug therapy (principal); E11.9 Type 2 diabetes mellitus without complications
CPT/HCPCS: 36415; 80053; 73140; 83036; 85025; 86140

== ENCOUNTER 2022-09-29 15:10 | Outpatient (CLI) | payer MEDICARE, OTHER, SELFPAY ==
--- NOTE | 2022-09-29 15:00 | DI.RAD_ITS ---
Exam(s) XR FINGER RT MIDDLE EXAM: XR FINGER RT MIDDLE CLINICAL HISTORY: s/p closed reduction and pinning of fracture. TECHNIQUE: 2D digital imaging was performed of the right finger. Three views were obtained. PA/AP, oblique, and lateral views were obtained. COMPARISON: CR XR FINGER RT MIDDLE from 09/20/2022 FINDINGS: BONES: There is a percutaneous pin traversing the DIP joint of the right 3rd finger. On the lateral view, there appears to be a cortical defect at the posterior aspect of the proximal metaphysis of the distal phalanx suspicious for fracture. The densities at the anterior aspect of the base of the mid dle phalanx are unchanged. JOINTS: No dislocation present. SOFT TISSUE: Soft tissue swelling is present. IMPRESSION: 1. No evidence of a dislocation. 2. Findings suspicious for fracture involving the posterior cortex of the distal phalanx of the 3rd f xavier. This is best appreciated on the lateral view. 3. Stable fracture involving the anterior aspect of the base of the middle phalanx. DATA REPOSITORY: RADIATION DOSE DELIVERED:
== END 2022-09-29 15:11 | disposition home or self-care (01) ==
LOC: DIORS 15:10
PROVIDERS: PCP Family Medicine; Referring Provider Family Medicine; Visit Provider Student in an Organized Health Care Education/Training Program
DX: S62.622D Displaced fracture of middle phalanx of right middle finger, subsequent encounter for fracture with routine healing (principal); S62.662D Nondisplaced fracture of distal phalanx of right middle finger, subsequent encounter for fracture with routine healing; X58.XXXD Exposure to other specified factors, subsequent encounter
CPT/HCPCS: 73140

== ENCOUNTER 2022-10-05 10:35 | Outpatient (CLI) | payer MEDICARE, OTHER, SELFPAY ==
--- NOTE | 2022-10-05 10:40 | DI.RAD_ITS ---
Exam(s) XR FINGER RT MIDDLE EXAM: XR FINGER RT MIDDLE CLINICAL HISTORY: f/u R middle finger fx. TECHNIQUE: 2D digital imaging was performed. Three images were obtained. AP, lateral and oblique vi ews were obtained. COMPARISON: CR,XR XR HAND RT COMPLETE from 08/07/2022 CR XR FINGER RT MIDDLE from 09/29/2022 FINDINGS: BONES: There are stable post operative changes present. No new fracture or dislocation. JOINTS: The joint spaces are well maintained. SOFT TISSUE: Normal. IMPRESSION: Stable postoperative changes. DATA REPOSITORY: RADIATION DOSE DELIVERED:
== END 2022-10-05 10:36 | disposition home or self-care (01) ==
LOC: DIORS 10:35
PROVIDERS: PCP Family Medicine; Referring Provider Family Medicine; Visit Provider Physician Assistant
DX: S62.622D Displaced fracture of middle phalanx of right middle finger, subsequent encounter for fracture with routine healing (principal); X58.XXXD Exposure to other specified factors, subsequent encounter
CPT/HCPCS: 73140

== ENCOUNTER 2022-10-15 09:46 | Outpatient (CLI) | payer MEDICARE, OTHER, SELFPAY ==
--- NOTE | 2022-10-15 09:30 | DI.RAD_ITS ---
Exam(s) XR FINGER RT MIDDLE EXAM: XR FINGER RT MIDDLE CLINICAL HISTORY: F/U S/P PINNING. TECHNIQUE: 2D digital imaging was performed. COMPARISON: CR XR FINGER RT MIDDLE from 09/29/2022 CR XR FINGER RT MIDDLE from 10/05/2022 FINDINGS: 3 views There is stable position alignment of DIP joint by the lung truly orientated orthopedic pin. Appeara nce is unchanged. There is no radiographic evidence of a osteomyelitis. IMPRESSION: DATA REPOSITORY: RADIATION DOSE DELIVERED:
== END 2022-10-15 09:47 | disposition home or self-care (01) ==
LOC: DIORS 09:46
PROVIDERS: PCP Family Medicine; Referring Provider Family Medicine; Visit Provider Student in an Organized Health Care Education/Training Program
DX: X58.XXXA Exposure to other specified factors, initial encounter (principal); S63.292A Dislocation of distal interphalangeal joint of right middle finger, initial encounter
CPT/HCPCS: 73140

== ENCOUNTER 2022-10-26 01:23 | Outpatient (CLI) | payer MEDICARE, OTHER, SELFPAY ==
--- NOTE | 2022-10-26 07:30 | DI.CT_ITS ---
Exam(s) CT UPPER EXTREMITY RT WO EXAM: CT UPPER EXTREMITY RT WO CLINICAL HISTORY: CONT PAIN R MIDDLE FINGER,DISLOCATION RT MIDDLE FINGER,[id number]. TECHNIQUE: Imaging Protocol: Axial computed tomography images with coronal and sagittal reformatted images were created and reviewed. COMPARISON: CR XR FINGER RT MIDDLE from 09/20/2022 CR XR FINGER RT MIDDLE from 10/15/2022 FINDINGS: The orthopedic pin has been removed. Bones: There is again seen a tiny density at the anterior aspect of the DIP joint. This may represen t a small avulsed fracture fragment. There is also small avulsed old fracture fragment anterior to th e PIP joint. Bony alignment is satisfactory. No new fracture or dislocation is identified. There is narrowing of the DIP joint space. No lytic or sclerotic lesions are identified. Soft Tissues: Normal. IMPRESSION: 1. Stable old avulsed fracture fragments anterior to both the DIP in the PIP joint of the middle fing er. No new fractures identified. 2. No dislocation. 3. Joint space narrowing of the DIP joint of the middle finger. RADIATION DOSE DELIVERED: 155.52mGy.cm Total DLP 155.52mGy.cm Total DLP DATA REPOSITORY: All CT scans at this facility are submitted to the National Radiology Data Registry (NRDR) Dose Index Registry (DIR) with the [employer] ([employer]). RADIATION OPTIMIZATION: All CT scans at this facility use at least one of these dose optimization te chniques: automated exposure control; mA and/or kV adjustment per patient size (includes targeted exa ms where dose is matched to clinical indication); or iterative reconstruction.
== END 2022-10-26 01:43 ==
LOC: DI 01:25
PROVIDERS: PCP Family Medicine; Visit Provider Student in an Organized Health Care Education/Training Program
DX: S63.29 Dislocation of distal interphalangeal joint of finger (principal); X58.XXXD Exposure to other specified factors, subsequent encounter
CPT/HCPCS: 73200

== ENCOUNTER 2022-10-29 02:41 | Outpatient (CLI) | payer MEDICARE, OTHER, SELFPAY ==
[2022-10-29 12:44] LABS: Abs Immature Grans 0.02 10^3/uL (0.0-0.06); Absolute Basophil Count 0.07 10^3/uL (0.0-0.2); Absolute Eosinophil Count 0.27 10^3/uL (0.0-0.7); Absolute Lymphocyte Count 2.42 10^3/uL (1.2-3.4); Absolute Monocyte Count 0.59 10^3/uL (0.1-0.8); Absolute Neutrophil Count 4.81 10^3/uL (1.2-6.7); Basophils % 0.9; Eosinophils % 3.3; HCT 38.9 % (36.0-46.0); HGB 12.8 g/dL (11.2-15.7); Immature Grans % 0.2; Lymphocytes % 29.6; MCH 32.2 pg (27.0-33.0); MCHC 32.9 % (32.0-36.0); MCV 98 fL (80-95); MPV 9.8 fL (8.0-11.0); Monocytes % 7.2; Neutrophils % 58.8; Platelet Count 234 10^3/uL (130-400); RBC 3.97 10^6/uL (3.93-5.22); RDW 12.3 % (11.7-14.6); RDW-SD 44.3 fL; WBC 8.18 10^3/uL (4.4-10.8)
[2022-10-29 13:10] LABS: ALT 17 U/L (14-59); AST 11 U/L (15-37); Albumin 3.8 g/dL (3.4-5.0); Alkaline Phosphatase 95 U/L (46-116); Anion Gap 8.3 mmol/L (3-11); BUN 14 mg/dL (7-18); Bilirubin, Total 0.5 mg/dL (0.2-1.0); C-Reactive Protein 0.24 mg/dL (0.0-0.3); CO2 27.7 mmol/L (21.0-32.0); CREATININE 1.2 mg/dL (0.55-1.02); Calcium 8.8 mg/dL (8.5-10.1); Chloride 107 mmol/L (98-107); Estimated GFR 53.13 (mL/min/1.73m2); Glucose 81 mg/dL (74-106); Potassium 3.9 mmol/L (3.5-5.1); Sodium 143 mmol/L (136-145); Total Protein 7.2 g/dL (6.4-8.2)
== END 2022-10-29 02:42 | disposition home or self-care (01) ==
PROVIDERS: PCP Family Medicine; Visit Provider Nurse Practitioner Family
DX: M19.90 Unspecified osteoarthritis, unspecified site (principal); Z79.899 Other long term (current) drug therapy
CPT/HCPCS: 36415; 80053; 73140; 85025; 86140

== ENCOUNTER 2022-10-29 10:11 | Outpatient (CLI) | payer MEDICARE, OTHER, SELFPAY ==
--- NOTE | 2022-10-29 10:00 | DI.RAD_ITS ---
Exam(s) XR FINGER RT MIDDLE EXAM: XR FINGER RT MIDDLE CLINICAL HISTORY: f/u RIGHT MIDDLE FINGER FX. TECHNIQUE: 2D digital imaging was performed of the right finger. Three views were obtained. PA/AP, oblique, and lateral views were obtained. COMPARISON: CR XR FINGER RT MIDDLE from 10/15/[address] UPPER EXTREMITY RT WO from 10/26/2022 FINDINGS: BONES: There has been no change in alignment of the fractures involving the middle and distal phalang es. No new fractures identified. No bony destructive lesion is seen. JOINTS: No dislocation present. SOFT TISSUE: Soft tissue swelling of the finger is noted. IMPRESSION: Stable fractures involving the middle and distal phalanges. DATA REPOSITORY: RADIATION DOSE DELIVERED:
== END 2022-10-29 10:12 | disposition home or self-care (01) ==
LOC: DIORS 10:11
PROVIDERS: PCP Family Medicine; Referring Provider Family Medicine; Visit Provider Physician Assistant
DX: S63.29 Dislocation of distal interphalangeal joint of finger (principal); X58.XXXD Exposure to other specified factors, subsequent encounter
CPT/HCPCS: 73140

== ENCOUNTER 2022-11-09 16:22 | Emergency (ER) | payer MEDICARE, OTHER, SELFPAY ==
[2022-11-09 16:45] VITALS: BP 133/84; PULSE 78; RESP 18; O2SAT 99
--- NOTE | 2022-11-09 16:45 | DI.RAD_ITS ---
Exam(s) XR HAND RT COMPLETE EXAM: XR HAND RT COMPLETE CLINICAL HISTORY: fall right middle finger injury. TECHNIQUE: 2D digital imaging was performed. COMPARISON: CR XR FINGER RT MIDDLE from 10/29/2022 FINDINGS: 3 views There is some soft tissue swelling around the PIP joint region of the 3rd-middle finger. There is an avulsion noted off the volar aspect of the base of the middle phalanx of the 3rd finger. Appears somewhat different than on the previous images. Also again noted is a nondisplaced fracture of the dorsal base of the distal phalanx of the same-3rd finger. Very subtle and nondisplaced. There are no other fractures in the hand seen. No osseous lesions nor erosions. No radiopaque forei gn body. IMPRESSION: As above. Mild change when compared to dedicated finger images of 10/29/2022. DATA REPOSITORY: RADIATION DOSE DELIVERED:
[2022-11-09] MEDS: HYDROcodone 5/Acetaminophen 325 TAB PO (17:28)
--- NOTE | 2022-11-09 17:30 | DI.VRAD_ITS ---
PROCEDURE INFORMATION: Exam: XR Right Hand Exam date and time: 11/09/2022 5:13 PM Age: 57 years old Clinical indication: Pain; Finger(s); Patient HX: Fall, right middle finger injury TECHNIQUE: Imaging protocol: Radiologic exam of the right hand. Views: 3 or more views. COMPARISON: CT UPPER EXTREMITY RT WO 10/26/2022 3:32 PM FINDINGS: Bones/joints: Joint space narrowing in the DIP joints and PIP joints consistent with degenerative changes. There is no evidence of acute fracture.There is no evidence of malalignment or dislocation. Soft tissues: Normal. IMPRESSION: There is no evidence of acute fracture.There is no evidence of malalignment or dislocation. Dictated and Authenticated by: Logan Rg MD. Ordering:DORIS Hernandez MD
--- NOTE | 2022-11-09 18:10 | W.ED.GENAD ---
Discharge Plan Disposition Patient Disposition: Home Discharge Details Clinical Impression: Injury of right hand Primary Care Provider: Katarina Rodriguez ED Provider: David Jiang Home Meds and New Rx's Prescriptions: Continued scopolamine base 1 mg over 3 days patch 3 day 1 patch transdermal Q3D PRN bisacodyl [Dulcolax (bisacodyl)] 5 mg tablet,delayed release (DR/EC) 5 mg PO ONCE Qty: 4 0RF Rx Instructions: Take according to provider's instructions for colonoscopy prep. Enbrel 25 mg/0.5 mL (0.5) syringe 25 mg subcut QWEEK diazepam 5 mg tablet 5 mg PO BID PRN (Reason: anxiety) Qty: 8 0RF pantoprazole [Protonix] 20 mg tablet,delayed release (DR/EC) 40 mg PO DAILY losartan 100 mg tablet 100 mg PO DAILY pregabalin [Lyrica] 50 mg capsule 100 mg PO TID albuterol sulfate [ProAir HFA] 90 mcg/actuation HFA aerosol inhaler 2 puff IH Q6H PRN Ozempic 1 mg/dose (4 mg/3 mL) pen injector 1 mg subcut QWEEK methotrexate sodium 2.5 mg tablet 10 mg PO QWEEK Patient Comments: directions read once a week, twice a day. lamotrigine 100 mg tablet 100 mg PO BID baclofen 10 mg tablet 10 mg PO TID valacyclovir [Valtrex] 1 gram tablet 1,000 mg PO DAILY cetirizine 10 mg tablet 10 mg PO DAILY PRN riboflavin (vitamin B2) 100 mg tablet 100 mg PO BID naratriptan [Amerge] 2.5 mg tablet 2.5 mg PO ONCE PRN lidocaine 5 % adhesive patch,medicated 1 patch topical PRN Rx Instructions: leave on most painful area for up to 12 hrs vitamin B complex [B Complex-Vitamin B12] Tablet 1 tab PO DAILY triamcinolone acetonide 0.1 % cream 1 applic topical BID nystatin 100,000 unit/gram powder 1 applic topical BID nystatin 100,000 unit/gram ointment 1 applic topical QID ascorbic acid (vitamin C) 1,000 MG tablet 1 tab PO DAILY cholecalciferol (vitamin D3) 1,000 UNITS tablet 1 tab PO DAILY polyethylene glycol 3350 17 GM powder in packet 2 pkt PO PRN PRN budesonide-formoterol [Symbicort] 10.2 GM HFA aerosol inhaler 2 puff Inhalation DAILY PRN PRN fluoxetine 20 mg capsule 20 mg PO DAILY Patient Comments: TAKE ONE CAPSULE BY MOUTH EVERY DAY lamotrigine 25 mg Tablet 25 mg PO BID acetaminophen 500 mg tablet 1,000 mg PO TID Qty: 90 0RF atorvastatin 40 mg tablet 40 mg PO HS Patient Comments: TAKE ONE TABLET BY MOUTH EVERY EVENING hydroxychloroquine 200 mg tablet 400 mg PO DAILY Patient Comments: TAKE TWO TABLETS BY MOUTH EVERY DAY Emgality Syringe 120 mg/mL Syringe 100 mg SUBCUT DIRECTED Patient Comments: M79rmid folic acid 1 mg Tablet 1 mg PO DAILY ondansetron 4 mg tablet,disintegrating 4 mg PO Q8H PRNQty: 10 0RF Discontinued hydrocodone-acetaminophen 10-325 mg tablet 1 tab PO QHS MDD 10mg PRN (Reason: pain) Qty: 7 0RF Rx Instructions: Take one tablet for severe postoperative pain at night only as needed Discharge Instructions Instructions: Finger Sprain (ED) Additional Instructions: Please continue use of [id number] acetaminophen and use narcotic only for severe pain and discomfort as directed on bottle. If you have any significant change in your condition feel free to return the emergency department otherwise follow-up with orthopedist and hand specialist as already arranged. Referrals: [facility] [Provider Group] Discharge Data Discharge Date/Time-TO BE ENTERED AT DEPARTURE: 11/09/22 18:49 Medical Decision Making Patient presenting to the emergency department for chief complaint of right middle finger injury. She states that she injured this initially in July due to a fall and has seen orthopedic on multiple occasions and is pending a follow-up with hand specialist. On Tuesday she fell and reinjured the same digit causing pain swelling and significant discomfort. She has been using Voltaren gel and acetaminophen but cannot take any NSAIDs due to kidney issues. Pain is still significant and severe. She did call orthopedic office and even hand specialist office which was able to move up her specialty appointment but local orthopedist recommended coming to the emergency department. Physical exam shows significant pain with range of motion especially of the DIP and PIP of the right middle finger. There is also significant swelling to the middle and distal phalanx with diffuse tenderness throughout. We will plan on giving patient hydrocodone/acetaminophen pending results and will perform x-ray imaging. Radiological imaging and radiologist interpretation was reviewed and shows mild changes compared to images that were just performed on 10/29/2022. No obvious severe new fracture is noted. We will plan on splinting patient and giving limited prescription of narcotics after review of CIRCULAR DISTRIBUTOR shows no concern for abuse and did discuss risk versus benefit with patient. Patient to continue to keep follow-up with hand surgeon which is scheduled for 11/23 but she states she is also on a cancellation list to be seen sooner. After discussion of diagnosis and plan of care patient has no further needs, questions, or concerns and states clear understanding to return to the emergency department for any worsening symptoms. This documentation was generated using [employer] dictation system, please disregard any oddities of phrase or misspellings. Imaging Data Radiologic Study: Imaging: X-Ray Radiologist's impression: Exam(s) XR HAND RT COMPLETE EXAM: XR HAND RT COMPLETE CLINICAL HISTORY: fall right middle finger injury. TECHNIQUE: 2D digital imaging was performed. COMPARISON: CR XR FINGER RT MIDDLE from 10/29/2022 FINDINGS: 3 views There is some soft tissue swelling around the PIP joint region of the 3rd-middle finger. There is an avulsion noted off the volar aspect of the base of the middle phalanx of the 3rd finger. Appears somewhat different than on the previous images. Also again noted is a nondisplaced fracture of the dorsal base of the distal phalanx of the same-3rd finger. Very subtle and nondisplaced. There are no other fractures in the hand seen. No osseous lesions nor erosions. No radiopaque foreign body. IMPRESSION: As above. Mild change when compared to dedicated finger images of 10/29/2022. HPI General Mode of arrival: ambulatory. Date/Time Provider Initiated Documentation: 11/09/22 16:59. Limitations to Documentation: no limitations. Information obtained by: patient and RN notes reviewed. History of Present Illness 57 year old F presents to the emergency department with the chief complaint of Fall with right middle finger injury, described as moderate and similar to prior episodes, with intensity rated at 9. Quality is described as sharp, and is localized to the right and upper extremity. Patient reports no radiation. Patient started experiencing this day(s) (4) and it has been constant. No relieving factors improve symptom(s), No exacerbating factors reported . Patient notes no other symptoms.. Patient did receive the following treatments prior to arrival, NSAID (Voltaren gel) and other (Acetaminophen) Related Data Home Medications Medication Instructions Recorded Confirmed ascorbic acid (vitamin C) 1,000 mg 1 tab PO DAILY 07/18/14 11/09/22 tablet cholecalciferol (vitamin D3) 25 1 tab PO DAILY 07/18/14 11/09/22 mcg (1,000 unit) tablet budesonide-formoterol HFA 160 2 puff inhalation DAILY PRN PRN 08/04/15 11/09/22 mcg-4.5 mcg/actuation aerosol inhaler (Symbicort) polyethylene glycol 3350 17 gram 2 pkt PO PRN PRN 08/04/15 11/09/22 oral powder packet albuterol sulfate 90 mcg/actuation 2 puff inhalation Q6H PRN 10/04/19 11/09/22 aerosol inhaler (ProAir HFA) losartan 100 mg tablet 100 mg PO DAILY 10/04/19 11/09/22 pantoprazole 20 mg tablet,delayed 40 mg PO DAILY 10/04/19 11/09/22 release (Protonix) pregabalin 50 mg capsule (Lyrica) 100 mg PO TID 10/04/19 11/09/22 atorvastatin 40 mg tablet 40 mg PO HS 05/02/20 11/09/22 hydroxychloroquine 200 mg tablet 400 mg PO DAILY 05/02/20 11/09/22 folic acid 1 mg tablet 1 mg PO DAILY 06/03/21 11/09/22 galcanezumab-gnlm 120 mg/mL 100 mg subcut DIRECTED 06/03/21 11/09/22 subcutaneous syringe (Emgality) ondansetron 4 mg disintegrating 4 mg PO Q8H PRN #10 tabs 07/21/21 11/09/22 tablet fluoxetine 20 mg capsule 20 mg PO DAILY 10/15/21 11/09/22 baclofen 10 mg tablet 10 mg PO TID 02/16/22 11/09/22 cetirizine 10 mg tablet 10 mg PO DAILY PRN 02/16/22 11/09/22 lamotrigine 100 mg tablet 100 mg PO BID 02/16/22 11/09/22 lidocaine 5 % topical patch 1 patch topical PRN 02/16/22 11/09/22 methotrexate sodium 2.5 mg tablet 10 mg PO QWEEK 02/16/22 11/09/22 naratriptan 2.5 mg tablet (Amerge) 2.5 mg PO ONCE PRN 02/16/22 11/09/22 riboflavin (vitamin B2) 100 mg 100 mg PO BID 02/16/22 11/09/22 tablet semaglutide 1 mg/dose (4 mg/3 mL) 1 mg subcut QWEEK 02/16/22 11/09/22 subcutaneous pen injector (Ozempic) valacyclovir 1 gram tablet 1,000 mg PO DAILY 02/16/22 11/09/22 (Valtrex) vitamin B complex (B 1 tab PO DAILY 02/16/22 11/09/22 Complex-Vitamin B12 tablet) nystatin 100,000 unit/gram topical 1 applic topical QID 04/05/22 11/09/22 ointment nystatin 100,000 unit/gram topical 1 applic topical BID 04/05/22 11/09/22 powder triamcinolone acetonide 0.1 % 1 applic topical BID 04/05/22 11/09/22 topical cream bisacodyl 5 mg tablet,delayed 5 mg PO ONCE #4 tabs 06/10/22 11/09/22 release (Dulcolax (bisacodyl)) scopolamine base 1 mg over 3 days 1 patch transdermal Q3D PRN 06/10/22 11/09/22 transdermal patch etanercept 25 mg/0.5 mL (0.5 mL) 25 mg subcut QWEEK 08/02/22 11/09/22 subcutaneous syringe (Enbrel) lamotrigine 25 mg tablet 25 mg PO BID 09/21/22 11/09/22 acetaminophen 500 mg tablet 1,000 mg PO TID #90 tabs 09/22/22 11/09/22 diazepam 5 mg tablet 5 mg PO BID PRN anxiety #8 tabs 09/29/22 11/09/22 Previous Rx's Medication Instructions Recorded ondansetron 4 mg disintegrating 4 mg PO Q8H PRN #10 tabs 07/21/21 tablet bisacodyl 5 mg tablet,delayed 5 mg PO ONCE #4 tabs 06/10/22 release (Dulcolax (bisacodyl)) acetaminophen 500 mg tablet 1,000 mg PO TID #90 tabs 04/12/23 diazepam 5 mg tablet 5 mg PO BID PRN anxiety #8 tabs 09/29/22 Allergies Allergy/AdvReac Type Severity Reaction Status Date / Time erythromycin base Allergy Severe Skin Rash Verified 10/15/22 09:36 phenytoin sodium Allergy Severe Hives Verified 10/15/22 09:36 [From Dilantin] phenytoin sodium extended Allergy Severe Hives Verified 10/15/22 09:36 [From Dilantin] amoxicillin [Amoxicillin] Allergy Intermediate Hives Verified 10/15/22 09:36 lisinopril Allergy Intermediate cough Verified 10/15/22 09:36 potassium clavulanate Allergy Intermediate Hives Verified 10/15/22 09:36 [From Augmentin] Sulfa (Sulfonamide Allergy Mild Skin Rash Verified 10/15/22 09:36 Antibiotics) tomato [Tomato] Allergy Mild Skin Rash Verified 10/15/22 09:36 NSAIDS (Non-Steroidal AdvReac Severe Per pt, Verified 10/15/22 09:36 Anti-Inflamma states kidney function declines sumatriptan [From Imitrex] AdvReac Severe Visual Verified 10/15/22 09:36 Disturbances,burning sensation through out body oxycodone AdvReac Intermediate n/v Verified 10/15/22 09:36 hydromorphone AdvReac nausea/vomi Verified 10/15/22 09:36 ting General Stated Complaint: Orthopedic HARRIET: 4 Review of Systems Cardiovascular Cardiovascular: Denies syncope Musculoskeletal Musculoskeletal: Reports as per HPI, Reports arthralgias, Reports joint swelling, Reports limited range of motion, Denies numbness, Reports stiffness and Denies tingling Integumentary/Breasts Skin/Breast: Denies wounds Neurologic Neurologic: Denies syncope, Denies numbness and Denies tingling PFSH All Active Problems CRPS (complex regional pain syndrome) (Chronic) Neuralgia (Chronic) Cholecystitis (Acute) Prediabetes (Chronic) Hypertension (Chronic) GERD (gastroesophageal reflux disease) (Chronic) Migraine (Chronic) Asthma (Chronic) Back pain (Chronic) H/O surgical procedure (Chronic) a. hysterectomy b. orthopedic surgery Adhesive capsulitis of left shoulder (Acute 08/25/16) Biceps tendinitis of left upper extremity (Acute 10/13/16) Chronic otitis media with effusion (Acute 04/25/14) Neck pain (Acute 05/24/13) Otalgia (Acute 05/03/13) Tendinitis of left rotator cuff (Acute 06/30/16) Subacromial injection: 04/26/18; 04/06/17 Injection under fluoroscopy: 08/10/18 Tubular adenoma of colon (Acute 06/15/17) Left ankle sprain (Acute) Trochanteric bursitis of left hip (Acute) Corticosteroid injection: 08/07/18 Sacroiliac joint dysfunction (Acute) Port-A-Cath in place (Acute) Fracture of radial neck, right, closed (Acute 06/09/19) Sensorineural hearing loss (SNHL) of right ear with unrestricted hearing of left ear (Acute) Vertigo (Acute) Hypomagnesemia (Acute) Screening for colon cancer (Acute) Genital herpes (Acute) Chronic kidney disease (Chronic) Vitamin B12 deficiency (Acute) Raynauds syndrome (Acute) Internal derangement of left knee (Acute) Arthritis of right elbow (Acute) lateral epicondyle injection 04/12/2022 Family history of colon cancer (Acute) Rheumatoid arthritis, seronegative, multiple sites (Acute) Right rotator cuff tendonitis (Acute) Steroid injection: 08/02/2022 Injury of right hand (Acute) Dislocation of distal interphalangeal joint of right middle finger (Acute) Status post reduction and percutaneous pinning DOS: 09/24/2022 Medical History Adenomatous colon polyp Allergic rhinitis Asthma Constipation Deafness in right ear DM (diabetes mellitus) Eczema Fatty infiltration of liver GERD (gastroesophageal reflux disease) Hand pain History of depression History of neck pain HTN (hypertension) Incontinence Insomnia Leg cramps Migraine Obesity Otalgia Ovarian cyst Preventative health care Screening breast examination Tendinitis Trigeminal neuralgia Surgical History Colonoscopy - MAC (06/15/17) H/O craniotomy H/O shoulder surgery H/O tooth extraction History of appendectomy History of cholecystectomy History of ear surgery History of eye surgery History of hysterectomy History of knee surgery Mediport placement (05/02/15) no longer in place Family History Mother Hx of migraines Social History Smoking/Tobacco Use Status: Former Tobacco Use Quit Date: 06/13/10 Smoking risk assessment performed?: Yes Alcohol Intake: current Alcohol Intake frequency: holidays/special occasions only Drug use: Never Substance use type: does not use Current gender identity: female Do you feel safe at home: Yes Do you feel safe in your relationship?: Yes Exam Const General: cooperative, no acute distress and not ill appearing Orientation: alert, awake and oriented x3 HENMT Mouth: moist mucous membranes Resp Effort & Inspection: normal respiratory effort, able to speak in complete sentences and no respiratory distress Skin General skin exam: no rashes or lesions noted Neuro General: patient alert, patient awake, patient oriented x3, moves all extremities and no focal motor deficits Sensory Exam: no sensory deficits noted Extrem General: normal exam except as noted Right upper extremity: hand Details: normal capillary refill, neuromotor exam normal, neurosensory exam normal, tendon exam abnormal (Right middle finger) Location: function limited secondary to pain, tenderness Location: of the 3rd digit Location: at the middle phalanx, at the distal phalanx, at the PIP joint, on the dorsal aspect and on the palmar aspect, vascular exam Details: radial pulse present and normal capillary refill, abnormal ROM of finger Details: pain with active ROM; able to flex and extend and swelling Location: of the 3rd digit Location: at the middle phalanx, at the distal phalanx and at the PIP joint; no ecchymosis Course Vital Signs Vital signs: Vital Signs Pulse 78 11/09/22 16:45 Respiratory Rate 18 11/09/22 16:45 Blood Pressure 133/84 11/09/22 16:45 Pulse Oximetry 99 11/09/22 16:45 Pulse 78 11/09/22 16:45 Respiratory Rate 18 11/09/22 16:45 Respiratory Effort Normal, Non-Labored 11/09/22 16:47 Blood Pressure 133/84 11/09/22 16:45 Blood Pressure Position Sitting 11/09/22 16:45 Pulse Oximetry 99 11/09/22 16:45 Pain Level 8 11/09/22 16:45
== END 2022-11-09 18:49 | disposition home or self-care (01) ==
PROVIDERS: Emergency Provider Nurse Practitioner Family; PCP Family Medicine
DX: S62.662A Nondisplaced fracture of distal phalanx of right middle finger, initial encounter for closed fracture (principal); W19.XXXA Unspecified fall, initial encounter
CPT/HCPCS: 99283; 73130

== ENCOUNTER 2022-11-30 03:17 | Outpatient (CLI) | payer MEDICARE, OTHER, SELFPAY ==
[2022-11-30 10:54] LABS: Abs Immature Grans 0.01 10^3/uL (0.0-0.06); Absolute Basophil Count 0.07 10^3/uL (0.0-0.2); Absolute Eosinophil Count 0.26 10^3/uL (0.0-0.7); Absolute Lymphocyte Count 1.59 10^3/uL (1.2-3.4); Absolute Monocyte Count 0.43 10^3/uL (0.1-0.8); Basophils % 1.1; HCT 39.9 % (36.0-46.0); HGB 13.5 g/dL (11.2-15.7); Immature Grans % 0.2; Lymphocytes % 24.6; MCH 32.8 pg (27.0-33.0); MCHC 33.8 % (32.0-36.0); MCV 97 fL (80-95); MPV 9.7 fL (8.0-11.0); Monocytes % 6.7; Neutrophils % 63.4; Platelet Count 242 10^3/uL (130-400); RBC 4.11 10^6/uL (3.93-5.22); RDW 12.3 % (11.7-14.6); RDW-SD 43.3 fL; WBC 6.46 10^3/uL (4.4-10.8)
[2022-11-30 11:31] LABS: ALT 18 U/L (14-59); AST 11 U/L (15-37); Albumin 4.1 g/dL (3.4-5.0); Alkaline Phosphatase 97 U/L (46-116); Anion Gap 10.4 mmol/L (3-11); BUN 16 mg/dL (7-18); Bilirubin, Direct 0.1 mg/dL (0.0-0.2); Bilirubin, Total 0.4 mg/dL (0.2-1.0); C-Reactive Protein 0.28 mg/dL (0.0-0.3); CO2 26.6 mmol/L (21.0-32.0); CREATININE 1.2 mg/dL (0.55-1.02); Calcium 8.8 mg/dL (8.5-10.1); Chloride 107 mmol/L (98-107); Estimated GFR 53.13 (mL/min/1.73m2); Glucose 116 mg/dL (74-106); Potassium 4.2 mmol/L (3.5-5.1); Sodium 144 mmol/L (136-145); Total Protein 7.4 g/dL (6.4-8.2)
[2022-11-30 12:07] LABS: Vitamin B12 350 pg/mL (193-986)
== END 2022-11-30 03:18 | disposition home or self-care (01) ==
PROVIDERS: PCP Family Medicine; Visit Provider Nurse Practitioner Family
DX: Z79.899 Other long term (current) drug therapy (principal); M06.09 Rheumatoid arthritis without rheumatoid factor, multiple sites; R79.89 Other specified abnormal findings of blood chemistry; R71.8 Other abnormality of red blood cells
CPT/HCPCS: 36415; 80053; 80076; 82248; 82607; 85025; 86140

== ENCOUNTER 2022-12-21 02:29 | Outpatient (CLI) | payer MEDICARE, OTHER, SELFPAY ==
--- NOTE | 2022-12-21 10:45 | DI.CTLCSR_ITS ---
Exam(s) CT CHEST LUNG CANCER SCREEN EXAM: CT CHEST LUNG CANCER SCREEN CLINICAL HISTORY: H/O TOBACCO ABUSE, Z87.891. TECHNIQUE: Imaging Protocol: Low Dose Technique CONTRAST MATERIAL: None COMPARISON: CT CT CHEST/ABD/PEL WO from 08/07/2022 FINDINGS: CHEST: LUNGS: There are no ominous pulmonary nodules. There are no confluent infiltrates. No pleural effusi ons. MEDIASTINUM: There is no obvious hilar nor mediastinal adenopathy. CARDIAC: Heart size is normal. There is no pericardial effusion.Caliber of the thoracic aorta is wit hin normal limits. OTHER: Previous cholecystectomy OSSEOUS: No significant osseous lesions.. IMPRESSION: 1. No significant pulmonary nodules. No pleural effusions. 2. No obvious intrathoracic adenopathy. 3. Lung RADS Cat 1 - Negative: No nodules and definitely benign nodules Lung-RADS 1.0 CATEGORIES: Category 0 - Prior chest CT exam(s) being located for comparison. Category 1 - Annual screening in 12 months. No nodules or definitely benign nodules. Category 2 - Annual screening in 12 months. Benign appearance. Nodules with low likelihood of becomin g active cancer. Category 3 - 6-month follow-up. Probably benign. Short-term follow-up suggested. Nodules with low lik elihood of becoming active cancer. Category 4A - 3-month follow-up and CT/PET if >8 mm in size. Suspicious finding. Findings which requi re additional testing. Category 4B - Findings which require additional testing and tissue sampling. Category 4X - Category 3 or 4 nodules with additional features or imaging findings that increases the suspicion of malignancy. Modifier S- Potentially clinically significant findings (non lung cancer) RADIATION DOSE DELIVERED: 90.65mGy.cm Total DLP DATA REPOSITORY: All CT scans at this facility are submitted to the National Radiology Data Registry (NRDR) Dose Index Registry (DIR) with the [employer] ([employer]). RADIATION OPTIMIZATION: All CT scans at this facility use at least one of these dose optimization te chniques: automated exposure control; mA and/or kV adjustment per patient size (includes targeted exa ms where dose is matched to clinical indication); or iterative reconstruction.
== END 2022-12-21 02:49 ==
LOC: DI 02:29
PROVIDERS: PCP Family Medicine; Visit Provider Family Medicine
DX: Z87.891 Personal history of nicotine dependence (principal); Z12.2 Encounter for screening for malignant neoplasm of respiratory organs
CPT/HCPCS: 71271

== ENCOUNTER 2022-12-28 13:01 | Emergency (ER) | payer MEDICARE, OTHER, SELFPAY ==
[2022-12-28 13:05] VITALS: BP 135/90; PULSE 90; RESP 18; TEMP 36.7; O2SAT 98
--- NOTE | 2022-12-28 13:15 | DI.CT_ITS ---
Exam(s) CT ABDOMEN PELVIS W EXAM: CT ABDOMEN PELVIS W CLINICAL HISTORY: left lower abdomen pain. TECHNIQUE: Imaging Protocol: Axial computed tomography images with coronal and sagittal reformatted images were created and reviewed CONTRAST MATERIAL: Intravenous: Omnipaque 350 Contrast volume:100 ml Oral: / no COMPARISON: CT CT CHEST/ABD/PEL WO from 08/07/2022 FINDINGS: ABDOMEN: Lung Bases: Normal where visualized. Liver: Mild fatty infiltration. No measurable mass. Gallbladder and biliary tract: Status post cholecystectomy. Pancreas: Normal density, no abnormal calcifications or inflammatory process. Spleen: Normal. Kidneys: Normal size, contour and axis. No radiodense stones or obstructive uropathy. No suspicious m asses seen. Adrenal glands: No masses seen. Abdominal Aorta: Abdominal portion non-dilated. Soft tissues: Unremarkable. PELVIS: Bladder: No gross wall thickening. No calculi.No focal mass. Bowel: No obstruction. No bowel wall thickening. Appendix not seen. Very little stool.. Peritoneal cavity: No ascites, collection or mesenteric inflammatory response. Bones: Unremarkable for age. Reproductive organs: Status post hysterectomy. Lymph nodes: Unremarkable. Impression: No acute abnormality in the abdomen and pelvis. RADIATION DOSE DELIVERED: 1,006.38mGy.cm Total DLP DATA REPOSITORY: All CT scans at this facility are submitted to the National Radiology Data Registry (NRDR) Dose Index Registry (DIR) with the [employer] ([employer]). RADIATION OPTIMIZATION: All CT scans at this facility use at least one of these dose optimization te chniques: automated exposure control; mA and/or kV adjustment per patient size (includes targeted exa ms where dose is matched to clinical indication); or iterative reconstruction.
--- NOTE | 2022-12-28 13:28 | ED.GENADUL_ITS ---
Discharge Plan Disposition Patient Disposition: Home Condition: Stable Discharge Details Clinical Impression: Abdominal pain Primary Care Provider: Katarina Rodriguez ED Provider: Geoffrey Carroll Home Meds and New Rx's Prescriptions: Continued scopolamine base 1 mg over 3 days patch 3 day 1 patch transdermal Q3D PRN bisacodyl [Dulcolax (bisacodyl)] 5 mg tablet,delayed release (DR/EC) 5 mg PO ONCE Qty: 4 0RF Rx Instructions: Take according to provider's instructions for colonoscopy prep. Enbrel 25 mg/0.5 mL (0.5) syringe 25 mg subcut QWEEK diazepam 5 mg tablet 5 mg PO BID PRN (Reason: anxiety) Qty: 8 0RF pantoprazole [Protonix] 20 mg tablet,delayed release (DR/EC) 40 mg PO DAILY losartan 100 mg tablet 100 mg PO DAILY pregabalin [Lyrica] 50 mg capsule 100 mg PO TID albuterol sulfate [ProAir HFA] 90 mcg/actuation HFA aerosol inhaler 2 puff IH Q6H PRN Ozempic 1 mg/dose (4 mg/3 mL) pen injector 1 mg subcut QWEEK methotrexate sodium 2.5 mg tablet 10 mg PO QWEEK Patient Comments: directions read once a week, twice a day. lamotrigine 100 mg tablet 100 mg PO BID baclofen 10 mg tablet 10 mg PO TID valacyclovir [Valtrex] 1 gram tablet 1,000 mg PO DAILY cetirizine 10 mg tablet 10 mg PO DAILY PRN riboflavin (vitamin B2) 100 mg tablet 100 mg PO BID naratriptan [Amerge] 2.5 mg tablet 2.5 mg PO ONCE PRN lidocaine 5 % adhesive patch,medicated 1 patch topical PRN Rx Instructions: leave on most painful area for up to 12 hrs vitamin B complex [B Complex-Vitamin B12] Tablet 1 tab PO DAILY triamcinolone acetonide 0.1 % cream 1 applic topical BID nystatin 100,000 unit/gram powder 1 applic topical BID nystatin 100,000 unit/gram ointment 1 applic topical QID ascorbic acid (vitamin C) 1,000 MG tablet 1 tab PO DAILY cholecalciferol (vitamin D3) 1,000 UNITS tablet 1 tab PO DAILY polyethylene glycol 3350 17 GM powder in packet 2 pkt PO PRN PRN budesonide-formoterol [Symbicort] 10.2 GM HFA aerosol inhaler 2 puff Inhalation DAILY PRN PRN fluoxetine 20 mg capsule 20 mg PO DAILY Patient Comments: TAKE ONE CAPSULE BY MOUTH EVERY DAY lamotrigine 25 mg Tablet 25 mg PO BID acetaminophen 500 mg tablet 1,000 mg PO TID Qty: 90 0RF atorvastatin 40 mg tablet 40 mg PO HS Patient Comments: TAKE ONE TABLET BY MOUTH EVERY EVENING hydroxychloroquine 200 mg tablet 400 mg PO DAILY Patient Comments: TAKE TWO TABLETS BY MOUTH EVERY DAY Emgality Syringe 120 mg/mL Syringe 100 mg SUBCUT DIRECTED Patient Comments: A10resk folic acid 1 mg Tablet 1 mg PO DAILY ondansetron 4 mg tablet,disintegrating 4 mg PO Q8H PRNQty: 10 0RF Discharge Instructions Instructions: Abdominal Pain (ED) Additional Instructions: Your labs and imaging did not show concerning findings at this time follow up with your primary care provider within 1 week if you feel more ill, have severe worsening pain or persistent vomiting return to the emergency department Medical Decision Making 57 yo female who has had a prior cholecystectomy and appendectomy who comes in with cc of abdominal pain and n/v for 5-6 days. She does get frequent nausea but usually doesn't have pain. She localizes the pain to the left lower abdomen. She is stable on arrival, abdomen is soft with tenderness to palpation in the llq and luq. Concern for possible diveriticulitis, will proceed with cbc, cmp, lipase and ct abdomen pelvis to further evaluate. labs unremarkable, ua just collected but has no urinary symptoms, do not feel she needs to wait for this result. CT negative, she feels better, no tenderness on exam now. Given reassuring workup and improved symptoms feel she is stable for d/c, return precautions given. Differential Diagnosis Differential Diagnosis: diverticulitis, colitis, gastritis Imaging Data Radiologic Study: Attestation: I personally reviewed and interpreted this imaging study as follows: Imaging: CT Scan Radiologist's impression: no acute findings Lab Data Lab results reviewed: Yes I reviewed the patient's lab results. HPI General Mode of arrival: ambulatory . Date/Time Provider Initiated Documentation: 12/28/22 13:10 . Limitations to Documentation: no limitations . Information obtained by: patient . History of Present Illness 57 year old F presents to the emergency department with the chief complaint of abdominal pain, described as moderate, Patient started experiencing this day(s) (6) and it has been constant. No relieving factors improve symptom(s), No exacerbating factors reported . Patient did receive the following treatments prior to arrival, none Related Data Home Medications Medication Instructions Recorded Confirmed ascorbic acid (vitamin C) 1,000 mg 1 tab PO DAILY 07/18/14 12/28/22 tablet cholecalciferol (vitamin D3) 25 1 tab PO DAILY 07/18/14 12/28/22 mcg (1,000 unit) tablet budesonide-formoterol HFA 160 2 puff inhalation DAILY PRN PRN 08/04/15 12/28/22 mcg-4.5 mcg/actuation aerosol inhaler (Symbicort) polyethylene glycol 3350 17 gram 2 pkt PO PRN PRN 08/04/15 12/28/22 oral powder packet albuterol sulfate 90 mcg/actuation 2 puff inhalation Q6H PRN 10/04/19 12/28/22 aerosol inhaler (ProAir HFA) losartan 100 mg tablet 100 mg PO DAILY 10/04/19 12/28/22 pantoprazole 20 mg tablet,delayed 40 mg PO DAILY 10/04/19 12/28/22 release (Protonix) pregabalin 50 mg capsule (Lyrica) 100 mg PO TID 10/04/19 12/28/22 atorvastatin 40 mg tablet 40 mg PO HS 05/02/20 12/28/22 hydroxychloroquine 200 mg tablet 400 mg PO DAILY 05/02/20 12/28/22 folic acid 1 mg tablet 1 mg PO DAILY 06/03/21 12/28/22 galcanezumab-gnlm 120 mg/mL 100 mg subcut DIRECTED 06/03/21 12/28/22 subcutaneous syringe (Emgality) ondansetron 4 mg disintegrating 4 mg PO Q8H PRN #10 tabs 07/21/21 12/28/22 tablet fluoxetine 20 mg capsule 20 mg PO DAILY 10/15/21 12/28/22 baclofen 10 mg tablet 10 mg PO TID 02/16/22 12/28/22 cetirizine 10 mg tablet 10 mg PO DAILY PRN 02/16/22 12/28/22 lamotrigine 100 mg tablet 100 mg PO BID 02/16/22 12/28/22 lidocaine 5 % topical patch 1 patch topical PRN 02/16/22 12/28/22 methotrexate sodium 2.5 mg tablet 10 mg PO QWEEK 02/16/22 12/28/22 naratriptan 2.5 mg tablet (Amerge) 2.5 mg PO ONCE PRN 02/16/22 12/28/22 riboflavin (vitamin B2) 100 mg 100 mg PO BID 02/16/22 12/28/22 tablet semaglutide 1 mg/dose (4 mg/3 mL) 1 mg subcut QWEEK 02/16/22 12/28/22 subcutaneous pen injector (Ozempic) valacyclovir 1 gram tablet 1,000 mg PO DAILY 02/16/22 12/28/22 (Valtrex) vitamin B complex (B 1 tab PO DAILY 02/16/22 12/28/22 Complex-Vitamin B12 tablet) nystatin 100,000 unit/gram topical 1 applic topical QID 04/05/22 12/28/22 ointment nystatin 100,000 unit/gram topical 1 applic topical BID 04/05/22 12/28/22 powder triamcinolone acetonide 0.1 % 1 applic topical BID 04/05/22 12/28/22 topical cream bisacodyl 5 mg tablet,delayed 5 mg PO ONCE #4 tabs 06/10/22 12/28/22 release (Dulcolax (bisacodyl)) scopolamine base 1 mg over 3 days 1 patch transdermal Q3D PRN 06/10/22 12/28/22 transdermal patch etanercept 25 mg/0.5 mL (0.5 mL) 25 mg subcut QWEEK 08/02/22 12/28/22 subcutaneous syringe (Enbrel) lamotrigine 25 mg tablet 25 mg PO BID 09/21/22 12/28/22 acetaminophen 500 mg tablet 1,000 mg PO TID #90 tabs 09/22/22 12/28/22 diazepam 5 mg tablet 5 mg PO BID PRN anxiety #8 tabs 09/29/22 12/28/22 Previous Rx's Medication Instructions Recorded ondansetron 4 mg disintegrating 4 mg PO Q8H PRN #10 tabs 07/21/21 tablet bisacodyl 5 mg tablet,delayed 5 mg PO ONCE #4 tabs 06/10/22 release (Dulcolax (bisacodyl)) acetaminophen 500 mg tablet 1,000 mg PO TID #90 tabs 09/22/22 diazepam 5 mg tablet 5 mg PO BID PRN anxiety #8 tabs 09/29/22 Allergies Allergy/AdvReac Type Severity Reaction Status Date / Time erythromycin base Allergy Severe Skin Rash Verified 10/15/22 09:36 phenytoin sodium Allergy Severe Hives Verified 10/15/22 09:36 [From Dilantin] phenytoin sodium extended Allergy Severe Hives Verified 10/15/22 09:36 [From Dilantin] amoxicillin [Amoxicillin] Allergy Intermediate Hives Verified 10/15/22 09:36 lisinopril Allergy Intermediate cough Verified 10/15/22 09:36 potassium clavulanate Allergy Intermediate Hives Verified 10/15/22 09:36 [From Augmentin] Sulfa (Sulfonamide Allergy Mild Skin Rash Verified 10/15/22 09:36 Antibiotics) tomato [Tomato] Allergy Mild Skin Rash Verified 10/15/22 09:36 NSAIDS (Non-Steroidal AdvReac Severe Per pt, Verified 10/15/22 09:36 Anti-Inflamma states kidney function declines sumatriptan [From Imitrex] AdvReac Severe Visual Verified 10/15/22 09:36 Disturbances,burning sensation through out body oxycodone AdvReac Intermediate n/v Verified 10/15/22 09:36 hydromorphone AdvReac nausea/vomi Verified 10/15/22 09:36 ting General Stated Complaint: Abd Prob HARRIET: 3 Review of Systems All systems reviewed & are unremarkable except as noted in HPI and below Constitutional Constitutional: Denies chills, Denies fever(s) and Denies weakness Cardiovascular Cardiovascular: Denies chest pain and Denies dyspnea Respiratory Respiratory: Denies cough and Denies dyspnea Gastrointestinal Gastrointestinal: Reports abdominal pain, Reports nausea and Reports vomiting Musculoskeletal Musculoskeletal: Denies joint swelling Integumentary/Breasts Skin/Breast: Denies rash Neurologic Neurologic: Denies weakness Psychiatric Psychiatric: Denies depression PFSH All Active Problems Abdominal pain (Acute) CRPS (complex regional pain syndrome) (Chronic) Neuralgia (Chronic) Cholecystitis (Acute) Prediabetes (Chronic) Hypertension (Chronic) GERD (gastroesophageal reflux disease) (Chronic) Migraine (Chronic) Asthma (Chronic) Back pain (Chronic) H/O surgical procedure (Chronic) a. hysterectomy b. orthopedic surgery Adhesive capsulitis of left shoulder (Acute 08/25/16) Biceps tendinitis of left upper extremity (Acute 10/13/16) Chronic otitis media with effusion (Acute 04/25/14) Neck pain (Acute 05/24/13) Otalgia (Acute 05/03/13) Tendinitis of left rotator cuff (Acute 06/30/16) Subacromial injection: 04/26/18; 04/06/17 Injection under fluoroscopy: 08/10/18 Tubular adenoma of colon (Acute 06/15/17) Left ankle sprain (Acute) Trochanteric bursitis of left hip (Acute) Corticosteroid injection: 08/07/18 Sacroiliac joint dysfunction (Acute) Port-A-Cath in place (Acute) Fracture of radial neck, right, closed (Acute 06/09/19) Sensorineural hearing loss (SNHL) of right ear with unrestricted hearing of left ear (Acute) Vertigo (Acute) Hypomagnesemia (Acute) Screening for colon cancer (Acute) Genital herpes (Acute) Chronic kidney disease (Chronic) Vitamin B12 deficiency (Acute) Raynauds syndrome (Acute) Internal derangement of left knee (Acute) Arthritis of right elbow (Acute) lateral epicondyle injection 04/12/2022 Family history of colon cancer (Acute) Rheumatoid arthritis, seronegative, multiple sites (Acute) Right rotator cuff tendonitis (Acute) Steroid injection: 08/02/2022 Injury of right hand (Acute) Dislocation of distal interphalangeal joint of right middle finger (Acute) Status post reduction and percutaneous pinning DOS: 09/24/2022 Medical History Adenomatous colon polyp Allergic rhinitis Asthma Constipation Deafness in right ear DM (diabetes mellitus) Eczema Fatty infiltration of liver GERD (gastroesophageal reflux disease) Hand pain History of depression History of neck pain HTN (hypertension) Incontinence Insomnia Leg cramps Migraine Obesity Otalgia Ovarian cyst Preventative health care Screening breast examination Tendinitis Trigeminal neuralgia Surgical History Colonoscopy - MAC (06/15/17) H/O craniotomy H/O shoulder surgery H/O tooth extraction History of appendectomy History of cholecystectomy History of ear surgery History of eye surgery History of hysterectomy History of knee surgery Mediport placement (05/02/15) no longer in place Family History Mother Hx of migraines Social History Smoking/Tobacco Use Status: Former Tobacco Use Quit Date: 06/13/10 Smoking risk assessment performed?: Yes Alcohol Intake: current Alcohol Intake frequency: holidays/special occasions only Drug use: Never Substance use type: does not use Current gender identity: female Do you feel safe at home: Yes Do you feel safe in your relationship?: Yes Exam Const General: no acute distress Orientation: alert HENMT Head: normal to inspection Ears: external ears normal General nose exam: external nose normal Mouth: moist mucous membranes Eyes General: appearance normal, both eyes and all related structures Neck Neck: normal visual inspection Resp Effort & Inspection: normal respiratory effort and able to speak in complete sentences Cardio Rate: regular rate GI Palpation: soft Skin General skin exam: no rashes or lesions noted Neuro General: patient alert and patient oriented x3 Extrem General: normal to inspection Psych Mental Status: mental status grossly normal Course Vital Signs Vital signs: Vital Signs Temperature 36.7 C 12/28/22 13:05 Pulse 90 12/28/22 13:05 Respiratory Rate 18 12/28/22 13:05 Blood Pressure 135/90 12/28/22 13:05 Pulse Oximetry 98 12/28/22 13:05 Temperature 36.7 C 12/28/22 13:05 Pulse 90 12/28/22 13:05 Respiratory Rate 18 12/28/22 13:05 Respiratory Effort Normal, Non-Labored 12/28/22 13:10 Blood Pressure 135/90 12/28/22 13:05 Pulse Oximetry 98 12/28/22 13:05 Pain Level 6 12/28/22 13:05
[2022-12-28 14:58] LABS: Abs Immature Grans 0.02 10^3/uL (0.0-0.06); Absolute Basophil Count 0.08 10^3/uL (0.0-0.2); Absolute Eosinophil Count 0.15 10^3/uL (0.0-0.7); Absolute Lymphocyte Count 2.65 10^3/uL (1.2-3.4); Absolute Monocyte Count 0.65 10^3/uL (0.1-0.8); Basophils % 0.7; Eosinophils % 1.4; HCT 40.6 % (36.0-46.0); HGB 13.7 g/dL (11.2-15.7); Immature Grans % 0.2; Lymphocytes % 24.7; MCH 32.5 pg (27.0-33.0); MCHC 33.7 % (32.0-36.0); MCV 96 fL (80-95); MPV 9.7 fL (8.0-11.0); Platelet Count 234 10^3/uL (130-400); RBC 4.22 10^6/uL (3.93-5.22); RDW 12.5 % (11.7-14.6); RDW-SD 43.8 fL; WBC 10.75 10^3/uL (4.4-10.8)
[2022-12-28] MEDS: Normal Saline 1,000 ML 1000 ML IV (15:04)
[2022-12-28] MEDS: fentaNYL 100 MCG/2 ML VIAL 50 MCG IVP (15:06)
[2022-12-28] MEDS: Droperidol 5 MG/2 ML VIAL 2.5 MG IVP (15:06)
[2022-12-28 15:15] VITALS: BP 122/72; PULSE 75; RESP 18; TEMP 36.5; O2SAT 92
[2022-12-28 15:16] LABS: ALT 22 U/L (14-59); AST 14 U/L (15-37); Albumin 4.2 g/dL (3.4-5.0); Alkaline Phosphatase 96 U/L (46-116); Anion Gap 11.2 mmol/L (3-11); BUN 24 mg/dL (7-18); Bilirubin, Total 1.3 mg/dL (0.2-1.0); CO2 25.8 mmol/L (21.0-32.0); CREATININE 1.4 mg/dL (0.55-1.02); Calcium 8.9 mg/dL (8.5-10.1); Chloride 102 mmol/L (98-107); Estimated GFR 44.16 (mL/min/1.73m2); Glucose 68 mg/dL (74-106); Lipase 41 U/L (16-77); Magnesium 1.7 mg/dL (1.8-2.4); Potassium 3.9 mmol/L (3.5-5.1); Sodium 139 mmol/L (136-145); Total Protein 7.3 g/dL (6.4-8.2)
[2022-12-28] MEDS: Normal Saline - Diluent 50 ML VIAL IJ (15:47)
[2022-12-28] MEDS: Omnipaque 350 MG/ML 500 ML BTL-Imaging package 100 ML IJ (15:48)
[2022-12-28] MEDS: Normal Saline Flush 10 ML SYR IVP (15:49)
[2022-12-28 17:26] LABS: Bilirubin Small (Negative); Blood Negative (Negative); Clarity Clear (Clear); Glucose Negative (Negative); Ketones 80 mg/dL (Negative); Leukocyte Esterase Negative (Negative); Nitrite Negative (Negative); Specific Gravity <= 1.005 (1.005-1.025); Urobilinogen 0.2 mg/dL (Up to 0.2)
== END 2022-12-28 17:33 | disposition home or self-care (01) ==
PROVIDERS: Emergency Provider Emergency Medicine; PCP Family Medicine
DX: R10.32 Left lower quadrant pain (principal); R11.2 Nausea with vomiting, unspecified; R19.7 Diarrhea, unspecified; I10 Essential (primary) hypertension; M06.9 Rheumatoid arthritis, unspecified; Z90.49 Acquired absence of other specified parts of digestive tract
CPT/HCPCS: 80053; 83690; 96361; 96374; 96375; 99285; 74177; 81003; 83735; 85025; 99283; J1790; J3010

== ENCOUNTER 2023-01-21 02:39 | Outpatient (CLI) | payer MEDICARE, OTHER, SELFPAY ==
[2023-01-21 08:21] LABS: Abs Immature Grans 0.01 10^3/uL (0.0-0.06); Absolute Basophil Count 0.06 10^3/uL (0.0-0.2); Absolute Eosinophil Count 0.26 10^3/uL (0.0-0.7); Absolute Lymphocyte Count 1.89 10^3/uL (1.2-3.4); Absolute Monocyte Count 0.34 10^3/uL (0.1-0.8); Absolute Neutrophil Count 3.74 10^3/uL (1.2-6.7); Eosinophils % 4.1; HCT 37.3 % (36.0-46.0); HGB 12.6 g/dL (11.2-15.7); Immature Grans % 0.2; MCH 33.1 pg (27.0-33.0); MCHC 33.8 % (32.0-36.0); MCV 98 fL (80-95); MPV 9.6 fL (8.0-11.0); Monocytes % 5.4; Neutrophils % 59.3; Platelet Count 200 10^3/uL (130-400); RBC 3.81 10^6/uL (3.93-5.22); RDW 13.2 % (11.7-14.6); RDW-SD 46.9 fL
[2023-01-21 08:42] LABS: ALT 25 U/L (14-59); AST 13 U/L (15-37); Albumin 3.7 g/dL (3.4-5.0); Alkaline Phosphatase 87 U/L (46-116); Anion Gap 6.8 mmol/L (3-11); BUN 16 mg/dL (7-18); Bilirubin, Total 0.6 mg/dL (0.2-1.0); C-Reactive Protein 0.42 mg/dL (0.0-0.3); CO2 28.2 mmol/L (21.0-32.0); CREATININE 1.3 mg/dL (0.55-1.02); Calcium 8.7 mg/dL (8.5-10.1); Chloride 107 mmol/L (98-107); Estimated GFR 48.26 (mL/min/1.73m2); Glucose 135 mg/dL (74-106); Potassium 4.8 mmol/L (3.5-5.1); Sodium 142 mmol/L (136-145); Total Protein 6.8 g/dL (6.4-8.2)
[2023-01-21 09:34] LABS: Vitamin B12 274 pg/mL (193-986)
== END 2023-01-21 02:40 | disposition home or self-care (01) ==
PROVIDERS: Nurse Practitioner Family; PCP Family Medicine; Visit Provider Family Medicine
DX: M06.09 Rheumatoid arthritis without rheumatoid factor, multiple sites (principal); Z79.899 Other long term (current) drug therapy; R79.89 Other specified abnormal findings of blood chemistry; R71.8 Other abnormality of red blood cells
CPT/HCPCS: 36415; 80053; 82607; 85025; 86140

== ENCOUNTER 2023-05-20 03:16 | Outpatient (CLI) | payer MEDICARE, OTHER, SELFPAY ==
[2023-05-20 12:12] LABS: Abs Immature Grans 0.01 10^3/uL (0.0-0.06); Absolute Basophil Count 0.07 10^3/uL (0.0-0.2); Absolute Lymphocyte Count 2.07 10^3/uL (1.2-3.4); Absolute Monocyte Count 0.55 10^3/uL (0.1-0.8); Absolute Neutrophil Count 4.43 10^3/uL (1.2-6.7); Eosinophils % 2.7; HCT 41.6 % (36.0-46.0); HGB 13.7 g/dL (11.2-15.7); Immature Grans % 0.1; Lymphocytes % 28.2; MCH 32.6 pg (27.0-33.0); MCHC 32.9 % (32.0-36.0); MCV 99 fL (80-95); MPV 9.9 fL (8.0-11.0); Monocytes % 7.5; Neutrophils % 60.5; Platelet Count 242 10^3/uL (130-400); RDW 12.6 % (11.7-14.6); RDW-SD 45.9 fL; WBC 7.33 10^3/uL (4.4-10.8)
[2023-05-20 12:41] LABS: ALT 30 U/L (14-59); AST 14 U/L (15-37); Albumin 4.3 g/dL (3.4-5.0); Alkaline Phosphatase 103 U/L (46-116); Anion Gap 9.3 mmol/L (3-11); BUN 18 mg/dL (7-18); Bilirubin, Total 0.6 mg/dL (0.2-1.0); C-Reactive Protein 0.36 mg/dL (0.0-0.3); CO2 26.7 mmol/L (21.0-32.0); CREATININE 1.3 mg/dL (0.55-1.02); Calcium 9.3 mg/dL (8.5-10.1); Chloride 105 mmol/L (98-107); Estimated GFR 48.26 (mL/min/1.73m2); Glucose 99 mg/dL (74-106); Sodium 141 mmol/L (136-145); Total Protein 7.7 g/dL (6.4-8.2)
[2023-05-20 14:11] LABS: Hemoglobin A1C 5.3 % (<5.7)
[2023-05-20 14:35] LABS: Vitamin B12 525 pg/mL (193-986)
== END 2023-05-20 03:17 | disposition home or self-care (01) ==
PROVIDERS: PCP Family Medicine; Visit Provider Internal Medicine Rheumatology
DX: M06.09 Rheumatoid arthritis without rheumatoid factor, multiple sites (principal); E11.9 Type 2 diabetes mellitus without complications
CPT/HCPCS: 36415; 80053; 82607; 83036; 85025; 86140

== ENCOUNTER 2023-05-23 18:59 | Outpatient (REF) | payer MEDICARE, OTHER, SELFPAY ==
[2023-05-23 19:36] LABS: COMMENT (LAB VIEW ONLY) 125.75 mg/dL; Microalb ug/mg Crea 9.2 ug/mg Cr
== END 2023-05-23 19:00 | disposition home or self-care (01) ==
LOC: NCHCN 18:59
PROVIDERS: PCP Family Medicine; Visit Provider Family Medicine
DX: E11.9 Type 2 diabetes mellitus without complications (principal)
CPT/HCPCS: 82043; 82570

== ENCOUNTER → 2023-09-22 04:51 | Outpatient (CLI) | payer MEDICARE, OTHER, SELFPAY ==
--- NOTE | 2023-09-22 | DI.MAMMO_ITS ---
Exam(s) MAMMO SCREENING EXAM: MAMMO SCREENING CLINICAL HISTORY: Z12.31 Encounter for screening mammogram for malrosio neop of breast TECHNIQUE: Bilateral full field digital CC and MLO mammographic images were obtained with 3D tomosyn thesis and utilizing computer aided detection (CAD). COMPARISON: Available for comparison. FINDINGS: Masses/Architectural Distortion: There is a stable nodule in the retroareolar region of the right ancelmo ast seen best on the MLO view. No new nodules are seen. No areas of architectural distortion are pr esent. Microcalcifications: No suspicious pleomorphic-type are seen. Skin Thickening/Nipple Retraction: None. IMPRESSION: 1. No significant interval change with no specific features of malignancy noted. 2. Unless there is more urgent need, screening mammography is recommended, as per [employer] guidelines. BI-RADS Category 2 - Benign Findings Breast Density - Category B - Scattered areas of fibroglandular density Breast density category C or D implies that the patient has dense breast tissue. Dense breast tissue is very common and is not abnormal but dense breast tissue can make it harder to find cancer on a ma mmogram. Also, dense breast tissue may increase their breast cancer risk. This information about the result of the mammogram report was provided to the patient to raise their awareness. Use this report when you speak with the patient about their risks for breast cancer, which includes their family hist ory. At that time, you may recommend for more screening tests (Ultrasound or MRI) as they might be us eful based on their risk. A negative radiographic report should not delay biopsy if a dominant or clinically suspicious mass is present. Up to ten percent of cancers are not identified on mammography. A negative report may reinforce clinical impression. Adenosis and dense breasts may obscure an underlying neoplasm. False positive reports average 6 to 10%. Patient will receive a letter notifying them of these results.
== END ==
PROVIDERS: PCP Family Medicine; Visit Provider Family Medicine
DX: Z12.31 Encounter for screening mammogram for malignant neoplasm of breast (principal); N60.81 Other benign mammary dysplasias of right breast; R92.323 Mammographic fibroglandular density, bilateral breasts
CPT/HCPCS: 77063; 77067

== ENCOUNTER 2023-09-22 05:36 | Outpatient (CLI) | payer MEDICARE, OTHER, SELFPAY ==
[2023-09-22 12:19] LABS: Abs Immature Grans 0.02 10^3/uL (0.0-0.06); Absolute Basophil Count 0.09 10^3/uL (0.0-0.2); Absolute Monocyte Count 0.55 10^3/uL (0.1-0.8); Absolute Neutrophil Count 4.91 10^3/uL (1.2-6.7); Basophils % 1.1; Eosinophils % 2.5; HCT 39.5 % (36.0-46.0); HGB 13.2 g/dL (11.2-15.7); Immature Grans % 0.3; Lymphocytes % 27.6; MCH 33.7 pg (27.0-33.0); MCHC 33.4 % (32.0-36.0); MCV 101 fL (80-95); MPV 10.3 fL (8.0-11.0); Monocytes % 6.9; Neutrophils % 61.6; Platelet Count 244 10^3/uL (130-400); RBC 3.92 10^6/uL (3.93-5.22); RDW 13.7 % (11.7-14.6); RDW-SD 50.3 fL; WBC 7.97 10^3/uL (4.4-10.8)
[2023-09-22 12:38] LABS: Hemoglobin A1C 5.4 % (<5.7)
[2023-09-22 13:10] LABS: ALT 23 U/L (14-59); AST 12 U/L (15-37); Albumin 4.1 g/dL (3.4-5.0); Alkaline Phosphatase 90 U/L (46-116); Anion Gap 8.3 mmol/L (3-11); BUN 19 mg/dL (7-18); Bilirubin, Total 0.7 mg/dL (0.2-1.0); C-Reactive Protein < 0.50 mg/dL (<or=0.5); CO2 27.7 mmol/L (21.0-32.0); CREATININE 1.2 mg/dL (0.55-1.02); Chloride 106 mmol/L (98-107); Glucose 93 mg/dL (74-106); Potassium 4.6 mmol/L (3.5-5.1); Sodium 142 mmol/L (136-145); Total Protein 7.3 g/dL (6.4-8.2)
== END 2023-09-22 05:37 | disposition home or self-care (01) ==
PROVIDERS: PCP Family Medicine; Visit Provider Internal Medicine Rheumatology
DX: E11.9 Type 2 diabetes mellitus without complications (principal); Z79.899 Other long term (current) drug therapy
CPT/HCPCS: 36415; 80053; 83036; 85025; 86140

== ENCOUNTER → 2023-11-18 15:14 | Outpatient (CLI) | payer MEDICARE, OTHER, SELFPAY ==
--- NOTE | 2023-11-18 | DI.RAD_ITS ---
Exam(s) XR THORACIC SPINE COMPLETE EXAM: XR THORACIC SPINE COMPLETE CLINICAL HISTORY: PAIN IN T SPINE M54.6 ? COMPRESSION FX. TECHNIQUE: 2D digital imaging was performed of the thoracic spine. Four views were obtained. AP, s cynthia's and lateral views were obtained. 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 No acute fracture or subluxation is seen. The bones are normal ly mineralized. The paraspinal lines are unremarkable. There are surgical clips in the right upper quadrant of the abdomen likely reflecting prior cholecystectomy. The visualized lungs are clear. IMPRESSION: No acute fracture or subluxation in the thoracic spine. DATA REPOSITORY: RADIATION DOSE DELIVERED:
== END ==
PROVIDERS: PCP Family Medicine; Visit Provider Internal Medicine Rheumatology
DX: M54.6 Pain in thoracic spine (principal)
CPT/HCPCS: 72072

== ENCOUNTER 2024-01-02 13:42 | Outpatient (REF) | payer MEDICARE, OTHER, SELFPAY ==
[2024-01-02 18:41] LABS: C-Reactive Protein < 0.50 mg/dL (<or=0.5)
== END 2024-01-02 13:43 | disposition home or self-care (01) ==
LOC: NCHCN 13:42
PROVIDERS: PCP Family Medicine; Visit Provider Family Medicine
DX: M06.09 Rheumatoid arthritis without rheumatoid factor, multiple sites (principal)
CPT/HCPCS: 86140

== ENCOUNTER 2024-01-09 11:31 | Outpatient (CLI) | payer MEDICARE, OTHER, SELFPAY ==
--- NOTE | 2024-01-09 09:49 | DI.RAD_ITS ---
Exam(s) XR SHOULDER RT COMPLETE 2+V EXAM: XR SHOULDER RT COMPLETE 2+V CLINICAL HISTORY: R shoulder pain. TECHNIQUE: 2D digital imaging was performed of the right shoulder. Four images were obtained. Gras hey, Y-view and axillary views were obtained. COMPARISON: CR XR SHOULDER RT COMPLETE 2+V from 08/02/2022 FINDINGS: BONES: No acute fracture is present. No bony destructive lesion is seen. JOINTS: No dislocation present. There is a small spur at the inferior aspect of the glenoid. There a gain seen mild degenerative changes seen in the region of the acromioclavicular joint. SOFT TISSUE: Dystrophic soft tissue calcification adjacent to the proximal right humeral shaft is aga in noted. IMPRESSION: Degenerative changes of the right shoulder. DATA REPOSITORY: RADIATION DOSE DELIVERED:
== END 2024-01-09 11:32 | disposition home or self-care (01) ==
LOC: DIORS 11:31
PROVIDERS: PCP Family Medicine; Referring Provider Family Medicine; Visit Provider Student in an Organized Health Care Education/Training Program
DX: M75.81 Other shoulder lesions, right shoulder
CPT/HCPCS: 20610; J1010; 73030

== ENCOUNTER 2024-01-26 02:48 | Outpatient (CLI) | payer MEDICARE, OTHER, SELFPAY ==
--- NOTE | 2024-01-26 06:45 | DI.MRI_ITS ---
Exam(s) MR UPPER JOINT RT WO EXAM: MR UPPER JOINT RT WO CLINICAL HISTORY: right shoulder pain,RT ROTATOR CUFF TENDONITIS, M75.81. TECHNIQUE: Multiplanar multisequence MRI was performed. COMPARISON: CR XR SHOULDER RT COMPLETE 2+V from 01/09/2024 FINDINGS: BONES: There is no fracture or contusion pattern. Small subchondral cysts are seen in the humeral hea d. JOINTS: The acromioclavicular joint is normal. The glenohumeral joint is normal. TENDONS: Supraspinatus: There is tendinosis of the supraspinatus tendon. No evidence of a full-thickness rota tor cuff tear. Infraspinatus: Unremarkable. Subscapularis: Unremarkable. Teres Minor: Unremarkable. Biceps and [place]: Unremarkable. MUSCLES: Unremarkable. GLENOID LABRUM: Unremarkable on this noncontrast examination. SOFT TISSUES: Unremarkable. LIGAMENTS: Unremarkable. OTHER: Subacromial and subdeltoid bursae are unremarkable. IMPRESSION: 1. Tendinosis of the supraspinatus tendon but no evidence of a full-thickness rotator cuff tear. 2. Small subchondral cysts seen in the humeral head. 3. Small amount of fluid in the joint space DATA REPOSITORY:
== END 2024-01-26 03:08 ==
LOC: DI 02:49
PROVIDERS: PCP Family Medicine; Visit Provider Student in an Organized Health Care Education/Training Program
DX: M75.81 Other shoulder lesions, right shoulder (principal)
CPT/HCPCS: 73221

== ENCOUNTER 2024-02-07 17:57 | Emergency (ER) | payer MEDICARE, OTHER, SELFPAY ==
--- NOTE | 2024-02-07 18:00 | RT.EKG_ITS ---
APPROVED REPORT Exam: Resting ECG Reason for Exam: Vomiting Patient Location: E HR:68 bpm ECG Measurements Heart Rate 68 AXIS DE 187 P 26 QRSd 97 QRS -32 QT 438 T 36 QTc 468 Conclusion Sinus rhythm Q waves III, aVF No STEMI
[2024-02-07 18:03] VITALS: BP 152/85; PULSE 85; RESP 24; TEMP 36.7; O2SAT 100
--- NOTE | 2024-02-07 18:14 | ED.GENADUL_ITS ---
Discharge Plan Disposition Patient Disposition: Against Medical Advice Condition: Stable Discharge Details Clinical Impression: Generalized abdominal pain of unknown etiology, H/O surgical procedure, Hypertension, GERD (gastroesophageal reflux disease), Migraine Primary Care Provider: Katarina Rodriguez ED Provider: Melissa Goodwin Home Meds and New Rx's Prescriptions: No Action pantoprazole [Protonix] 20 mg tablet,delayed release (DR/EC) 40 mg PO DAILY losartan 100 mg tablet 100 mg PO DAILY pregabalin [Lyrica] 50 mg capsule 100 mg PO TID albuterol sulfate [ProAir HFA] 90 mcg/actuation HFA aerosol inhaler 2 puff IH Q6H PRN methotrexate sodium 2.5 mg tablet 10 mg PO QWEEK Patient Comments: directions read once a week, twice a day. lamotrigine 100 mg tablet 100 mg PO BID baclofen 10 mg tablet 10 mg PO TID valacyclovir [Valtrex] 1 gram tablet 1,000 mg PO DAILY lidocaine 5 % adhesive patch,medicated 1 patch topical PRN Rx Instructions: leave on most painful area for up to 12 hrs vitamin B complex [B Complex-Vitamin B12] Tablet 1 tab PO DAILY nystatin 100,000 unit/gram powder 1 applic topical BID nystatin 100,000 unit/gram ointment 1 applic topical QID amlodipine 2.5 mg tablet 2.5 mg PO DAILY Enbrel 25 mg/0.5 mL (0.5) syringe 50 mg subcut QWEEK oxcarbazepine 150 mg tablet 150 mg PO DAILY Ozempic 2 mg/dose (8 mg/3 mL) pen injector 2 mg subcut QWEEK tramadol 50 mg tablet 50 mg PO DAILY PRN Ubrelvy 100 mg tablet 100 mg PO ONCE Rx Instructions: as a single dose; may repeat once in >=2 hours after first dose if needed budesonide-formoterol [Breyna] 160-4.5 mcg/actuation HFA aerosol inhaler 2 puff inhalation BID PRN ascorbic acid (vitamin C) 1,000 MG tablet 1 tab PO DAILY cholecalciferol (vitamin D3) 1,000 UNITS tablet 1 tab PO DAILY polyethylene glycol 3350 17 GM powder in packet 2 pkt PO PRN PRN fluoxetine 20 mg capsule 20 mg PO DAILY Patient Comments: TAKE ONE CAPSULE BY MOUTH EVERY DAY lamotrigine 25 mg Tablet 25 mg PO BID atorvastatin 40 mg tablet 40 mg PO HS Patient Comments: TAKE ONE TABLET BY MOUTH EVERY EVENING hydroxychloroquine 200 mg tablet 400 mg PO DAILY Patient Comments: TAKE TWO TABLETS BY MOUTH EVERY DAY Emgality Syringe 120 mg/mL Syringe 100 mg SUBCUT DIRECTED Patient Comments: [id number] folic acid 1 mg Tablet 1 mg PO DAILY ondansetron 4 mg tablet,disintegrating 4 mg PO Q8H PRNQty: 10 0RF acetaminophen 500 mg tablet 1,000 mg PO TID PRN Discharge Instructions Instructions: Abdominal Pain, Adult ED Additional Instructions: You were seen in the emergency department for evaluation of headache, abdominal pain, nausea and vomiting. In our department you had a full physical examination performed, had laboratory studies that were largely reassuring, but have elected to leave the hospital prior to completion of your workup, which would have included a CT scan of your abdomen as well as a urinalysis. It is well within your rights to leave the hospital and continue to follow-up with your outpatient providers, we certainly recommend that you continue all medications as prescribed, and that you can return to the emergency department for reevaluation at any time. Thank you for allowing us to be part of your care. HPI General Mode of arrival: ambulatory . Date/Time Provider Initiated Documentation: 02/07/24 18:06 . Limitations to Documentation: no limitations . Information obtained by: patient, family and old records reviewed . HPI Narrative: MDM: This is a 58-year-old female patient presenting for evaluation of headache, nausea with vomiting, and abdominal pain. My differential includes but is not limited to abdominal pathology including gastroenteritis, gastritis/peptic ulcer disease, pancreatitis, choledocholithiasis, hepatitis, diverticulitis, bowel obstruction, certainly considered aortic disease though the patient is without significant risk factors for same. I considered dehydration, metabolic and electrolyte derangements, kidney injury. No urinary symptoms to suggest UTI, pyelonephritis, renal stones. Her headache is most consistent with her historical migraines, there was no thunderclap quality to suggest intracranial hemorrhage/SAH, and she is without neurodeficits to suggest CVA, intracranial hemorrhage, vascular abnormality. No fevers or meningismus to suggest encephalitis or meningitis. No vision changes to suggest temporal arteritis, optic neuritis. We will obtain laboratory studies to include CBC, CMP, lipase, lactate, UA, troponin, and I will obtain an EKG and CT abdomen pelvis to better characterize any abnormalities that might account for her symptoms. We will provide the patient with a liter of IV fluids for rehydration, and given that she has already tried Zofran without success we will proceed with administration of Reglan with Benadryl. At this time the patient declines medications for pain. ED Course: I reviewed the patient's laboratory studies, which show no leukocytosis, severe anemia or thrombocytopenia. Chemistry panel is significant for a very mild potassium decreased to 3.3, a creatinine of 1.1 with no elevation in BUN, magnesium of 1.6 and a bilirubin of 1.1. Liver enzymes are otherwise unremarkable, troponin was negative, and the lipase is low. On reassessment the patient reports that her headache resolved with the above- noted medications and fluids. She unfortunately requested to leave the hospital AGAINST MEDICAL ADVICE prior to completion of her urinalysis and her CT scan. We had a shared decision-making conversation, including the risks of leaving the hospital which include undiagnosed severe abdominal pain causes, worsening of her condition and worsening of her chronic medical conditions, as well as the benefits of staying which include diagnostic clarity and continuation of treatment of her symptoms. She will follow-up with her primary care provider and understands that she can return to the emergency department at anytime for reevaluation. Of note, my repeat abdominal examination on this patient at the time that she left the hospital AGAINST MEDICAL ADVICE was without evidence of peritonitis or change in her pain from initial examination, and she remained hemodynamically appropriate. She was understanding of the risks and benefits of leaving the hospital, the follow-up plan and return precautions and left her facility without incident. Melissa Goodwin MD HPI: This is a 58-year-old female patient with a past medical history significant for GERD, migraine, vertigo, kidney disease, rheumatoid arthritis, and complex regional pain syndrome, presenting for evaluation of abdominal pain, headache, and nausea with vomiting. The patient reports that she started vomiting yesterday, did not noted any blood in her vomit but it did not respond to her typical Zofran treatment. She reports that she has not been able to tolerate food or drink and worries that she is becoming dehydrated. She is having a generalized headache that started gradually, and she notes that her headaches tend to be worse when she is dehydrated. She feels slightly dizzy, lightheadedness rather than vertigo, without vision changes, weakness, or numbness on her body. The patient reports generalized upper abdominal pain, states that her stools have been soft and nonbloody, not watery. She is not experiencing dysuria, hematuria, or flank pain. She has a history of appendectomy and cholecystectomy. Exam: Gen: awake and alert, appears uncomfortable. Appears well nourished. HEENT: PERRL, EOMs full and without nystagmus. External ears and nose normal, mucous membranes moist. Neck: Supple, full range of motion, no observable masses Lungs: No increased work of breathing, lung sounds clear and equal bilaterally without wheezes, rhonchi, or rales. CV: Heart with regular rate and rhythm, no murmurs auscultated. Strong and symmetrical radial pulses. Abdomen: Soft, nondistended, tender to palpation in the bilateral upper quadrants with no rigidity, rebound, or guarding. Lazo sign is negative. No overlying skin changes MSK: No joint swelling, no redness. Full ROM without limitation, no external traumatic findings. Skin: No rashes or lesions to visualized skin. Normal color, warm, and dry. Neuro: Cranial nerves II-XII intact and symmetrical bilaterally. 5/5 strength in all muscle groups x4 extremities. No sensory deficits. Ambulates with steady gait. Psych: Appropriate for situation. Related Data Home Medications ?Medication ?Instructions ?Recorded ?Confirmed ascorbic acid (vitamin C) 1,000 mg 1 tab PO DAILY 07/18/14 02/07/24 tablet cholecalciferol (vitamin D3) 25 1 tab PO DAILY 07/18/14 02/07/24 mcg (1,000 unit) tablet polyethylene glycol 3350 17 gram 2 pkt PO PRN PRN 08/04/15 02/07/24 oral powder packet albuterol sulfate 90 mcg/actuation 2 puff inhalation Q6H PRN 10/04/19 02/07/24 aerosol inhaler (ProAir HFA) losartan 100 mg tablet 100 mg PO DAILY 10/04/19 02/07/24 pantoprazole 20 mg tablet,delayed 40 mg PO DAILY 10/04/19 02/07/24 release (Protonix) pregabalin 50 mg capsule (Lyrica) 100 mg PO TID 10/04/19 02/07/24 atorvastatin 40 mg tablet 40 mg PO HS 05/02/20 02/07/24 hydroxychloroquine 200 mg tablet 400 mg PO DAILY 05/02/20 02/07/24 folic acid 1 mg tablet 1 mg PO DAILY 06/03/21 02/07/24 galcanezumab-gnlm 120 mg/mL 100 mg subcut DIRECTED 06/03/21 02/07/24 subcutaneous syringe (Emgality) ondansetron 4 mg disintegrating 4 mg PO Q8H PRN #10 tabs 07/21/21 02/07/24 tablet fluoxetine 20 mg capsule 20 mg PO DAILY 10/15/21 02/07/24 baclofen 10 mg tablet 10 mg PO TID 02/16/22 02/07/24 lamotrigine 100 mg tablet 100 mg PO BID 02/16/22 02/07/24 lidocaine 5 % topical patch 1 patch topical PRN 02/16/22 02/07/24 methotrexate sodium 2.5 mg tablet 10 mg PO QWEEK 02/16/22 02/07/24 valacyclovir 1 gram tablet 1,000 mg PO DAILY 02/16/22 02/07/24 (Valtrex) vitamin B complex (B 1 tab PO DAILY 02/16/22 02/07/24 Complex-Vitamin B12 tablet) nystatin 100,000 unit/gram topical 1 applic topical QID 04/05/22 02/07/24 ointment nystatin 100,000 unit/gram topical 1 applic topical BID 04/05/22 02/07/24 powder lamotrigine 25 mg tablet 25 mg PO BID 09/21/22 02/07/24 amlodipine 2.5 mg tablet 2.5 mg PO DAILY 01/03/24 02/07/24 etanercept 25 mg/0.5 mL (0.5 mL) 50 mg subcut QWEEK 01/03/24 02/07/24 subcutaneous syringe (Enbrel) oxcarbazepine 150 mg tablet 150 mg PO DAILY 01/03/24 02/07/24 semaglutide 2 mg/dose (8 mg/3 mL) 2 mg subcut QWEEK 01/03/24 02/07/24 subcutaneous pen injector (Ozempic) tramadol 50 mg tablet 50 mg PO DAILY PRN 01/03/24 02/07/24 ubrogepant 100 mg tablet (Ubrelvy) 100 mg PO ONCE 01/03/24 02/07/24 budesonide-formoterol HFA 160 2 puff inhalation BID PRN 01/09/24 02/07/24 mcg-4.5 mcg/actuation aerosol inhaler (Breyna) acetaminophen 500 mg tablet 1,000 mg PO TID PRN 02/07/24 02/07/24 Previous Rx's ?Medication ?Instructions ?Recorded ondansetron 4 mg disintegrating 4 mg PO Q8H PRN #10 tabs 07/21/21 tablet Allergies Allergy/AdvReac Type Severity Reaction Status Date / Time erythromycin base Allergy Severe Skin Rash Verified 02/07/24 18:07 phenytoin sodium (From Allergy Severe Hives Verified 02/07/24 18:07 Dilantin) phenytoin sodium extended Allergy Severe Hives Verified 02/07/24 18:07 (From Dilantin) amoxicillin (Amoxicillin) Allergy Intermediate Hives Verified 02/07/24 18:07 lisinopril Allergy Intermediate cough Verified 02/07/24 18:07 potassium clavulanate (From Allergy Intermediate Hives Verified 02/07/24 18:07 Augmentin) Sulfa (Sulfonamide Allergy Mild Skin Rash Verified 02/07/24 18:07 Antibiotics) tomato (Tomato) Allergy Mild Skin Rash Verified 02/07/24 18:07 NSAIDS (Non-Steroidal AdvReac Severe Per pt, Verified 02/07/24 18:07 Anti-Inflamma states kidney function declines sumatriptan (From Imitrex) AdvReac Severe Visual Verified 02/07/24 18:07 Disturbances,burning sensation through out body oxycodone AdvReac Intermediate n/v Verified 02/07/24 18:07 hydromorphone AdvReac nausea/vomi Verified 02/07/24 18:07 ting General Stated Complaint: Abd Prob HARRIET: 3 Course Vital Signs Vital signs: Vital Signs Temperature 36.7 C 02/07/24 18:03 Pulse 85 02/07/24 18:03 Respiratory Rate 02/07/24 18:03 Blood Pressure 152/85 H 02/07/24 18:03 Pulse Oximetry 100 02/07/24 18:03 Temperature 36.7 C 02/07/24 18:03 Temperature Source Oral 02/07/24 18:03 Pulse 85 02/07/24 18:03 Respiratory Rate 02/07/24 18:03 Blood Pressure 152/85 H 02/07/24 18:03 Blood Pressure Position Sitting 02/07/24 18:03 Pulse Oximetry 100 02/07/24 18:03 Oxygen Delivery Method Room Air 02/07/24 18:03 Oxygen Flow Rate 0 02/07/24 18:03 Pain Level 6 02/07/24 18:03 Medical Decision Making Quality:SDOH Health Related Social Needs: No Data to Display PFSH All Active Problems (Updated 02/07/24 @ 20:32 by Melissa Goodwin MD) Generalized abdominal pain of unknown etiology (Acute) CRPS (complex regional pain syndrome) (Chronic) Neuralgia (Chronic) Cholecystitis (Acute) Prediabetes (Chronic) Hypertension (Chronic) GERD (gastroesophageal reflux disease) (Chronic) Migraine (Chronic) Asthma (Chronic) Back pain (Chronic) H/O surgical procedure (Chronic) a. hysterectomy b. orthopedic surgery Adhesive capsulitis of left shoulder (Acute 08/25/16) Biceps tendinitis of left upper extremity (Acute 10/13/16) Chronic otitis media with effusion (Acute 04/25/14) Neck pain (Acute 05/24/13) Otalgia (Acute 05/03/13) Tendinitis of left rotator cuff (Acute 06/30/16) Subacromial injection: 04/26/18; 04/06/17 Injection under fluoroscopy: 08/10/18 Tubular adenoma of colon (Acute 06/15/17) Left ankle sprain (Acute) Trochanteric bursitis of left hip (Acute) Corticosteroid injection: 08/07/18 Sacroiliac joint dysfunction (Acute) Port-A-Cath in place (Acute) Fracture of radial neck, right, closed (Acute 06/09/19) Sensorineural hearing loss (SNHL) of right ear with unrestricted hearing of left ear (Acute) Vertigo (Acute) Hypomagnesemia (Acute) Screening for colon cancer (Acute) Genital herpes (Acute) Chronic kidney disease (Chronic) Vitamin B12 deficiency (Acute) Raynauds syndrome (Acute) Internal derangement of left knee (Acute) Arthritis of right elbow (Acute) lateral epicondyle injection 04/12/2022 Family history of colon cancer (Acute) Rheumatoid arthritis, seronegative, multiple sites (Acute) Right rotator cuff tendonitis (Acute) Steroid injection: 01/09/2024; 08/02/2022 Injury of right hand (Acute) Dislocation of distal interphalangeal joint of right middle finger (Acute) Status post reduction and percutaneous pinning DOS: 09/24/2022 Medical History Adenomatous colon polyp Allergic rhinitis Asthma Constipation Deafness in right ear DM (diabetes mellitus) Eczema Fatty infiltration of liver GERD (gastroesophageal reflux disease) Hand pain History of depression History of neck pain HTN (hypertension) Incontinence Insomnia Leg cramps Migraine Obesity Otalgia Ovarian cyst Preventative health care Screening breast examination Tendinitis Trigeminal neuralgia Surgical History Colonoscopy - MAC (06/15/17) H/O craniotomy H/O shoulder surgery H/O tooth extraction History of appendectomy History of cholecystectomy History of ear surgery History of eye surgery History of hysterectomy History of knee surgery Mediport placement (05/02/15) no longer in place Family History Mother Hx of migraines Social History Smoking/Tobacco Use Status: Former Tobacco Use Quit Date: 06/13/10 Smoking risk assessment performed?: Yes Alcohol Intake: current Alcohol Intake frequency: holidays/special occasions only Alcohol type: other Drug use: Never Substance use type: does not use Current gender identity: female Do you feel safe at home: Yes Do you feel safe in your relationship?: Yes
[2024-02-07] MEDS: diphenhydrAMINE 50 MG/ML VIAL 25 MG IVP (19:04)
[2024-02-07] MEDS: Lactated Ringers 1,000 ML 1000 ML IV (19:04)
[2024-02-07] MEDS: Metoclopramide 10 MG/2 ML VIAL IVP (19:05)
[2024-02-07 19:35] LABS: Lactate 1.3 mmol/L (0.6-1.4)
[2024-02-07 19:38] LABS: Abs Immature Grans 0.02 10^3/uL (0.0-0.06); Absolute Basophil Count 0.05 10^3/uL (0.0-0.2); Absolute Eosinophil Count 0.02 10^3/uL (0.0-0.7); Absolute Lymphocyte Count 2.74 10^3/uL (1.2-3.4); Absolute Monocyte Count 0.48 10^3/uL (0.1-0.8); Absolute Neutrophil Count 4.02 10^3/uL (1.2-6.7); Basophils % 0.7 %; Eosinophils % 0.3 %; HCT 37.3 % (36.0-46.0); HGB 12.9 g/dL (11.2-15.7); Immature Grans % 0.3 %; Lymphocytes % 37.4 %; MCH 33.9 pg (27.0-33.0); MCHC 34.6 % (32.0-36.0); MCV 98 fL (80-95); MPV 9.5 fL (8.0-11.0); Monocytes % 6.5 %; Neutrophils % 54.8 %; Platelet Count 215 10^3/uL (130-400); RBC 3.81 10^6/uL (3.93-5.22); RDW 13.4 % (11.7-14.6); RDW-SD 47.6 fL; WBC 7.33 10^3/uL (4.4-10.8)
[2024-02-07 19:51] VITALS: BP 173/103; PULSE 98; RESP 17; TEMP 37.2; O2SAT 98
[2024-02-07 19:59] LABS: ALT 31 U/L (14-59); AST 17 U/L (15-37); Albumin 3.9 g/dL (3.4-5.0); Alkaline Phosphatase 73 U/L (46-116); Anion Gap 13.7 mmol/L (3-11); BUN 18 mg/dL (7-18); Bilirubin, Total 1.14 mg/dL (0.2-1.0); CO2 23.3 mmol/L (21.0-32.0); CREATININE 1.1 mg/dL (0.55-1.02); Calcium 9.4 mg/dL (8.5-10.1); Chloride 105 mmol/L (98-107); Estimated GFR 58.61 (mL/min/1.73m2); Glucose 73 mg/dL (74-106); Magnesium 1.6 mg/dL (1.8-2.4); Potassium 3.3 mmol/L (3.5-5.1); Sodium 142 mmol/L (136-145); Total Protein 6.9 g/dL (6.4-8.2)
[2024-02-07 20:02] LABS: Lipase 32 U/L (16-77); Troponin I < 50 ng/L (< or =60)
[2024-02-07 20:44] VITALS: BP 168/99; PULSE 82; RESP 14; TEMP 36.8; O2SAT 98
== END 2024-02-07 20:44 | disposition left against medical advice (07) ==
PROVIDERS: Emergency Provider Emergency Medicine; PCP Family Medicine
DX: R10.84 Generalized abdominal pain (principal); R51.9 Headache, unspecified; R11.2 Nausea with vomiting, unspecified; I10 Essential (primary) hypertension; E11.9 Type 2 diabetes mellitus without complications; K21.9 Gastro-esophageal reflux disease without esophagitis; M06.9 Rheumatoid arthritis, unspecified; G90.50 Complex regional pain syndrome I, unspecified; Z90.49 Acquired absence of other specified parts of digestive tract; Z87.891 Personal history of nicotine dependence; Z53.29 Procedure and treatment not carried out because of patient's decision for other reasons
CPT/HCPCS: 80053; 83690; 93005; 96374; 96375; 99284; 83605; 83735; 84484; 85025; 93010; 99283; J1200; J2765

== ENCOUNTER 2024-04-06 01:33 | Outpatient (CLI) | payer MEDICARE, OTHER, SELFPAY ==
[2024-04-06 12:10] LABS: Abs Immature Grans 0.02 10^3/uL (0.0-0.06); Absolute Basophil Count 0.04 10^3/uL (0.0-0.2); Absolute Eosinophil Count 0.14 10^3/uL (0.0-0.7); Absolute Lymphocyte Count 1.52 10^3/uL (1.2-3.4); Absolute Monocyte Count 0.39 10^3/uL (0.1-0.8); Absolute Neutrophil Count 3.57 10^3/uL (1.2-6.7); Basophils % 0.7 %; Eosinophils % 2.5 %; HCT 36.3 % (36.0-46.0); Immature Grans % 0.4 %; Lymphocytes % 26.8 %; MCH 34.3 pg (27.0-33.0); MCHC 33.1 % (32.0-36.0); MCV 104 fL (80-95); MPV 9.8 fL (8.0-11.0); Monocytes % 6.9 %; Neutrophils % 62.7 %; Platelet Count 195 10^3/uL (130-400); RDW 13.5 % (11.7-14.6); WBC 5.68 10^3/uL (4.4-10.8)
[2024-04-06 12:50] LABS: ALT 31 U/L (14-59); AST 14 U/L (15-37); Albumin 3.7 g/dL (3.4-5.0); Alkaline Phosphatase 71 U/L (46-116); Anion Gap 9.4 mmol/L (3-11); BUN 21 mg/dL (7-18); Bilirubin, Total 0.43 mg/dL (0.2-1.0); CO2 24.6 mmol/L (21.0-32.0); CREATININE 1.3 mg/dL (0.55-1.02); Calcium 9.1 mg/dL (8.5-10.1); Chloride 110 mmol/L (98-107); Estimated GFR 47.96 (mL/min/1.73m2); Glucose 95 mg/dL (74-106); Potassium 4.2 mmol/L (3.5-5.1); Sodium 144 mmol/L (136-145); Total Protein 7.4 g/dL (6.4-8.2)
[2024-04-06 12:51] LABS: C-Reactive Protein < 0.50 mg/dL (<or=0.5)
== END 2024-04-06 01:34 | disposition home or self-care (01) ==
PROVIDERS: PCP Family Medicine; Visit Provider Internal Medicine Rheumatology
DX: Z79.899 Other long term (current) drug therapy (principal); M06.09 Rheumatoid arthritis without rheumatoid factor, multiple sites
CPT/HCPCS: 36415; 80053; 85025; 86140

== ENCOUNTER 2024-09-20 02:31 | Outpatient (CLI) | payer MEDICARE, OTHER, SELFPAY ==
[2024-09-20 11:29] LABS: Abs Immature Grans 0.03 10^3/uL (0.0-0.06); Absolute Basophil Count 0.07 10^3/uL (0.0-0.2); Absolute Eosinophil Count 0.27 10^3/uL (0.0-0.7); Absolute Lymphocyte Count 1.65 10^3/uL (1.2-3.4); Absolute Neutrophil Count 4.58 10^3/uL (1.2-6.7); Eosinophils % 3.8 %; HCT 39.1 % (36.0-46.0); HGB 12.7 g/dL (11.2-15.7); Immature Grans % 0.4 %; Lymphocytes % 23.2 %; MCH 33.2 pg (27.0-33.0); MCHC 32.5 % (32.0-36.0); MCV 102 fL (80-95); MPV 9.6 fL (8.0-11.0); Neutrophils % 64.6 %; Platelet Count 219 10^3/uL (130-400); RBC 3.82 10^6/uL (3.93-5.22); RDW 12.4 % (11.7-14.6); RDW-SD 46.3 fL
[2024-09-20 12:12] LABS: ALT 93 U/L (14-59); AST 39 U/L (15-37); Albumin 3.7 g/dL (3.4-5.0); Alkaline Phosphatase 86 U/L (46-116); Anion Gap 6.8 mmol/L (3-11); BUN 16 mg/dL (7-18); Bilirubin, Total 0.5 mg/dL (0.2-1.0); C-Reactive Protein < 0.50 mg/dL (<or=0.5); CO2 27.2 mmol/L (21.0-32.0); CREATININE 1.3 mg/dL (0.55-1.02); Calcium 8.9 mg/dL (8.5-10.1); Chloride 108 mmol/L (98-107); Estimated GFR 47.66 (mL/min/1.73m2); Glucose 157 mg/dL (74-106); Potassium 3.6 mmol/L (3.5-5.1); Sodium 142 mmol/L (136-145); Total Protein 6.7 g/dL (6.4-8.2)
== END 2024-09-20 02:32 | disposition home or self-care (01) ==
PROVIDERS: PCP Family Medicine; Visit Provider Internal Medicine Rheumatology
DX: Z79.899 Other long term (current) drug therapy (principal); M06.09 Rheumatoid arthritis without rheumatoid factor, multiple sites
CPT/HCPCS: 36415; 80053; 85025; 86140

== ENCOUNTER 2024-10-08 08:14 | Emergency (ER) | payer MEDICARE, OTHER, SELFPAY ==
[2024-10-08] VITALS (8 sets, daily range): BP systolic 158–207; BP diastolic 81–95; PULSE 64–71; RESP 14–20; TEMP 36.8; O2SAT 95–100
--- NOTE | 2024-10-08 08:12 | W.ED.GENAD ---
Discharge Plan Disposition Patient Disposition: Home Discharge Details Clinical Impression: Acute injury of posterior cruciate ligament Primary Care Provider: Katarina Rodriguez ED Provider: Bronwyn Fountain Home Meds and New Rx's Prescriptions: New morphine 15 mg tablet 15 mg PO Q6H PRNQty: 10 0RF ondansetron 4 mg tablet,disintegrating 4 mg PO Q8H PRNQty: 10 0RF No Action pantoprazole [Protonix] 20 mg tablet,delayed release (DR/EC) 40 mg PO DAILY losartan 100 mg tablet 100 mg PO DAILY pregabalin [Lyrica] 50 mg capsule 100 mg PO TID albuterol sulfate [ProAir HFA] 90 mcg/actuation HFA aerosol inhaler 2 puff IH Q6H PRN methotrexate sodium 2.5 mg tablet 10 mg PO QWEEK Patient Comments: directions read once a week, twice a day. lamotrigine 100 mg tablet 100 mg PO BID baclofen 10 mg tablet 10 mg PO TID valacyclovir [Valtrex] 1 gram tablet 1,000 mg PO DAILY lidocaine 5 % adhesive patch,medicated 1 patch topical PRN Rx Instructions: leave on most painful area for up to 12 hrs vitamin B complex [B Complex-Vitamin B12] Tablet 1 tab PO DAILY nystatin 100,000 unit/gram powder 1 applic topical BID nystatin 100,000 unit/gram ointment 1 applic topical QID amlodipine 2.5 mg tablet 2.5 mg PO DAILY oxcarbazepine 150 mg tablet 150 mg PO DAILY Ozempic 2 mg/dose (8 mg/3 mL) pen injector 2 mg subcut QWEEK Ubrelvy 100 mg tablet 100 mg PO ONCE Rx Instructions: as a single dose; may repeat once in >=2 hours after first dose if needed ascorbic acid (vitamin C) 1,000 MG tablet 1 tab PO DAILY cholecalciferol (vitamin D3) 1,000 UNITS tablet 1 tab PO DAILY polyethylene glycol 3350 17 GM powder in packet 2 pkt PO PRN PRN lamotrigine 25 mg Tablet 25 mg PO BID atorvastatin 40 mg tablet 40 mg PO HS Patient Comments: TAKE ONE TABLET BY MOUTH EVERY EVENING hydroxychloroquine 200 mg tablet 400 mg PO DAILY Patient Comments: TAKE TWO TABLETS BY MOUTH EVERY DAY Emgality Syringe 120 mg/mL Syringe 100 mg SUBCUT DIRECTED Patient Comments: [id number] folic acid 1 mg Tablet 1 mg PO DAILY ondansetron 4 mg tablet,disintegrating 4 mg PO Q8H PRNQty: 10 0RF acetaminophen 500 mg tablet 1,000 mg PO TID PRN fluoxetine 40 mg capsule PO DAILY Patient Comments: TAKE ONE CAPSULE BY MOUTH EVERY DAY Simponi 50 mg/0.5 mL pen injector SUBCUT Discharge Instructions Additional Instructions: Please call [facility] orthopedics first thing in the morning to schedule follow-up appointment next week. Use the knee immobilizer to help maintain alignment of your knee. Do not bear weight, use crutches to avoid putting weight on this leg. When you are going up and down stairs, I recommend that you scoot on your bottom to prevent any falls on the stairs. I recommend the use Tylenol 650 mg every 6 hours [id number] for pain control. Elevate your leg above heart level, apply ice for 15 to 20 minutes at a time every hour or two. For severe pain you may use the morphine prescribed, 1 tablet every 6 hours. Take with Zofran for nausea/vomiting as needed. For signs of neurovascular compromise such as numbness/tingling, blueness/pallor to your foot, or newly worsening/ severe pain to your leg-if you notice any of these, return to emergency care immediately. Referrals: [facility] [Provider Group] Discharge Data Discharge Date/Time-TO BE ENTERED AT DEPARTURE: 10/08/24 10:34 HPI General Date/Time Provider Initiated Documentation: 10/08/24 09:56. HPI Narrative: Alexia is a 59 year old female who presents to the emergency department today for evaluation of left knee pain after fall. Reports she was walking down the steps to get to the car, holding onto the handrail when she slipped down 4 wooden stairs, says that her left leg stayed on the top step and the rest of her went down. [place] her left knee twist, with immediate pain afterwards. Pain radiates from the knee up to the hip. Denies hitting her head, chest pain/difficulty breathing, abdominal pain, distal numbness/tingling. She did hit her left elbow, sustained a mild abrasion, but otherwise no injury. She does report some lower back pain, but says that she does have a side joint problems at baseline, but this aggravated the pain. She remained seated on the stairs until EMS arrived, says that she did not feel her joint pop in/out of place, no visible dislocation. Received Tylenol, Zofran, and fentanyl 50 mcgs en route. Past medical history significant for HTN, DM, asthma, GERD, migraine, vertigo, kidney disease, rheumatoid arthritis, and complex regional pain syndrome. She has had multiple surgeries to the left knee, admits to history of SI joint problems at baseline. Physical exam remarkable for left knee pain, mild swelling. No obvious bruising. + CMS to toes, no pain with palpation of ankle, lower leg, or femur. Dorsalis pedis and posterior tibialis pulses intact, no pallor or cyanosis to distal extremity. She does have pain with movement of the left hip and lower back pain with palpation after logroll. No midline C-spine/T-spine/L-spine tenderness/step-off/deformity. Easy work of breathing, able to speak in complete sentences. No chest wall tenderness to palpation. No abdominal tenderness, rigidity, or guarding. D/dx includes but is not limited to: Fracture, meniscal injury, ligamentous injury, contusion I independently interpreted the following tests: X-ray of left knee suspicious for occult fracture, CT obtained. This was significant for avulsion fracture at the PCL insertion site and nondisplaced fracture at the posterior lateral aspect of the lateral femoral condyle While in the emergency department, Alexia received fentanyl for pain. After receiving pain medication, she is much more comfortable. She reports that the discomfort to her left buttock is consistent with her SI joint pain, says that she is uses heat/ice for discomfort, has an appointment with [facility] for injection later in October. Discussed case with Daylin Patton, orthopedics [facility]. Reviewed patient presentation, reassuring neurovascular exam, and CT findings. She is agreeable with plan for 1 week orthopedic follow-up, knee immobilizer with crutches, and precautions for return to care in case of neurovascular compromise. Immobilizer applied to patient. Educated on importance of scooting on her bottom up and down stairs to prevent falls. Provided strict education on neurovascular compromise. History and presentation consistent with PCL ligament tear and posterior lateral femoral condyle fracture without concern in history or presentation for knee dislocation. Reviewed discharge instructions with patient and her , including symptomatic management and red flags indicating need for return to emergency care. Will discharge home with a limited number of morphine tablets for severe pain as needed. Related Data Home Medications ?Medication ?Instructions ?Recorded ?Confirmed ascorbic acid (vitamin C) 1,000 mg 1 tab PO DAILY 07/18/14 10/08/24 tablet cholecalciferol (vitamin D3) 25 1 tab PO DAILY 07/18/14 10/08/24 mcg (1,000 unit) tablet polyethylene glycol 3350 17 gram 2 pkt PO PRN PRN 08/04/15 10/08/24 oral powder packet albuterol sulfate 90 mcg/actuation 2 puff inhalation Q6H PRN 10/04/19 10/08/24 aerosol inhaler (ProAir HFA) losartan 100 mg tablet 100 mg PO DAILY 10/04/19 10/08/24 pantoprazole 20 mg tablet,delayed 40 mg PO DAILY 10/04/19 10/08/24 release (Protonix) pregabalin 50 mg capsule (Lyrica) 100 mg PO TID 10/04/19 10/08/24 atorvastatin 40 mg tablet 40 mg PO HS 05/02/20 10/08/24 hydroxychloroquine 200 mg tablet 400 mg PO DAILY 05/02/20 10/08/24 folic acid 1 mg tablet 1 mg PO DAILY 06/03/21 10/08/24 galcanezumab-gnlm 120 mg/mL 100 mg subcut DIRECTED 06/03/21 10/08/24 subcutaneous syringe (Emgality) ondansetron 4 mg disintegrating 4 mg PO Q8H PRN #10 tabs 07/21/21 10/08/24 tablet baclofen 10 mg tablet 10 mg PO TID 02/16/22 10/08/24 lamotrigine 100 mg tablet 100 mg PO BID 02/16/22 10/08/24 lidocaine 5 % topical patch 1 patch topical PRN 02/16/22 10/08/24 methotrexate sodium 2.5 mg tablet 10 mg PO QWEEK 02/16/22 10/08/24 valacyclovir 1 gram tablet 1,000 mg PO DAILY 02/16/22 10/08/24 (Valtrex) vitamin B complex (B 1 tab PO DAILY 02/16/22 10/08/24 Complex-Vitamin B12 tablet) nystatin 100,000 unit/gram topical 1 applic topical QID 04/05/22 10/08/24 ointment nystatin 100,000 unit/gram topical 1 applic topical BID 04/05/22 10/08/24 powder lamotrigine 25 mg tablet 25 mg PO BID 09/21/22 10/08/24 amlodipine 2.5 mg tablet 2.5 mg PO DAILY 01/03/24 10/08/24 oxcarbazepine 150 mg tablet 150 mg PO DAILY 01/03/24 10/08/24 semaglutide 2 mg/dose (8 mg/3 mL) 2 mg subcut QWEEK 01/03/24 10/08/24 subcutaneous pen injector (Ozempic) ubrogepant 100 mg tablet (Ubrelvy) 100 mg PO ONCE 01/03/24 10/08/24 acetaminophen 500 mg tablet 1,000 mg PO TID PRN 02/07/24 10/08/24 fluoxetine 40 mg capsule mg PO DAILY 10/08/24 golimumab 50 mg/0.5 mL mg subcut 10/08/24 subcutaneous pen injector (Simponi) morphine 15 mg immediate release 15 mg PO Q6H PRN #10 tabs 10/08/24 tablet ondansetron 4 mg disintegrating 4 mg PO Q8H PRN #10 tabs 10/08/24 tablet Previous Rx's ?Medication ?Instructions ?Recorded ondansetron 4 mg disintegrating 4 mg PO Q8H PRN #10 tabs 07/21/21 tablet morphine 15 mg immediate release 15 mg PO Q6H PRN #10 tabs 10/08/24 tablet ondansetron 4 mg disintegrating 4 mg PO Q8H PRN #10 tabs 10/08/24 tablet Allergies Allergy/AdvReac Type Severity Reaction Status Date / Time erythromycin base Allergy Severe Skin Rash Verified 10/08/24 10:17 phenytoin sodium (From Allergy Severe Hives Verified 10/08/24 10:17 Dilantin) phenytoin sodium extended Allergy Severe Hives Verified 10/08/24 10:17 (From Dilantin) amoxicillin (Amoxicillin) Allergy Intermediate Hives Verified 10/08/24 10:17 lisinopril Allergy Intermediate cough Verified 10/08/24 10:17 potassium clavulanate (From Allergy Intermediate Hives Verified 10/08/24 10:17 Augmentin) Sulfa (Sulfonamide Allergy Mild Skin Rash Verified 10/08/24 10:17 Antibiotics) tomato (Tomato) Allergy Mild Skin Rash Verified 10/08/24 10:17 NSAIDS (Non-Steroidal AdvReac Severe Per pt, Verified 10/08/24 10:17 Anti-Inflamma states kidney function declines sumatriptan (From Imitrex) AdvReac Severe Visual Verified 10/08/24 10:17 Disturbances,burning sensation through out body oxycodone AdvReac Intermediate n/v Verified 10/08/24 10:17 hydromorphone AdvReac nausea/vomi Verified 10/08/24 10:17 ting General HARRIET: 3 Review of Systems Narrative: see HPI Exam Const General: cooperative, healthy appearing and no acute distress Nutritional Appearance: overweight Orientation: alert and oriented x3 Chest Chest: normal inspection of the chest and normal palpation of entire chest wall GI Inspection: normal to inspection and non-distended Palpation: soft, not firm and no guarding Back/Spine/Pelvis Cervical Spine: normal cervical lordosis and cervical ROM normal Thoracic/Lumbar Spine: thoracic and lumbar spine normal to inspection and other (diffuse lower back pain with palpation) Skin Trauma: abrasion (L elbow) Neuro General: patient alert, patient oriented x3 and tone normal Motor: muscle tone normal throughout and strength 5/5 throughout Sensory Exam: no sensory deficits noted Extrem Left upper extremity: full ROM Left lower extremity: normal to inspection, normal capillary refill and knee Details: tenderness, swelling (mild) and abnormal ROM Details: held in an abnormal fashion Details: in extension (with slight (10 degrees) flexion for comfort); no abrasions, no lacerations, no ecchymosis, no crepitus, no penetrating wound, no deformity and no unusual warmth Medical Decision Making Imaging Data Radiologic Study: Radiologist's impression: Exam(s) CT LOWER EXTREMITY LT WO EXAM: CT LOWER EXTREMITY LT WO CLINICAL HISTORY: L knee pain, ?tibial plateau fx. TECHNIQUE: Imaging Protocol: Axial computed tomography images with coronal and sagittal reformatted images were created and reviewed. CONTRAST MATERIAL: Noncontrast COMPARISON: CT CT UPPER EXTREMITY RT WO from 10/26/2022 CR XR KNEE LT 4V AP,LAT,ZEKE,PAT from 10/08/2024 FINDINGS: Bones: There is a fracture at the posterior aspect of the tibial plateau at the insertion site of the posterior cruciate ligament. There is separation of the fragment of 4-5 millimeters. The fragment measures 17 by 17 millimeters. There is an additional nondisplaced fracture at the periphery of the posterior, lateral aspect of the lateral femoral condyle. No cellulitic or osteomyelitic changes are identified. No lytic or sclerotic lesions are identified. Joints: Moderate hemarthrosis. There is no significant joint space narrowing. Minimal periarticular spurring. Soft Tissues: Normal. IMPRESSION: Avulsion fracture at the posterior cruciate ligament insertion site on the posterior tibia. Additional nondisplaced placed fracture at the posterolateral aspect of the lateral femoral condyle. Quality:SDOH Health Related Social Needs: No Data to Display PFSH All Active Problems (Updated 02/07/24 @ 20:32 by Melissa Goodwin MD) Acute injury of posterior cruciate ligament (Acute) CRPS (complex regional pain syndrome) (Chronic) Neuralgia (Chronic) Cholecystitis (Acute) Prediabetes (Chronic) Hypertension (Chronic) GERD (gastroesophageal reflux disease) (Chronic) Migraine (Chronic) Asthma (Chronic) Back pain (Chronic) H/O surgical procedure (Chronic) a. hysterectomy b. orthopedic surgery Adhesive capsulitis of left shoulder (Acute 08/25/16) Biceps tendinitis of left upper extremity (Acute 10/13/16) Chronic otitis media with effusion (Acute 04/25/14) Neck pain (Acute 05/24/13) Otalgia (Acute 05/03/13) Tendinitis of left rotator cuff (Acute 06/30/16) Subacromial injection: 04/26/18; 04/06/17 Injection under fluoroscopy: 08/10/18 Tubular adenoma of colon (Acute 06/15/17) Left ankle sprain (Acute) Trochanteric bursitis of left hip (Acute) Corticosteroid injection: 08/07/18 Sacroiliac joint dysfunction (Acute) Port-A-Cath in place (Acute) Fracture of radial neck, right, closed (Acute 06/09/19) Sensorineural hearing loss (SNHL) of right ear with unrestricted hearing of left ear (Acute) Vertigo (Acute) Hypomagnesemia (Acute) Screening for colon cancer (Acute) Genital herpes (Acute) Chronic kidney disease (Chronic) Vitamin B12 deficiency (Acute) Raynauds syndrome (Acute) Internal derangement of left knee (Acute) Arthritis of right elbow (Acute) lateral epicondyle injection 04/12/2022 Family history of colon cancer (Acute) Rheumatoid arthritis, seronegative, multiple sites (Acute) Right rotator cuff tendonitis (Acute) Steroid injection: 01/09/2024; 08/02/2022 Injury of right hand (Acute) Dislocation of distal interphalangeal joint of right middle finger (Acute) Status post reduction and percutaneous pinning DOS: 09/24/2022 Medical History Adenomatous colon polyp Allergic rhinitis Asthma Constipation Deafness in right ear DM (diabetes mellitus) Eczema Fatty infiltration of liver GERD (gastroesophageal reflux disease) Hand pain History of depression History of neck pain HTN (hypertension) Incontinence Insomnia Leg cramps Migraine Obesity Otalgia Ovarian cyst Preventative health care Screening breast examination Tendinitis Trigeminal neuralgia Surgical History Colonoscopy - MAC (06/15/17) H/O craniotomy H/O shoulder surgery H/O tooth extraction History of appendectomy History of cholecystectomy History of ear surgery History of eye surgery History of hysterectomy History of knee surgery Mediport placement (05/02/15) no longer in place Family History Mother Hx of migraines Social History Smoking/Tobacco Use Status: Former Tobacco Use Quit Date: 06/13/10 Smoking risk assessment performed?: Yes Alcohol Intake: current Alcohol Intake frequency: holidays/special occasions only Alcohol type: other Drug use: Never Substance use type: does not use Current gender identity: female Do you feel safe at home: Yes Do you feel safe in your relationship?: Yes
[2024-10-08] MEDS: fentaNYL 100 MCG/2 ML VIAL 50 MCG IVP (08:38)
--- NOTE | 2024-10-08 09:08 | DI.RAD_ITS ---
Exam(s) XR HIP LT COMPLETE AP PELVIS EXAM: XR HIP LT COMPLETE AP PELVIS CLINICAL HISTORY: L knee pain radiating to hip, h/o SI joint pain. TECHNIQUE: 2D digital imaging was performed. Three views. COMPARISON: CT CT CHEST/ABD/PEL WO from 08/07/2022 FINDINGS: BONES: No acute fracture is present. No bony destructive lesion is seen. JOINTS: No dislocation present. Periarticular spurring at the hip joints, right greater than left. T he SI joints are not widened. There are degenerative changes of the right inferior SI joint. SOFT TISSUE: Normal. IMPRESSION: No acute abnormality. DATA REPOSITORY: RADIATION DOSE DELIVERED:
--- NOTE | 2024-10-08 09:08 | DI.RAD_ITS ---
Exam(s) XR KNEE LT 4V AP,LAT,ZEKE,PAT EXAM: XR KNEE LT 4V AP,LAT,ZEKE,PAT CLINICAL HISTORY: L knee pain after fall (twisting mechanism). TECHNIQUE: 2D digital imaging was performed. Four views. COMPARISON: CR XR KNEE LT 3V AP,LAT,ZEKE from 02/11/2022 MR MR LOWER JOINT LT WO from 05/03/2022 FINDINGS: BONES: No discrete fracture is visualized. No bony destructive lesion is seen. Patellar enthesoph ytes. Small enthesophyte at tibial tubercle. JOINTS: The knee is normally aligned. The joint spaces are maintained. Mild periarticular spurring. A hemarthrosis is seen. SOFT TISSUE: Normal anterior soft tissue swelling. IMPRESSION: A hemarthrosis is present, findings are suspicious for an occult fracture, likely of the tibial plate au. DATA REPOSITORY: RADIATION DOSE DELIVERED:
[2024-10-08] MEDS: Ondansetron 4 MG/2 ML VIAL IVP (09:14)
--- NOTE | 2024-10-08 09:15 | DI.CT_ITS ---
Exam(s) CT LOWER EXTREMITY LT WO EXAM: CT LOWER EXTREMITY LT WO CLINICAL HISTORY: L knee pain, ?tibial plateau fx. TECHNIQUE: Imaging Protocol: Axial computed tomography images with coronal and sagittal reformatted images were created and reviewed. CONTRAST MATERIAL: Noncontrast COMPARISON: CT CT UPPER EXTREMITY RT WO from 10/26/2022 CR XR KNEE LT 4V AP,LAT,ZEKE,PAT from 10/08/2024 FINDINGS: Bones: There is a fracture at the posterior aspect of the tibial plateau at the insertion site of the posterior cruciate ligament. There is separation of the fragment of 4-5 millimeters. The fragment measures 17 by 17 millimeters. There is an additional nondisplaced fracture at the periphery of the posterior, lateral aspect of the lateral femoral condyle. No cellulitic or osteomyelitic changes are identified. No lytic or sclerotic lesions are identified. Joints: Moderate hemarthrosis. There is no significant joint space narrowing. Minimal periarticular spurring. Soft Tissues: Normal. IMPRESSION: Avulsion fracture at the posterior cruciate ligament insertion site on the posterior tibia. Addition al nondisplaced placed fracture at the posterolateral aspect of the lateral femoral condyle. RADIATION DOSE DELIVERED: 136.35mGy.cm Total DLP DATA REPOSITORY: All CT scans at this facility are submitted to the National Radiology Data Registry (NRDR) Dose Index Registry (DIR) with the [employer] (A[employer]). RADIATION OPTIMIZATION: All CT scans at this facility use at least one of these dose optimization te chniques: automated exposure control; mA and/or kV adjustment per patient size (includes targeted exa ms where dose is matched to clinical indication); or iterative reconstruction.
[2024-10-08] MEDS: MORPHine IR 15 MG TAB PO (10:09)
[2024-10-08] MEDS: MORPHine IR 15 MG TAB, 4 TABS/BTL PO (10:16)
== END 2024-10-08 10:34 | disposition home or self-care (01) ==
PROVIDERS: Emergency Provider Nurse Practitioner Family; PCP Family Medicine
DX: S82.145A Nondisplaced bicondylar fracture of left tibia, initial encounter for closed fracture (principal); S72.425A Nondisplaced fracture of lateral condyle of left femur, initial encounter for closed fracture; I10 Essential (primary) hypertension; E11.9 Type 2 diabetes mellitus without complications; Z79.85 Long-term (current) use of injectable non-insulin antidiabetic drugs; Z87.891 Personal history of nicotine dependence; W01.198A Fall on same level from slipping, tripping and stumbling with subsequent striking against other object, initial encounter; Y93.01 Activity, walking, marching and hiking; Y92.018 Other place in single-family (private) house as the place of occurrence of the external cause
CPT/HCPCS: 96374; 96375; 99284; 73502; 73564; 73700; J2405; J3010

== ENCOUNTER → 2024-10-16 10:57 | Outpatient (BNVA) | payer MEDICARE, OTHER, SELFPAY | PROVIDERS: PCP Family Medicine; Referring Provider Family Medicine; Visit Provider Student in an Organized Health Care Education/Training Program | DX: W10.8XXA Fall (on) (from) other stairs and steps, initial encounter (principal); S89.92XA Unspecified injury of left lower leg, initial encounter | CPT/HCPCS: 99214 ==

== ENCOUNTER 2024-10-29 18:28 | Outpatient (REF) | payer MEDICARE, OTHER, SELFPAY ==
[2024-10-29 22:28] LABS: ALT 43 U/L (14-59); AST 20 U/L (15-37); Alkaline Phosphatase 114 U/L (46-116); Bilirubin, Direct 0.1 mg/dL (0.0-0.2); Bilirubin, Total 0.5 mg/dL (0.2-1.0); Calculated LDL 41 mg/dL (<100); Cholesterol 118 mg/dL (<200); HDL Cholesterol 55 mg/dL (>or=50); Total Protein 6.8 g/dL (6.4-8.2); Triglyceride 110 mg/dL (<150); Vitamin B12 514 pg/mL (193-986)
== END 2024-10-29 18:29 | disposition home or self-care (01) ==
LOC: NCHCN 18:28
PROVIDERS: PCP Family Medicine; Visit Provider Family Medicine
DX: E78.5 Hyperlipidemia, unspecified (principal); E53.8 Deficiency of other specified B group vitamins; K76.0 Fatty (change of) liver, not elsewhere classified
CPT/HCPCS: 80061; 80076; 82607

== ENCOUNTER 2024-10-30 01:19 | Outpatient (CLI) | payer MEDICARE, OTHER, SELFPAY ==
--- NOTE | 2024-10-30 13:49 | DI.MRI_ITS ---
Exam(s) MR LOWER JOINT LT WO EXAM: MR LOWER JOINT LT WO CLINICAL HISTORY: EVAL PCL,LAT FEM CONDYLE,GRADE 3 MCL acute INJURY, S89.92XA,S89.90xa. TECHNIQUE: Multiplanar multisequence MRI was performed. COMPARISON: MR MR LOWER JOINT LT WO from 05/03/2022 CR XR KNEE LT 4V AP,LAT,ZEKE,PAT from 10/08/[address] LOWER EXTREMITY LT WO from 10/08/2024 FINDINGS: BONES: There is edema in the mid to posterior aspect of the lateral femoral condyle. The fracture li derrick are not as well seen is as on prior CT. Edema is also present in the lateral tibial plateau grea ter posteriorly. Mildly displaced fragment again noted at the insertion of the posterior cruciate li gament. JOINTS: Moderate sized joint effusion is present. Articular cartilage: Patellofemoral joint: Articular cartilage shows thinning at the apex and lateral facet. Medial femoral tibial joint: Articular cartilage is unremarkable. Lateral femoral tibial joint: Articular cartilage is unremarkable. LIGAMENTS/TENDONS: Anterior Cruciate: Unremarkable. Posterior Cruciate: Thickening and edema within the posterior cruciate ligament suspicious for partia l tear. Medial Collateral:Fibers at the femoral attachment. Discontinuous. Surrounding edema. Lateral Collateral ligament complex: Unremarkable. Extensor mechanism: Intact. Patellar enthesophytes. Small enthesophyte at tibial tubercle. Medial retinaculum: Unremarkable. Lateral retinaculum: Unremarkable. Popliteus: Unremarkable. MENISCI: The medial meniscus is unremarkable. The lateral meniscus is unremarkable. MUSCLES: Unremarkable. SOFT TISSUES: Edema in the anterior and posterior subcutaneous fat. IMPRESSION: Full-thickness tear of the medial collateral ligament at the femoral attachment. Partial tear of the posterior cruciate ligament. Avulsion fracture fragment from the posterior tibia at the PCL attachment. Small fractures of the la teral femoral condyle are not as well demonstrated. DATA REPOSITORY:
== END 2024-10-30 01:39 ==
LOC: DI 01:19
PROVIDERS: PCP Family Medicine; Visit Provider Student in an Organized Health Care Education/Training Program
DX: S83.412A Sprain of medial collateral ligament of left knee, initial encounter (principal); X58.XXXA Exposure to other specified factors, initial encounter; S83.522A Sprain of posterior cruciate ligament of left knee, initial encounter; S82.52XA Displaced fracture of medial malleolus of left tibia, initial encounter for closed fracture
CPT/HCPCS: 73721

== ENCOUNTER 2024-11-08 02:45 | Outpatient (CLI) | payer MEDICARE, OTHER, SELFPAY ==
--- NOTE | 2024-11-08 | DI.CTLCSR_ITS ---
Exam(s) CT CHEST LUNG CANCER SCREEN EXAM: CT CHEST LUNG CANCER SCREEN CLINICAL HISTORY: EX CIGARETTE SMOKER, Z87.891, PERSONAL HX NICOTINE DEPENDENCE. TECHNIQUE: Imaging Protocol: Low Dose Technique CONTRAST MATERIAL: None COMPARISON: CT CT CHEST LUNG CANCER SCREEN from 12/21/2022 FINDINGS: CHEST: LUNGS: There are no ominous pulmonary nodules. There are no confluent infiltrates. No pleural effusi ons. MEDIASTINUM: There is no obvious hilar nor mediastinal adenopathy. CARDIAC: Heart size is normal. There is no pericardial effusion.Caliber of the thoracic aorta is wit hin normal limits. OTHER: Gallbladder again noted be surgically absent. OSSEOUS: No significant osseous lesions.. IMPRESSION: 1. No significant pulmonary nodules. 2. No infiltrates nor pleural effusions nor obvious intrathoracic adenopathy. 3. Lung RADS Cat 1 - Negative: No nodules and definitely benign nodules Lung-RADS 1.0 CATEGORIES: Category 0 - Prior chest CT exam(s) being located for comparison. Category 1 - Annual screening in 12 months. No nodules or definitely benign nodules. Category 2 - Annual screening in 12 months. Benign appearance. Nodules with low likelihood of becomin g active cancer. Category 3 - 6-month follow-up. Probably benign. Short-term follow-up suggested. Nodules with low lik elihood of becoming active cancer. Category 4A - 3-month follow-up and CT/PET if >8 mm in size. Suspicious finding. Findings which requi re additional testing. Category 4B - Findings which require additional testing and tissue sampling. Category 4X - Category 3 or 4 nodules with additional features or imaging findings that increases the suspicion of malignancy. Modifier S- Potentially clinically significant findings (non lung cancer) RADIATION DOSE DELIVERED: 39.16mGy.cm Total DLP DATA REPOSITORY: All CT scans at this facility are submitted to the National Radiology Data Registry (NRDR) Dose Index Registry (DIR) with the [employer] (ACR). RADIATION OPTIMIZATION: All CT scans at this facility use at least one of these dose optimization te chniques: automated exposure control; mA and/or kV adjustment per patient size (includes targeted exa ms where dose is matched to clinical indication); or iterative reconstruction.
== END 2024-11-08 03:05 ==
LOC: DI 02:45
PROVIDERS: PCP Family Medicine; Visit Provider Family Medicine
DX: Z87.891 Personal history of nicotine dependence (principal); Z12.2 Encounter for screening for malignant neoplasm of respiratory organs
CPT/HCPCS: 71271

== ENCOUNTER → 2024-11-13 09:29 | Outpatient (BNVA) | payer MEDICARE, OTHER, SELFPAY | PROVIDERS: PCP Family Medicine; Referring Provider Family Medicine; Visit Provider Student in an Organized Health Care Education/Training Program | DX: S83.512D Sprain of anterior cruciate ligament of left knee, subsequent encounter (principal); S83.522D Sprain of posterior cruciate ligament of left knee, subsequent encounter; X58.XXXD Exposure to other specified factors, subsequent encounter | CPT/HCPCS: 99213 ==

== ENCOUNTER 2024-12-24 16:07 | Outpatient (CLI) | payer MEDICARE, OTHER, SELFPAY ==
--- NOTE | 2024-12-24 16:00 | DI.RAD_ITS ---
Exam(s) XR RIBS RT W PA LAT CHEST EXAM: XR RIBS RT W PA LAT CHEST CLINICAL HISTORY: rib injury, right side S29.9XXA TECHNIQUE: 2D digital imaging was performed. COMPARISON: CR,XR XR PORTABLE CHEST AP from 06/03/2021 FINDINGS: Total 6 views RIBS 4 VIEWS-RIGHT There are no obvious acute rib fractures evident. No lytic rib lesions identified. Incidentally noted is a calcification adjacent to the proximal diaphysis of the humerus. This may represent a calcification within the biceps tendon sheath. CXR- 2 VIEWS: No lung contusion or pneumothorax. There is no pleural effusion evident. Heart size is normal and there is no significant mediastinal widening. IMPRESSION: 1. No obvious right rib fractures evident. Also no significant rib lesions. 2. No ipsilateral lung nor pleural abnormality evident. No pneumothorax. Lungs are clear bilaterally. There are no pleural effusions. DATA REPOSITORY: RADIATION DOSE DELIVERED:
--- NOTE | 2024-12-24 17:54 | DI.VRAD_ITS ---
PROCEDURE INFORMATION: Exam: XR Right Ribs Exam date and time: 12/24/2024 4:15 PM Age: 59 years old Clinical indication: Injury or trauma; Fall; Other: Right sided generalized rib pain; Rib area; Blunt trauma (contusions or hematomas); Injury date: 12/22/2024 TECHNIQUE: Imaging protocol: Radiologic exam of the right ribs. Views: 2 views. COMPARISON: CT CHEST LUNG CANCER SCREEN 11/08/2024 9:07 AM FINDINGS: Bones/joints: No definite fracture identified Soft tissues: Normal. IMPRESSION: No acute findings. PROCEDURE INFORMATION: Exam: XR Chest Exam date and time: 12/24/2024 4:15 PM Age: 59 years old Clinical indication: Injury or trauma; Fall; Other: Right sided generalized rib pain; Rib area; Blunt trauma (contusions or hematomas); Injury date: 12/22/2024 TECHNIQUE: Imaging protocol: Radiologic exam of the chest. Views: 2 views. COMPARISON: CT CHEST LUNG CANCER SCREEN 11/08/2024 9:07 AM FINDINGS: Lungs: Unremarkable. No consolidation. Pleural spaces: Unremarkable. No pleural effusion. No pneumothorax. Heart/Mediastinum: Unremarkable. No cardiomegaly. Bones/joints: Degenerative changes in the right glenohumeral joint Intraperitoneal space: Surgical clips in the right upper quadrant IMPRESSION: No acute findings. Dictated and Authenticated by: Logan Rg MD. Orderin Sophia Sampson MD
== END 2024-12-24 16:27 ==
PROVIDERS: PCP Family Medicine; Visit Provider Physician Assistant
DX: S29.9XXA Unspecified injury of thorax, initial encounter (principal); X58.XXXA Exposure to other specified factors, initial encounter
CPT/HCPCS: 71046; 71100

== ENCOUNTER 2025-01-15 10:08 | Outpatient (CLI) | payer MEDICARE, OTHER, SELFPAY ==
--- NOTE | 2025-01-15 09:30 | DI.RAD_ITS ---
Exam(s) XR KNEE LT 2V AP,LAT EXAM: XR KNEE LT 2V AP,LAT CLINICAL HISTORY: F/U LEFT KNEE INJURY. TECHNIQUE: 2D digital imaging was performed of the left knee. Two images were obtained. AP and lateral views were obtained. COMPARISON: CR XR KNEE LT 4V AP,LAT,ZEKE,PAT from 10/08/[address] LOWER EXTREMITY LT WO from 10/08/2024 FINDINGS: BONES: There is a persistent lucency seen posteriorly in the proximal tibia on the lateral view which may reflect previous known fracture. No new fractures appreciated. The known lateral femoral condylar fracture is not well seen on this images. No bony destructive lesion is seen. There are enthesophytes at the anterior patella. JOINTS: There are mild degenerative changes seen in the knee particularly the patellofemoral joint. There is no large joint effusion. No loose body. SOFT TISSUE: Normal. IMPRESSION: Stable alignment of the fracture involving the posterior aspect of the proximal tibia. Portion of the fracture line is still visualized. If further characterization is warranted, a CT scan should be considered. DATA REPOSITORY: RADIATION DOSE DELIVERED:
== END 2025-01-15 10:09 | disposition home or self-care (01) ==
LOC: DIORS 10:09
PROVIDERS: PCP Family Medicine; Visit Provider Student in an Organized Health Care Education/Training Program
DX: S83.412D Sprain of medial collateral ligament of left knee, subsequent encounter (principal); S83.522D Sprain of posterior cruciate ligament of left knee, subsequent encounter; X58.XXXD Exposure to other specified factors, subsequent encounter
CPT/HCPCS: 99213; 73560

== ENCOUNTER 2025-01-25 07:46 | Outpatient (CLI) | payer MEDICARE, OTHER, SELFPAY ==
[2025-01-25 07:36] LABS: Abs Immature Grans 0.01 10^3/uL (0.0-0.06); HCT 37.5 % (36.0-46.0); HGB 12.5 g/dL (11.2-15.7); Immature Grans % 0.2 %; MCH 33.4 pg (27.0-33.0); MCHC 33.3 % (32.0-36.0); MCV 100 fL (80-95); MPV 9.9 fL (8.0-11.0); Platelet Count 194 10^3/uL (130-400); RBC 3.74 10^6/uL (3.93-5.22); RDW 13.2 % (11.7-14.6); RDW-SD 48.5 fL; WBC 6.05 10^3/uL (4.4-10.8)
[2025-01-25 07:50] LABS: ALT 34 U/L (14-59); AST 18 U/L (15-37); Albumin 3.9 g/dL (3.4-5.0); Alkaline Phosphatase 104 U/L (46-116); Anion Gap 8.4 mmol/L (3-11); BUN 20 mg/dL (7-18); Bilirubin, Direct 0.1 mg/dL (0.0-0.2); Bilirubin, Total 0.4 mg/dL (0.2-1.0); CO2 27.6 mmol/L (21.0-32.0); Calcium 8.7 mg/dL (8.5-10.1); Chloride 108 mmol/L (98-107); Estimated GFR 58.24 (mL/min/1.73m2); Glucose 103 mg/dL (74-106); Potassium 4.2 mmol/L (3.5-5.1); Sodium 144 mmol/L (136-145); Total Protein 6.7 g/dL (6.4-8.2)
[2025-01-25 07:51] LABS: C-Reactive Protein < 0.50 mg/dL (<or=0.5)
== END 2025-01-25 07:47 | disposition home or self-care (01) ==
LOC: LBO 07:46
PROVIDERS: PCP Family Medicine; Visit Provider Internal Medicine Rheumatology
DX: Z79.899 Other long term (current) drug therapy (principal)
CPT/HCPCS: 36415; 80053; 80076; 85025; 86140

== ENCOUNTER 2025-03-13 14:04 | Outpatient (REF) | payer MEDICARE, OTHER, SELFPAY ==
[2025-03-13 15:32] LABS: Glucose Negative (Negative)
[2025-03-13 16:01] LABS: COMMENT (LAB VIEW ONLY) 151.21 mg/dL; Microalb ug/mg Crea 14.0 ug/mg Cr
[2025-03-13 16:13] LABS: Hemoglobin A1C 4.8 % (<5.7)
== END 2025-03-13 14:05 | disposition home or self-care (01) ==
LOC: NCHCN 14:04
PROVIDERS: PCP Family Medicine; Visit Provider Family Medicine
DX: E11.9 Type 2 diabetes mellitus without complications (principal)
CPT/HCPCS: 81003; 81015; 82043; 82570; 83036

== ENCOUNTER 2025-03-17 09:41 | Emergency (ER) | payer MEDICARE, OTHER, SELFPAY ==
[2025-03-17 10:01] VITALS: BP 126/78; PULSE 74; RESP 18; TEMP 36.6; O2SAT 97
--- NOTE | 2025-03-17 10:30 | DI.RAD_ITS ---
Exam(s) XR THORACIC SPINE COMPLETE EXAM: XR THORACIC SPINE COMPLETE CLINICAL HISTORY: L sided thoracic/lower back pain. TECHNIQUE: 2D digital imaging was performed. COMPARISON: CR XR THORACIC SPINE COMPLETE from 11/18/2023 FINDINGS: Two views-AP and lateral: There is no evidence of fracture or listhesis nor abnormal widening of the paraspinal lines. There is no thoracic scoliosis. No osseous lesions. Main findings again noted multilevel flowing connected right-sided osteophytes from T5 down to T11, inclusive, similar to previous. No significant focal osseous lesions evident. IMPRESSION: Acute osseous findings in the thoracic spinal column. No scoliosis. DATA REPOSITORY: RADIATION DOSE DELIVERED:
--- NOTE | 2025-03-17 10:30 | DI.RAD_ITS ---
Exam(s) XR LUMBAR SPINE COMPLETE EXAM: XR LUMBAR SPINE COMPLETE CLINICAL HISTORY: L sided back pain. TECHNIQUE: 2D digital imaging was performed. COMPARISON: CR XR LUMBAR SPINE COMPLETE from 01/30/2021 FINDINGS: Five views No evidence of acute fracture or listhesis nor pars defects.. No scoliosis. There is no significant disc space narrowing in the lumbosacral spine. There is multilevel facet arthropathy, most prominent in the lower 2 levels. There is no scoliosis. There is a bridging osteophyte on the right side at L1-2 level. Sacroiliac joints appear unremarkable. IMPRESSION: Multilevel facet arthropathy. DATA REPOSITORY: RADIATION DOSE DELIVERED:
--- NOTE | 2025-03-17 10:30 | DI.RAD_ITS ---
Exam(s) XR CHEST 2V PA LATERAL EXAM: XR CHEST 2V PA LATERAL CLINICAL HISTORY: L thoracic lower rib pain, sternal CP. TECHNIQUE: 2D digital imaging was performed. COMPARISON: CR,XR XR RIBS RT W PA LAT CHEST from 12/24/2024 FINDINGS: 2 views: Heart size is normal. The mediastinum is not widened. Lungs are clear. No infiltrates nor pleural effusions. IMPRESSION: No acute pulmonary findings. DATA REPOSITORY: RADIATION DOSE DELIVERED:
--- NOTE | 2025-03-17 10:39 | W.ED.GENAD ---
Discharge Plan Disposition Patient Disposition: Home Discharge Details Clinical Impression: Mid sternal chest pain, Acute left-sided back pain, Acute strain of neck muscle Primary Care Provider: Katarina Rodriguez ED Provider: Bronwyn Fountain Home Meds and New Rx's Prescriptions: No Action tramadol 50 mg tablet 50 mg PO DAILY pantoprazole [Protonix] 20 mg tablet,delayed release (DR/EC) 40 mg PO DAILY losartan 100 mg tablet 100 mg PO DAILY pregabalin [Lyrica] 50 mg capsule 100 mg PO TID albuterol sulfate [ProAir HFA] 90 mcg/actuation HFA aerosol inhaler 2 puff IH Q6H PRN methotrexate sodium 2.5 mg tablet 10 mg PO QWEEK Patient Comments: directions read once a week, twice a day. lamotrigine 100 mg tablet 100 mg PO BID baclofen 10 mg tablet 10 mg PO TID valacyclovir [Valtrex] 1 gram tablet 1,000 mg PO DAILY lidocaine 5 % adhesive patch,medicated 1 patch topical PRN Rx Instructions: leave on most painful area for up to 12 hrs vitamin B complex [B Complex-Vitamin B12] Tablet 1 tab PO DAILY amlodipine 2.5 mg tablet 2.5 mg PO DAILY oxcarbazepine 150 mg tablet 150 mg PO DAILY Ozempic 2 mg/dose (8 mg/3 mL) pen injector 2 mg subcut QWEEK Ubrelvy 100 mg tablet 100 mg PO ONCE Rx Instructions: as a single dose; may repeat once in >=2 hours after first dose if needed ascorbic acid (vitamin C) 1,000 MG tablet 1 tab PO DAILY cholecalciferol (vitamin D3) 1,000 UNITS tablet 1 tab PO DAILY polyethylene glycol 3350 17 GM powder in packet 2 pkt PO PRN PRN lamotrigine 25 mg Tablet 25 mg PO BID atorvastatin 40 mg tablet 40 mg PO HS Patient Comments: TAKE ONE TABLET BY MOUTH EVERY EVENING hydroxychloroquine 200 mg tablet 400 mg PO DAILY Patient Comments: TAKE TWO TABLETS BY MOUTH EVERY DAY Emgality Syringe 120 mg/mL Syringe 100 mg SUBCUT DIRECTED Patient Comments: [id number] folic acid 1 mg Tablet 1 mg PO DAILY acetaminophen 500 mg tablet 1,000 mg PO TID PRN Simponi 50 mg/0.5 mL pen injector SUBCUT ondansetron 4 mg tablet,disintegrating 4 mg PO Q8H PRNQty: 10 0RF fluoxetine 40 mg capsule 40 mg PO DAILY Discharge Instructions Additional Instructions: Please call your primary care provider's office first thing in the morning to schedule follow-up appointment. Your chest pain workup today was reassuring. Your EKG, blood work, and chest x-ray were unremarkable. Recommend that you discuss your discomfort if it persist with your primary care provider to look into further outpatient workup as needed For neck discomfort I recommend that you use lidocaine patches and alternating heat/ice (not to be used over patches). Gentle stretching may also be helpful. Your x-rays were unremarkable of your back. You have a large bruise on your back, with associated underlying muscle pain. I recommend that you continue ice for 15 to 20 minutes at a time, gentle stretching, and Tylenol as needed for discomfort. Physical therapy may be helpful if this back discomfort persists. Return to emergency care if you develop new chest pains, difficulty breathing, episodes of feeling like you are going to pass out, weakness in your arms or legs, loss of bowel/bladder control, or if you are very worried and need to be rechecked again immediately. Referrals: Katarina Rodriguez MD [Primary Care Provider, Medicine] HPI General Date/Time Provider Initiated Documentation: 03/17/25 10:12. HPI Narrative: Alexia is a 59-year-old female presents to the emergency department today for evaluation after fall reporting left sided back pain that is worsened with movement/walking/rolling over in bed. Patient fell on 03/14/2025 while putting on slippers, resulting in loss of balance. No head injury but landed on a decorative table, causing minor hip bruise and significant back discomfort, especially when sitting, rolling over, or standing. Occasional difficulty walking. Using ice and Tylenol Arthritis for pain relief; lidocaine patches provide some relief at night but she has woken up when she rolls over. Denies lower extremity weakness, trouble with ambulation, change in bowel or bladder function/saddle anesthesia. She also reports sternal chest discomfort for past couple of days, feeling like something is caught in her chest, similar to indigestion, starting around the time of the fall. Also reports right sided neck discomfort that she believes is muscular, this extends into the trapezius area. Denies associated shortness of breath, nausea/vomiting, abdominal pain, diaphoresis, change in p.o. intake, upper extremity weakness/tingling. PMH notable for : type 2 diabetes managed with Ozempic; recent A1c was 4.8. Trigeminal neuralgia with migraine headaches; had microvascular decompression (MVD) surgery in 03/2020 or 04/2020, resulting in hearing loss and initial balance issues, now improved. Also has history of GERD, taking pantoprazole. Is on atorvastatin due to prediabetes. Unable to take ibuprofen due to kidney issues; avoids NSAIDs. No history of osteoporosis; takes baby aspirin daily. Previously took methylprednisolone for rheumatoid arthritis but not in the past 2-3 months. Related Data Home Medications ?Medication ?Instructions ?Recorded ?Confirmed ascorbic acid (vitamin C) 1,000 mg 1 tab PO DAILY 07/18/14 03/17/25 tablet cholecalciferol (vitamin D3) 25 1 tab PO DAILY 07/18/14 03/17/25 mcg (1,000 unit) tablet polyethylene glycol 3350 17 gram 2 pkt PO PRN PRN 08/04/15 03/17/25 oral powder packet albuterol sulfate 90 mcg/actuation 2 puff inhalation Q6H PRN 10/04/19 03/17/25 aerosol inhaler (ProAir HFA) losartan 100 mg tablet 100 mg PO DAILY 10/04/19 03/17/25 pantoprazole 20 mg tablet,delayed 40 mg PO DAILY 10/04/19 03/17/25 release (Protonix) pregabalin 50 mg capsule (Lyrica) 100 mg PO TID 10/04/19 03/17/25 atorvastatin 40 mg tablet 40 mg PO HS 05/02/20 03/17/25 hydroxychloroquine 200 mg tablet 400 mg PO DAILY 05/02/20 03/17/25 folic acid 1 mg tablet 1 mg PO DAILY 06/03/21 03/17/25 galcanezumab-gnlm 120 mg/mL 100 mg subcut DIRECTED 06/03/21 03/17/25 subcutaneous syringe (Emgality) baclofen 10 mg tablet 10 mg PO TID 02/16/22 03/17/25 lamotrigine 100 mg tablet 100 mg PO BID 02/16/22 03/17/25 lidocaine 5 % topical patch 1 patch topical PRN 02/16/22 03/17/25 methotrexate sodium 2.5 mg tablet 10 mg PO QWEEK 02/16/22 03/17/25 valacyclovir 1 gram tablet 1,000 mg PO DAILY 02/16/22 03/17/25 (Valtrex) vitamin B complex (B 1 tab PO DAILY 02/16/22 03/17/25 Complex-Vitamin B12 tablet) lamotrigine 25 mg tablet 25 mg PO BID 09/21/22 03/17/25 amlodipine 2.5 mg tablet 2.5 mg PO DAILY 01/03/24 03/17/25 oxcarbazepine 150 mg tablet 150 mg PO DAILY 01/03/24 03/17/25 semaglutide 2 mg/dose (8 mg/3 mL) 2 mg subcut QWEEK 01/03/24 03/17/25 subcutaneous pen injector (Ozempic) ubrogepant 100 mg tablet (Ubrelvy) 100 mg PO ONCE 01/03/24 03/17/25 acetaminophen 500 mg tablet 1,000 mg PO TID PRN 02/07/24 03/17/25 golimumab 50 mg/0.5 mL mg subcut 10/08/24 01/15/25 subcutaneous pen injector (Simponi) ondansetron 4 mg disintegrating 4 mg PO Q8H PRN #10 tabs 10/08/24 03/17/25 tablet fluoxetine 40 mg capsule 40 mg PO DAILY 10/16/24 03/17/25 tramadol 50 mg tablet 50 mg PO DAILY 11/13/24 03/17/25 Previous Rx's ?Medication ?Instructions ?Recorded ondansetron 4 mg disintegrating 4 mg PO Q8H PRN #10 tabs 10/08/24 tablet Allergies Allergy/AdvReac Type Severity Reaction Status Date / Time erythromycin base Allergy Severe Skin Rash Verified 03/17/25 10:07 phenytoin sodium (From Allergy Severe Hives Verified 03/17/25 10:07 Dilantin) phenytoin sodium extended Allergy Severe Hives Verified 03/17/25 10:07 (From Dilantin) amoxicillin (Amoxicillin) Allergy Intermediate Hives Verified 03/17/25 10:07 lisinopril Allergy Intermediate cough Verified 03/17/25 10:07 potassium clavulanate (From Allergy Intermediate Hives Verified 03/17/25 10:07 Augmentin) Sulfa (Sulfonamide Allergy Mild Skin Rash Verified 03/17/25 10:07 Antibiotics) tomato (Tomato) Allergy Mild Skin Rash Verified 03/17/25 10:07 NSAIDS (Non-Steroidal AdvReac Severe Per pt, Verified 03/17/25 10:07 Anti-Inflamma states kidney function declines sumatriptan (From Imitrex) AdvReac Severe Visual Verified 03/17/25 10:07 Disturbances,burning sensation through out body oxycodone AdvReac Intermediate n/v Verified 03/17/25 10:07 hydromorphone AdvReac nausea/vomi Verified 03/17/25 10:07 ting General Stated Complaint: Orthopedic HARRIET: 3 Exam Narrative Exam Narrative: General Appearance: Normal. Alert and oriented, no acute distress Vital signs: Within normal limits. Respiratory: Easy work of breathing, lung sounds clear bilaterally. Cardiac: Regular rate and rhythm, normal heart sounds. No murmurs noted. No JVD or ankle swelling. 2+ radial pulses bilaterally. Gastrointestinal: Abdomen soft, non-tender to palpation. Back, Musculoskeletal: No C-spine step-off/tenderness/deformity. Mild tenderness to palpation of muscles to right side of neck and trapezius. Diffuse midline tenderness to T-spine and L-spine, as well as to left side of back. Full shoulder range of motion without pain. Neurological: Normal gait. 5/5 muscle strength upper and lower extremities, sensation grossly intact. Skin: Large purple ecchymosis on left side of back. Psychiatric: Normal. Course Vital Signs Vital signs: Vital Signs Temperature 36.6 C 03/17/25 10:01 Pulse 74 03/17/25 10:01 Respiratory Rate 18 03/17/25 10:01 Blood Pressure 126/78 03/17/25 10:01 Pulse Oximetry 97 03/17/25 10:01 Temperature 36.6 C 03/17/25 10:01 Temperature Source Oral 03/17/25 10:01 Pulse 74 03/17/25 10:01 Respiratory Rate 18 03/17/25 10:01 Blood Pressure 126/78 03/17/25 10:01 Blood Pressure Position Sitting 03/17/25 10:01 Pulse Oximetry 97 03/17/25 10:01 Oxygen Delivery Method Room Air 03/17/25 10:01 Oxygen Flow Rate 0 03/17/25 10:01 Pain Level 8 03/17/25 10:01 Medical Decision Making 59-year-old female with fall resulting in significant back bruising and pain, chest discomfort, and neck pain. Differential Diagnosis includes but is not limited to: Vertebral fracture (due to history of steroid use, concern for osteoporosis), bleeding disorder, contusion, ACS/cardiac arrhythmia, GERD, hiatal hernia, muscle strain ED Course: - EKG performed -Baseline labs -CXR and Thoracic/lumbar xrays - Mylanta given, no change in symptom I independently interpreted the following tests: CBC, CMP, magnesium, serial troponins all reassuring. EKG unremarkable, normal sinus rhythm rate 64, prolonged IN interval 215. No just consistent with acute ischemia. No acute abnormalities noted on chest x-ray or T-spine/L-spine images. Final impression: Sternal chest discomfort, unclear etiology. Cardiac workup today reassuring. Recommend further follow-up/evaluation with PCP on outpatient basis Clinical Impression: - Muscular neck pain - Chest discomfort, cardiac workup reassuring. - Back pain, consistent with contusion/muscular strain Disposition: - Discharge home with close PCP follow-up. Reviewed discharge instructions with patient, including results of workup today and symptomatic management/red flags indicate need for return to emergency care. She voices agreement plan of care Patient Education: Use ice for swelling. Take Tylenol Arthritis for pain. Consider lidocaine patches for relief. Patient consented to the use of MATT Imaging Data Radiologic Study: Radiologist's impression: PROCEDURE INFORMATION: Exam: XR Lumbosacral Spine Exam date and time: 03/17/2025 11:04 AM Age: 59 years old Clinical indication: Other: L sided back pain TECHNIQUE: Imaging protocol: Radiologic exam of the lumbosacral spine. Views: 4 or 5 views. COMPARISON: CT LUMBAR SPINE RECONS 07/21/2021 4:21 PM FINDINGS: Bones/joints: Alignment is normal. Diffuse degenerative disc disease and facet arthropathy. No fracture. No bony destructive lesion. Soft tissues: Unremarkable. IMPRESSION: Diffuse degenerative disc disease and facet arthropathy without evidence of acute bony abnormality. Radiologic Study #2: Radiologist's impression: PROCEDURE INFORMATION: Exam: XR Thoracic Spine Exam date and time: 03/17/2025 11:03 AM Age: 59 years old Clinical indication: Other: L sided thoracic/lower back pain TECHNIQUE: Imaging protocol: Radiologic exam of the thoracic spine. Views: 3 views. COMPARISON: CR XR THORACIC SPINE COMPLETE 11/18/2023 2:49 PM FINDINGS: Bones/joints: Diffuse degenerative disc disease. Normal alignment. No acute fracture. Soft tissues: Unremarkable. IMPRESSION: No acute findings Radiologic Study #3: Radiologist's impression: PROCEDURE INFORMATION: Exam: XR Chest Exam date and time: 03/17/2025 11:00 AM Age: 59 years old Clinical indication: Other: L thoracic lower rib pain, sternal cp TECHNIQUE: Imaging protocol: Radiologic exam of the chest. Views: 2 views. COMPARISON: CR XR RIBS RT W PA LAT CHEST 12/24/2024 4:15 PM FINDINGS: Lungs: Unremarkable. No consolidation. Pleural spaces: Unremarkable. No pleural effusion. No pneumothorax. Heart/Mediastinum: Unremarkable. No cardiomegaly. Bones/joints: Degenerative changes in the thoracic spine. IMPRESSION: No acute findings PFSH All Active Problems Acute strain of neck muscle (Acute) Acute left-sided back pain (Acute) Mid sternal chest pain (Acute) Injury of medial collateral ligament of left knee (Acute 10/08/24) Injury of posterior cruciate ligament of left knee (Acute ~10/08/24) CRPS (complex regional pain syndrome) (Chronic) Neuralgia (Chronic) Cholecystitis (Acute) Prediabetes (Chronic) Hypertension (Chronic) GERD (gastroesophageal reflux disease) (Chronic) Migraine (Chronic) Asthma (Chronic) Back pain (Chronic) H/O surgical procedure (Chronic) a. hysterectomy b. orthopedic surgery Adhesive capsulitis of left shoulder (Acute 08/25/16) Biceps tendinitis of left upper extremity (Acute 10/13/16) Chronic otitis media with effusion (Acute 04/25/14) Neck pain (Acute 05/24/13) Otalgia (Acute 05/03/13) Tendinitis of left rotator cuff (Acute 06/30/16) Subacromial injection: 04/26/18; 04/06/17 Injection under fluoroscopy: 08/10/18 Tubular adenoma of colon (Acute 06/15/17) Left ankle sprain (Acute) Trochanteric bursitis of left hip (Acute) Corticosteroid injection: 08/07/18 Sacroiliac joint dysfunction (Acute) Port-A-Cath in place (Acute) Fracture of radial neck, right, closed (Acute 06/09/19) Sensorineural hearing loss (SNHL) of right ear with unrestricted hearing of left ear (Acute) Vertigo (Acute) Hypomagnesemia (Acute) Screening for colon cancer (Acute) Genital herpes (Acute) Chronic kidney disease (Chronic) Vitamin B12 deficiency (Acute) Raynauds syndrome (Acute) Internal derangement of left knee (Acute) Arthritis of right elbow (Acute) lateral epicondyle injection 04/12/2022 Family history of colon cancer (Acute) Rheumatoid arthritis, seronegative, multiple sites (Acute) Right rotator cuff tendonitis (Acute) Steroid injection: 01/09/2024; 08/02/2022 Injury of right hand (Acute) Dislocation of distal interphalangeal joint of right middle finger (Acute) Status post reduction and percutaneous pinning DOS: 09/24/2022 Medical History Deafness in right ear Adenomatous colon polyp Ovarian cyst Screening breast examination Preventative health care Leg cramps Eczema Allergic rhinitis History of depression Insomnia Incontinence Constipation Fatty infiltration of liver Trigeminal neuralgia History of neck pain Hand pain Migraine Asthma Obesity HTN (hypertension) GERD (gastroesophageal reflux disease) Tendinitis Otalgia DM (diabetes mellitus) Surgical History H/O craniotomy H/O tooth extraction History of ear surgery History of cholecystectomy H/O shoulder surgery History of appendectomy History of hysterectomy History of knee surgery History of eye surgery Mediport placement (05/02/15) no longer in place Colonoscopy - [facility] (06/15/17) Family History Mother Hx of migraines Social History Smoking/Tobacco Use Status: Former Tobacco Use Quit Date: 06/13/10 Smoking risk assessment performed?: Yes Alcohol Intake: current Alcohol Intake frequency: holidays/special occasions only Alcohol type: other Drug use: Never Substance use type: does not use Current gender identity: female Do you feel safe at home: Yes Do you feel safe in your relationship?: Yes
[2025-03-17] MEDS: Mylanta Suspension 30 ML CUP PO (10:44)
[2025-03-17 11:01] LABS: HCT 37.7 % (36.0-46.0); HGB 12.9 g/dL (11.2-15.7); MCH 34.8 pg (27.0-33.0); MCHC 34.2 % (32.0-36.0); MCV 102 fL (80-95); MPV 10.7 fL (8.0-11.0); Platelet Count 200 10^3/uL (130-400); RBC 3.71 10^6/uL (3.93-5.22); RDW 13.7 % (11.7-14.6); RDW-SD 51.3 fL; WBC 7.00 10^3/uL (4.4-10.8)
[2025-03-17 11:21] LABS: ALT 33 U/L (14-59); AST 34 U/L (15-37); Albumin 4.0 g/dL (3.4-5.0); Alkaline Phosphatase 106 U/L (46-116); Anion Gap 9.2 mmol/L (3-11); BUN 15 mg/dL (7-18); Bilirubin, Total 0.7 mg/dL (0.2-1.0); CO2 25.8 mmol/L (21.0-32.0); Calcium 8.8 mg/dL (8.5-10.1); Chloride 105 mmol/L (98-107); Estimated GFR 65.30 (mL/min/1.73m2); Glucose 91 mg/dL (74-106); Magnesium 2.0 mg/dL (1.8-2.4); Potassium 4.9 mmol/L (3.5-5.1); Sodium 140 mmol/L (136-145); Total Protein 7.6 g/dL (6.4-8.2); Troponin I 5 ng/L (<or=51)
[2025-03-17 12:45] LABS: Troponin I 5 ng/L (<or=51)
--- NOTE | 2025-03-17 13:00 | RT.EKG_ITS ---
APPROVED REPORT Exam: Resting ECG Reason for Exam: sternal chest discomfort Patient Location: E HR:64 bpm ECG Measurements Heart Rate 64 AXIS FL 215 P 29 QRSd 98 QRS -27 QT 463 T 32 QTc 477 Conclusion Sinus rhythm...normal P axis, V-rate 60- 99 Prolonged FL interval...FL >210, V-rate 50- 90
--- NOTE | 2025-03-17 13:09 | DI.VRAD_ITS ---
PROCEDURE INFORMATION: Exam: XR Chest Exam date and time: 03/17/2025 11:00 AM Age: 59 years old Clinical indication: Other: L thoracic lower rib pain, sternal cp TECHNIQUE: Imaging protocol: Radiologic exam of the chest. Views: 2 views. COMPARISON: CR XR RIBS RT W PA LAT CHEST 12/24/2024 4:15 PM FINDINGS: Lungs: Unremarkable. No consolidation. Pleural spaces: Unremarkable. No pleural effusion. No pneumothorax. Heart/Mediastinum: Unremarkable. No cardiomegaly. Bones/joints: Degenerative changes in the thoracic spine. IMPRESSION: No acute findings. Dictated and Authenticated by: Yeyo Javier MD. Orderin Vandana Barnhart MD
--- NOTE | 2025-03-17 13:10 | DI.VRAD_ITS ---
PROCEDURE INFORMATION: Exam: XR Lumbosacral Spine Exam date and time: 03/17/2025 11:04 AM Age: 59 years old Clinical indication: Other: L sided back pain TECHNIQUE: Imaging protocol: Radiologic exam of the lumbosacral spine. Views: 4 or 5 views. COMPARISON: CT LUMBAR SPINE RECONS 07/21/2021 4:21 PM FINDINGS: Bones/joints: Alignment is normal. Diffuse degenerative disc disease and facet arthropathy. No fracture. No bony destructive lesion. Soft tissues: Unremarkable. IMPRESSION: Diffuse degenerative disc disease and facet arthropathy without evidence of acute bony abnormality. Dictated and Authenticated by: Yeyo Javire MD. Orderin Vandana Barnhart MD
--- NOTE | 2025-03-17 13:11 | DI.VRAD_ITS ---
PROCEDURE INFORMATION: Exam: XR Thoracic Spine Exam date and time: 03/17/2025 11:03 AM Age: 59 years old Clinical indication: Other: L sided thoracic/lower back pain TECHNIQUE: Imaging protocol: Radiologic exam of the thoracic spine. Views: 3 views. COMPARISON: CR XR THORACIC SPINE COMPLETE 11/18/2023 2:49 PM FINDINGS: Bones/joints: Diffuse degenerative disc disease. Normal alignment. No acute fracture. Soft tissues: Unremarkable. IMPRESSION: No acute findings. Dictated and Authenticated by: Yeyo Javier MD. Orderin Vandana Barnhart MD
--- NOTE | 2025-03-18 16:35 | NUR.NOTE ---
Access chart to determine if a referral had been put in on this patient. Nursing Note:
== END 2025-03-17 13:39 | disposition home or self-care (01) ==
PROVIDERS: Emergency Provider Nurse Practitioner Family; PCP Family Medicine
DX: S16.1XXA Strain of muscle, fascia and tendon at neck level, initial encounter (principal); M54.50 Low back pain, unspecified; R07.89 Other chest pain; W19.XXXA Unspecified fall, initial encounter
CPT/HCPCS: 36415; 80053; 85027; 93005; 99284; 71046; 72072; 72110; 83735; 84484; 93010

== ENCOUNTER → 2025-03-19 09:26 | Outpatient (BNVA) | payer MEDICARE, OTHER, SELFPAY | PROVIDERS: PCP Family Medicine; Visit Provider Student in an Organized Health Care Education/Training Program | DX: S83.412D Sprain of medial collateral ligament of left knee, subsequent encounter (principal); S83.522D Sprain of posterior cruciate ligament of left knee, subsequent encounter; X58.XXXD Exposure to other specified factors, subsequent encounter | CPT/HCPCS: 99213 ==